=== PATIENT | female | born 1940 | race Caucasian/White ===

== ENCOUNTER 2019-09-07 07:28 | Outpatient (CLI) | payer MEDICARE | END 2019-09-07 07:29 | disposition EMS.NT | LOC: EMS 07:28 | PROVIDERS: ATTEND Surgery | DX: R07.81 Pleurodynia (principal) ==

== ENCOUNTER 2021-07-10 10:50 | Outpatient (CLI) | payer MEDICARE, OTHER ==
--- NOTE | 2021-07-10 15:53 | DEXA Report ---
PROCEDURE: Dexa Spine and/or Hip INDICATIONS: POST MENOPAUSAL TECHNIQUE: Dual energy x-ray absorptiometry (DXA) was performed on a [employer] System. Regions measur ed are the AP Spine, femoral neck, and if needed forearm. COMPARISON: None. FINDINGS: Lumbar Spine: Bone Mineral Density 1.479 g/cm/cm,T score 2.5, normal Left Hip: Bone Mineral Density 1.064 g/cm/cm,T score 0.4, normal Left Femoral Neck: Bone Mineral Density 0.999 g/cm/cm, T score -0.3, normal (T score greater or equal to -1.0: NORMAL) (T score from -1.1 to -2.4: OSTEOPENIA) (T score less than or equal to -2.5 to: OSTEOPOROSIS) Impression: Normal bone mineral density. Patients with diagnosis of osteoporosis or osteopenia should have regular bone mineral density assess ment. For those eligible for Medicare, routine testing is allowed once every 2 years. Testing frequ ency can be increased for patients who have rapidly progressing disease or for those who are receivin g medical therapy to restore bone mass. Reviewed by: Citlalli Ramirez MD on 07/10/2021 3:52 PM PDT Approved by: Citlalli Ramirez MD on 07/10/2021 3:52 PM PDT Station ID: [id number]
== END 2021-07-10 10:51 | disposition home or self-care (01) ==
LOC: DI 10:50
PROVIDERS: ATTEND Internal Medicine
DX: Z78.0 Asymptomatic menopausal state (principal); N95.8 Other specified menopausal and perimenopausal disorders

== ENCOUNTER 2021-12-28 08:28 | Outpatient (CLI) | payer MEDICARE, OTHER | END 2021-12-28 08:29 | disposition critical access hospital (66) | LOC: EMS 08:28 | DX: K62.5 Hemorrhage of anus and rectum (principal); R53.1 Weakness; R10.9 Unspecified abdominal pain | CPT/HCPCS: A0425; A0429 ==

== ENCOUNTER 2022-05-16 09:54 | Outpatient (CLI) | payer MEDICARE, OTHER ==
[2022-05-16] MEDS ORDERED: iohexoL-300 100 ML VIAL ONE (09:59)
[2022-05-16] MEDS ORDERED: DIATRIZOATE MEGLU/DIATRIZO SOD 30 ML BOTTLE PO ONE ×2 (09:59→11:26)
[2022-05-16] MEDS ORDERED: iohexoL-300 100 ML VIAL IVP ONE (11:26)
--- NOTE | 2022-05-16 12:09 | CT Report ---
PROCEDURE: ABDOMEN/PELVIS W INDICATIONS: MESENTERIC LYMPHADENITIS CONTRAST: 100ml omni 300 TECHNIQUE: After the administration of IV and oral contrast, 5 mm thick sections acquired from the diaphragms to the symphysis. 5 mm thick coronal and sagittal reformats were acquired. For radiation dose reducti on, the following was used: automated exposure control, adjustment of mA and/or kV according to priscilla ent size. COMPARISON: 12/28/2021 FINDINGS: Image quality: Good Lower chest: Basal scarring/atelectasis. Small hiatal hernia with suspected esophageal reflux. Tran ry artery calcifications. Mitral annular calcifications. Solid organs: Possible hepatic steatosis. Liver is otherwise unremarkable. Gallbladder is absent. No pathologic dilation of the pancreatic duct or biliary duct. No splenomegaly. No adrenal nodules. No h ydronephrosis. Vessels and lymph nodes: No abdominal aortic aneurysm. Mesenteric, retroperitoneal and upper abdomina l lymphadenopathy. Index portacaval node is larger measuring 2.2 cm in short axis previously 1.3 cm. Mesenteric and retroperitoneal nodes are also larger. Bowel and peritoneum: No bowel obstruction. No pathologic ascites. Body wall: Unremarkable Pelvis: Hysterectomy. Bladder is unremarkable. Bones: Degenerative changes without acute or suspicious osseous finding. IMPRESSION: Enlarged retroperitoneal, mesenteric, and upper abdominal lymphadenopathy suspicious for neoplasm. Co nsider PET/CT and/or tissue sampling. Other findings as above Reviewed by: Andrae Lan MD on 05/16/2022 12:08 PM PST Approved by: Andrea Lan MD on 05/16/2022 12:08 PM PST Station ID: [id number]
== END 2022-05-16 09:55 | disposition home or self-care (01) ==
LOC: DI 09:54
PROVIDERS: ATTEND Internal Medicine
DX: R59.0 Localized enlarged lymph nodes (principal)
CPT/HCPCS: 74177; Q9963; Q9967

== ENCOUNTER 2022-07-07 11:03 | Outpatient (CLI) | payer MEDICARE, OTHER ==
[2022-07-07] MEDS ORDERED: iohexoL-300 100 ML VIAL ONE (11:09)
[2022-07-07] MEDS ORDERED: iohexoL-300 100 ML VIAL IVP ONE (11:38)
--- NOTE | 2022-07-07 13:45 | CT Report ---
PROCEDURE: CHEST W INDICATIONS: ENLARGING MESENTERIC LYMPHADENOPATHY CONTRAST:100ml Omnipaque 300 TECHNIQUE: After the administration of intravenous contrast, 1 mm axial images were acquired from the pulmonary apices through the posterior costophrenic angles. Axial 5 mm soft tissue kernel reconstructions were performed as well as 8 mm axial MIP and coronal and sagittal 5 mm reformations. For radiation dose reduction, the following was used: automated exposure control, adjustment of mA and/or kV according to patient size. COMPARISON: CT 05/16/2022 FINDINGS: Image quality: Excellent. Lungs and pleura: No suspicious nodules which require follow up. No pleural effusions. No pneumothora x. Triangular shape, juxtapleural nodule in the superior left lower lobe, appearance favors benign in trapulmonary lymph node. 2 mm solid nodule, within a subsegmental airway in the right middle lobe, pr esumably a focus of mucus impaction (4/184). Mediastinum: Heart size is normal. No pericardial effusions. No large vessel abnormality. A couple of enlarged paraesophageal lymph nodes, including the 1.2 cm short axis node (/), and 1.9 cm short a xis node (3/34). Chest wall and lower neck: No thyroid nodule which requires sonographic follow up. No axillary or sup raclavicular adenopathy by size. Bones: No aggressive osseous abnormality. Upper Abdomen: Retroperitoneal, gastrohepatic and central mesenteric adenopathy. IMPRESSION: 1.Paraesophageal lymphadenopathy. No supraclavicular adenopathy visualized. 2.Similar retroperitoneal, gastrohepatic and central mesenteric adenopathy. Reviewed by: Sanchez Hayes on 07/07/2022 12:12 PM PDT Approved by: Sanchez Hayes on 07/07/2022 12:12 PM PDT Station ID: [id number]
--- NOTE | 2022-07-07 16:26 | CT Report ---
PROCEDURE: SOFT TISSUE NECK W INDICATIONS: ENLARGING MESENTERIC LYMPHADENOPATHY CONTRAST: 100ml Omnipaque 300 TECHNIQUE: After the administration of intravenous contrast, 3.0 mm axial sections acquired from the sella to th e aortic arch. Additional oblique axial 3.0 mm sections acquired through the pharynx. 3 mm thick co mary anne reformats were generated. For radiation dose reduction, the following was used: automated exp osure control, adjustment of mA and/or kV according to patient size. COMPARISON: CT abdomen and pelvis dated 05/16/2022, CT chest dated 07/07/2022. FINDINGS: Image quality: Excellent. Lymph nodes: No enlarged lymph nodes seen throughout the neck. Vessels: Visualized vasculature appears patent. Neck spaces: The oropharynx, nasopharynx, and pharynx demonstrate no mucosal lesions. The vocal cor ds, false vocal cords, pyriform sinuses, epiglottis, vallecula, and tongue base all appear normal. E xtramucosal spaces appear unremarkable. Glands: The parotid and submandibular glands appear normal. The thyroid is normal in size and there are no incidental findings. Miscellaneous: Visualized brain and orbits appear normal. Lung apices appear clear. Superficial so ft tissues appear normal. Bones: No suspicious bony lesions. Visualized sinuses and mastoids appear unremarkable. IMPRESSION: 1. No cervical adenopathy. No target for biopsy in the neck. Comment: Although somewhat challenging, on the prior CT of the abdomen and pelvis dated 05/16/2022, a l eft periaortic lymph node would potentially be amenable to CT-guided biopsy on prior image 39/4. Anot her left periaortic lymph node would be amenable to biopsy on image 44/4. CLINICAL RECOMMENDATION STATEMENTS: In patients <35 years with an ITN detected on CT, MRI, or extrathyroidal ultrasound, the Committee re commends further evaluation with dedicated thyroid ultrasound if the nodule is "e1 cm and has no susp icious imaging features, and if the patient has normal life expectancy. In patients "e35 years with an ITN detected on CT, MRI, or extrathyroidal ultrasound, the Committee r ecommends further evaluation with dedicated thyroid ultrasound if the nodule is "e1.5 cm and has no s uspicious imaging features, and if the patient has normal life expectancy. (ACR, 2014) Reviewed by: Campbell Phelps MD on 07/07/2022 4:25 PM PDT Approved by: Campbell Phelps MD on 07/07/2022 4:25 PM PDT Station ID: [id number]
== END 2022-07-07 11:04 | disposition home or self-care (01) ==
LOC: DI 11:03
PROVIDERS: ATTEND Internal Medicine
DX: R59.0 Localized enlarged lymph nodes (principal); R93.89 Abnormal findings on diagnostic imaging of other specified body structures
CPT/HCPCS: 70491; 71260; Q9967

== ENCOUNTER 2022-07-11 08:35 | Emergency (ER) | payer MEDICARE, OTHER ==
--- NOTE | 2022-07-11 09:15 | ED Physician Documentation ---
PD HPI ABD PAIN - Stated complaint Stated Complaint: ABD PX - Chief complaint Chief Complaint: Abd Pain - History obtained from History obtained from: Patient - History of Present Illness Timing - onset: How many days ago (she has had abd pain since last December, when seen in ER and Dx with adenopathy by CT of abdomen. She has been to PMD to get further imaging done outpt, and now awaiting a reverral to Oncology, once a biopsy has been obtained.) Timing - duration: Months (since last December and has continued with attempts to get further workup. Had CT chest and neck recently to eval for biopsy sites for other nodes. The most promising site per Radiologist is in abs near aorta.) Timing - details: Gradual onset, Waxing and waning Quality: Cramping, Aching Location: Periumbilical, Suprapubic Radiation: No: Chest, Lower back Improved by: No: Eating, BM Worsened by: No: Eating Associated symptoms: No: Fever, Nausea, Vomiting, Diarrhea, Constipation (had had some firm stools but took laxative and miralax and had large bowel movement yesterday but not changed in the abd cramping.) Similar symptoms before: Diagnosis (has multiple abd adenopathy and some in chest c/w likely lymphoma/cancerous tumor. Has been causing pains in abd awhile, since last fall around when first diagnosed.) Review of Systems Constitutional: reports: Myalgias, Fatigue, Weight Loss. denies: Fever, Chills Nose: denies: Rhinorrhea / runny nose, Congestion Throat: denies: Sore throat Cardiac: denies: Chest pain / pressure, Palpitations Respiratory: denies: Dyspnea, Cough GI: denies: Abdominal Pain, Vomiting : denies: Dysuria, Frequency Skin: denies: Rash Neurologic: reports: Generalized weakness PD PAST MEDICAL HISTORY - Past Medical History Cardiovascular: Hypertension, High cholesterol Respiratory: Asthma Endocrine/Autoimmune: Type 2 diabetes GI: GERD SPECIAL EDUCATION [employer]ER: None : None Psych: None Musculoskeletal: None - Past Surgical History Past Surgical History: Yes General: Cholecystectomy, Gastric surgery /[employer]ER: Hysterectomy - Present Medications Home Medications: Ambulatory Orders Medication Instructions Recorded Confirmed Aspirin Chewable [[place] Lenin 81 mg PO DAILY 12/28/21 12/28/21 Aspirin] Azithromycin [Zithromax] 2 tab PO DAILY #4 tab 12/28/21 Omeprazole 20 mg PO DAILY 12/28/21 12/28/21 Oxybutynin [Ditropan] 5 mg PO DAILY 12/28/21 12/28/21 Simvastatin [Zocor] 10 mg PO DAILY 12/28/21 12/28/21 lisinopriL [Lisinopril] 5 mg PO DAILY 12/28/21 12/28/21 metFORMIN [Glucophage] 500 mg PO BIDWM 12/28/21 12/28/21 Dicyclomine [Bentyl] 10 mg PO BID PRN 10 Days #20 cap 07/11/22 Docusate Sodium 100Mg Capsule 100 mg PO DAILY #20 cap 07/11/22 [Colace 100Mg Capsule] Meloxicam [Mobic] 7.5 mg PO BID 10 Days #20 tablet 07/11/22 - Allergies Allergies/Adverse Reactions: Allergies Allergy/AdvReac Type Severity Reaction Status Date / Time clindamycin Allergy Unknown Verified 07/11/22 09:11 Penicillins Allergy Unknown Verified 07/11/22 09:11 Sulfa (Sulfonamide Allergy Unknown Verified 07/11/22 09:11 Antibiotics) - Social History Does the pt smoke?: No Smoking Status: Never smoker Does the pt drink ETOH?: Yes Does the pt have substance abuse?: No - Immunizations Immunizations are current?: Yes PD ED PE NORMAL - Vitals Vital signs reviewed: Yes - General General: Alert and oriented X 3, No acute distress, Well developed/nourished - Neck Neck: Supple, no meningeal sign, No adenopathy - Cardiac Cardiac: RRR, No murmur - Respiratory Respiratory: Clear bilaterally - Abdomen Abdomen: Soft, Non tender - Derm Derm: Normal color, Warm and dry - Neuro Neuro: Alert and oriented X 3, No motor deficit, No sensory deficit, Normal speech Results - Vitals Vitals: Vital Signs - 24 hr 07/11/22 07/11/22 07/11/22 09:08 10:30 12:00 Temperature 36.2 C L Heart Rate 78 68 58 L Respiratory 18 16 16 Rate Blood Pressure 96/76 137/63 H 140/64 H O2 Saturation 100 97 100 Oxygen O2 Source Room air - Labs Labs: Laboratory Tests 07/11/22 07/11/22 07/11/22 09:27 09:27 11:57 WBC 13.0 H RBC 4.95 Hgb 14.6 Hct 45.0 MCV 90.9 MCH 29.5 MCHC 32.4 RDW 12.6 Plt Count 416 MPV 11.5 H Neut # (Auto) 9.6 H Lymph # (Auto) 1.6 Mcleod # (Auto) 1.3 H Eos # (Auto) 0.4 Baso # (Auto) 0.1 Absolute Nucleated RBC 0.00 Nucleated RBC % 0.0 Sodium 140 Potassium 4.3 Chloride 104 Carbon Dioxide 28 Anion Gap 8.0 BUN 16 Creatinine 0.8 Estimated GFR (MDRD) 69 L Glucose 164 H Calcium 9.4 Total Bilirubin 0.5 AST 20 ALT 12 Alkaline Phosphatase 74 Total Protein 7.0 Albumin 3.9 Globulin 3.1 Albumin/Globulin Ratio 1.3 Lipase 27 Urine Color YELLOW Urine Clarity CLEAR Urine pH 6.0 Ur Specific [place] 1.020 Urine Protein NEGATIVE Urine Glucose (UA) NEGATIVE Urine Ketones NEGATIVE Urine Occult Blood NEGATIVE Urine Nitrite NEGATIVE Urine Bilirubin NEGATIVE Urine Urobilinogen 0.2 (NORMAL) Ur Leukocyte Esterase NEGATIVE Ur Microscopic Review NOT INDICATED Urine Culture Comments NOT INDICATED PD Medical Decision Making - ED course Complexity details: reviewed old records (I reviewed the prior CT reports from diagnostic imaging of the abdomen chest and neck done over the last month as well as the prior ER visit from last December.), considered differential (has had pain from adenopathy in abd/chest. Has had repeated ct scans. She does not have disstension, repetitive vomiting, blody stools, dysuria.) Departure - Departure Disposition: 01 Home, Self Care Clinical Impression: Bilateral lower abdominal cramping Condition: Stable Record reviewed to determine appropriate education?: Yes Instructions: ED Abdominal Pain Female Non-Specific Abdominal Pain Follow-Up: Lázaro Reyes MD [Primary Care Provider] - Prescriptions: Dicyclomine [Bentyl] 10 mg PO BID PRN 10 Days #20 cap PRN Reason: Abdominal Pain Docusate Sodium 100Mg Capsule [Colace 100Mg Capsule] 100 mg PO DAILY #20 cap Meloxicam [Mobic] 7.5 mg PO BID 10 Days #20 tablet Comments: Your urine sample appears normal without any signs of bladder infection. The bladder scanner does not show any notable urinary retention. He does not seem to be urinary tract cause of your symptoms. I presume you are having some intestinal cramping and mesenteric pain related to the lymph nodes that you have been developing. Your exam does not suggest an obstruction or more significant process at this time. Our shared decision was to not undergo another CT scan but to treat empirically for presumed intestinal spasms and some inflammation related to the lymphadenopathy. I printed out copies of your CT report from the recent neck and chest. In there they did describe the sentiments that your abdominal CT scan previously done showed a couple of lymph nodes that would be amenable to percutaneous needle biopsy. Contact with Dr. Reyes office and discuss with the provider or their nurse this idea and see if you would place a referral to the interventional radiology to obtain a biopsy so you can get further along in the treatment plan. At this point I would suggest some regular anti-inflammatory. I would try meloxicam twice daily with food as its longer lasting and can be taken just twice daily. Also try an antispasmodic called dicyclomine if you having cramping type pains. To that add Tylenol every 4-6 hours if needed for pain or your pain feels that you have if needed for worse pain. Use a daily stool softener such as docusate. You could also add in some fiber like Metamucil. I sent your prescriptions to your preferred pharmacy, [facility]. Follow-up with Dr. Reyes's office about further referrals for biopsy. Discharge Date/Time: 07/11/22 12:53
[2022-07-11] MEDS ORDERED: HYDROmorphone 0.5 MG/0.5 ML SYRINGE IVP STA (09:49)
[2022-07-11] MEDS ORDERED: SODIUM CHLORIDE 0.9% 1,000 ML IV STA (09:49)
[2022-07-11] MEDS ORDERED: ONDANSETRON 4 MG/2 ML VIAL IVP STA (09:49)
[2022-07-11] MEDS ORDERED: KETOROLAC 15 MG/ML VIAL IVP STA (09:49)
[2022-07-11 10:01] LABS: BASOPHILS # (AUTO) 0.1 10^3/uL (0.0-0.1); BASOPHILS % (AUTO) 0.8 %; EOSINOPHILS # (AUTO) 0.4 10^3/uL (0.0-0.7); EOSINOPHILS % (AUTO) 3.4 %; HGB - HEMOGLOBIN 14.6 g/dL (12.0-16.0); LYMPHOCYTES # (AUTO) 1.6 10^3/uL (1.5-3.5); LYMPHOCYTES % (AUTO) 11.9 %; MEAN CORPUSCULAR HEMOGLOBIN 29.5 pg (27.0-31.0); MEAN CORPUSCULAR HGB CONC 32.4 g/dL (32.0-36.0); MEAN CORPUSCULAR VOLUME 90.9 fL (81.0-99.0); MEAN PLATELET VOLUME 11.5 fL (7.9-10.8); MONOCYTES # (AUTO) 1.3 10^3/uL (0.0-1.0); MONOCYTES % (AUTO) 9.6 %; NEUTROPHILS # (AUTO) 9.6 10^3/uL (1.5-6.6); PLT - PLATELET COUNT 416 10^3/uL (130-450); RED BLOOD COUNT 4.95 10^6/uL (4.20-5.40); RED CELL DISTRIBUTION WIDTH 12.6 % (12.0-15.0)
[2022-07-11 10:10] LABS: ALBUMIN 3.9 g/dL (3.2-5.5); ALBUMIN/GLOBULIN RATIO 1.3 (1.0-2.2); BILIRUBIN,TOTAL 0.5 mg/dL (0.2-1.0); CALCIUM 9.4 mg/dL (8.5-10.3); CREATININE 0.8 mg/dL (0.4-1.0); POTASSIUM 4.3 mmol/L (3.5-5.0)
--- OUTSIDE RECORDS SUMMARY | 2022-07-11 10:24 | EXTERNAL MEDICAL SUMMARY RPT | Continuity of Care Document ---
:1940 Author Organization [facility] Address [address] [place] [address] Phone Care Team Providers Name Role Phone Unavailable Unavailable Unavailable Ian Amato Unavailable Unavailable Allergies and Intolerances date description facility type (no date) Penicillins Located Within [facility] (unknown) (no date) Sulfa (Sulfonamide Antibiotics) [facility] (unknown) (no date) clindamycin Located Within [facility] (unknown) Encounters No information. Functional Status No information. Immunizations No information. Medications date description facility 2022-06-24 00:00 Ondansetron Located Within [facility] 2022-06-24 00:00 [facility] Problems date description facility 2022-06-24 00:00 Hiatal hernia Located [facility] 2022-06-24 00:00 Intra-abdominal lymphadenopathy Located [facility] Procedures date description facility 2022-06-24 00:00 CT abdomen pelvis w con [facility] Results/Labs test date author facility value unit interpret ation Result panel 1 (unknown) (no date[facility] ([facility] Result panel 2 (unknown) (no date) (unknown[facility]) Result panel 3 (unknown) (no date) (unknown[facility]) Result panel 4 (unknown) (no date) (unknown[facility]) Result panel 5 (unknown) (no date) (unknown[facility]) Result panel 6 (unknown) (no date) (unknown[facility]) Result panel 7 (unknown) (no date) (unknown[facility]) Result panel 8 (unknown) (no date) (unknown[facility]) Result panel 9 (unknown) (no date) (unknown[facility]) Result panel 10 (unknown) (no date) (unknown[facility]) Result panel 11 (unknown) (no date) (unknown[facility]) Result panel 12 (unknown) (no date) (unknown[facility]) Result panel 13 (unknown) (no date) (unknown[facility]) Result panel 14 (unknown) (no date) (unknown[facility]) Result panel 15 (unknown) (no date) (unknown[facility]) Result panel 16 (unknown) (no date) (unknown[facility]) Result panel 17 (unknown) (no date) (unknown[facility]) Result panel 18 (unknown) (no date) (unknown[facility]) Result panel 19 (unknown) (no date) (unknown[facility]) Result panel 20 (unknown) (no date) (unknown[facility]) Result panel 21 (unknown) (no date) (unknown[facility]) Result panel 22 (unknown) (no date) (unknown[facility]) Result panel 23 (unknown) (no date) (unknown[facility]) Result panel 24 (unknown) (no date) (unknown[facility]) Result panel 25 (unknown) (no date) (unknown[facility]) Result panel 26 (unknown) (no date) (unknown[facility]) Result panel 27 (unknown) (no date) (unknown[facility]) Result panel 28 (unknown) (no date) (unknown[facility]) Result panel 29 (unknown) (no date) (unknown[facility]) Result panel 30 (unknown) (no date) (unknown[facility]) Result panel 31 (unknown) (no date) (unknown[facility]) Result panel 32 (unknown) (no date) (unknown[facility]) Result panel 33 (unknown) (no date) (unknown[facility]) Result panel 34 (unknown) (no date) (unknown[facility]) Result panel 35 (unknown) (no date) (unknown[facility]) Result panel 36 (unknown) (no date) (unknown[facility]) Result panel 37 (unknown) (no date) (unknown[facility]) Result panel 38 (unknown) (no date) (unknown[facility]) Result panel 39 (unknown) (no date) (unknown[facility]) Result panel 40 (unknown) (no date) (unknown[facility]) Result panel 41 (unknown) (no date) (unknown[facility]) Result panel 42 (unknown) (no date) (unknown[facility]) Result panel 43 (unknown) (no date) (unknown[facility]) Result panel 44 (unknown) (no date) (unknown[facility]) Result panel 45 (unknown) (no date) (unknown[facility]) Result panel 46 (unknown) (no date) (unknown[facility]) Result panel 47 (unknown) (no date) (unknown[facility]) Result panel 48 (unknown) (no date) (unknown[facility]) Result panel 49 (unknown) (no date) (unknown[facility]) Result panel 50 (unknown) (no date) (unknown[facility]) Result panel 51 (unknown) (no date) (unknown[facility]) Result panel 52 (unknown) (no date) (unknown[facility]) Result panel 53 (unknown) (no date) (unknown) [facility]) Result panel 54 (unknown) (no date) (unknown[facility]) Result panel 55 (unknown) (no date) (unknown[facility]) Result panel 56 (unknown) (no date) (unknown[facility]) Result panel 57 (unknown) (no date) (unknown[facility]) Result panel 58 (unknown) (no date) (unknown[facility]) Result panel 59 (unknown) (no date) (unknown[facility]) Result panel 60 (unknown) (no date) (unknown[facility]) Result panel 61 (unknown) (no date) (unknown[facility]) Result panel 62 (unknown) (no date) (unknown[facility]) Result panel 63 (unknown) (no date) (unknown[facility]) Result panel 64 (unknown) (no date) (unknown[facility]) Result panel 65 (unknown) (no date) (unknown[facility]) Result panel 66 (unknown) (no date) (unknown[facility]) Result panel 67 (unknown) (no date) (unknown[facility]) Result panel 68 (unknown) (no date) (unknown[facility]) Result panel 69 (unknown) (no date) (unknown[facility]) Result panel 70 (unknown) (no date) (unknown[facility]) Result panel 71 (unknown) (no date) (unknown[facility]) Result panel 72 (unknown) (no date) (unknown[facility]) Result panel 73 (unknown) (no date) (unknown[facility]) Result panel 74 (unknown) (no (unknown) (unknown) (no value) (units (unk nown) date) unknown) (unknown) (no (unknown) (unknown) [id number] (units (unkno wn) date) unknown) (unknown) (no (unknown) (unknown) 06/24/22 (units (unkno wn) date) unknown) (unknown) (no (unknown) (unknown) 10.7 cm. Enlarged (units (unknown) date) periportal/peripan unknown) creatic nodes are present the largest (unknown) (no (unknown) (unknown) [address] (units (unknown) date) unknown) (unknown) (no (unknown) (unknown) 2.3 cm on series (units (unknown) date) 2, image 38. There unknown) is a more confluent mass anteriorly (unknown) (no (unknown) (unknown) ABDOMEN: (units (unkno wn) date) unknown) (unknown) (no (unknown) (unknown) Abdominal Nodes: (units (unknown) date) There is extensive unknown) focal and confluent adenopathy in the (unknown) (no (unknown) (unknown) Accession Number: (units (unknown) date) [id number] unknown) (unknown) (no (unknown) (unknown) Adrenal Glands: (units (unknown) date) Unremarkable. unknown) (unknown) (no (unknown) (unknown) After the (units (unkn own) date) administration of unknown) oral and IV contrast, axial sections were acquired (unknown) (no (unknown) (unknown) Age/Sex: 82 / F (units (unknown) date) Date of Service: unknown) (unknown) (no (unknown) (unknown) [place], [place] (units ( unknown) date) [id number] unknown) (unknown) (no (unknown) (unknown) Approved by: (units (u nknown) date) Citlalli Ramirez M.D. unknown) on 06/24/2022 at 10:26 (unknown) (no (unknown) (unknown) Biliary ducts: (units (unknown) date) Unremarkable. unknown) (unknown) (no (unknown) (unknown) Bladder: (units (unkno wn) date) Unremarkable. unknown) (unknown) (no (unknown) (unknown) Bones: (units (unkno wn) date) Unremarkable. unknown) (unknown) (no (unknown) (unknown) COMPARISON: None. (units (unknown) date) unknown) (unknown) (no (unknown) (unknown) CT Scan Report (units (unknown) date) unknown) (unknown) (no (unknown) (unknown) : 1940 (units (unknown) date) Acct:[id number] unknown) (unknown) (no (unknown) (unknown) Dictated by: (units (u nknown) date) Citlalli Ramirez M.D. unknown) on 06/24/2022 at 10:22 (unknown) (no (unknown) (unknown) Extensive (units (unkn own) date) interval primarily unknown) abdominal adenopathy as described above. Overall (unknown) (no (unknown) (unknown) FINDINGS: (units (unkn own) date) unknown) (unknown) (no (unknown) (unknown) Gallbladder: (units (u nknown) date) Removed. unknown) (unknown) (no (unknown) (unknown) Heart: No (units (unkn own) date) significant unknown) findings. (unknown) (no (unknown) (unknown) Hiatal (units (unkno wn) date) unknown) (unknown) (no (unknown) (unknown) IMPRESSION: (units (un known) date) unknown) (unknown) (no (unknown) (unknown) INDICATIONS: IV (units (unknown) date) contrast unknown) only/generalized abdominal pain (unknown) (no (unknown) (unknown) Iliac node is (units ( unknown) date) present measuring unknown) 7 mm on series 2, image 56. (unknown) (no (unknown) (unknown) Image quality: (units (unknown) date) Excellent. unknown) (unknown) (no (unknown) (unknown) Located Within [facility] (units (unknown) date) unknown) (unknown) (no (unknown) (unknown) Kidneys and (units (un known) date) Ureters: unknown) Unremarkable. (unknown) (no (unknown) (unknown) Liver: Hepatic (units (unknown) date) steatosis is unknown) present. (unknown) (no (unknown) (unknown) Loc: ED (units (unkno wn) date) unknown) (unknown) (no (unknown) (unknown) Lung bases: (units (un known) date) Unremarkable. unknown) (unknown) (no (unknown) (unknown) Miscellaneous: No (units (unknown) date) inguinal hernias unknown) are seen. (unknown) (no (unknown) (unknown) Ordering (units (unkno wn) date) Provider: unknown) Gregor Hernandez MD (unknown) (no (unknown) (unknown) PELVIS: (units (unkno wn) date) unknown) (unknown) (no (unknown) (unknown) PROCEDURE: CT (units ( unknown) date) ABDOMEN PELVIS W unknown) CON (unknown) (no (unknown) (unknown) Pancreas: (units (unkn own) date) Unremarkable. unknown) (unknown) (no (unknown) (unknown) Patient: (units (unkno wn) date) Stephan Weinberg unknown) MR#: [id number] (unknown) (no (unknown) (unknown) Pelvic Nodes: No (units (unknown) date) enlarged lymph unknown) nodes. (unknown) (no (unknown) (unknown) Pelvic Organs: (units (unknown) date) Unremarkable. unknown) (unknown) (no (unknown) (unknown) Peritoneum: No (units (unknown) date) abnormal unknown) intraperitoneal fluid. No free air. (unknown) (no (unknown) (unknown) Procedure: CT (units ( unknown) date) abdomen pelvis w unknown) con (unknown) (no (unknown) (unknown) Signed (units (unkno wn) date) unknown) (unknown) (no (unknown) (unknown) Spleen: (units (unkno wn) date) Unremarkable. unknown) (unknown) (no (unknown) (unknown) Stomach and (units (un known) date) Bowel: Stomach, unknown) small bowel loops, and colon are unremarkable. (unknown) (no (unknown) (unknown) TECHNIQUE: (units (unk nown) date) unknown) (unknown) (no (unknown) (unknown) Ventral Wall: No (units (unknown) date) hernia. unknown) (unknown) (no (unknown) (unknown) Vessels: Aorta (units (unknown) date) and inferior vena unknown) cava are normal in size. (unknown) (no (unknown) (unknown) abdomen with the (units (unknown) date) largest confluent unknown) focus measuring 7.3 x 6.4 cm on series 2, (unknown) (no (unknown) (unknown) adjustment (units (unk nown) date) unknown) (unknown) (no (unknown) (unknown) aortic caval (units (u nknown) date) region. The large unknown) lymph node is in the left para aortic location (unknown) (no (unknown) (unknown) appearance (units (unk nown) date) unknown) (unknown) (no (unknown) (unknown) cm on series 2, (units (unknown) date) image 28. unknown) Scattered lymph nodes/masses are present within the (unknown) (no (unknown) (unknown) from the (units (unkno wn) date) unknown) (unknown) (no (unknown) (unknown) hernia is (units (unkn own) date) present. unknown) (unknown) (no (unknown) (unknown) image 53. (units (unkn own) date) unknown) (unknown) (no (unknown) (unknown) is highly (units (unkn own) date) suggestive of unknown) malignancy including lymphoma. (unknown) (no (unknown) (unknown) lower (units (unkno wn) date) unknown) (unknown) (no (unknown) (unknown) lung bases to the (units (unknown) date) pubic symphysis. unknown) Coronal and sagittal reformats were (unknown) (no (unknown) (unknown) measuring 2.7 (units ( unknown) date) unknown) (unknown) (no (unknown) (unknown) measuring 5.9 x (units (unknown) date) unknown) (unknown) (no (unknown) (unknown) measuring (units (unkn own) date) unknown) (unknown) (no (unknown) (unknown) of mA and/or kV (units (unknown) date) according to unknown) patient size. (unknown) (no (unknown) (unknown) performed. For (units (unknown) date) unknown) (unknown) (no (unknown) (unknown) periaortic and (units (unknown) date) unknown) (unknown) (no (unknown) (unknown) radiation dose (units (unknown) date) reduction, the unknown) following was used: automated exposure control, Result panel 75 (unknown) (no date) (unknown) (unknown) 0.6 % (unkn own) (unknown) (no date) (unknown) (unknown) 10.3 % (unkn own) (unknown) (no date) (unknown) (unknown) 100 /ul (unkn own) (unknown) (no date) (unknown) (unknown) [id number] /ul (unkn own) (unknown) (no date) (unknown) (unknown) 13.0 x10 3/ul (unkn own) (unknown) (no date) (unknown) (unknown) 13.2 % (unkn own) (unknown) (no date) (unknown) (unknown) 13.9 g/dl (unkn own) (unknown) (no date) (unknown) (unknown) 1300 /ul (unkn own) (unknown) (no date) (unknown) (unknown) 1300 /ul (unkn own) (unknown) (no date) (unknown) (unknown) 2.8 % (unkn own) (unknown) (no date) (unknown) (unknown) 263 x10 3/ul (unkn own) (unknown) (no date) (unknown) (unknown) 29.9 pg (unkn own) (unknown) (no date) (unknown) (unknown) 33.7 % (unkn own) (unknown) (no date) (unknown) (unknown) 4.66 x10 6/ul (unkn own) (unknown) (no date) (unknown) (unknown) 400 /ul (unkn own) (unknown) (no date) (unknown) (unknown) 41.2 % (unkn own) (unknown) (no date) (unknown) (unknown) 76.7 % (unkn own) (unknown) (no date) (unknown) (unknown) 88.6 fl (unkn own) (unknown) (no date) (unknown) (unknown) 9.6 % (unkn own) Result panel 76 (unknown) (no (unknown) (unknown) (no value) (units (unk nown) date) unknown) (unknown) (no (unknown) (unknown) 0.5 mg PO DAILY (units (unknown) date) unknown) (unknown) (no (unknown) (unknown) 06/24/22 09:00 (units (unknown) date) unknown) (unknown) (no (unknown) (unknown) 06/24/22 09:13 (units (unknown) date) unknown) (unknown) (no (unknown) (unknown) 06/24/22 (units (unkno wn) date) unknown) (unknown) (no (unknown) (unknown) 09:00 (units (unkno wn) date) unknown) (unknown) (no (unknown) (unknown) 10 mg PO DAILY (units (unknown) date) unknown) (unknown) (no (unknown) (unknown) 20 mg PO DAILY (units (unknown) date) unknown) (unknown) (no (unknown) (unknown) [id number] (units (unkno wn) date) unknown) (unknown) (no (unknown) (unknown) 5 mg PO DAILY (units ( unknown) date) Qty: 30 0RF unknown) (unknown) (no (unknown) (unknown) 5 mg PO DAILY (units ( unknown) date) unknown) (unknown) (no (unknown) (unknown) 500 mg PO DAILY (units (unknown) date) Qty: 30 0RF unknown) (unknown) (no (unknown) (unknown) After history and (units (unknown) date) exam CBC CMP unknown) urinalysis lipase CT abdomen pelvis IV fluids (unknown) (no (unknown) (unknown) Age/Sex: 82 / F (units (unknown) date) unknown) (unknown) (no (unknown) (unknown) Alcohol type: (units ( unknown) date) wine unknown) (unknown) (no (unknown) (unknown) Allergies (units (unkn own) date) unknown) (unknown) (no (unknown) (unknown) Allergy/AdvReac (units (unknown) date) Type Severity unknown) Reaction Status Date / Time (unknown) (no (unknown) (unknown) Antibiotics) (units (u nknown) date) unknown) (unknown) (no (unknown) (unknown) BACK: No flank (units (unknown) date) tenderness. unknown) (unknown) (no (unknown) (unknown) Blood Pressure (units (unknown) date) 167/85 H 06/24/22 unknown) 09:00 (unknown) (no (unknown) (unknown) Blood Pressure (units (unknown) date) 167/85 H unknown) (unknown) (no (unknown) (unknown) CARDIOVASCULAR: (units (unknown) date) Regular rate and unknown) rhythm without murmurs (unknown) (no (unknown) (unknown) CARDIOVASCULAR: (units (unknown) date) negative chest unknown) pain, palpitations (unknown) (no (unknown) (unknown) CC: Abdominal (units ( unknown) date) pain unknown) (unknown) (no (unknown) (unknown) CT abdomen pelvis (units (unknown) date) w con Stat unknown) (unknown) (no (unknown) (unknown) Chief Complaint: (units (unknown) date) Abdominal Pain unknown) (unknown) (no (unknown) (unknown) Complete Blood (units (unknown) date) Count AUTO DIFF unknown) Stat (unknown) (no (unknown) (unknown) Complicating (units (u nknown) date) co-morbidities: unknown) History of hiatal hernia, cholecystectomy, (unknown) (no (unknown) (unknown) Comprehensive (units ( unknown) date) Metabolic Panel unknown) Stat (unknown) (no (unknown) (unknown) Consultations: (units (unknown) date) unknown) (unknown) (no (unknown) (unknown) Course (units (unkno wn) date) unknown) (unknown) (no (unknown) (unknown) : 1940 (units (unknown) date) Acct:[id number] unknown) (unknown) (no (unknown) (unknown) Data collected (units (unknown) date) from: Patient unknown) (unknown) (no (unknown) (unknown) Date of Service: (units (unknown) date) 06/24/22 unknown) (unknown) (no (unknown) (unknown) Departure (units (unkn own) date) unknown) (unknown) (no (unknown) (unknown) Diagnosis: (units (unk nown) date) unknown) (unknown) (no (unknown) (unknown) Differential (units (u nknown) date) considered: unknown) Includes but not limited to hiatal hernia gastritis (unknown) (no (unknown) (unknown) Discharge Plan (units (unknown) date) unknown) (unknown) (no (unknown) (unknown) Discussion: (units (un known) date) unknown) (unknown) (no (unknown) (unknown) Dr. Page. (units (u nknown) date) There was unknown) discussion about having EGD as well but was instructed (unknown) (no (unknown) (unknown) ED Orders (units (unkn own) date) unknown) (unknown) (no (unknown) (unknown) ENT: Mucous (units (un known) date) membranes moist. unknown) (unknown) (no (unknown) (unknown) ER Physician: (units ( unknown) date) Gregor Hernadnez MD unknown) (unknown) (no (unknown) (unknown) EXTREMITIES: No (units (unknown) date) gross deformities. unknown) (unknown) (no (unknown) (unknown) EYES: Pupils (units (u nknown) date) equal round unknown) (unknown) (no (unknown) (unknown) Emergency Report (units (unknown) date) unknown) (unknown) (no (unknown) (unknown) Exam Narrative: (units (unknown) date) unknown) (unknown) (no (unknown) (unknown) Exam documented (units (unknown) date) above, pertinent unknown) findings include: Reproducible suprapubic and (unknown) (no (unknown) (unknown) Exam (units (unkno wn) date) unknown) (unknown) (no (unknown) (unknown) Lázaro Reyes (units (unk nown) date) MD Can unknown) [Primary Care Provider] (unknown) (no (unknown) (unknown) GASTROINTESTINAL: (units (unknown) date) Abdomen soft, unknown) reproducible epigastric and suprapubic (unknown) (no (unknown) (unknown) GASTROINTESTINAL: (units (unknown) date) Positive nausea, unknown) negative vomiting, positive abdominal pain (unknown) (no (unknown) (unknown) GENERAL: in no (units (unknown) date) distress, not unknown) toxic not dyspneic (unknown) (no (unknown) (unknown) GENERAL: negative (units (unknown) date) chills, fatigue, unknown) malaise, fever, sweats. (unknown) (no (unknown) (unknown) : negative (units (u nknown) date) dysuria, unknown) frequency, hematuria (unknown) (no (unknown) (unknown) General (units (unkno wn) date) unknown) (unknown) (no (unknown) (unknown) H/O total (units (unkn own) date) hysterectomy unknown) (unknown) (no (unknown) (unknown) HEAD: (units (unkno wn) date) Normocephalic. unknown) (unknown) (no (unknown) (unknown) HEENT: negative (units (unknown) date) sinus pain, ear unknown) pain, sore throat (unknown) (no (unknown) (unknown) HPI - Abdominal (units (unknown) date) Pain unknown) (unknown) (no (unknown) (unknown) HPI narrative: (units (unknown) date) unknown) (unknown) (no (unknown) (unknown) 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 unknown) (unknown) (no (unknown) (unknown) History of (units (unk nown) date) Present Illness unknown) (unknown) (no (unknown) (unknown) Home Medications (units (unknown) date) unknown) (unknown) (no (unknown) (unknown) Hyperlipidemia (units (unknown) date) unknown) (unknown) (no (unknown) (unknown) Imaging studies (units (unknown) date) independently unknown) reviewed: (unknown) (no (unknown) (unknown) Initial Vital (units ( unknown) date) Signs unknown) (unknown) (no (unknown) (unknown) Initial Vital (units ( unknown) date) Signs: unknown) (unknown) (no (unknown) (unknown) Located Within [facility] (units (unknown) date) [address] unknown) [place] [address] (unknown) (no (unknown) (unknown) Lab Data (units (unkno wn) date) unknown) (unknown) (no (unknown) (unknown) Lab Test results (units (unknown) date) independently unknown) reviewed as above. Pertinent findings: (unknown) (no (unknown) (unknown) Lipase Stat (units (un known) date) unknown) (unknown) (no (unknown) (unknown) MDM - Abdominal (units (unknown) date) Pain unknown) (unknown) (no (unknown) (unknown) MDM Narrative (units ( unknown) date) unknown) (unknown) (no (unknown) (unknown) MDM (units (unkno wn) date) unknown) (unknown) (no (unknown) (unknown) MUSCULOSKELETAL: (units (unknown) date) negative muscle or unknown) bony pain (unknown) (no (unknown) (unknown) Medical History (units (unknown) date) (Reviewed 06/24/22 unknown) @ 09:16 by Gregor Hernandez MD) (unknown) (no (unknown) (unknown) Medical decision (units (unknown) date) making narrative: unknown) (unknown) (no (unknown) (unknown) Medical records (units (unknown) date) reviewed: unknown) Colonoscopy from March 2022 (unknown) (no (unknown) (unknown) Medication (units (unk nown) date) Instructions unknown) Recorded Confirmed (unknown) (no (unknown) (unknown) Medication (units (unk nown) date) Instructions unknown) Recorded (unknown) (no (unknown) (unknown) Mode of arrival: (units (unknown) date) Ambulatory unknown) (unknown) (no (unknown) (unknown) NECK: Trachea (units ( unknown) date) midline. unknown) (unknown) (no (unknown) (unknown) NEURO: AOx4. (units (u nknown) date) unknown) (unknown) (no (unknown) (unknown) NEUROLOGIC: (units (un known) date) negative weakness, unknown) numbness (unknown) (no (unknown) (unknown) Narrative (units (unkn own) date) unknown) (unknown) (no (unknown) (unknown) Narrative: (units (unk nown) date) unknown) (unknown) (no (unknown) (unknown) No Action (units (unkn own) date) unknown) (unknown) (no (unknown) (unknown) Ondansetron HCl (units (unknown) date) (Ondansetron 4 unknown) Mg/2 Ml Inj) 4 mg IV NOW PRN (unknown) (no (unknown) (unknown) Ordered: (units (unkno wn) date) unknown) (unknown) (no (unknown) (unknown) Orders (units (unkno wn) date) unknown) (unknown) (no (unknown) (unknown) Oxygen Delivery (units (unknown) date) Method Room Air unknown) 06/24/22 09:00 (unknown) (no (unknown) (unknown) Oxygen Delivery (units (unknown) date) Method Room Air unknown) (unknown) (no (unknown) (unknown) PRN Reason: (units (un known) date) Nausea And unknown) Vomiting (unknown) (no (unknown) (unknown) PSYCH: Not (units (unk nown) date) anxious, is unknown) cooperative (unknown) (no (unknown) (unknown) Patient Comments: (units (unknown) date) unknown) (unknown) (no (unknown) (unknown) Patient History (units (unknown) date) unknown) (unknown) (no (unknown) (unknown) Patient here (units (u nknown) date) complaints unknown) epigastric and lower abdominal pain that does not (unknown) (no (unknown) (unknown) Patient: (units (unkno wn) date) Stephan Weinberg E unknown) MR#: [id number] (unknown) (no (unknown) (unknown) Penicillins (units (un known) date) Allergy Unknown unknown) Verified 06/24/22 09:00 (unknown) (no (unknown) (unknown) Prescriptions: (units (unknown) date) unknown) (unknown) (no (unknown) (unknown) Previous Rx's (units ( unknown) date) unknown) (unknown) (no (unknown) (unknown) Pulse Oximetry 98 (units (unknown) date) 06/24/22 09:00 unknown) (unknown) (no (unknown) (unknown) Pulse Oximetry 98 (units (unknown) date) unknown) (unknown) (no (unknown) (unknown) Pulse Rate 75 (units ( unknown) date) 06/24/22 09:00 unknown) (unknown) (no (unknown) (unknown) Pulse Rate 75 (units ( unknown) date) unknown) (unknown) (no (unknown) (unknown) RESPIRATORY: Clear (units (unknown) date) to auscultation. unknown) Breath sounds equal bilaterally. No wheezes, (unknown) (no (unknown) (unknown) RESPIRATORY: (units (u nknown) date) negative dyspnea, unknown) cough (unknown) (no (unknown) (unknown) ROS Unobtainable: (units (unknown) date) All systems unknown) reviewed + are unremarkable except as noted in HPI (unknown) (no (unknown) (unknown) Re-evaluations: (units (unknown) date) unknown) (unknown) (no (unknown) (unknown) Referrals: (units (unk nown) date) unknown) (unknown) (no (unknown) (unknown) Related Data (units (u nknown) date) unknown) (unknown) (no (unknown) (unknown) Respiratory Rate (units (unknown) date) 20 06/24/22 09:00 unknown) (unknown) (no (unknown) (unknown) Respiratory Rate (units (unknown) date) 20 unknown) (unknown) (no (unknown) (unknown) Review of Systems (units (unknown) date) unknown) (unknown) (no (unknown) (unknown) S/P Nohemi (units (unk nown) date) fundoplication unknown) (with gastrostomy tube placement) (unknown) (no (unknown) (unknown) SKIN: Warm and (units (unknown) date) dry unknown) (unknown) (no (unknown) (unknown) SKIN: negative (units (unknown) date) rash, skin lesions unknown) (unknown) (no (unknown) (unknown) Nicol and has (units (unknown) date) been monitored. unknown) Had colonoscopy in the last 3 months here by (unknown) (no (unknown) (unknown) Signed By: (units (unk nown) date) unknown) (unknown) (no (unknown) (unknown) Smoking Status: (units (unknown) date) Former smoker unknown) (unknown) (no (unknown) (unknown) Social History (units (unknown) date) (Reviewed 06/24/22 unknown) @ 09:16 by Gregor Hernandez MD) (unknown) (no (unknown) (unknown) Sodium Chloride (units (unknown) date) (Normal Saline unknown) 0.9%) 500 mls @ 1,000 mls/hr IV BOLUS ONE (unknown) (no (unknown) (unknown) Source: patient (units (unknown) date) unknown) (unknown) (no (unknown) (unknown) Stated Complaint: (units (unknown) date) Upper and lower unknown) gut pain (unknown) (no (unknown) (unknown) Stop: 06/24/22 (units (unknown) date) 09:42 unknown) (unknown) (no (unknown) (unknown) Substance Use (units ( unknown) date) Type: does not use unknown) (unknown) (no (unknown) (unknown) Sulfa (units (unkno wn) date) (Sulfonamide unknown) Allergy Unknown Verified 06/24/22 09:00 (unknown) (no (unknown) (unknown) Surgical History (units (unknown) date) (Reviewed 06/24/22 unknown) @ 09:16 by Gregor Hernandez MD) (unknown) (no (unknown) (unknown) TAKE 1 CAPSULE BY (units (unknown) date) MOUTH ONCE A DAY unknown) (unknown) (no (unknown) (unknown) Temperature 98.3 (units (unknown) date) F 06/24/22 09:00 unknown) (unknown) (no (unknown) (unknown) Temperature 98.3 (units (unknown) date) F unknown) (unknown) (no (unknown) (unknown) Time Seen by (units (u nknown) date) Provider: 06/24/22 unknown) 09:02 (unknown) (no (unknown) (unknown) Treatments: (units (un known) date) unknown) (unknown) (no (unknown) (unknown) Vital Signs - 8 (units (unknown) date) hr unknown) (unknown) (no (unknown) (unknown) Vital Signs (units (un known) date) unknown) (unknown) (no (unknown) (unknown) Vital signs: (units (u nknown) date) unknown) (unknown) (no (unknown) (unknown) [Embedded Image (units (unknown) date) Not Available] unknown) (unknown) (no (unknown) (unknown) abdominal (units (unkn own) date) lymphadenopathy unknown) (unknown) (no (unknown) (unknown) alcohol intake (units (unknown) date) frequency: 0-2 unknown) drinks per day (unknown) (no (unknown) (unknown) and below (units (unkn own) date) unknown) (unknown) (no (unknown) (unknown) appendicitis (units (u nknown) date) bowel obstruction unknown) ischemic bowel (unknown) (no (unknown) (unknown) clindamycin (units (un known) date) Allergy Unknown unknown) Verified 06/24/22 09:00 (unknown) (no (unknown) (unknown) complaints. Has (units (unknown) date) had discomfort unknown) with eating. No chest pain. No back pain. (unknown) (no (unknown) (unknown) epigastric (units (unk nown) date) tenderness unknown) (unknown) (no (unknown) (unknown) estradiol 0.5 mg (units (unknown) date) tablet 0.5 mg PO unknown) DAILY 09/07/19 09/20/19 (unknown) (no (unknown) (unknown) estradiol 0.5 mg (units (unknown) date) tablet unknown) (unknown) (no (unknown) (unknown) familiar to her (units (unknown) date) as she states it unknown) feels like hiatal hernia discomfort she had 7 (unknown) (no (unknown) (unknown) household (units (unkn own) date) members: spouse unknown) (unknown) (no (unknown) (unknown) lisinopril 5 mg (units (unknown) date) tablet 5 mg PO unknown) DAILY #30 tabs 09/10/19 (unknown) (no (unknown) (unknown) lisinopril 5 mg (units (unknown) date) tablet unknown) (unknown) (no (unknown) (unknown) metformin 500 mg (units (unknown) date) tablet extended unknown) release 24hr (unknown) (no (unknown) (unknown) metformin 500 mg (units (unknown) date) tablet,extended unknown) 500 mg PO DAILY #30 tabs 09/10/19 (unknown) (no (unknown) (unknown) omeprazole 20 mg (units (unknown) date) capsule,delayed 20 unknown) mg PO DAILY 09/07/19 03/24/22 (unknown) (no (unknown) (unknown) omeprazole 20 mg (units (unknown) date) capsule,delayed unknown) release(DR/EC) (unknown) (no (unknown) (unknown) ordered (units (unkno wn) date) unknown) (unknown) (no (unknown) (unknown) oxybutynin (units (unk nown) date) chloride 5 mg unknown) tablet 5 mg PO DAILY 09/07/19 03/24/22 (unknown) (no (unknown) (unknown) oxybutynin (units (unk nown) date) chloride 5 mg unknown) tablet (unknown) (no (unknown) (unknown) proportion to (units ( unknown) date) exam. No CVA unknown) tenderness (unknown) (no (unknown) (unknown) radiate for the (units (unknown) date) past 3 days. Has unknown) nausea but no vomiting. Epigastric pain is (unknown) (no (unknown) (unknown) rales, or (units (unkn own) date) rhonchi. unknown) (unknown) (no (unknown) (unknown) release 24hr (units (u nknown) date) unknown) (unknown) (no (unknown) (unknown) release (units (unkno wn) date) unknown) (unknown) (no (unknown) (unknown) simvastatin 10 mg (units (unknown) date) tablet 10 mg PO unknown) DAILY 09/07/19 03/24/22 (unknown) (no (unknown) (unknown) simvastatin 10 mg (units (unknown) date) tablet unknown) (unknown) (no (unknown) (unknown) since then. (units (un known) date) Patient recently unknown) found to have lymph nodes in lower abdomen back in (unknown) (no (unknown) (unknown) tenderness but no (units (unknown) date) peritoneal signs, unknown) bowel sounds are present. No pain out of (unknown) (no (unknown) (unknown) to go [place] to (units (unknown) date) have it done, so unknown) she is not had this done yet. No urinary (unknown) (no (unknown) (unknown) years ago before (units (unknown) date) repair. It was unknown) done at [facility]. Has been doing well Result panel 77 (unknown) (no date) (unknown) (unknown) > 60 ml/min (unkn own) (unknown) (no date) (unknown) (unknown) > 60 ml/min (unkn own) (unknown) (no date) (unknown) (unknown) 0.8 mg/dl (unkn own) (unknown) (no date) (unknown) (unknown) 0.80 mg/dl (unkn own) (unknown) (no date) (unknown) (unknown) 1.6 (units unknown) (unknown) (unknown) (no date) (unknown) (unknown) 101 mmol/l (unkn own) (unknown) (no date) (unknown) (unknown) 137 mmol/l (unkn own) (unknown) (no date) (unknown) (unknown) 153 mg/dl (unkn own) (unknown) (no date) (unknown) (unknown) 153 mg/dl (unkn own) (unknown) (no date) (unknown) (unknown) 16 iu/l (unkn own) (unknown) (no date) (unknown) (unknown) 18 mg/dl (unkn own) (unknown) (no date) (unknown) (unknown) 2.7 g/dl (unkn own) (unknown) (no date) (unknown) (unknown) 22.5 (units unknown) (unknown) (unknown) (no date) (unknown) (unknown) 23 iu/l (unkn own) (unknown) (no date) (unknown) (unknown) 23 u/l (unkn own) (unknown) (no date) (unknown) (unknown) 29 mmol/l (unkn own) (unknown) (no date) (unknown) (unknown) 4.1 mmol/l (unkn own) (unknown) (no date) (unknown) (unknown) 4.2 g/dl (unkn own) (unknown) (no date) (unknown) (unknown) 6.9 g/dl (unkn own) (unknown) (no date) (unknown) (unknown) 9.3 mg/dl (unkn own) (unknown) (no date) (unknown) (unknown) 94 u/l (unkn own) Result panel 78 (unknown) (no (unknown) (unknown) (no value) (units (unk nown) date) unknown) (unknown) (no (unknown) (unknown) 0.5 mg PO DAILY (units (unknown) date) unknown) (unknown) (no (unknown) (unknown) 06/24/22 06/24/22 (units (unknown) date) Range/Units unknown) (unknown) (no (unknown) (unknown) 06/24/22 09:00 (units (unknown) date) unknown) (unknown) (no (unknown) (unknown) 06/24/22 09:13 (units (unknown) date) unknown) (unknown) (no (unknown) (unknown) 06/24/22 (units (unkno wn) date) unknown) (unknown) (no (unknown) (unknown) 09:00 09:00 (units (un known) date) unknown) (unknown) (no (unknown) (unknown) 09:00 (units (unkno wn) date) unknown) (unknown) (no (unknown) (unknown) 10 mg PO DAILY (units (unknown) date) unknown) (unknown) (no (unknown) (unknown) 10.7 cm.? (units (unkn own) date) Enlarged unknown) periportal/peripan creatic nodes are present the largest (unknown) (no (unknown) (unknown) 2.3 cm on series (units (unknown) date) 2, image 38. There unknown) is a more confluent mass anteriorly (unknown) (no (unknown) (unknown) 20 mg PO DAILY (units (unknown) date) unknown) (unknown) (no (unknown) (unknown) [id number] (units (unkno wn) date) unknown) (unknown) (no (unknown) (unknown) 5 mg PO DAILY (units ( unknown) date) Qty: 30 0RF unknown) (unknown) (no (unknown) (unknown) 5 mg PO DAILY (units ( unknown) date) unknown) (unknown) (no (unknown) (unknown) 500 mg PO DAILY (units (unknown) date) Qty: 30 0RF unknown) (unknown) (no (unknown) (unknown) ? (units (unkno wn) date) unknown) (unknown) (no (unknown) (unknown) ABDOMEN: (units (unkno wn) date) unknown) (unknown) (no (unknown) (unknown) ALT 16 (<35) IU/L (units (unknown) date) unknown) (unknown) (no (unknown) (unknown) AST 23 (14-36) (units (unknown) date) IU/L unknown) (unknown) (no (unknown) (unknown) Abdominal Nodes:? (units (unknown) date) There is extensive unknown) focal and confluent adenopathy in the (unknown) (no (unknown) (unknown) Adrenal Glands:? (units (unknown) date) Unremarkable.? ? unknown) (unknown) (no (unknown) (unknown) After history and (units (unknown) date) exam CBC CMP unknown) urinalysis lipase CT abdomen pelvis IV fluids (unknown) (no (unknown) (unknown) After the (units (unkn own) date) administration of unknown) oral and IV contrast, axial sections were acquired (unknown) (no (unknown) (unknown) Age/Sex: 82 / F (units (unknown) date) unknown) (unknown) (no (unknown) (unknown) Albumin 4.2 (units (un known) date) (3.5-5.0) g/dL unknown) (unknown) (no (unknown) (unknown) Albumin/Globulin (units (unknown) date) Ratio 1.6 unknown) (1.0-2.8) (unknown) (no (unknown) (unknown) Alcohol type: (units ( unknown) date) wine unknown) (unknown) (no (unknown) (unknown) Alkaline (units (unkno wn) date) Phosphatase 94 unknown) (38-126) U/L (unknown) (no (unknown) (unknown) Allergies (units (unkn own) date) unknown) (unknown) (no (unknown) (unknown) Allergy/AdvReac (units (unknown) date) Type Severity unknown) Reaction Status Date / Time (unknown) (no (unknown) (unknown) Antibiotics) (units (u nknown) date) unknown) (unknown) (no (unknown) (unknown) Approved by: (units (u nknown) date) Citlalli Ramirez M.D. unknown) on 06/24/2022 at 10:26? (unknown) (no (unknown) (unknown) BACK: No flank (units (unknown) date) tenderness. unknown) (unknown) (no (unknown) (unknown) BUN 18 H (7-17) (units (unknown) date) mg/dL unknown) (unknown) (no (unknown) (unknown) BUN/Creatinine (units (unknown) date) Ratio 22.5 H unknown) (6-22) (unknown) (no (unknown) (unknown) Baso # (Auto) 100 (units (unknown) date) (0-100) /uL unknown) (unknown) (no (unknown) (unknown) Baso % (Auto) 0.6 (units (unknown) date) (0-2) % unknown) (unknown) (no (unknown) (unknown) Biliary ducts:? (units (unknown) date) Unremarkable.? ? unknown) (unknown) (no (unknown) (unknown) Bladder:? (units (unkn own) date) Unremarkable.? ? unknown) (unknown) (no (unknown) (unknown) Blood Pressure (units (unknown) date) 167/85 H 06/24/22 unknown) 09:00 (unknown) (no (unknown) (unknown) Blood Pressure (units (unknown) date) 167/85 H unknown) (unknown) (no (unknown) (unknown) Bones:? (units (unkno wn) date) Unremarkable.? ? unknown) (unknown) (no (unknown) (unknown) CARDIOVASCULAR: (units (unknown) date) Regular rate and unknown) rhythm without murmurs (unknown) (no (unknown) (unknown) CARDIOVASCULAR: (units (unknown) date) negative chest unknown) pain, palpitations (unknown) (no (unknown) (unknown) CC: Abdominal (units ( unknown) date) pain unknown) (unknown) (no (unknown) (unknown) COMPARISON:? (units (u nknown) date) None. unknown) (unknown) (no (unknown) (unknown) CT abdomen pelvis (units (unknown) date) w con Stat unknown) (unknown) (no (unknown) (unknown) CT scan - (units (unkn own) date) abdomen/pelvis: unknown) (unknown) (no (unknown) (unknown) Calcium 9.3 (units (un known) date) (8.4-10.2) mg/dL unknown) (unknown) (no (unknown) (unknown) Carbon Dioxide 29 (units (unknown) date) (22-32) mmol/L unknown) (unknown) (no (unknown) (unknown) Chief Complaint: (units (unknown) date) Abdominal Pain unknown) (unknown) (no (unknown) (unknown) Chloride 101 (units (u nknown) date) (98-107) mmol/L unknown) (unknown) (no (unknown) (unknown) Clinical (units (unkno wn) date) Impression: unknown) (unknown) (no (unknown) (unknown) Complete Blood (units (unknown) date) Count AUTO DIFF unknown) Stat (unknown) (no (unknown) (unknown) Complicating (units (u nknown) date) co-morbidities: unknown) History of hiatal hernia, cholecystectomy, (unknown) (no (unknown) (unknown) Comprehensive (units ( unknown) date) Metabolic Panel unknown) Stat (unknown) (no (unknown) (unknown) Consultations: (units (unknown) date) unknown) (unknown) (no (unknown) (unknown) Course (units (unkno wn) date) unknown) (unknown) (no (unknown) (unknown) Creatinine 0.80 (units (unknown) date) (0.52-1.04) mg/dL unknown) (unknown) (no (unknown) (unknown) : 1940 (units (unknown) date) Acct:[id number] unknown) (unknown) (no (unknown) (unknown) Data collected (units (unknown) date) from: Patient unknown) (unknown) (no (unknown) (unknown) Date of Service: (units (unknown) date) 06/24/22 unknown) (unknown) (no (unknown) (unknown) Departure (units (unkn own) date) unknown) (unknown) (no (unknown) (unknown) Diagnosis: (units (unk nown) date) unknown) (unknown) (no (unknown) (unknown) Dictated by: (units (u nknown) date) Citlalli Ramirez M.D. unknown) on 06/24/2022 at 10:22 ? ? (unknown) (no (unknown) (unknown) Differential (units (u nknown) date) considered: unknown) Includes but not limited to hiatal hernia gastritis (unknown) (no (unknown) (unknown) Discharge Plan (units (unknown) date) unknown) (unknown) (no (unknown) (unknown) Discontinued (units (u nknown) date) Medications unknown) (unknown) (no (unknown) (unknown) Discussion: (units (un known) date) unknown) (unknown) (no (unknown) (unknown) Documented By: AT (units (unknown) date) unknown) (unknown) (no (unknown) (unknown) Dr. Page. (units (u nknown) date) There was unknown) discussion about having EGD as well but was instructed (unknown) (no (unknown) (unknown) ED Orders (units (unkn own) date) unknown) (unknown) (no (unknown) (unknown) ENT: Mucous (units (un known) date) membranes moist. unknown) (unknown) (no (unknown) (unknown) ER Physician: (units ( unknown) date) Gregor Hernandez MD unknown) (unknown) (no (unknown) (unknown) EXTREMITIES: No (units (unknown) date) gross deformities. unknown) (unknown) (no (unknown) (unknown) EYES: Pupils (units (u nknown) date) equal round unknown) (unknown) (no (unknown) (unknown) Emergency Report (units (unknown) date) unknown) (unknown) (no (unknown) (unknown) Eos # (Auto) 400 (units (unknown) date) (0-450) /uL unknown) (unknown) (no (unknown) (unknown) Eos % (Auto) 2.8 (units (unknown) date) (2-4) % unknown) (unknown) (no (unknown) (unknown) Estimated GFR > (units (unknown) date) 60 (>60) mL/min unknown) (unknown) (no (unknown) (unknown) Exam Narrative: (units (unknown) date) unknown) (unknown) (no (unknown) (unknown) Exam documented (units (unknown) date) above, pertinent unknown) findings include: Reproducible suprapubic and (unknown) (no (unknown) (unknown) Exam (units (unkno wn) date) unknown) (unknown) (no (unknown) (unknown) Extensive (units (unkn own) date) interval primarily unknown) abdominal adenopathy as described above.? Overall (unknown) (no (unknown) (unknown) FINDINGS:? (units (unk nown) date) unknown) (unknown) (no (unknown) (unknown) Lázaro Reyes (units (unk nown) date) MD Can unknown) [Primary Care Provider] (unknown) (no (unknown) (unknown) GASTROINTESTINAL: (units (unknown) date) Abdomen soft, unknown) reproducible epigastric and suprapubic (unknown) (no (unknown) (unknown) GASTROINTESTINAL: (units (unknown) date) Positive nausea, unknown) negative vomiting, positive abdominal pain (unknown) (no (unknown) (unknown) GENERAL: in no (units (unknown) date) distress, not unknown) toxic not dyspneic (unknown) (no (unknown) (unknown) GENERAL: negative (units (unknown) date) chills, fatigue, unknown) malaise, fever, sweats. (unknown) (no (unknown) (unknown) : negative (units (u nknown) date) dysuria, unknown) frequency, hematuria (unknown) (no (unknown) (unknown) Gallbladder:? (units ( unknown) date) Removed. unknown) (unknown) (no (unknown) (unknown) General (units (unkno wn) date) unknown) (unknown) (no (unknown) (unknown) Globulin 2.7 (units (u nknown) date) (1.7-4.1) g/dL unknown) (unknown) (no (unknown) (unknown) Glucose 153 H (units ( unknown) date) (80-110) mg/dL unknown) (unknown) (no (unknown) (unknown) H/O total (units (unkn own) date) hysterectomy unknown) (unknown) (no (unknown) (unknown) HEAD: (units (unkno wn) date) Normocephalic. unknown) (unknown) (no (unknown) (unknown) HEENT: negative (units (unknown) date) sinus pain, ear unknown) pain, sore throat (unknown) (no (unknown) (unknown) HPI - Abdominal (units (unknown) date) Pain unknown) (unknown) (no (unknown) (unknown) HPI narrative: (units (unknown) date) unknown) (unknown) (no (unknown) (unknown) Hct 41.2 (36-46) (units (unknown) date) % unknown) (unknown) (no (unknown) (unknown) Heart:? No (units (unk nown) date) significant unknown) findings. (unknown) (no (unknown) (unknown) Hgb 13.9 (units (unkno wn) date) (12.0-16.0) g/dL unknown) (unknown) (no (unknown) (unknown) 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 unknown) (unknown) (no (unknown) (unknown) Hiatal (units (unkno wn) date) unknown) (unknown) (no (unknown) (unknown) History of (units (unk nown) date) Present Illness unknown) (unknown) (no (unknown) (unknown) Home Medications (units (unknown) date) unknown) (unknown) (no (unknown) (unknown) Hyperlipidemia (units (unknown) date) unknown) (unknown) (no (unknown) (unknown) IMPRESSION:? (units (u nknown) date) unknown) (unknown) (no (unknown) (unknown) INDICATIONS:? IV (units (unknown) date) contrast unknown) only/generalized abdominal pain (unknown) (no (unknown) (unknown) Iliac node is (units ( unknown) date) present measuring unknown) 7 mm on series 2, image 56. (unknown) (no (unknown) (unknown) Image quality:? (units (unknown) date) Excellent.? unknown) (unknown) (no (unknown) (unknown) Imaging Data (units (u nknown) date) unknown) (unknown) (no (unknown) (unknown) Imaging studies (units (unknown) date) independently unknown) reviewed: CT abdomen pelvis extensive interval (unknown) (no (unknown) (unknown) Initial Vital (units ( unknown) date) Signs unknown) (unknown) (no (unknown) (unknown) Initial Vital (units ( unknown) date) Signs: unknown) (unknown) (no (unknown) (unknown) Instructions: DI (units (unknown) date) for unknown) Lymphadenopathy, DI for Hiatal Hernia (unknown) (no (unknown) (unknown) Intra-abdominal (units (unknown) date) lymphadenopathy, unknown) Hernia, hiatal (unknown) (no (unknown) (unknown) Located Within [facility] (units (unknown) date) [address] unknown) [place] [address] (unknown) (no (unknown) (unknown) Kidneys and (units (un known) date) Ureters:? unknown) Unremarkable.? ? (unknown) (no (unknown) (unknown) Lab Data (units (unkno wn) date) unknown) (unknown) (no (unknown) (unknown) Lab Results (units (un known) date) unknown) (unknown) (no (unknown) (unknown) Lab Test results (units (unknown) date) independently unknown) reviewed as above. Pertinent findings: WBC 13.0 (unknown) (no (unknown) (unknown) Labs: (units (unkno wn) date) unknown) (unknown) (no (unknown) (unknown) Last Admin: (units (un known) date) 06/24/22 09:34 unknown) Dose: 1,000 mls/hr (unknown) (no (unknown) (unknown) Lipase 23 (units (unkn own) date) (23-300) U/L unknown) (unknown) (no (unknown) (unknown) Lipase Stat (units (un known) date) unknown) (unknown) (no (unknown) (unknown) Liver:? Hepatic (units (unknown) date) steatosis is unknown) present.? ? (unknown) (no (unknown) (unknown) Lung bases:? (units (u nknown) date) Unremarkable.? ? unknown) (unknown) (no (unknown) (unknown) Lymph # (Auto) (units (unknown) date) 1300 ([phone]) unknown) /uL (unknown) (no (unknown) (unknown) Lymph % (Auto) (units (unknown) date) 9.6 L (25-40) % unknown) (unknown) (no (unknown) (unknown) MCH 29.9 (26-34) (units (unknown) date) PG unknown) (unknown) (no (unknown) (unknown) MCHC 33.7 (30-36) (units (unknown) date) % unknown) (unknown) (no (unknown) (unknown) MCV 88.6 (80-100) (units (unknown) date) fL unknown) (unknown) (no (unknown) (unknown) MDM - Abdominal (units (unknown) date) Pain unknown) (unknown) (no (unknown) (unknown) MDM Narrative (units ( unknown) date) unknown) (unknown) (no (unknown) (unknown) MDM (units (unkno wn) date) unknown) (unknown) (no (unknown) (unknown) MUSCULOSKELETAL: (units (unknown) date) negative muscle or unknown) bony pain (unknown) (no (unknown) (unknown) Medical History (units (unknown) date) (Updated 06/24/22 unknown) @ 10:45 by Gregor Hernandez MD) (unknown) (no (unknown) (unknown) Medical decision (units (unknown) date) making narrative: unknown) (unknown) (no (unknown) (unknown) Medical records (units (unknown) date) reviewed: unknown) Colonoscopy from March 2022 (unknown) (no (unknown) (unknown) Medication (units (unk nown) date) Instructions unknown) Recorded Confirmed (unknown) (no (unknown) (unknown) Medication (units (unk nown) date) Instructions unknown) Recorded (unknown) (no (unknown) (unknown) Miscellaneous: No (units (unknown) date) inguinal hernias unknown) are seen. ? ? (unknown) (no (unknown) (unknown) Mode of arrival: (units (unknown) date) Ambulatory unknown) (unknown) (no (unknown) (unknown) [place] # (Auto) (units ( unknown) date) 1300 H (0-900) /uL unknown) (unknown) (no (unknown) (unknown) [place] % (Auto) (units ( unknown) date) 10.3 (3-14) % unknown) (unknown) (no (unknown) (unknown) NECK: Trachea (units ( unknown) date) midline. unknown) (unknown) (no (unknown) (unknown) NEURO: AOx4. (units (u nknown) date) unknown) (unknown) (no (unknown) (unknown) NEUROLOGIC: (units (un known) date) negative weakness, unknown) numbness (unknown) (no (unknown) (unknown) Narrative (units (unkn own) date) unknown) (unknown) (no (unknown) (unknown) Narrative: (units (unk nown) date) unknown) (unknown) (no (unknown) (unknown) Neut # (Auto) (units ( unknown) date) 89778 H unknown) (3026-1548) /uL (unknown) (no (unknown) (unknown) Neut % (Auto) (units ( unknown) date) 76.7 H (50-75) % unknown) (unknown) (no (unknown) (unknown) No Action (units (unkn own) date) unknown) (unknown) (no (unknown) (unknown) Ondansetron HCl (units (unknown) date) (Ondansetron 4 unknown) Mg/2 Ml Inj) 4 mg IV NOW PRN (unknown) (no (unknown) (unknown) Ordered: (units (unkno wn) date) unknown) (unknown) (no (unknown) (unknown) Orders (units (unkno wn) date) unknown) (unknown) (no (unknown) (unknown) Oxygen Delivery (units (unknown) date) Method Room Air unknown) 06/24/22 09:00 (unknown) (no (unknown) (unknown) Oxygen Delivery (units (unknown) date) Method Room Air unknown) (unknown) (no (unknown) (unknown) PELVIS: (units (unkno wn) date) unknown) (unknown) (no (unknown) (unknown) PRN Reason: (units (un known) date) Nausea And unknown) Vomiting (unknown) (no (unknown) (unknown) PROCEDURE:? CT (units (unknown) date) ABDOMEN PELVIS W unknown) CON (unknown) (no (unknown) (unknown) PSYCH: Not (units (unk nown) date) anxious, is unknown) cooperative (unknown) (no (unknown) (unknown) Pancreas:? (units (unk nown) date) Unremarkable.? ? unknown) (unknown) (no (unknown) (unknown) Patient Comments: (units (unknown) date) unknown) (unknown) (no (unknown) (unknown) Patient History (units (unknown) date) unknown) (unknown) (no (unknown) (unknown) Patient here (units (u nknown) date) complaints unknown) epigastric and lower abdominal pain that does not (unknown) (no (unknown) (unknown) Patient: (units (unkno wn) date) Stephan Weinberg unknown) MR#: [id number] (unknown) (no (unknown) (unknown) Pelvic Nodes: No (units (unknown) date) enlarged lymph unknown) nodes.? (unknown) (no (unknown) (unknown) Pelvic Organs:? (units (unknown) date) Unremarkable.? ? unknown) (unknown) (no (unknown) (unknown) Penicillins (units (un known) date) Allergy Unknown unknown) Verified 06/24/22 09:00 (unknown) (no (unknown) (unknown) Peritoneum:? No (units (unknown) date) abnormal unknown) intraperitoneal fluid.? No free air.? (unknown) (no (unknown) (unknown) Plt Count 263 (units ( unknown) date) (150-400) X103/uL unknown) (unknown) (no (unknown) (unknown) Potassium 4.1 (units ( unknown) date) (3.4-5.1) mmol/L unknown) (unknown) (no (unknown) (unknown) Prescriptions: (units (unknown) date) unknown) (unknown) (no (unknown) (unknown) Previous Rx's (units ( unknown) date) unknown) (unknown) (no (unknown) (unknown) Pulse Oximetry 98 (units (unknown) date) 06/24/22 09:00 unknown) (unknown) (no (unknown) (unknown) Pulse Oximetry 98 (units (unknown) date) unknown) (unknown) (no (unknown) (unknown) Pulse Rate 75 (units ( unknown) date) 06/24/22 09:00 unknown) (unknown) (no (unknown) (unknown) Pulse Rate 75 (units ( unknown) date) unknown) (unknown) (no (unknown) (unknown) RBC 4.66 (units (unkno wn) date) (4.0-5.2) X106/uL unknown) (unknown) (no (unknown) (unknown) RDW 13.2 (units (unkno wn) date) (11.6-14.8) % unknown) (unknown) (no (unknown) (unknown) RESPIRATORY: Clear (units (unknown) date) to auscultation. unknown) Breath sounds equal bilaterally. No wheezes, (unknown) (no (unknown) (unknown) RESPIRATORY: (units (u nknown) date) negative dyspnea, unknown) cough (unknown) (no (unknown) (unknown) ROS Unobtainable: (units (unknown) date) All systems unknown) reviewed + are unremarkable except as noted in HPI (unknown) (no (unknown) (unknown) Radiologist's (units ( unknown) date) Impression: unknown) (unknown) (no (unknown) (unknown) Re-evaluations: (units (unknown) date) unknown) (unknown) (no (unknown) (unknown) Referrals: (units (unk nown) date) unknown) (unknown) (no (unknown) (unknown) Related Data (units (u nknown) date) unknown) (unknown) (no (unknown) (unknown) Respiratory Rate (units (unknown) date) 20 06/24/22 09:00 unknown) (unknown) (no (unknown) (unknown) Respiratory Rate (units (unknown) date) 20 unknown) (unknown) (no (unknown) (unknown) Review of Systems (units (unknown) date) unknown) (unknown) (no (unknown) (unknown) S/P Nohemi (units (unk nown) date) fundoplication unknown) (with gastrostomy tube placement) (unknown) (no (unknown) (unknown) SKIN: Warm and (units (unknown) date) dry unknown) (unknown) (no (unknown) (unknown) SKIN: negative (units (unknown) date) rash, skin lesions unknown) (unknown) (no (unknown) (unknown) Nicol and has (units (unknown) date) been monitored. unknown) Had colonoscopy in the last 3 months here by (unknown) (no (unknown) (unknown) Signed By: (units (unk nown) date) unknown) (unknown) (no (unknown) (unknown) Smoking Status: (units (unknown) date) Former smoker unknown) (unknown) (no (unknown) (unknown) Social History (units (unknown) date) (Reviewed 06/24/22 unknown) @ 09:16 by Gregor Hernandez MD) (unknown) (no (unknown) (unknown) Sodium 137 (units (unk nown) date) (137-145) mmol/L unknown) (unknown) (no (unknown) (unknown) Sodium Chloride (units (unknown) date) (Normal Saline unknown) 0.9%) 500 mls @ 1,000 mls/hr IV BOLUS ONE (unknown) (no (unknown) (unknown) Source: patient (units (unknown) date) unknown) (unknown) (no (unknown) (unknown) Spleen:? (units (unkno wn) date) Unremarkable.? ? unknown) (unknown) (no (unknown) (unknown) Stated Complaint: (units (unknown) date) Upper and lower unknown) gut pain (unknown) (no (unknown) (unknown) Stomach and (units (un known) date) Bowel:? Stomach, unknown) small bowel loops, and colon are unremarkable.? (unknown) (no (unknown) (unknown) Stop: 06/24/22 (units (unknown) date) 09:42 unknown) (unknown) (no (unknown) (unknown) Substance Use (units ( unknown) date) Type: does not use unknown) (unknown) (no (unknown) (unknown) Sulfa (units (unkno wn) date) (Sulfonamide unknown) Allergy Unknown Verified 06/24/22 09:00 (unknown) (no (unknown) (unknown) Surgical History (units (unknown) date) (Reviewed 06/24/22 unknown) @ 09:16 by Gregor Hernandez MD) (unknown) (no (unknown) (unknown) TAKE 1 CAPSULE BY (units (unknown) date) MOUTH ONCE A DAY unknown) (unknown) (no (unknown) (unknown) TECHNIQUE:? (units (un known) date) unknown) (unknown) (no (unknown) (unknown) Temperature 98.3 (units (unknown) date) F 06/24/22 09:00 unknown) (unknown) (no (unknown) (unknown) Temperature 98.3 (units (unknown) date) F unknown) (unknown) (no (unknown) (unknown) Time Seen by (units (u nknown) date) Provider: 06/24/22 unknown) 09:02 (unknown) (no (unknown) (unknown) Total Bilirubin (units (unknown) date) 0.8 (0.2-1.3) unknown) mg/dL (unknown) (no (unknown) (unknown) Total Protein 6.9 (units (unknown) date) (6.3-8.2) g/dL unknown) (unknown) (no (unknown) (unknown) Treatments: (units (un known) date) unknown) (unknown) (no (unknown) (unknown) Ventral Wall: ? (units (unknown) date) No hernia.? unknown) (unknown) (no (unknown) (unknown) Vessels:? Aorta (units (unknown) date) and inferior vena unknown) cava are normal in size.? (unknown) (no (unknown) (unknown) Vital Signs - 8 (units (unknown) date) hr unknown) (unknown) (no (unknown) (unknown) Vital Signs (units (un known) date) unknown) (unknown) (no (unknown) (unknown) Vital signs: (units (u nknown) date) unknown) (unknown) (no (unknown) (unknown) WBC 13.0 H (units (unk nown) date) (4.5-11.0) X103/uL unknown) (unknown) (no (unknown) (unknown) [Embedded Image (units (unknown) date) Not Available] unknown) (unknown) (no (unknown) (unknown) abdomen with the (units (unknown) date) largest confluent unknown) focus measuring 7.3 x 6.4 cm on series 2, (unknown) (no (unknown) (unknown) abdominal (units (unkn own) date) lymphadenopathy unknown) (unknown) (no (unknown) (unknown) adjustment (units (unk nown) date) unknown) (unknown) (no (unknown) (unknown) alcohol intake (units (unknown) date) frequency: 0-2 unknown) drinks per day (unknown) (no (unknown) (unknown) and below (units (unkn own) date) unknown) (unknown) (no (unknown) (unknown) aortic caval (units (u nknown) date) region.? The large unknown) lymph node is in the left para aortic location (unknown) (no (unknown) (unknown) appearance (units (unk nown) date) unknown) (unknown) (no (unknown) (unknown) appendicitis (units (u nknown) date) bowel obstruction unknown) ischemic bowel (unknown) (no (unknown) (unknown) clindamycin (units (un known) date) Allergy Unknown unknown) Verified 06/24/22 09:00 (unknown) (no (unknown) (unknown) cm on series 2, (units (unknown) date) image 28. unknown) Scattered lymph nodes/masses are present within the (unknown) (no (unknown) (unknown) complaints. Has (units (unknown) date) had discomfort unknown) with eating. No chest pain. No back pain. (unknown) (no (unknown) (unknown) creatinine 0.8 (units (unknown) date) AST 23 ALT 16 unknown) alkaline phosphatase 94 (unknown) (no (unknown) (unknown) epigastric (units (unk nown) date) tenderness unknown) (unknown) (no (unknown) (unknown) estradiol 0.5 mg (units (unknown) date) tablet 0.5 mg PO unknown) DAILY 09/07/19 09/20/19 (unknown) (no (unknown) (unknown) estradiol 0.5 mg (units (unknown) date) tablet unknown) (unknown) (no (unknown) (unknown) familiar to her (units (unknown) date) as she states it unknown) feels like hiatal hernia discomfort she had 7 (unknown) (no (unknown) (unknown) from the (units (unkno wn) date) unknown) (unknown) (no (unknown) (unknown) hemoglobin 13.9 (units (unknown) date) hematocrit 41 unknown) platelets 263 sodium 137 potassium 4.1 BUN 18 (unknown) (no (unknown) (unknown) hernia is (units (unkn own) date) present. unknown) (unknown) (no (unknown) (unknown) household (units (unkn own) date) members: spouse unknown) (unknown) (no (unknown) (unknown) image 53. (units (unkn own) date) unknown) (unknown) (no (unknown) (unknown) is highly (units (unkn own) date) suggestive of unknown) malignancy including lymphoma. (unknown) (no (unknown) (unknown) lisinopril 5 mg (units (unknown) date) tablet 5 mg PO unknown) DAILY #30 tabs 09/10/19 (unknown) (no (unknown) (unknown) lisinopril 5 mg (units (unknown) date) tablet unknown) (unknown) (no (unknown) (unknown) lower (units (unkno wn) date) unknown) (unknown) (no (unknown) (unknown) lung bases to the (units (unknown) date) pubic symphysis.? unknown) Coronal and sagittal reformats were (unknown) (no (unknown) (unknown) lymphadenopathy (units (unknown) date) suggesting unknown) malignancy/lymphom a, hiatal hernia present (unknown) (no (unknown) (unknown) measuring 2.7 (units ( unknown) date) unknown) (unknown) (no (unknown) (unknown) measuring 5.9 x (units (unknown) date) unknown) (unknown) (no (unknown) (unknown) measuring (units (unkn own) date) unknown) (unknown) (no (unknown) (unknown) metformin 500 mg (units (unknown) date) tablet extended unknown) release 24hr (unknown) (no (unknown) (unknown) metformin 500 mg (units (unknown) date) tablet,extended unknown) 500 mg PO DAILY #30 tabs 09/10/19 (unknown) (no (unknown) (unknown) of mA and/or kV (units (unknown) date) according to unknown) patient size. (unknown) (no (unknown) (unknown) omeprazole 20 mg (units (unknown) date) capsule,delayed 20 unknown) mg PO DAILY 09/07/19 03/24/22 (unknown) (no (unknown) (unknown) omeprazole 20 mg (units (unknown) date) capsule,delayed unknown) release(DR/EC) (unknown) (no (unknown) (unknown) ordered (units (unkno wn) date) unknown) (unknown) (no (unknown) (unknown) oxybutynin (units (unk nown) date) chloride 5 mg unknown) tablet 5 mg PO DAILY 09/07/19 03/24/22 (unknown) (no (unknown) (unknown) oxybutynin (units (unk nown) date) chloride 5 mg unknown) tablet (unknown) (no (unknown) (unknown) performed.? For (units (unknown) date) unknown) (unknown) (no (unknown) (unknown) periaortic and (units (unknown) date) unknown) (unknown) (no (unknown) (unknown) proportion to (units ( unknown) date) exam. No CVA unknown) tenderness (unknown) (no (unknown) (unknown) radiate for the (units (unknown) date) past 3 days. Has unknown) nausea but no vomiting. Epigastric pain is (unknown) (no (unknown) (unknown) radiation dose (units (unknown) date) reduction, the unknown) following was used:? automated exposure control, (unknown) (no (unknown) (unknown) rales, or (units (unkn own) date) rhonchi. unknown) (unknown) (no (unknown) (unknown) release 24hr (units (u nknown) date) unknown) (unknown) (no (unknown) (unknown) release (units (unkno wn) date) unknown) (unknown) (no (unknown) (unknown) simvastatin 10 mg (units (unknown) date) tablet 10 mg PO unknown) DAILY 09/07/19 03/24/22 (unknown) (no (unknown) (unknown) simvastatin 10 mg (units (unknown) date) tablet unknown) (unknown) (no (unknown) (unknown) since then. (units (un known) date) Patient recently unknown) found to have lymph nodes in lower abdomen back in (unknown) (no (unknown) (unknown) tenderness but no (units (unknown) date) peritoneal signs, unknown) bowel sounds are present. No pain out of (unknown) (no (unknown) (unknown) to go [place] to (units (unknown) date) have it done, so unknown) she is not had this done yet. No urinary (unknown) (no (unknown) (unknown) years ago before (units (unknown) date) repair. It was unknown) done at [facility]. Has been doing well Result panel 79 (unknown) (no (unknown) (unknown) (no value) (units (unk nown) date) unknown) (unknown) (no (unknown) (unknown) 0.5 mg PO DAILY (units (unknown) date) unknown) (unknown) (no (unknown) (unknown) 06/24/22 06/24/22 (units (unknown) date) Range/Units unknown) (unknown) (no (unknown) (unknown) 06/24/22 09:00 (units (unknown) date) unknown) (unknown) (no (unknown) (unknown) 06/24/22 09:13 (units (unknown) date) unknown) (unknown) (no (unknown) (unknown) 06/24/22 (units (unkno wn) date) unknown) (unknown) (no (unknown) (unknown) 09:00 09:00 (units (un known) date) unknown) (unknown) (no (unknown) (unknown) 09:00 (units (unkno wn) date) unknown) (unknown) (no (unknown) (unknown) 10 mg PO DAILY (units (unknown) date) unknown) (unknown) (no (unknown) (unknown) 10.7 cm.? (units (unkn own) date) Enlarged unknown) periportal/peripan creatic nodes are present the largest (unknown) (no (unknown) (unknown) 2.3 cm on series (units (unknown) date) 2, image 38. There unknown) is a more confluent mass anteriorly (unknown) (no (unknown) (unknown) 20 mg PO DAILY (units (unknown) date) unknown) (unknown) (no (unknown) (unknown) [id number] (units (unkno wn) date) unknown) (unknown) (no (unknown) (unknown) 5 mg PO DAILY (units ( unknown) date) Qty: 30 0RF unknown) (unknown) (no (unknown) (unknown) 5 mg PO DAILY (units ( unknown) date) unknown) (unknown) (no (unknown) (unknown) 500 mg PO DAILY (units (unknown) date) Qty: 30 0RF unknown) (unknown) (no (unknown) (unknown) ? (units (unkno wn) date) unknown) (unknown) (no (unknown) (unknown) ABDOMEN: (units (unkno wn) date) unknown) (unknown) (no (unknown) (unknown) ALT 16 (<35) IU/L (units (unknown) date) unknown) (unknown) (no (unknown) (unknown) AST 23 (14-36) (units (unknown) date) IU/L unknown) (unknown) (no (unknown) (unknown) Abdominal Nodes:? (units (unknown) date) There is extensive unknown) focal and confluent adenopathy in the (unknown) (no (unknown) (unknown) Adrenal Glands:? (units (unknown) date) Unremarkable.? ? unknown) (unknown) (no (unknown) (unknown) After history and (units (unknown) date) exam CBC CMP unknown) urinalysis lipase CT abdomen pelvis IV fluids (unknown) (no (unknown) (unknown) After the (units (unkn own) date) administration of unknown) oral and IV contrast, axial sections were acquired (unknown) (no (unknown) (unknown) Age/Sex: 82 / F (units (unknown) date) unknown) (unknown) (no (unknown) (unknown) Albumin 4.2 (units (un known) date) (3.5-5.0) g/dL unknown) (unknown) (no (unknown) (unknown) Albumin/Globulin (units (unknown) date) Ratio 1.6 unknown) (1.0-2.8) (unknown) (no (unknown) (unknown) Alcohol type: (units ( unknown) date) wine unknown) (unknown) (no (unknown) (unknown) Alkaline (units (unkno wn) date) Phosphatase 94 unknown) (38-126) U/L (unknown) (no (unknown) (unknown) Allergies (units (unkn own) date) unknown) (unknown) (no (unknown) (unknown) Allergy/AdvReac (units (unknown) date) Type Severity unknown) Reaction Status Date / Time (unknown) (no (unknown) (unknown) Antibiotics) (units (u nknown) date) unknown) (unknown) (no (unknown) (unknown) Approved by: (units (u nknown) date) Citlalli Ramirez M.D. unknown) on 06/24/2022 at 10:26? (unknown) (no (unknown) (unknown) BACK: No flank (units (unknown) date) tenderness. unknown) (unknown) (no (unknown) (unknown) BUN 18 H (7-17) (units (unknown) date) mg/dL unknown) (unknown) (no (unknown) (unknown) BUN/Creatinine (units (unknown) date) Ratio 22.5 H unknown) (6-22) (unknown) (no (unknown) (unknown) Baso # (Auto) 100 (units (unknown) date) (0-100) /uL unknown) (unknown) (no (unknown) (unknown) Baso % (Auto) 0.6 (units (unknown) date) (0-2) % unknown) (unknown) (no (unknown) (unknown) Biliary ducts:? (units (unknown) date) Unremarkable.? ? unknown) (unknown) (no (unknown) (unknown) Bladder:? (units (unkn own) date) Unremarkable.? ? unknown) (unknown) (no (unknown) (unknown) Blood Pressure (units (unknown) date) 167/85 H 06/24/22 unknown) 09:00 (unknown) (no (unknown) (unknown) Blood Pressure (units (unknown) date) 167/85 H unknown) (unknown) (no (unknown) (unknown) Bones:? (units (unkno wn) date) Unremarkable.? ? unknown) (unknown) (no (unknown) (unknown) CARDIOVASCULAR: (units (unknown) date) Regular rate and unknown) rhythm without murmurs (unknown) (no (unknown) (unknown) CARDIOVASCULAR: (units (unknown) date) negative chest unknown) pain, palpitations (unknown) (no (unknown) (unknown) CC: Abdominal (units ( unknown) date) pain unknown) (unknown) (no (unknown) (unknown) COMPARISON:? (units (u nknown) date) None. unknown) (unknown) (no (unknown) (unknown) CT abdomen pelvis (units (unknown) date) w con Stat unknown) (unknown) (no (unknown) (unknown) CT scan - (units (unkn own) date) abdomen/pelvis: unknown) (unknown) (no (unknown) (unknown) Calcium 9.3 (units (un known) date) (8.4-10.2) mg/dL unknown) (unknown) (no (unknown) (unknown) Carbon Dioxide 29 (units (unknown) date) (22-32) mmol/L unknown) (unknown) (no (unknown) (unknown) Chief Complaint: (units (unknown) date) Abdominal Pain unknown) (unknown) (no (unknown) (unknown) Chloride 101 (units (u nknown) date) (98-107) mmol/L unknown) (unknown) (no (unknown) (unknown) Clinical (units (unkno wn) date) Impression: unknown) (unknown) (no (unknown) (unknown) Complete Blood (units (unknown) date) Count AUTO DIFF unknown) Stat (unknown) (no (unknown) (unknown) Complicating (units (u nknown) date) co-morbidities: unknown) History of hiatal hernia, cholecystectomy, (unknown) (no (unknown) (unknown) Comprehensive (units ( unknown) date) Metabolic Panel unknown) Stat (unknown) (no (unknown) (unknown) Consultations: (units (unknown) date) unknown) (unknown) (no (unknown) (unknown) Course (units (unkno wn) date) unknown) (unknown) (no (unknown) (unknown) Creatinine 0.80 (units (unknown) date) (0.52-1.04) mg/dL unknown) (unknown) (no (unknown) (unknown) : 1940 (units (unknown) date) Acct:[id number] unknown) (unknown) (no (unknown) (unknown) Data collected (units (unknown) date) from: Patient unknown) (unknown) (no (unknown) (unknown) Date of Service: (units (unknown) date) 06/24/22 unknown) (unknown) (no (unknown) (unknown) Departure (units (unkn own) date) unknown) (unknown) (no (unknown) (unknown) Diagnosis: (units (unk nown) date) Lymphadenopathy/hi unknown) atal hernia (unknown) (no (unknown) (unknown) Dictated by: (units (u nknown) date) Citlalli Ramirez M.D. unknown) on 06/24/2022 at 10:22 ? ? (unknown) (no (unknown) (unknown) Differential (units (u nknown) date) considered: unknown) Includes but not limited to hiatal hernia gastritis (unknown) (no (unknown) (unknown) Discharge Plan (units (unknown) date) unknown) (unknown) (no (unknown) (unknown) Discontinued (units (u nknown) date) Medications unknown) (unknown) (no (unknown) (unknown) Discussion: (units (un known) date) Appropriate for unknown) discharge home. Patient does have good primary (unknown) (no (unknown) (unknown) Documented By: AT (units (unknown) date) unknown) (unknown) (no (unknown) (unknown) Dr. Page. (units (u nknown) date) There was unknown) discussion about having EGD as well but was instructed (unknown) (no (unknown) (unknown) ED Orders (units (unkn own) date) unknown) (unknown) (no (unknown) (unknown) ENT: Mucous (units (un known) date) membranes moist. unknown) (unknown) (no (unknown) (unknown) ER Physician: (units ( unknown) date) Gregor Hernandez MD unknown) (unknown) (no (unknown) (unknown) EXTREMITIES: No (units (unknown) date) gross deformities. unknown) (unknown) (no (unknown) (unknown) EYES: Pupils (units (u nknown) date) equal round unknown) (unknown) (no (unknown) (unknown) Emergency Report (units (unknown) date) unknown) (unknown) (no (unknown) (unknown) Eos # (Auto) 400 (units (unknown) date) (0-450) /uL unknown) (unknown) (no (unknown) (unknown) Eos % (Auto) 2.8 (units (unknown) date) (2-4) % unknown) (unknown) (no (unknown) (unknown) Estimated GFR > (units (unknown) date) 60 (>60) mL/min unknown) (unknown) (no (unknown) (unknown) Exam Narrative: (units (unknown) date) unknown) (unknown) (no (unknown) (unknown) Exam documented (units (unknown) date) above, pertinent unknown) findings include: Reproducible suprapubic and (unknown) (no (unknown) (unknown) Exam (units (unkno wn) date) unknown) (unknown) (no (unknown) (unknown) Extensive (units (unkn own) date) interval primarily unknown) abdominal adenopathy as described above.? Overall (unknown) (no (unknown) (unknown) FINDINGS:? (units (unk nown) date) unknown) (unknown) (no (unknown) (unknown) Lázaro Reyes (units (unk nown) date) MD Can unknown) [Primary Care Provider] (unknown) (no (unknown) (unknown) GASTROINTESTINAL: (units (unknown) date) Abdomen soft, unknown) reproducible epigastric and suprapubic (unknown) (no (unknown) (unknown) GASTROINTESTINAL: (units (unknown) date) Positive nausea, unknown) negative vomiting, positive abdominal pain (unknown) (no (unknown) (unknown) GENERAL: in no (units (unknown) date) distress, not unknown) toxic not dyspneic (unknown) (no (unknown) (unknown) GENERAL: negative (units (unknown) date) chills, fatigue, unknown) malaise, fever, sweats. (unknown) (no (unknown) (unknown) : negative (units (u nknown) date) dysuria, unknown) frequency, hematuria (unknown) (no (unknown) (unknown) Gallbladder:? (units ( unknown) date) Removed. unknown) (unknown) (no (unknown) (unknown) General (units (unkno wn) date) unknown) (unknown) (no (unknown) (unknown) Globulin 2.7 (units (u nknown) date) (1.7-4.1) g/dL unknown) (unknown) (no (unknown) (unknown) Glucose 153 H (units ( unknown) date) (80-110) mg/dL unknown) (unknown) (no (unknown) (unknown) H/O total (units (unkn own) date) hysterectomy unknown) (unknown) (no (unknown) (unknown) HEAD: (units (unkno wn) date) Normocephalic. unknown) (unknown) (no (unknown) (unknown) HEENT: negative (units (unknown) date) sinus pain, ear unknown) pain, sore throat (unknown) (no (unknown) (unknown) HPI - Abdominal (units (unknown) date) Pain unknown) (unknown) (no (unknown) (unknown) HPI narrative: (units (unknown) date) unknown) (unknown) (no (unknown) (unknown) Hct 41.2 (36-46) (units (unknown) date) % unknown) (unknown) (no (unknown) (unknown) Heart:? No (units (unk nown) date) significant unknown) findings. (unknown) (no (unknown) (unknown) Hgb 13.9 (units (unkno wn) date) (12.0-16.0) g/dL unknown) (unknown) (no (unknown) (unknown) 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 unknown) (unknown) (no (unknown) (unknown) Hiatal (units (unkno wn) date) unknown) (unknown) (no (unknown) (unknown) History of (units (unk nown) date) Present Illness unknown) (unknown) (no (unknown) (unknown) Home Medications (units (unknown) date) unknown) (unknown) (no (unknown) (unknown) Hyperlipidemia (units (unknown) date) unknown) (unknown) (no (unknown) (unknown) IMPRESSION:? (units (u nknown) date) unknown) (unknown) (no (unknown) (unknown) INDICATIONS:? IV (units (unknown) date) contrast unknown) only/generalized abdominal pain (unknown) (no (unknown) (unknown) Iliac node is (units ( unknown) date) present measuring unknown) 7 mm on series 2, image 56. (unknown) (no (unknown) (unknown) Image quality:? (units (unknown) date) Excellent.? unknown) (unknown) (no (unknown) (unknown) Imaging Data (units (u nknown) date) unknown) (unknown) (no (unknown) (unknown) Imaging studies (units (unknown) date) independently unknown) reviewed: CT abdomen pelvis extensive interval (unknown) (no (unknown) (unknown) Initial Vital (units ( unknown) date) Signs unknown) (unknown) (no (unknown) (unknown) Initial Vital (units ( unknown) date) Signs: unknown) (unknown) (no (unknown) (unknown) Instructions: DI (units (unknown) date) for Hiatal Hernia, unknown) DI for Lymphadenopathy (unknown) (no (unknown) (unknown) Intra-abdominal (units (unknown) date) lymphadenopathy, unknown) Hernia, hiatal (unknown) (no (unknown) (unknown) Located Within [facility] (units (unknown) date) [address] unknown) [place] [address] (unknown) (no (unknown) (unknown) Kidneys and (units (un known) date) Ureters:? unknown) Unremarkable.? ? (unknown) (no (unknown) (unknown) Lab Data (units (unkno wn) date) unknown) (unknown) (no (unknown) (unknown) Lab Results (units (un known) date) unknown) (unknown) (no (unknown) (unknown) Lab Test results (units (unknown) date) independently unknown) reviewed as above. Pertinent findings: WBC 13.0 (unknown) (no (unknown) (unknown) Labs: (units (unkno wn) date) unknown) (unknown) (no (unknown) (unknown) Last Admin: (units (un known) date) 06/24/22 09:34 unknown) Dose: 1,000 mls/hr (unknown) (no (unknown) (unknown) Lipase 23 (units (unkn own) date) (23-300) U/L unknown) (unknown) (no (unknown) (unknown) Lipase Stat (units (un known) date) unknown) (unknown) (no (unknown) (unknown) Liver:? Hepatic (units (unknown) date) steatosis is unknown) present.? ? (unknown) (no (unknown) (unknown) Lung bases:? (units (u nknown) date) Unremarkable.? ? unknown) (unknown) (no (unknown) (unknown) Lymph # (Auto) (units (unknown) date) 1300 (4993-6882) unknown) /uL (unknown) (no (unknown) (unknown) Lymph % (Auto) (units (unknown) date) 9.6 L (25-40) % unknown) (unknown) (no (unknown) (unknown) MCH 29.9 (26-34) (units (unknown) date) PG unknown) (unknown) (no (unknown) (unknown) MCHC 33.7 (30-36) (units (unknown) date) % unknown) (unknown) (no (unknown) (unknown) MCV 88.6 (80-100) (units (unknown) date) fL unknown) (unknown) (no (unknown) (unknown) MDM - Abdominal (units (unknown) date) Pain unknown) (unknown) (no (unknown) (unknown) MDM Narrative (units ( unknown) date) unknown) (unknown) (no (unknown) (unknown) MDM (units (unkno wn) date) unknown) (unknown) (no (unknown) (unknown) MUSCULOSKELETAL: (units (unknown) date) negative muscle or unknown) bony pain (unknown) (no (unknown) (unknown) Medical History (units (unknown) date) (Updated 06/24/22 unknown) @ 10:45 by Gregor Hernandez MD) (unknown) (no (unknown) (unknown) Medical decision (units (unknown) date) making narrative: unknown) (unknown) (no (unknown) (unknown) Medical records (units (unknown) date) reviewed: unknown) Colonoscopy from March 2022 (unknown) (no (unknown) (unknown) Medication (units (unk nown) date) Instructions unknown) Recorded Confirmed (unknown) (no (unknown) (unknown) Medication (units (unk nown) date) Instructions unknown) Recorded (unknown) (no (unknown) (unknown) Miscellaneous: No (units (unknown) date) inguinal hernias unknown) are seen. ? ? (unknown) (no (unknown) (unknown) Mode of arrival: (units (unknown) date) Ambulatory unknown) (unknown) (no (unknown) (unknown) [place] # (Auto) (units ( unknown) date) 1300 H (0-900) /uL unknown) (unknown) (no (unknown) (unknown) [place] % (Auto) (units ( unknown) date) 10.3 (3-14) % unknown) (unknown) (no (unknown) (unknown) NECK: Trachea (units ( unknown) date) midline. unknown) (unknown) (no (unknown) (unknown) NEURO: AOx4. (units (u nknown) date) unknown) (unknown) (no (unknown) (unknown) NEUROLOGIC: (units (un known) date) negative weakness, unknown) numbness (unknown) (no (unknown) (unknown) Narrative (units (unkn own) date) unknown) (unknown) (no (unknown) (unknown) Narrative: (units (unk nown) date) unknown) (unknown) (no (unknown) (unknown) Neut # (Auto) (units ( unknown) date) 82366 H unknown) (3480-9415) /uL (unknown) (no (unknown) (unknown) Neut % (Auto) (units ( unknown) date) 76.7 H (50-75) % unknown) (unknown) (no (unknown) (unknown) No Action (units (unkn own) date) unknown) (unknown) (no (unknown) (unknown) Ondansetron HCl (units (unknown) date) (Ondansetron 4 unknown) Mg/2 Ml Inj) 4 mg IV NOW PRN (unknown) (no (unknown) (unknown) Ordered: (units (unkno wn) date) unknown) (unknown) (no (unknown) (unknown) Orders (units (unkno wn) date) unknown) (unknown) (no (unknown) (unknown) Oxygen Delivery (units (unknown) date) Method Room Air unknown) 06/24/22 09:00 (unknown) (no (unknown) (unknown) Oxygen Delivery (units (unknown) date) Method Room Air unknown) (unknown) (no (unknown) (unknown) PELVIS: (units (unkno wn) date) unknown) (unknown) (no (unknown) (unknown) PRN Reason: (units (un known) date) Nausea And unknown) Vomiting (unknown) (no (unknown) (unknown) PROCEDURE:? CT (units (unknown) date) ABDOMEN PELVIS W unknown) CON (unknown) (no (unknown) (unknown) PSYCH: Not (units (unk nown) date) anxious, is unknown) cooperative (unknown) (no (unknown) (unknown) Pancreas:? (units (unk nown) date) Unremarkable.? ? unknown) (unknown) (no (unknown) (unknown) Patient Comments: (units (unknown) date) unknown) (unknown) (no (unknown) (unknown) Patient History (units (unknown) date) unknown) (unknown) (no (unknown) (unknown) Patient here (units (u nknown) date) complaints unknown) epigastric and lower abdominal pain that does not (unknown) (no (unknown) (unknown) Patient: (units (unkno wn) date) Stephan Weinberg E unknown) MR#: [id number] (unknown) (no (unknown) (unknown) Pelvic Nodes: No (units (unknown) date) enlarged lymph unknown) nodes.? (unknown) (no (unknown) (unknown) Pelvic Organs:? (units (unknown) date) Unremarkable.? ? unknown) (unknown) (no (unknown) (unknown) Penicillins (units (un known) date) Allergy Unknown unknown) Verified 06/24/22 09:00 (unknown) (no (unknown) (unknown) Peritoneum:? No (units (unknown) date) abnormal unknown) intraperitoneal fluid.? No free air.? (unknown) (no (unknown) (unknown) Plt Count 263 (units ( unknown) date) (150-400) X103/uL unknown) (unknown) (no (unknown) (unknown) Potassium 4.1 (units ( unknown) date) (3.4-5.1) mmol/L unknown) (unknown) (no (unknown) (unknown) Prescriptions: (units (unknown) date) unknown) (unknown) (no (unknown) (unknown) Previous Rx's (units ( unknown) date) unknown) (unknown) (no (unknown) (unknown) Pulse Oximetry 98 (units (unknown) date) 06/24/22 09:00 unknown) (unknown) (no (unknown) (unknown) Pulse Oximetry 98 (units (unknown) date) unknown) (unknown) (no (unknown) (unknown) Pulse Rate 75 (units ( unknown) date) 06/24/22 09:00 unknown) (unknown) (no (unknown) (unknown) Pulse Rate 75 (units ( unknown) date) unknown) (unknown) (no (unknown) (unknown) RBC 4.66 (units (unkno wn) date) (4.0-5.2) X106/uL unknown) (unknown) (no (unknown) (unknown) RDW 13.2 (units (unkno wn) date) (11.6-14.8) % unknown) (unknown) (no (unknown) (unknown) RESPIRATORY: Clear (units (unknown) date) to auscultation. unknown) Breath sounds equal bilaterally. No wheezes, (unknown) (no (unknown) (unknown) RESPIRATORY: (units (u nknown) date) negative dyspnea, unknown) cough (unknown) (no (unknown) (unknown) ROS Unobtainable: (units (unknown) date) All systems unknown) reviewed + are unremarkable except as noted in HPI (unknown) (no (unknown) (unknown) Radiologist's (units ( unknown) date) Impression: unknown) (unknown) (no (unknown) (unknown) Re-evaluations: (units (unknown) date) 10:48 a.m.. unknown) Updated patient results. CT concerning for (unknown) (no (unknown) (unknown) Referrals: (units (unk nown) date) unknown) (unknown) (no (unknown) (unknown) Related Data (units (u nknown) date) unknown) (unknown) (no (unknown) (unknown) Respiratory Rate (units (unknown) date) 20 06/24/22 09:00 unknown) (unknown) (no (unknown) (unknown) Respiratory Rate (units (unknown) date) 20 unknown) (unknown) (no (unknown) (unknown) Review of Systems (units (unknown) date) unknown) (unknown) (no (unknown) (unknown) S/P Nohemi (units (unk n) date) fundoplication unknown) (with gastrostomy tube placement) (unknown) (no (unknown) (unknown) SKIN: Warm and (units (unknown) date) dry unknown) (unknown) (no (unknown) (unknown) SKIN: negative (units (unknown) date) rash, skin lesions unknown) (unknown) (no (unknown) (unknown) Nicol and has (units (unknown) date) been monitored. unknown) Had colonoscopy in the last 3 months here by (unknown) (no (unknown) (unknown) Signed By: (units (unk n) date) unknown) (unknown) (no (unknown) (unknown) Smoking Status: (units (unknown) date) Former smoker unknown) (unknown) (no (unknown) (unknown) Social History (units (unknown) date) (Reviewed 06/24/22 unknown) @ 09:16 by Gregor Hernandez MD) (unknown) (no (unknown) (unknown) Sodium 137 (units (unk n) date) (137-145) mmol/L unknown) (unknown) (no (unknown) (unknown) Sodium Chloride (units (unknown) date) (Normal Saline unknown) 0.9%) 500 mls @ 1,000 mls/hr IV BOLUS ONE (unknown) (no (unknown) (unknown) Source: patient (units (unknown) date) unknown) (unknown) (no (unknown) (unknown) Spleen:? (units (unkno wn) date) Unremarkable.? ? unknown) (unknown) (no (unknown) (unknown) Stated Complaint: (units (unknown) date) Upper and lower unknown) gut pain (unknown) (no (unknown) (unknown) Stomach and (units (un known) date) Bowel:? Stomach, unknown) small bowel loops, and colon are unremarkable.? (unknown) (no (unknown) (unknown) Stop: 06/24/22 (units (unknown) date) 09:42 unknown) (unknown) (no (unknown) (unknown) Substance Use (units ( unknown) date) Type: does not use unknown) (unknown) (no (unknown) (unknown) Sulfa (units (unkno wn) date) (Sulfonamide unknown) Allergy Unknown Verified 06/24/22 09:00 (unknown) (no (unknown) (unknown) Surgical History (units (unknown) date) (Reviewed 06/24/22 unknown) @ 09:16 by Gregor Hernandez MD) (unknown) (no (unknown) (unknown) TAKE 1 CAPSULE BY (units (unknown) date) MOUTH ONCE A DAY unknown) (unknown) (no (unknown) (unknown) TECHNIQUE:? (units (un known) date) unknown) (unknown) (no (unknown) (unknown) Temperature 98.3 (units (unknown) date) F 06/24/22 09:00 unknown) (unknown) (no (unknown) (unknown) Temperature 98.3 (units (unknown) date) F unknown) (unknown) (no (unknown) (unknown) Time Seen by (units (u nknown) date) Provider: 06/24/22 unknown) 09:02 (unknown) (no (unknown) (unknown) Total Bilirubin (units (unknown) date) 0.8 (0.2-1.3) unknown) mg/dL (unknown) (no (unknown) (unknown) Total Protein 6.9 (units (unknown) date) (6.3-8.2) g/dL unknown) (unknown) (no (unknown) (unknown) Treatments: (units (un known) date) Normal saline unknown) (unknown) (no (unknown) (unknown) Ventral Wall: ? (units (unknown) date) No hernia.? unknown) (unknown) (no (unknown) (unknown) Vessels:? Aorta (units (unknown) date) and inferior vena unknown) cava are normal in size.? (unknown) (no (unknown) (unknown) Vital Signs - 8 (units (unknown) date) hr unknown) (unknown) (no (unknown) (unknown) Vital Signs (units (un known) date) unknown) (unknown) (no (unknown) (unknown) Vital signs: (units (u nknown) date) unknown) (unknown) (no (unknown) (unknown) WBC 13.0 H (units (unk nown) date) (4.5-11.0) X103/uL unknown) (unknown) (no (unknown) (unknown) [Embedded Image (units (unknown) date) Not Available] unknown) (unknown) (no (unknown) (unknown) abdomen with the (units (unknown) date) largest confluent unknown) focus measuring 7.3 x 6.4 cm on series 2, (unknown) (no (unknown) (unknown) abdominal (units (unkn own) date) lymphadenopathy unknown) (unknown) (no (unknown) (unknown) able to get PET (units (unknown) date) scan done but has unknown) not given referral for Oncology at. Hiatal (unknown) (no (unknown) (unknown) adjustment (units (unk nown) date) unknown) (unknown) (no (unknown) (unknown) alcohol intake (units (unknown) date) frequency: 0-2 unknown) drinks per day (unknown) (no (unknown) (unknown) and below (units (unkn own) date) unknown) (unknown) (no (unknown) (unknown) aortic caval (units (u nknown) date) region.? The large unknown) lymph node is in the left para aortic location (unknown) (no (unknown) (unknown) appearance (units (unk nown) date) unknown) (unknown) (no (unknown) (unknown) appendicitis (units (u nknown) date) bowel obstruction unknown) ischemic bowel (unknown) (no (unknown) (unknown) care for follow (units (unknown) date) up. I did discuss unknown) with primary care for urgent oncology re (unknown) (no (unknown) (unknown) clindamycin (units (un known) date) Allergy Unknown unknown) Verified 06/24/22 09:00 (unknown) (no (unknown) (unknown) cm on series 2, (units (unknown) date) image 28. unknown) Scattered lymph nodes/masses are present within the (unknown) (no (unknown) (unknown) complaints. Has (units (unknown) date) had discomfort unknown) with eating. No chest pain. No back pain. (unknown) (no (unknown) (unknown) creatinine 0.8 (units (unknown) date) AST 23 ALT 16 unknown) alkaline phosphatase 94 (unknown) (no (unknown) (unknown) discharge. (units (unk nown) date) unknown) (unknown) (no (unknown) (unknown) epigastric (units (unk nown) date) tenderness unknown) (unknown) (no (unknown) (unknown) estradiol 0.5 mg (units (unknown) date) tablet 0.5 mg PO unknown) DAILY 09/07/19 09/20/19 (unknown) (no (unknown) (unknown) estradiol 0.5 mg (units (unknown) date) tablet unknown) (unknown) (no (unknown) (unknown) familiar to her (units (unknown) date) as she states it unknown) feels like hiatal hernia discomfort she had 7 (unknown) (no (unknown) (unknown) ferral and PET (units (unknown) date) scan. Otherwise unknown) laboratory studies are reassuring. Nontoxic at (unknown) (no (unknown) (unknown) from the (units (unkno wn) date) unknown) (unknown) (no (unknown) (unknown) hemoglobin 13.9 (units (unknown) date) hematocrit 41 unknown) platelets 263 sodium 137 potassium 4.1 BUN 18 (unknown) (no (unknown) (unknown) hernia is (units (unkn own) date) present. unknown) (unknown) (no (unknown) (unknown) hernia likely has (units (unknown) date) returned. I will unknown) prescribe pain medication for brief template (unknown) (no (unknown) (unknown) household (units (unkn own) date) members: spouse unknown) (unknown) (no (unknown) (unknown) image 53. (units (unkn own) date) unknown) (unknown) (no (unknown) (unknown) is highly (units (unkn own) date) suggestive of unknown) malignancy including lymphoma. (unknown) (no (unknown) (unknown) lisinopril 5 mg (units (unknown) date) tablet 5 mg PO unknown) DAILY #30 tabs 09/10/19 (unknown) (no (unknown) (unknown) lisinopril 5 mg (units (unknown) date) tablet unknown) (unknown) (no (unknown) (unknown) lower (units (unkno wn) date) unknown) (unknown) (no (unknown) (unknown) lung bases to the (units (unknown) date) pubic symphysis.? unknown) Coronal and sagittal reformats were (unknown) (no (unknown) (unknown) lymphadenopathy (units (unknown) date) suggesting unknown) malignancy/lymphom a, hiatal hernia present (unknown) (no (unknown) (unknown) measuring 2.7 (units ( unknown) date) unknown) (unknown) (no (unknown) (unknown) measuring 5.9 x (units (unknown) date) unknown) (unknown) (no (unknown) (unknown) measuring (units (unkn own) date) unknown) (unknown) (no (unknown) (unknown) metformin 500 mg (units (unknown) date) tablet extended unknown) release 24hr (unknown) (no (unknown) (unknown) metformin 500 mg (units (unknown) date) tablet,extended unknown) 500 mg PO DAILY #30 tabs 09/10/19 (unknown) (no (unknown) (unknown) of mA and/or kV (units (unknown) date) according to unknown) patient size. (unknown) (no (unknown) (unknown) omeprazole 20 mg (units (unknown) date) capsule,delayed 20 unknown) mg PO DAILY 09/07/19 03/24/22 (unknown) (no (unknown) (unknown) omeprazole 20 mg (units (unknown) date) capsule,delayed unknown) release(DR/EC) (unknown) (no (unknown) (unknown) ordered (units (unkno wn) date) unknown) (unknown) (no (unknown) (unknown) oxybutynin (units (unk nown) date) chloride 5 mg unknown) tablet 5 mg PO DAILY 09/07/19 03/24/22 (unknown) (no (unknown) (unknown) oxybutynin (units (unk nown) date) chloride 5 mg unknown) tablet (unknown) (no (unknown) (unknown) pain control (units (u nknown) date) until office unknown) appointment. She does understand needs urgent follow (unknown) (no (unknown) (unknown) performed.? For (units (unknown) date) unknown) (unknown) (no (unknown) (unknown) periaortic and (units (unknown) date) unknown) (unknown) (no (unknown) (unknown) proportion to (units ( unknown) date) exam. No CVA unknown) tenderness (unknown) (no (unknown) (unknown) radiate for the (units (unknown) date) past 3 days. Has unknown) nausea but no vomiting. Epigastric pain is (unknown) (no (unknown) (unknown) radiation dose (units (unknown) date) reduction, the unknown) following was used:? automated exposure control, (unknown) (no (unknown) (unknown) rales, or (units (unkn own) date) rhonchi. unknown) (unknown) (no (unknown) (unknown) release 24hr (units (u nknown) date) unknown) (unknown) (no (unknown) (unknown) release (units (unkno wn) date) unknown) (unknown) (no (unknown) (unknown) simvastatin 10 mg (units (unknown) date) tablet 10 mg PO unknown) DAILY 09/07/19 03/24/22 (unknown) (no (unknown) (unknown) simvastatin 10 mg (units (unknown) date) tablet unknown) (unknown) (no (unknown) (unknown) since then. (units (un known) date) Patient recently unknown) found to have lymph nodes in lower abdomen back in (unknown) (no (unknown) (unknown) tenderness but no (units (unknown) date) peritoneal signs, unknown) bowel sounds are present. No pain out of (unknown) (no (unknown) (unknown) to go to [place] to (units (unknown) date) have it done, so unknown) she is not had this done yet. No urinary (unknown) (no (unknown) (unknown) up with Oncology. (units (unknown) date) I will be reaching unknown) out to Dr. Reyes primary care today (unknown) (no (unknown) (unknown) worsening (units (unkn own) date) lymphadenopathy, unknown) possible cancer/lymphoma. Primary care has not been (unknown) (no (unknown) (unknown) years ago before (units (unknown) date) repair. It was unknown) done at [facility]. Has been doing well Result panel 80 (unknown) (no (unknown) (unknown) (no value) (units (unk nown) date) unknown) (unknown) (no (unknown) (unknown) 0.5 mg PO DAILY (units (unknown) date) unknown) (unknown) (no (unknown) (unknown) 06/24/22 06/24/22 (units (unknown) date) Range/Units unknown) (unknown) (no (unknown) (unknown) 06/24/22 09:00 (units (unknown) date) unknown) (unknown) (no (unknown) (unknown) 06/24/22 09:13 (units (unknown) date) unknown) (unknown) (no (unknown) (unknown) 06/24/22 10:40 (units (unknown) date) unknown) (unknown) (no (unknown) (unknown) 06/24/22 (units (unkno wn) date) unknown) (unknown) (no (unknown) (unknown) 09:00 09:00 (units (un known) date) unknown) (unknown) (no (unknown) (unknown) 09:00 (units (unkno wn) date) unknown) (unknown) (no (unknown) (unknown) 1 tab PO Q6H PRN (units (unknown) date) (Reason: pain) unknown) Qty: 20 0RF (unknown) (no (unknown) (unknown) 10 mg PO DAILY (units (unknown) date) unknown) (unknown) (no (unknown) (unknown) 10.7 cm.? (units (unkn own) date) Enlarged unknown) periportal/peripan creatic nodes are present the largest (unknown) (no (unknown) (unknown) 2.3 cm on series (units (unknown) date) 2, image 38. There unknown) is a more confluent mass anteriorly (unknown) (no (unknown) (unknown) 20 mg PO DAILY (units (unknown) date) unknown) (unknown) (no (unknown) (unknown) [id number] (units (unkno wn) date) unknown) (unknown) (no (unknown) (unknown) 4 mg PO Q8H PRN (units (unknown) date) (Reason: nausea unknown) and vomiting) Qty: 10 0RF (unknown) (no (unknown) (unknown) 5 mg PO DAILY (units ( unknown) date) Qty: 30 0RF unknown) (unknown) (no (unknown) (unknown) 5 mg PO DAILY (units ( unknown) date) unknown) (unknown) (no (unknown) (unknown) 500 mg PO DAILY (units (unknown) date) Qty: 30 0RF unknown) (unknown) (no (unknown) (unknown) ? (units (unkno wn) date) unknown) (unknown) (no (unknown) (unknown) ABDOMEN: (units (unkno wn) date) unknown) (unknown) (no (unknown) (unknown) ALT 16 (<35) IU/L (units (unknown) date) unknown) (unknown) (no (unknown) (unknown) AST 23 (14-36) (units (unknown) date) IU/L unknown) (unknown) (no (unknown) (unknown) Abdominal Nodes:? (units (unknown) date) There is extensive unknown) focal and confluent adenopathy in the (unknown) (no (unknown) (unknown) Activity (units (unkno wn) date) Restrictions/Addit unknown) ional Instructions: (unknown) (no (unknown) (unknown) Adrenal Glands:? (units (unknown) date) Unremarkable.? ? unknown) (unknown) (no (unknown) (unknown) After history and (units (unknown) date) exam CBC CMP unknown) urinalysis lipase CT abdomen pelvis IV fluids (unknown) (no (unknown) (unknown) After the (units (unkn own) date) administration of unknown) oral and IV contrast, axial sections were acquired (unknown) (no (unknown) (unknown) Age/Sex: 82 / F (units (unknown) date) unknown) (unknown) (no (unknown) (unknown) Agrees for (units (unk nown) date) prescription for unknown) pain control for patient. He will see her in the (unknown) (no (unknown) (unknown) Albumin 4.2 (units (un known) date) (3.5-5.0) g/dL unknown) (unknown) (no (unknown) (unknown) Albumin/Globulin (units (unknown) date) Ratio 1.6 unknown) (1.0-2.8) (unknown) (no (unknown) (unknown) Alcohol type: (units ( unknown) date) wine unknown) (unknown) (no (unknown) (unknown) Alkaline (units (unkno wn) date) Phosphatase 94 unknown) (38-126) U/L (unknown) (no (unknown) (unknown) Allergies (units (unkn own) date) unknown) (unknown) (no (unknown) (unknown) Allergy/AdvReac (units (unknown) date) Type Severity unknown) Reaction Status Date / Time (unknown) (no (unknown) (unknown) Antibiotics) (units (u nknown) date) unknown) (unknown) (no (unknown) (unknown) Approved by: (units (u nknown) date) Citlalli Ramirez M.D. unknown) on 06/24/2022 at 10:26? (unknown) (no (unknown) (unknown) BACK: No flank (units (unknown) date) tenderness. unknown) (unknown) (no (unknown) (unknown) BUN 18 H (7-17) (units (unknown) date) mg/dL unknown) (unknown) (no (unknown) (unknown) BUN/Creatinine (units (unknown) date) Ratio 22.5 H unknown) (6-22) (unknown) (no (unknown) (unknown) Baso # (Auto) 100 (units (unknown) date) (0-100) /uL unknown) (unknown) (no (unknown) (unknown) Baso % (Auto) 0.6 (units (unknown) date) (0-2) % unknown) (unknown) (no (unknown) (unknown) Bedside Urine (units ( unknown) date) Bilirubin - unknown) Negative (unknown) (no (unknown) (unknown) Bedside Urine (units ( unknown) date) Glucose Negative unknown) (unknown) (no (unknown) (unknown) Bedside Urine (units ( unknown) date) Ketone - Negative unknown) (unknown) (no (unknown) (unknown) Bedside Urine (units ( unknown) date) Leukocytes + 70 unknown) (unknown) (no (unknown) (unknown) Bedside Urine (units ( unknown) date) Nitrite - Negative unknown) (unknown) (no (unknown) (unknown) Bedside Urine (units ( unknown) date) Occult Blood - unknown) Negative (unknown) (no (unknown) (unknown) Bedside Urine (units ( unknown) date) Protein - Negative unknown) (unknown) (no (unknown) (unknown) Bedside Urine (units ( unknown) date) Urobilinogen - unknown) Negative (unknown) (no (unknown) (unknown) Bedside Urine pH (units (unknown) date) 7.0 unknown) (unknown) (no (unknown) (unknown) Biliary ducts:? (units (unknown) date) Unremarkable.? ? unknown) (unknown) (no (unknown) (unknown) Bladder:? (units (unkn own) date) Unremarkable.? ? unknown) (unknown) (no (unknown) (unknown) Blood Pressure (units (unknown) date) 167/85 H 06/24/22 unknown) 09:00 (unknown) (no (unknown) (unknown) Blood Pressure (units (unknown) date) 167/85 H unknown) (unknown) (no (unknown) (unknown) Bones:? (units (unkno wn) date) Unremarkable.? ? unknown) (unknown) (no (unknown) (unknown) CARDIOVASCULAR: (units (unknown) date) Regular rate and unknown) rhythm without murmurs (unknown) (no (unknown) (unknown) CARDIOVASCULAR: (units (unknown) date) negative chest unknown) pain, palpitations (unknown) (no (unknown) (unknown) CC: Abdominal (units ( unknown) date) pain unknown) (unknown) (no (unknown) (unknown) COMPARISON:? (units (u nknown) date) None. unknown) (unknown) (no (unknown) (unknown) CT abdomen pelvis (units (unknown) date) w con Stat unknown) (unknown) (no (unknown) (unknown) CT scan - (units (unkn own) date) abdomen/pelvis: unknown) (unknown) (no (unknown) (unknown) Calcium 9.3 (units (un known) date) (8.4-10.2) mg/dL unknown) (unknown) (no (unknown) (unknown) Carbon Dioxide 29 (units (unknown) date) (22-32) mmol/L unknown) (unknown) (no (unknown) (unknown) Chief Complaint: (units (unknown) date) Abdominal Pain unknown) (unknown) (no (unknown) (unknown) Chloride 101 (units (u nknown) date) (98-107) mmol/L unknown) (unknown) (no (unknown) (unknown) Clinical (units (unkno wn) date) Impression: unknown) (unknown) (no (unknown) (unknown) Complete Blood (units (unknown) date) Count AUTO DIFF unknown) Stat (unknown) (no (unknown) (unknown) Complicating (units (u nknown) date) co-morbidities: unknown) History of hiatal hernia, cholecystectomy, (unknown) (no (unknown) (unknown) Comprehensive (units ( unknown) date) Metabolic Panel unknown) Stat (unknown) (no (unknown) (unknown) Consultations: (units (unknown) date) 10:30 a.m.. Spoke unknown) with Dr. Reyes, primary care, he will work (unknown) (no (unknown) (unknown) Course (units (unkno wn) date) unknown) (unknown) (no (unknown) (unknown) Creatinine 0.80 (units (unknown) date) (0.52-1.04) mg/dL unknown) (unknown) (no (unknown) (unknown) : 1940 (units (unknown) date) Acct:[id number] unknown) (unknown) (no (unknown) (unknown) Data collected (units (unknown) date) from: Patient unknown) (unknown) (no (unknown) (unknown) Date of Service: (units (unknown) date) 06/24/22 unknown) (unknown) (no (unknown) (unknown) Departure (units (unkn own) date) unknown) (unknown) (no (unknown) (unknown) Diagnosis: (units (unk nown) date) Lymphadenopathy/hi unknown) atal hernia (unknown) (no (unknown) (unknown) Dictated by: (units (u nknown) date) Citlalli Ramirez M.D. unknown) on 06/24/2022 at 10:22 ? ? (unknown) (no (unknown) (unknown) Differential (units (u nknown) date) considered: unknown) Includes but not limited to hiatal hernia gastritis (unknown) (no (unknown) (unknown) Discharge Plan (units (unknown) date) unknown) (unknown) (no (unknown) (unknown) Discontinued (units (u nknown) date) Medications unknown) (unknown) (no (unknown) (unknown) Discussion: (units (un known) date) Appropriate for unknown) discharge home. Patient does have good primary (unknown) (no (unknown) (unknown) Documented By: AT (units (unknown) date) unknown) (unknown) (no (unknown) (unknown) Dr. Rockwell with (units (unknown) date) our general unknown) surgery for evaluation as well. (unknown) (no (unknown) (unknown) Dr. Page. (units (u nknown) date) There was unknown) discussion about having EGD as well but was instructed (unknown) (no (unknown) (unknown) ED Orders (units (unkn own) date) unknown) (unknown) (no (unknown) (unknown) ENT: Mucous (units (un known) date) membranes moist. unknown) (unknown) (no (unknown) (unknown) ER Physician: (units ( unknown) date) Gregor Hernandez MD unknown) (unknown) (no (unknown) (unknown) EXTREMITIES: No (units (unknown) date) gross deformities. unknown) (unknown) (no (unknown) (unknown) EYES: Pupils (units (u nknown) date) equal round unknown) (unknown) (no (unknown) (unknown) Emergency Report (units (unknown) date) unknown) (unknown) (no (unknown) (unknown) Eos # (Auto) 400 (units (unknown) date) (0-450) /uL unknown) (unknown) (no (unknown) (unknown) Eos % (Auto) 2.8 (units (unknown) date) (2-4) % unknown) (unknown) (no (unknown) (unknown) Esterase (units (unkno wn) date) unknown) (unknown) (no (unknown) (unknown) Estimated GFR > (units (unknown) date) 60 (>60) mL/min unknown) (unknown) (no (unknown) (unknown) Exam Narrative: (units (unknown) date) unknown) (unknown) (no (unknown) (unknown) Exam documented (units (unknown) date) above, pertinent unknown) findings include: Reproducible suprapubic and (unknown) (no (unknown) (unknown) Exam (units (unkno wn) date) unknown) (unknown) (no (unknown) (unknown) Extensive (units (unkn own) date) interval primarily unknown) abdominal adenopathy as described above.? Overall (unknown) (no (unknown) (unknown) FINDINGS:? (units (unk nown) date) unknown) (unknown) (no (unknown) (unknown) Lázaro Reyes (units (unk nown) date) MD Can unknown) [Primary Care Provider] (unknown) (no (unknown) (unknown) GASTROINTESTINAL: (units (unknown) date) Abdomen soft, unknown) reproducible epigastric and suprapubic (unknown) (no (unknown) (unknown) GASTROINTESTINAL: (units (unknown) date) Positive nausea, unknown) negative vomiting, positive abdominal pain (unknown) (no (unknown) (unknown) GENERAL: in no (units (unknown) date) distress, not unknown) toxic not dyspneic (unknown) (no (unknown) (unknown) GENERAL: negative (units (unknown) date) chills, fatigue, unknown) malaise, fever, sweats. (unknown) (no (unknown) (unknown) : negative (units (u nknown) date) dysuria, unknown) frequency, hematuria (unknown) (no (unknown) (unknown) Gallbladder:? (units ( unknown) date) Removed. unknown) (unknown) (no (unknown) (unknown) General (units (unkno wn) date) unknown) (unknown) (no (unknown) (unknown) Globulin 2.7 (units (u nknown) date) (1.7-4.1) g/dL unknown) (unknown) (no (unknown) (unknown) Glucose 153 H (units ( unknown) date) (80-110) mg/dL unknown) (unknown) (no (unknown) (unknown) H/O total (units (unkn own) date) hysterectomy unknown) (unknown) (no (unknown) (unknown) HEAD: (units (unkno wn) date) Normocephalic. unknown) (unknown) (no (unknown) (unknown) HEENT: negative (units (unknown) date) sinus pain, ear unknown) pain, sore throat (unknown) (no (unknown) (unknown) HPI - Abdominal (units (unknown) date) Pain unknown) (unknown) (no (unknown) (unknown) HPI narrative: (units (unknown) date) unknown) (unknown) (no (unknown) (unknown) Hct 41.2 (36-46) (units (unknown) date) % unknown) (unknown) (no (unknown) (unknown) Heart:? No (units (unk nown) date) significant unknown) findings. (unknown) (no (unknown) (unknown) Hgb 13.9 (units (unkno wn) date) (12.0-16.0) g/dL unknown) (unknown) (no (unknown) (unknown) 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 unknown) (unknown) (no (unknown) (unknown) Hiatal (units (unkno wn) date) unknown) (unknown) (no (unknown) (unknown) History of (units (unk nown) date) Present Illness unknown) (unknown) (no (unknown) (unknown) Home Medications (units (unknown) date) unknown) (unknown) (no (unknown) (unknown) Hyperlipidemia (units (unknown) date) unknown) (unknown) (no (unknown) (unknown) IMPRESSION:? (units (u nknown) date) unknown) (unknown) (no (unknown) (unknown) INDICATIONS:? IV (units (unknown) date) contrast unknown) only/generalized abdominal pain (unknown) (no (unknown) (unknown) Iliac node is (units ( unknown) date) present measuring unknown) 7 mm on series 2, image 56. (unknown) (no (unknown) (unknown) Image quality:? (units (unknown) date) Excellent.? unknown) (unknown) (no (unknown) (unknown) Imaging Data (units (u nknown) date) unknown) (unknown) (no (unknown) (unknown) Imaging studies (units (unknown) date) independently unknown) reviewed: CT abdomen pelvis extensive interval (unknown) (no (unknown) (unknown) Initial Vital (units ( unknown) date) Signs unknown) (unknown) (no (unknown) (unknown) Initial Vital (units ( unknown) date) Signs: unknown) (unknown) (no (unknown) (unknown) Instructions: DI (units (unknown) date) for Hiatal Hernia, unknown) DI for Lymphadenopathy (unknown) (no (unknown) (unknown) Intra-abdominal (units (unknown) date) lymphadenopathy, unknown) Hernia, hiatal (unknown) (no (unknown) (unknown) Located Within [facility] (units (unknown) date) [address] unknown) [place] [address] (unknown) (no (unknown) (unknown) Kidneys and (units (un known) date) Ureters:? unknown) Unremarkable.? ? (unknown) (no (unknown) (unknown) Lab Data (units (unkno wn) date) unknown) (unknown) (no (unknown) (unknown) Lab Results (units (un known) date) unknown) (unknown) (no (unknown) (unknown) Lab Test results (units (unknown) date) independently unknown) reviewed as above. Pertinent findings: WBC 13.0 (unknown) (no (unknown) (unknown) Labs: (units (unkno wn) date) unknown) (unknown) (no (unknown) (unknown) Last Admin: (units (un known) date) 06/24/22 09:34 unknown) Dose: 1,000 mls/hr (unknown) (no (unknown) (unknown) Lipase 23 (units (unkn own) date) (23-300) U/L unknown) (unknown) (no (unknown) (unknown) Lipase Stat (units (un known) date) unknown) (unknown) (no (unknown) (unknown) Liver:? Hepatic (units (unknown) date) steatosis is unknown) present.? ? (unknown) (no (unknown) (unknown) Lung bases:? (units (u nknown) date) Unremarkable.? ? unknown) (unknown) (no (unknown) (unknown) Lymph # (Auto) (units (unknown) date) 1300 (9693-8850) unknown) /uL (unknown) (no (unknown) (unknown) Lymph % (Auto) (units (unknown) date) 9.6 L (25-40) % unknown) (unknown) (no (unknown) (unknown) MCH 29.9 (26-34) (units (unknown) date) PG unknown) (unknown) (no (unknown) (unknown) MCHC 33.7 (30-36) (units (unknown) date) % unknown) (unknown) (no (unknown) (unknown) MCV 88.6 (80-100) (units (unknown) date) fL unknown) (unknown) (no (unknown) (unknown) MDM - Abdominal (units (unknown) date) Pain unknown) (unknown) (no (unknown) (unknown) MDM Narrative (units ( unknown) date) unknown) (unknown) (no (unknown) (unknown) MDM (units (unkno wn) date) unknown) (unknown) (no (unknown) (unknown) MUSCULOSKELETAL: (units (unknown) date) negative muscle or unknown) bony pain (unknown) (no (unknown) (unknown) Medical History (units (unknown) date) (Updated 06/24/22 unknown) @ 10:45 by Gregor Hernandez MD) (unknown) (no (unknown) (unknown) Medical decision (units (unknown) date) making narrative: unknown) (unknown) (no (unknown) (unknown) Medical records (units (unknown) date) reviewed: unknown) Colonoscopy from March 2022 (unknown) (no (unknown) (unknown) Medication (units (unk nown) date) Instructions unknown) Recorded Confirmed (unknown) (no (unknown) (unknown) Medication (units (unk nown) date) Instructions unknown) Recorded (unknown) (no (unknown) (unknown) Miscellaneous: No (units (unknown) date) inguinal hernias unknown) are seen. ? ? (unknown) (no (unknown) (unknown) Mode of arrival: (units (unknown) date) Ambulatory unknown) (unknown) (no (unknown) (unknown) [place] # (Auto) (units ( unknown) date) 1300 H (0-900) /uL unknown) (unknown) (no (unknown) (unknown) [place] % (Auto) (units ( unknown) date) 10.3 (3-14) % unknown) (unknown) (no (unknown) (unknown) NECK: Trachea (units ( unknown) date) midline. unknown) (unknown) (no (unknown) (unknown) NEURO: AOx4. (units (u nknown) date) unknown) (unknown) (no (unknown) (unknown) NEUROLOGIC: (units (un known) date) negative weakness, unknown) numbness (unknown) (no (unknown) (unknown) Narrative (units (unkn own) date) unknown) (unknown) (no (unknown) (unknown) Narrative: (units (unk nown) date) unknown) (unknown) (no (unknown) (unknown) Neut # (Auto) (units ( unknown) date) 49029 H unknown) (9933-3249) /uL (unknown) (no (unknown) (unknown) Neut % (Auto) (units ( unknown) date) 76.7 H (50-75) % unknown) (unknown) (no (unknown) (unknown) New (units (unkno wn) date) unknown) (unknown) (no (unknown) (unknown) No Action (units (unkn own) date) unknown) (unknown) (no (unknown) (unknown) Ondansetron HCl (units (unknown) date) (Ondansetron 4 unknown) Mg/2 Ml Inj) 4 mg IV NOW PRN (unknown) (no (unknown) (unknown) Ordered: (units (unkno wn) date) unknown) (unknown) (no (unknown) (unknown) Orders (units (unkno wn) date) unknown) (unknown) (no (unknown) (unknown) Oxygen Delivery (units (unknown) date) Method Room Air unknown) 06/24/22 09:00 (unknown) (no (unknown) (unknown) Oxygen Delivery (units (unknown) date) Method Room Air unknown) (unknown) (no (unknown) (unknown) PELVIS: (units (unkno wn) date) unknown) (unknown) (no (unknown) (unknown) PRN Reason: (units (un known) date) Nausea And unknown) Vomiting (unknown) (no (unknown) (unknown) PROCEDURE:? CT (units (unknown) date) ABDOMEN PELVIS W unknown) CON (unknown) (no (unknown) (unknown) PSYCH: Not (units (unk nown) date) anxious, is unknown) cooperative (unknown) (no (unknown) (unknown) Pancreas:? (units (unk nown) date) Unremarkable.? ? unknown) (unknown) (no (unknown) (unknown) Patient Comments: (units (unknown) date) unknown) (unknown) (no (unknown) (unknown) Patient (units (unkno wn) date) Disposition: Home unknown) (unknown) (no (unknown) (unknown) Patient History (units (unknown) date) unknown) (unknown) (no (unknown) (unknown) Patient here (units (u nknown) date) complaints unknown) epigastric and lower abdominal pain that does not (unknown) (no (unknown) (unknown) Patient: (units (unkno wn) date) WaleStephan E unknown) MR#: [id number] (unknown) (no (unknown) (unknown) Pelvic Nodes: No (units (unknown) date) enlarged lymph unknown) nodes.? (unknown) (no (unknown) (unknown) Pelvic Organs:? (units (unknown) date) Unremarkable.? ? unknown) (unknown) (no (unknown) (unknown) Penicillins (units (un known) date) Allergy Unknown unknown) Verified 06/24/22 09:00 (unknown) (no (unknown) (unknown) Peritoneum:? No (units (unknown) date) abnormal unknown) intraperitoneal fluid.? No free air.? (unknown) (no (unknown) (unknown) Please see family (units (unknown) date) doctor this week unknown) for re-evaluation CT scan findings. You will (unknown) (no (unknown) (unknown) Plt Count 263 (units ( unknown) date) (150-400) X103/uL unknown) (unknown) (no (unknown) (unknown) Point of care (units ( unknown) date) testing: unknown) (unknown) (no (unknown) (unknown) Potassium 4.1 (units ( unknown) date) (3.4-5.1) mmol/L unknown) (unknown) (no (unknown) (unknown) Prescriptions: (units (unknown) date) unknown) (unknown) (no (unknown) (unknown) Previous Rx's (units ( unknown) date) unknown) (unknown) (no (unknown) (unknown) Pulse Oximetry 98 (units (unknown) date) 06/24/22 09:00 unknown) (unknown) (no (unknown) (unknown) Pulse Oximetry 98 (units (unknown) date) unknown) (unknown) (no (unknown) (unknown) Pulse Rate 75 (units ( unknown) date) 06/24/22 09:00 unknown) (unknown) (no (unknown) (unknown) Pulse Rate 75 (units ( unknown) date) unknown) (unknown) (no (unknown) (unknown) RBC 4.66 (units (unkno wn) date) (4.0-5.2) X106/uL unknown) (unknown) (no (unknown) (unknown) RDW 13.2 (units (unkno wn) date) (11.6-14.8) % unknown) (unknown) (no (unknown) (unknown) RESPIRATORY: Clear (units (unknown) date) to auscultation. unknown) Breath sounds equal bilaterally. No wheezes, (unknown) (no (unknown) (unknown) RESPIRATORY: (units (u nknown) date) negative dyspnea, unknown) cough (unknown) (no (unknown) (unknown) ROS Unobtainable: (units (unknown) date) All systems unknown) reviewed + are unremarkable except as noted in HPI (unknown) (no (unknown) (unknown) Radiologist's (units ( unknown) date) Impression: unknown) (unknown) (no (unknown) (unknown) Re-evaluations: (units (unknown) date) 10:48 a.m.. unknown) Updated patient results. CT concerning for (unknown) (no (unknown) (unknown) Referrals: (units (unk nown) date) unknown) (unknown) (no (unknown) (unknown) Related Data (units (u nknown) date) unknown) (unknown) (no (unknown) (unknown) Respiratory Rate (units (unknown) date) 06/24/22 09:00 unknown) (unknown) (no (unknown) (unknown) Respiratory Rate (units (unknown) date) 20 unknown) (unknown) (no (unknown) (unknown) Review of Systems (units (unknown) date) unknown) (unknown) (no (unknown) (unknown) S/P Nohemi (units (unk nown) date) fundoplication unknown) (with gastrostomy tube placement) (unknown) (no (unknown) (unknown) SKIN: Warm and (units (unknown) date) dry unknown) (unknown) (no (unknown) (unknown) SKIN: negative (units (unknown) date) rash, skin lesions unknown) (unknown) (no (unknown) (unknown) Nicol and has (units (unknown) date) been monitored. unknown) Had colonoscopy in the last 3 months here by (unknown) (no (unknown) (unknown) Signed By: (units (unk nown) date) unknown) (unknown) (no (unknown) (unknown) Smoking Status: (units (unknown) date) Former smoker unknown) (unknown) (no (unknown) (unknown) Social History (units (unknown) date) (Reviewed 06/24/22 unknown) @ 09:16 by Gregor Hernandez MD) (unknown) (no (unknown) (unknown) Sodium 137 (units (unk nown) date) (137-145) mmol/L unknown) (unknown) (no (unknown) (unknown) Sodium Chloride (units (unknown) date) (Normal Saline unknown) 0.9%) 500 mls @ 1,000 mls/hr IV BOLUS ONE (unknown) (no (unknown) (unknown) Source: patient (units (unknown) date) unknown) (unknown) (no (unknown) (unknown) Spleen:? (units (unkno wn) date) Unremarkable.? ? unknown) (unknown) (no (unknown) (unknown) Stand Alone (units (un known) date) Forms: Patient unknown) Portal/API (unknown) (no (unknown) (unknown) Stated Complaint: (units (unknown) date) Upper and lower unknown) gut pain (unknown) (no (unknown) (unknown) Stomach and (units (un known) date) Bowel:? Stomach, unknown) small bowel loops, and colon are unremarkable.? (unknown) (no (unknown) (unknown) Stop: 06/24/22 (units (unknown) date) 09:42 unknown) (unknown) (no (unknown) (unknown) Substance Use (units ( unknown) date) Type: does not use unknown) (unknown) (no (unknown) (unknown) Sulfa (units (unkno wn) date) (Sulfonamide unknown) Allergy Unknown Verified 06/24/22 09:00 (unknown) (no (unknown) (unknown) Surgical History (units (unknown) date) (Reviewed 06/24/22 unknown) @ 09:16 by Gregor Hernandez MD) (unknown) (no (unknown) (unknown) TAKE 1 CAPSULE BY (units (unknown) date) MOUTH ONCE A DAY unknown) (unknown) (no (unknown) (unknown) TECHNIQUE:? (units (un known) date) unknown) (unknown) (no (unknown) (unknown) Temperature 98.3 (units (unknown) date) F 06/24/22 09:00 unknown) (unknown) (no (unknown) (unknown) Temperature 98.3 (units (unknown) date) F unknown) (unknown) (no (unknown) (unknown) Time Seen by (units (u nknown) date) Provider: 06/24/22 unknown) 09:02 (unknown) (no (unknown) (unknown) Total Bilirubin (units (unknown) date) 0.8 (0.2-1.3) unknown) mg/dL (unknown) (no (unknown) (unknown) Total Protein 6.9 (units (unknown) date) (6.3-8.2) g/dL unknown) (unknown) (no (unknown) (unknown) Treatments: (units (un known) date) Normal saline unknown) (unknown) (no (unknown) (unknown) Urine Dip (units (unkn own) date) unknown) (unknown) (no (unknown) (unknown) Urine Microscopic (units (unknown) date) Stat unknown) (unknown) (no (unknown) (unknown) Urine Specific (units (unknown) date) [place] 1.010 unknown) (unknown) (no (unknown) (unknown) Ventral Wall: ? (units (unknown) date) No hernia.? unknown) (unknown) (no (unknown) (unknown) Vessels:? Aorta (units (unknown) date) and inferior vena unknown) cava are normal in size.? (unknown) (no (unknown) (unknown) Vital Signs - 8 (units (unknown) date) hr unknown) (unknown) (no (unknown) (unknown) Vital Signs (units (un known) date) unknown) (unknown) (no (unknown) (unknown) Vital signs: (units (u nknown) date) unknown) (unknown) (no (unknown) (unknown) WBC 13.0 H (units (unk nown) date) (4.5-11.0) X103/uL unknown) (unknown) (no (unknown) (unknown) [Embedded Image (units (unknown) date) Not Available] unknown) (unknown) (no (unknown) (unknown) abdomen with the (units (unknown) date) largest confluent unknown) focus measuring 7.3 x 6.4 cm on series 2, (unknown) (no (unknown) (unknown) abdominal (units (unkn own) date) lymphadenopathy unknown) (unknown) (no (unknown) (unknown) able to get PET (units (unknown) date) scan done but has unknown) not given referral for Oncology at. Hiatal (unknown) (no (unknown) (unknown) adjustment (units (unk nown) date) unknown) (unknown) (no (unknown) (unknown) alcohol intake (units (unknown) date) frequency: 0-2 unknown) drinks per day (unknown) (no (unknown) (unknown) and below (units (unkn own) date) unknown) (unknown) (no (unknown) (unknown) aortic caval (units (u nknown) date) region.? The large unknown) lymph node is in the left para aortic location (unknown) (no (unknown) (unknown) appearance (units (unk nown) date) unknown) (unknown) (no (unknown) (unknown) appendicitis (units (u nknown) date) bowel obstruction unknown) ischemic bowel (unknown) (no (unknown) (unknown) at discharge. (units ( unknown) date) Urinalysis noted. unknown) However no urinary complaints. No antibiotics (unknown) (no (unknown) (unknown) basis. Also will (units (unknown) date) need a PET scan. unknown) Prescription for pain control has been (unknown) (no (unknown) (unknown) care for follow (units (unknown) date) up. I did discuss unknown) with primary care for urgent oncology (unknown) (no (unknown) (unknown) clindamycin (units (un known) date) Allergy Unknown unknown) Verified 06/24/22 09:00 (unknown) (no (unknown) (unknown) cm on series 2, (units (unknown) date) image 28. unknown) Scattered lymph nodes/masses are present within the (unknown) (no (unknown) (unknown) complaints. Has (units (unknown) date) had discomfort unknown) with eating. No chest pain. No back pain. (unknown) (no (unknown) (unknown) creatinine 0.8 (units (unknown) date) AST 23 ALT 16 unknown) alkaline phosphatase 94 (unknown) (no (unknown) (unknown) epigastric (units (unk nown) date) tenderness unknown) (unknown) (no (unknown) (unknown) estradiol 0.5 mg (units (unknown) date) tablet 0.5 mg PO unknown) DAILY 09/07/19 09/20/19 (unknown) (no (unknown) (unknown) estradiol 0.5 mg (units (unknown) date) tablet unknown) (unknown) (no (unknown) (unknown) familiar to her (units (unknown) date) as she states it unknown) feels like hiatal hernia discomfort she had 7 (unknown) (no (unknown) (unknown) from the (units (unkno wn) date) unknown) (unknown) (no (unknown) (unknown) hemoglobin 13.9 (units (unknown) date) hematocrit 41 unknown) platelets 263 sodium 137 potassium 4.1 BUN 18 (unknown) (no (unknown) (unknown) hernia is (units (unkn own) date) present. unknown) (unknown) (no (unknown) (unknown) hernia likely has (units (unknown) date) returned. I will unknown) prescribe pain medication for brief template (unknown) (no (unknown) (unknown) household (units (unkn own) date) members: spouse unknown) (unknown) (no (unknown) (unknown) hydrocodone 5 (units ( unknown) date) mg-acetaminophen unknown) 325 1 tab PO Q6H PRN pain #20 tabs 06/24/22 (unknown) (no (unknown) (unknown) hydrocodone-aceta (units (unknown) date) minophen 5-325 mg unknown) tablet (unknown) (no (unknown) (unknown) image 53. (units (unkn own) date) unknown) (unknown) (no (unknown) (unknown) indicated at this (units (unknown) date) time. unknown) (unknown) (no (unknown) (unknown) is highly (units (unkn own) date) suggestive of unknown) malignancy including lymphoma. (unknown) (no (unknown) (unknown) lisinopril 5 mg (units (unknown) date) tablet 5 mg PO unknown) DAILY #30 tabs 09/10/19 (unknown) (no (unknown) (unknown) lisinopril 5 mg (units (unknown) date) tablet unknown) (unknown) (no (unknown) (unknown) lower (units (unkno wn) date) unknown) (unknown) (no (unknown) (unknown) lung bases to the (units (unknown) date) pubic symphysis.? unknown) Coronal and sagittal reformats were (unknown) (no (unknown) (unknown) lymphadenopathy (units (unknown) date) suggesting unknown) malignancy/lymphom a, hiatal hernia present (unknown) (no (unknown) (unknown) measuring 2.7 (units ( unknown) date) unknown) (unknown) (no (unknown) (unknown) measuring 5.9 x (units (unknown) date) unknown) (unknown) (no (unknown) (unknown) measuring (units (unkn own) date) unknown) (unknown) (no (unknown) (unknown) metformin 500 mg (units (unknown) date) tablet extended unknown) release 24hr (unknown) (no (unknown) (unknown) metformin 500 mg (units (unknown) date) tablet,extended unknown) 500 mg PO DAILY #30 tabs 09/10/19 (unknown) (no (unknown) (unknown) mg tablet (units (unkn own) date) unknown) (unknown) (no (unknown) (unknown) need referral to (units (unknown) date) oncology services unknown) as well as possible biopsy on outpatient (unknown) (no (unknown) (unknown) of mA and/or kV (units (unknown) date) according to unknown) patient size. (unknown) (no (unknown) (unknown) office this week. (units (unknown) date) unknown) (unknown) (no (unknown) (unknown) omeprazole 20 mg (units (unknown) date) capsule,delayed 20 unknown) mg PO DAILY 09/07/19 03/24/22 (unknown) (no (unknown) (unknown) omeprazole 20 mg (units (unknown) date) capsule,delayed unknown) release(DR/EC) (unknown) (no (unknown) (unknown) on getting (units (unk nown) date) patient PET scan unknown) as well as biopsy. He states he will need to get (unknown) (no (unknown) (unknown) ondansetron 4 mg (units (unknown) date) disintegrating 4 unknown) mg PO Q8H PRN nausea and 06/24/22 (unknown) (no (unknown) (unknown) ondansetron 4 mg (units (unknown) date) tablet,disintegrat unknown) ing (unknown) (no (unknown) (unknown) ordered (units (unkno wn) date) unknown) (unknown) (no (unknown) (unknown) oxybutynin (units (unk nown) date) chloride 5 mg unknown) tablet 5 mg PO DAILY 09/07/19 03/24/22 (unknown) (no (unknown) (unknown) oxybutynin (units (unk nown) date) chloride 5 mg unknown) tablet (unknown) (no (unknown) (unknown) pain control (units (u nknown) date) until office unknown) appointment. She does understand needs urgent follow (unknown) (no (unknown) (unknown) performed.? For (units (unknown) date) unknown) (unknown) (no (unknown) (unknown) periaortic and (units (unknown) date) unknown) (unknown) (no (unknown) (unknown) prescription. (units ( unknown) date) Return if worse if unknown) any questions or concerns. Please do follow (unknown) (no (unknown) (unknown) proportion to (units ( unknown) date) exam. No CVA unknown) tenderness (unknown) (no (unknown) (unknown) provided for you. (units (unknown) date) No driving or unknown) operating machinery when taking this (unknown) (no (unknown) (unknown) radiate for the (units (unknown) date) past 3 days. Has unknown) nausea but no vomiting. Epigastric pain is (unknown) (no (unknown) (unknown) radiation dose (units (unknown) date) reduction, the unknown) following was used:? automated exposure control, (unknown) (no (unknown) (unknown) rales, or (units (unkn own) date) rhonchi. unknown) (unknown) (no (unknown) (unknown) referral and PET (units (unknown) date) scan. Otherwise unknown) laboratory studies are reassuring. Nontoxic (unknown) (no (unknown) (unknown) release 24hr (units (u nknown) date) unknown) (unknown) (no (unknown) (unknown) release (units (unkno wn) date) unknown) (unknown) (no (unknown) (unknown) simvastatin 10 mg (units (unknown) date) tablet 10 mg PO unknown) DAILY 09/07/19 03/24/22 (unknown) (no (unknown) (unknown) simvastatin 10 mg (units (unknown) date) tablet unknown) (unknown) (no (unknown) (unknown) since then. (units (un known) date) Patient recently unknown) found to have lymph nodes in lower abdomen back in (unknown) (no (unknown) (unknown) tablet vomiting (units (unknown) date) #10 tabs unknown) (unknown) (no (unknown) (unknown) tenderness but no (units (unknown) date) peritoneal signs, unknown) bowel sounds are present. No pain out of (unknown) (no (unknown) (unknown) that before (units (un known) date) referral to unknown) Oncology. But he is going to be working on these items. (unknown) (no (unknown) (unknown) to go to [place] to (units (unknown) date) have it done, so unknown) she is not had this done yet. No urinary (unknown) (no (unknown) (unknown) up with Oncology. (units (unknown) date) I will be reaching unknown) out to Dr. Reyes primary care today (unknown) (no (unknown) (unknown) up with [place] (units (unknown) date) [place] [facility] unknown) regarding your hiatal hernia. Or you may call (unknown) (no (unknown) (unknown) worsening (units (unkn own) date) lymphadenopathy, unknown) possible cancer/lymphoma. Primary care has not been (unknown) (no (unknown) (unknown) years ago before (units (unknown) date) repair. It was unknown) done at [facility]. Has been doing well Result panel 81 (unknown) (no date) (unknown) (unknown) 0-1 /HPF (units (unkn own) unknown) (unknown) (no date) (unknown) (unknown) 1-5/HPF (units (unkn own) unknown) (unknown) (no date) (unknown) (unknown) Few (2-10) (units (un known) unknown) (unknown) (no date) (unknown) (unknown) None Seen (units (unk nown) unknown) (unknown) (no date) (unknown) (unknown) None Seen (units (unk nown) unknown) (unknown) (no date) (unknown) (unknown) Specimen (units (unkn own) Cultured unknown) (unknown) (no date) (unknown) (unknown) Specimen (units (unkn own) Cultured unknown) Result panel 82 (unknown) (no (unknown) (unknown) (no value) (units (unk nown) date) unknown) (unknown) (no (unknown) (unknown) 0.5 mg PO DAILY (units (unknown) date) unknown) (unknown) (no (unknown) (unknown) 06/24/22 06/24/22 (units (unknown) date) Range/Units unknown) (unknown) (no (unknown) (unknown) 06/24/22 09:00 (units (unknown) date) unknown) (unknown) (no (unknown) (unknown) 06/24/22 09:13 (units (unknown) date) unknown) (unknown) (no (unknown) (unknown) 06/24/22 10:40 (units (unknown) date) unknown) (unknown) (no (unknown) (unknown) 06/24/22 (units (unkno wn) date) unknown) (unknown) (no (unknown) (unknown) 09:00 09:00 (units (un known) date) unknown) (unknown) (no (unknown) (unknown) 09:00 (units (unkno wn) date) unknown) (unknown) (no (unknown) (unknown) 1 tab PO Q6H PRN (units (unknown) date) (Reason: pain) unknown) Qty: 20 0RF (unknown) (no (unknown) (unknown) 10 mg PO DAILY (units (unknown) date) unknown) (unknown) (no (unknown) (unknown) 10.7 cm.? (units (unkn own) date) Enlarged unknown) periportal/peripan creatic nodes are present the largest (unknown) (no (unknown) (unknown) 2.3 cm on series (units (unknown) date) 2, image 38. There unknown) is a more confluent mass anteriorly (unknown) (no (unknown) (unknown) 20 mg PO DAILY (units (unknown) date) unknown) (unknown) (no (unknown) (unknown) [id number] (units (unkno wn) date) unknown) (unknown) (no (unknown) (unknown) 4 mg PO Q8H PRN (units (unknown) date) (Reason: nausea unknown) and vomiting) Qty: 10 0RF (unknown) (no (unknown) (unknown) 5 mg PO DAILY (units ( unknown) date) Qty: 30 0RF unknown) (unknown) (no (unknown) (unknown) 5 mg PO DAILY (units ( unknown) date) unknown) (unknown) (no (unknown) (unknown) 500 mg PO DAILY (units (unknown) date) Qty: 30 0RF unknown) (unknown) (no (unknown) (unknown) ? (units (unkno wn) date) unknown) (unknown) (no (unknown) (unknown) ABDOMEN: (units (unkno wn) date) unknown) (unknown) (no (unknown) (unknown) ALT 16 (<35) IU/L (units (unknown) date) unknown) (unknown) (no (unknown) (unknown) AST 23 (14-36) (units (unknown) date) IU/L unknown) (unknown) (no (unknown) (unknown) Abdominal Nodes:? (units (unknown) date) There is extensive unknown) focal and confluent adenopathy in the (unknown) (no (unknown) (unknown) Activity (units (unkno wn) date) Restrictions/Addit unknown) ional Instructions: (unknown) (no (unknown) (unknown) Adrenal Glands:? (units (unknown) date) Unremarkable.? ? unknown) (unknown) (no (unknown) (unknown) After history and (units (unknown) date) exam CBC CMP unknown) urinalysis lipase CT abdomen pelvis IV fluids (unknown) (no (unknown) (unknown) After the (units (unkn own) date) administration of unknown) oral and IV contrast, axial sections were acquired (unknown) (no (unknown) (unknown) Age/Sex: 82 / F (units (unknown) date) unknown) (unknown) (no (unknown) (unknown) Agrees for (units (unk nown) date) prescription for unknown) pain control for patient. He will see her in the (unknown) (no (unknown) (unknown) Albumin 4.2 (units (un known) date) (3.5-5.0) g/dL unknown) (unknown) (no (unknown) (unknown) Albumin/Globulin (units (unknown) date) Ratio 1.6 unknown) (1.0-2.8) (unknown) (no (unknown) (unknown) Alcohol type: (units ( unknown) date) wine unknown) (unknown) (no (unknown) (unknown) Alkaline (units (unkno wn) date) Phosphatase 94 unknown) (38-126) U/L (unknown) (no (unknown) (unknown) Allergies (units (unkn own) date) unknown) (unknown) (no (unknown) (unknown) Allergy/AdvReac (units (unknown) date) Type Severity unknown) Reaction Status Date / Time (unknown) (no (unknown) (unknown) Antibiotics) (units (u nknown) date) unknown) (unknown) (no (unknown) (unknown) Approved by: (units (u nknown) date) Citlalli Ramirez M.D. unknown) on 06/24/2022 at 10:26? (unknown) (no (unknown) (unknown) BACK: No flank (units (unknown) date) tenderness. unknown) (unknown) (no (unknown) (unknown) BUN 18 H (7-17) (units (unknown) date) mg/dL unknown) (unknown) (no (unknown) (unknown) BUN/Creatinine (units (unknown) date) Ratio 22.5 H unknown) (6-22) (unknown) (no (unknown) (unknown) Baso # (Auto) 100 (units (unknown) date) (0-100) /uL unknown) (unknown) (no (unknown) (unknown) Baso % (Auto) 0.6 (units (unknown) date) (0-2) % unknown) (unknown) (no (unknown) (unknown) Bedside Urine (units ( unknown) date) Bilirubin - unknown) Negative (unknown) (no (unknown) (unknown) Bedside Urine (units ( unknown) date) Glucose Negative unknown) (unknown) (no (unknown) (unknown) Bedside Urine (units ( unknown) date) Ketone - Negative unknown) (unknown) (no (unknown) (unknown) Bedside Urine (units ( unknown) date) Leukocytes + 70 unknown) (unknown) (no (unknown) (unknown) Bedside Urine (units ( unknown) date) Nitrite - Negative unknown) (unknown) (no (unknown) (unknown) Bedside Urine (units ( unknown) date) Occult Blood - unknown) Negative (unknown) (no (unknown) (unknown) Bedside Urine (units ( unknown) date) Protein - Negative unknown) (unknown) (no (unknown) (unknown) Bedside Urine (units ( unknown) date) Urobilinogen - unknown) Negative (unknown) (no (unknown) (unknown) Bedside Urine pH (units (unknown) date) 7.0 unknown) (unknown) (no (unknown) (unknown) Biliary ducts:? (units (unknown) date) Unremarkable.? ? unknown) (unknown) (no (unknown) (unknown) Bladder:? (units (unkn own) date) Unremarkable.? ? unknown) (unknown) (no (unknown) (unknown) Blood Pressure (units (unknown) date) 167/85 H 06/24/22 unknown) 09:00 (unknown) (no (unknown) (unknown) Blood Pressure (units (unknown) date) 167/85 H unknown) (unknown) (no (unknown) (unknown) Bones:? (units (unkno wn) date) Unremarkable.? ? unknown) (unknown) (no (unknown) (unknown) CARDIOVASCULAR: (units (unknown) date) Regular rate and unknown) rhythm without murmurs (unknown) (no (unknown) (unknown) CARDIOVASCULAR: (units (unknown) date) negative chest unknown) pain, palpitations (unknown) (no (unknown) (unknown) CC: Abdominal (units ( unknown) date) pain unknown) (unknown) (no (unknown) (unknown) COMPARISON:? (units (u nknown) date) None. unknown) (unknown) (no (unknown) (unknown) CT abdomen pelvis (units (unknown) date) w con Stat unknown) (unknown) (no (unknown) (unknown) CT scan - (units (unkn own) date) abdomen/pelvis: unknown) (unknown) (no (unknown) (unknown) Calcium 9.3 (units (un known) date) (8.4-10.2) mg/dL unknown) (unknown) (no (unknown) (unknown) Carbon Dioxide 29 (units (unknown) date) (22-32) mmol/L unknown) (unknown) (no (unknown) (unknown) Chief Complaint: (units (unknown) date) Abdominal Pain unknown) (unknown) (no (unknown) (unknown) Chloride 101 (units (u nknown) date) (98-107) mmol/L unknown) (unknown) (no (unknown) (unknown) Clinical (units (unkno wn) date) Impression: unknown) (unknown) (no (unknown) (unknown) Complete Blood (units (unknown) date) Count AUTO DIFF unknown) Stat (unknown) (no (unknown) (unknown) Complicating (units (u nknown) date) co-morbidities: unknown) History of hiatal hernia, cholecystectomy, (unknown) (no (unknown) (unknown) Comprehensive (units ( unknown) date) Metabolic Panel unknown) Stat (unknown) (no (unknown) (unknown) Consultations: (units (unknown) date) 10:30 a.m.. Spoke unknown) with Dr. Reyes, primary care, he will work (unknown) (no (unknown) (unknown) Course (units (unkno wn) date) unknown) (unknown) (no (unknown) (unknown) Creatinine 0.80 (units (unknown) date) (0.52-1.04) mg/dL unknown) (unknown) (no (unknown) (unknown) : 1940 (units (unknown) date) Acct:[id number] unknown) (unknown) (no (unknown) (unknown) Data collected (units (unknown) date) from: Patient unknown) (unknown) (no (unknown) (unknown) Date of Service: (units (unknown) date) 06/24/22 unknown) (unknown) (no (unknown) (unknown) Departure (units (unkn own) date) unknown) (unknown) (no (unknown) (unknown) Diagnosis: (units (unk nown) date) Lymphadenopathy/hi unknown) atal hernia (unknown) (no (unknown) (unknown) Dictated by: (units (u nknown) date) Ctilalli Ramirez M.D. unknown) on 06/24/2022 at 10:22 ? ? (unknown) (no (unknown) (unknown) Differential (units (u nknown) date) considered: unknown) Includes but not limited to hiatal hernia gastritis (unknown) (no (unknown) (unknown) Discharge Plan (units (unknown) date) unknown) (unknown) (no (unknown) (unknown) Discontinued (units (u nknown) date) Medications unknown) (unknown) (no (unknown) (unknown) Discussion: (units (un known) date) Appropriate for unknown) discharge home. Patient does have good primary (unknown) (no (unknown) (unknown) Documented By: AT (units (unknown) date) unknown) (unknown) (no (unknown) (unknown) Dr. Rockwell with (units (unknown) date) our general unknown) surgery for evaluation as well. (unknown) (no (unknown) (unknown) Dr. Page. (units (u nknown) date) There was unknown) discussion about having EGD as well but was instructed (unknown) (no (unknown) (unknown) ED Orders (units (unkn own) date) unknown) (unknown) (no (unknown) (unknown) ENT: Mucous (units (un known) date) membranes moist. unknown) (unknown) (no (unknown) (unknown) ER Physician: (units ( unknown) date) Gregor Hernandez MD unknown) (unknown) (no (unknown) (unknown) EXTREMITIES: No (units (unknown) date) gross deformities. unknown) (unknown) (no (unknown) (unknown) EYES: Pupils (units (u nknown) date) equal round unknown) (unknown) (no (unknown) (unknown) Emergency Report (units (unknown) date) unknown) (unknown) (no (unknown) (unknown) Eos # (Auto) 400 (units (unknown) date) (0-450) /uL unknown) (unknown) (no (unknown) (unknown) Eos % (Auto) 2.8 (units (unknown) date) (2-4) % unknown) (unknown) (no (unknown) (unknown) Esterase (units (unkno wn) date) unknown) (unknown) (no (unknown) (unknown) Estimated GFR > (units (unknown) date) 60 (>60) mL/min unknown) (unknown) (no (unknown) (unknown) Exam Narrative: (units (unknown) date) unknown) (unknown) (no (unknown) (unknown) Exam documented (units (unknown) date) above, pertinent unknown) findings include: Reproducible suprapubic and (unknown) (no (unknown) (unknown) Exam (units (unkno wn) date) unknown) (unknown) (no (unknown) (unknown) Extensive (units (unkn own) date) interval primarily unknown) abdominal adenopathy as described above.? Overall (unknown) (no (unknown) (unknown) FINDINGS:? (units (unk nown) date) unknown) (unknown) (no (unknown) (unknown) Lázaro Reyes (units (unk nown) date) MD Can unknown) [Primary Care Provider] (unknown) (no (unknown) (unknown) GASTROINTESTINAL: (units (unknown) date) Abdomen soft, unknown) reproducible epigastric and suprapubic (unknown) (no (unknown) (unknown) GASTROINTESTINAL: (units (unknown) date) Positive nausea, unknown) negative vomiting, positive abdominal pain (unknown) (no (unknown) (unknown) GENERAL: in no (units (unknown) date) distress, not unknown) toxic not dyspneic (unknown) (no (unknown) (unknown) GENERAL: negative (units (unknown) date) chills, fatigue, unknown) malaise, fever, sweats. (unknown) (no (unknown) (unknown) : negative (units (u nknown) date) dysuria, unknown) frequency, hematuria (unknown) (no (unknown) (unknown) Gallbladder:? (units ( unknown) date) Removed. unknown) (unknown) (no (unknown) (unknown) General (units (unkno wn) date) unknown) (unknown) (no (unknown) (unknown) Globulin 2.7 (units (u nknown) date) (1.7-4.1) g/dL unknown) (unknown) (no (unknown) (unknown) Glucose 153 H (units ( unknown) date) (80-110) mg/dL unknown) (unknown) (no (unknown) (unknown) H/O total (units (unkn own) date) hysterectomy unknown) (unknown) (no (unknown) (unknown) HEAD: (units (unkno wn) date) Normocephalic. unknown) (unknown) (no (unknown) (unknown) HEENT: negative (units (unknown) date) sinus pain, ear unknown) pain, sore throat (unknown) (no (unknown) (unknown) HPI - Abdominal (units (unknown) date) Pain unknown) (unknown) (no (unknown) (unknown) HPI narrative: (units (unknown) date) unknown) (unknown) (no (unknown) (unknown) Hct 41.2 (36-46) (units (unknown) date) % unknown) (unknown) (no (unknown) (unknown) Heart:? No (units (unk nown) date) significant unknown) findings. (unknown) (no (unknown) (unknown) Hgb 13.9 (units (unkno wn) date) (12.0-16.0) g/dL unknown) (unknown) (no (unknown) (unknown) 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 unknown) (unknown) (no (unknown) (unknown) Hiatal (units (unkno wn) date) unknown) (unknown) (no (unknown) (unknown) History of (units (unk nown) date) Present Illness unknown) (unknown) (no (unknown) (unknown) Home Medications (units (unknown) date) unknown) (unknown) (no (unknown) (unknown) Hyperlipidemia (units (unknown) date) unknown) (unknown) (no (unknown) (unknown) IMPRESSION:? (units (u nknown) date) unknown) (unknown) (no (unknown) (unknown) INDICATIONS:? IV (units (unknown) date) contrast unknown) only/generalized abdominal pain (unknown) (no (unknown) (unknown) Iliac node is (units ( unknown) date) present measuring unknown) 7 mm on series 2, image 56. (unknown) (no (unknown) (unknown) Image quality:? (units (unknown) date) Excellent.? unknown) (unknown) (no (unknown) (unknown) Imaging Data (units (u nknown) date) unknown) (unknown) (no (unknown) (unknown) Imaging studies (units (unknown) date) independently unknown) reviewed: CT abdomen pelvis extensive interval (unknown) (no (unknown) (unknown) Initial Vital (units ( unknown) date) Signs unknown) (unknown) (no (unknown) (unknown) Initial Vital (units ( unknown) date) Signs: unknown) (unknown) (no (unknown) (unknown) Instructions: DI (units (unknown) date) for Hiatal Hernia, unknown) DI for Lymphadenopathy (unknown) (no (unknown) (unknown) Intra-abdominal (units (unknown) date) lymphadenopathy, unknown) Hernia, hiatal (unknown) (no (unknown) (unknown) Located Within [facility] (units (unknown) date) [address] unknown) [place] [address] (unknown) (no (unknown) (unknown) Kidneys and (units (un known) date) Ureters:? unknown) Unremarkable.? ? (unknown) (no (unknown) (unknown) Lab Data (units (unkno wn) date) unknown) (unknown) (no (unknown) (unknown) Lab Results (units (un known) date) unknown) (unknown) (no (unknown) (unknown) Lab Test results (units (unknown) date) independently unknown) reviewed as above. Pertinent findings: WBC 13.0 (unknown) (no (unknown) (unknown) Labs: (units (unkno wn) date) unknown) (unknown) (no (unknown) (unknown) Last Admin: (units (un known) date) 06/24/22 09:34 unknown) Dose: 1,000 mls/hr (unknown) (no (unknown) (unknown) Lipase 23 (units (unkn own) date) (23-300) U/L unknown) (unknown) (no (unknown) (unknown) Lipase Stat (units (un known) date) unknown) (unknown) (no (unknown) (unknown) Liver:? Hepatic (units (unknown) date) steatosis is unknown) present.? ? (unknown) (no (unknown) (unknown) Lung bases:? (units (u nknown) date) Unremarkable.? ? unknown) (unknown) (no (unknown) (unknown) Lymph # (Auto) (units (unknown) date) 1300 ([id number]) unknown) /uL (unknown) (no (unknown) (unknown) Lymph % (Auto) (units (unknown) date) 9.6 L (25-40) % unknown) (unknown) (no (unknown) (unknown) MCH 29.9 (26-34) (units (unknown) date) PG unknown) (unknown) (no (unknown) (unknown) MCHC 33.7 (30-36) (units (unknown) date) % unknown) (unknown) (no (unknown) (unknown) MCV 88.6 (80-100) (units (unknown) date) fL unknown) (unknown) (no (unknown) (unknown) MDM - Abdominal (units (unknown) date) Pain unknown) (unknown) (no (unknown) (unknown) MDM Narrative (units ( unknown) date) unknown) (unknown) (no (unknown) (unknown) MDM (units (unkno wn) date) unknown) (unknown) (no (unknown) (unknown) MUSCULOSKELETAL: (units (unknown) date) negative muscle or unknown) bony pain (unknown) (no (unknown) (unknown) Medical History (units (unknown) date) (Updated 06/24/22 unknown) @ 10:45 by Gregor Hernandez MD) (unknown) (no (unknown) (unknown) Medical decision (units (unknown) date) making narrative: unknown) (unknown) (no (unknown) (unknown) Medical records (units (unknown) date) reviewed: unknown) Colonoscopy from March 2022 (unknown) (no (unknown) (unknown) Medication (units (unk nown) date) Instructions unknown) Recorded Confirmed (unknown) (no (unknown) (unknown) Medication (units (unk nown) date) Instructions unknown) Recorded (unknown) (no (unknown) (unknown) Miscellaneous: No (units (unknown) date) inguinal hernias unknown) are seen. ? ? (unknown) (no (unknown) (unknown) Mode of arrival: (units (unknown) date) Ambulatory unknown) (unknown) (no (unknown) (unknown) [place] # (Auto) (units ( unknown) date) 1300 H (0-900) /uL unknown) (unknown) (no (unknown) (unknown) [place] % (Auto) (units ( unknown) date) 10.3 (3-14) % unknown) (unknown) (no (unknown) (unknown) NECK: Trachea (units ( unknown) date) midline. unknown) (unknown) (no (unknown) (unknown) NEURO: AOx4. (units (u nknown) date) unknown) (unknown) (no (unknown) (unknown) NEUROLOGIC: (units (un known) date) negative weakness, unknown) numbness (unknown) (no (unknown) (unknown) Narrative (units (unkn own) date) unknown) (unknown) (no (unknown) (unknown) Narrative: (units (unk nown) date) unknown) (unknown) (no (unknown) (unknown) Neut # (Auto) (units ( unknown) date) 67279 H unknown) (9538-7085) /uL (unknown) (no (unknown) (unknown) Neut % (Auto) (units ( unknown) date) 76.7 H (50-75) % unknown) (unknown) (no (unknown) (unknown) New (units (unkno wn) date) unknown) (unknown) (no (unknown) (unknown) No Action (units (unkn own) date) unknown) (unknown) (no (unknown) (unknown) Ondansetron HCl (units (unknown) date) (Ondansetron 4 unknown) Mg/2 Ml Inj) 4 mg IV NOW PRN (unknown) (no (unknown) (unknown) Ordered: (units (unkno wn) date) unknown) (unknown) (no (unknown) (unknown) Orders (units (unkno wn) date) unknown) (unknown) (no (unknown) (unknown) Oxygen Delivery (units (unknown) date) Method Room Air unknown) 06/24/22 09:00 (unknown) (no (unknown) (unknown) Oxygen Delivery (units (unknown) date) Method Room Air unknown) (unknown) (no (unknown) (unknown) PELVIS: (units (unkno wn) date) unknown) (unknown) (no (unknown) (unknown) PRN Reason: (units (un known) date) Nausea And unknown) Vomiting (unknown) (no (unknown) (unknown) PROCEDURE:? CT (units (unknown) date) ABDOMEN PELVIS W unknown) CON (unknown) (no (unknown) (unknown) PSYCH: Not (units (unk nown) date) anxious, is unknown) cooperative (unknown) (no (unknown) (unknown) Pancreas:? (units (unk nown) date) Unremarkable.? ? unknown) (unknown) (no (unknown) (unknown) Patient Comments: (units (unknown) date) unknown) (unknown) (no (unknown) (unknown) Patient (units (unkno wn) date) Disposition: Home unknown) (unknown) (no (unknown) (unknown) Patient History (units (unknown) date) unknown) (unknown) (no (unknown) (unknown) Patient here (units (u nknown) date) complaints unknown) epigastric and lower abdominal pain that does not (unknown) (no (unknown) (unknown) Patient: (units (unkno wn) date) Stephan Weinberg Aarti unknown) MR#: [id number] (unknown) (no (unknown) (unknown) Pelvic Nodes: No (units (unknown) date) enlarged lymph unknown) nodes.? (unknown) (no (unknown) (unknown) Pelvic Organs:? (units (unknown) date) Unremarkable.? ? unknown) (unknown) (no (unknown) (unknown) Penicillins (units (un known) date) Allergy Unknown unknown) Verified 06/24/22 09:00 (unknown) (no (unknown) (unknown) Peritoneum:? No (units (unknown) date) abnormal unknown) intraperitoneal fluid.? No free air.? (unknown) (no (unknown) (unknown) Please see family (units (unknown) date) doctor this week unknown) for re-evaluation CT scan findings. You will (unknown) (no (unknown) (unknown) Plt Count 263 (units ( unknown) date) (150-400) X103/uL unknown) (unknown) (no (unknown) (unknown) Point of care (units ( unknown) date) testing: unknown) (unknown) (no (unknown) (unknown) Potassium 4.1 (units ( unknown) date) (3.4-5.1) mmol/L unknown) (unknown) (no (unknown) (unknown) Prescriptions: (units (unknown) date) unknown) (unknown) (no (unknown) (unknown) Previous Rx's (units ( unknown) date) unknown) (unknown) (no (unknown) (unknown) Pulse Oximetry 98 (units (unknown) date) 06/24/22 09:00 unknown) (unknown) (no (unknown) (unknown) Pulse Oximetry 98 (units (unknown) date) unknown) (unknown) (no (unknown) (unknown) Pulse Rate 75 (units ( unknown) date) 06/24/22 09:00 unknown) (unknown) (no (unknown) (unknown) Pulse Rate 75 (units ( unknown) date) unknown) (unknown) (no (unknown) (unknown) RBC 4.66 (units (unkno wn) date) (4.0-5.2) X106/uL unknown) (unknown) (no (unknown) (unknown) RDW 13.2 (units (unkno wn) date) (11.6-14.8) % unknown) (unknown) (no (unknown) (unknown) RESPIRATORY: Clear (units (unknown) date) to auscultation. unknown) Breath sounds equal bilaterally. No wheezes, (unknown) (no (unknown) (unknown) RESPIRATORY: (units (u nknown) date) negative dyspnea, unknown) cough (unknown) (no (unknown) (unknown) ROS Unobtainable: (units (unknown) date) All systems unknown) reviewed + are unremarkable except as noted in HPI (unknown) (no (unknown) (unknown) Radiologist's (units ( unknown) date) Impression: unknown) (unknown) (no (unknown) (unknown) Re-evaluations: (units (unknown) date) 10:48 a.m.. unknown) Updated patient results. CT concerning for (unknown) (no (unknown) (unknown) Referrals: (units (unk n) date) unknown) (unknown) (no (unknown) (unknown) Related Data (units (u nknown) date) unknown) (unknown) (no (unknown) (unknown) Respiratory Rate (units (unknown) date) 20 06/24/22 09:00 unknown) (unknown) (no (unknown) (unknown) Respiratory Rate (units (unknown) date) 20 unknown) (unknown) (no (unknown) (unknown) Review of Systems (units (unknown) date) unknown) (unknown) (no (unknown) (unknown) S/P Nohemi (units (un) date) fundoplication unknown) (with gastrostomy tube placement) (unknown) (no (unknown) (unknown) SKIN: Warm and (units (unknown) date) dry unknown) (unknown) (no (unknown) (unknown) SKIN: negative (units (unknown) date) rash, skin lesions unknown) (unknown) (no (unknown) (unknown) Nicol and has (units (unknown) date) been monitored. unknown) Had colonoscopy in the last 3 months here by (unknown) (no (unknown) (unknown) Signed By: (units (unk ) date) unknown) (unknown) (no (unknown) (unknown) Smoking Status: (units (unknown) date) Former smoker unknown) (unknown) (no (unknown) (unknown) Social History (units (unknown) date) (Reviewed 06/24/22 unknown) @ 09:16 by Gregor Hernandez MD) (unknown) (no (unknown) (unknown) Sodium 137 (units (unk nown) date) (137-145) mmol/L unknown) (unknown) (no (unknown) (unknown) Sodium Chloride (units (unknown) date) (Normal Saline unknown) 0.9%) 500 mls @ 1,000 mls/hr IV BOLUS ONE (unknown) (no (unknown) (unknown) Source: patient (units (unknown) date) unknown) (unknown) (no (unknown) (unknown) Spleen:? (units (unkno wn) date) Unremarkable.? ? unknown) (unknown) (no (unknown) (unknown) Stand Alone (units (un known) date) Forms: Patient unknown) Portal/API (unknown) (no (unknown) (unknown) Stated Complaint: (units (unknown) date) Upper and lower unknown) gut pain (unknown) (no (unknown) (unknown) Stomach and (units (un known) date) Bowel:? Stomach, unknown) small bowel loops, and colon are unremarkable.? (unknown) (no (unknown) (unknown) Stop: 06/24/22 (units (unknown) date) 09:42 unknown) (unknown) (no (unknown) (unknown) Substance Use (units ( unknown) date) Type: does not use unknown) (unknown) (no (unknown) (unknown) Sulfa (units (unkno wn) date) (Sulfonamide unknown) Allergy Unknown Verified 06/24/22 09:00 (unknown) (no (unknown) (unknown) Surgical History (units (unknown) date) (Reviewed 06/24/22 unknown) @ 09:16 by Gregor Hernandez MD) (unknown) (no (unknown) (unknown) TAKE 1 CAPSULE BY (units (unknown) date) MOUTH ONCE A DAY unknown) (unknown) (no (unknown) (unknown) TECHNIQUE:? (units (un known) date) unknown) (unknown) (no (unknown) (unknown) Temperature 98.3 (units (unknown) date) F 06/24/22 09:00 unknown) (unknown) (no (unknown) (unknown) Temperature 98.3 (units (unknown) date) F unknown) (unknown) (no (unknown) (unknown) Time Seen by (units (u nknown) date) Provider: 06/24/22 unknown) 09:02 (unknown) (no (unknown) (unknown) Total Bilirubin (units (unknown) date) 0.8 (0.2-1.3) unknown) mg/dL (unknown) (no (unknown) (unknown) Total Protein 6.9 (units (unknown) date) (6.3-8.2) g/dL unknown) (unknown) (no (unknown) (unknown) Treatments: (units (un known) date) Normal saline unknown) (unknown) (no (unknown) (unknown) Urine Dip (units (unkn own) date) unknown) (unknown) (no (unknown) (unknown) Urine Microscopic (units (unknown) date) Stat unknown) (unknown) (no (unknown) (unknown) Urine Specific (units (unknown) date) [place] 1.010 unknown) (unknown) (no (unknown) (unknown) Ventral Wall: ? (units (unknown) date) No hernia.? unknown) (unknown) (no (unknown) (unknown) Vessels:? Aorta (units (unknown) date) and inferior vena unknown) cava are normal in size.? (unknown) (no (unknown) (unknown) Vital Signs - 8 (units (unknown) date) hr unknown) (unknown) (no (unknown) (unknown) Vital Signs (units (un known) date) unknown) (unknown) (no (unknown) (unknown) Vital signs: (units (u nknown) date) unknown) (unknown) (no (unknown) (unknown) WBC 13.0 H (units (unk nown) date) (4.5-11.0) X103/uL unknown) (unknown) (no (unknown) (unknown) [Embedded Image (units (unknown) date) Not Available] unknown) (unknown) (no (unknown) (unknown) abdomen with the (units (unknown) date) largest confluent unknown) focus measuring 7.3 x 6.4 cm on series 2, (unknown) (no (unknown) (unknown) abdominal (units (unkn own) date) lymphadenopathy unknown) (unknown) (no (unknown) (unknown) able to get PET (units (unknown) date) scan done but has unknown) not given referral for Oncology at. Hiatal (unknown) (no (unknown) (unknown) adjustment (units (unk nown) date) unknown) (unknown) (no (unknown) (unknown) alcohol intake (units (unknown) date) frequency: 0-2 unknown) drinks per day (unknown) (no (unknown) (unknown) and below (units (unkn own) date) unknown) (unknown) (no (unknown) (unknown) aortic caval (units (u nknown) date) region.? The large unknown) lymph node is in the left para aortic location (unknown) (no (unknown) (unknown) appearance (units (unk nown) date) unknown) (unknown) (no (unknown) (unknown) appendicitis (units (u nknown) date) bowel obstruction unknown) ischemic bowel (unknown) (no (unknown) (unknown) at discharge. (units ( unknown) date) Urinalysis noted. unknown) However no urinary complaints. No antibiotics (unknown) (no (unknown) (unknown) basis. Also will (units (unknown) date) need a PET scan. unknown) Prescription for pain control has been (unknown) (no (unknown) (unknown) care for follow (units (unknown) date) up. I did discuss unknown) with primary care for urgent oncology (unknown) (no (unknown) (unknown) clindamycin (units (un known) date) Allergy Unknown unknown) Verified 06/24/22 09:00 (unknown) (no (unknown) (unknown) cm on series 2, (units (unknown) date) image 28. unknown) Scattered lymph nodes/masses are present within the (unknown) (no (unknown) (unknown) complaints. Has (units (unknown) date) had discomfort unknown) with eating. No chest pain. No back pain. (unknown) (no (unknown) (unknown) creatinine 0.8 (units (unknown) date) AST 23 ALT 16 unknown) alkaline phosphatase 94 (unknown) (no (unknown) (unknown) epigastric (units (unk nown) date) tenderness unknown) (unknown) (no (unknown) (unknown) estradiol 0.5 mg (units (unknown) date) tablet 0.5 mg PO unknown) DAILY 09/07/19 09/20/19 (unknown) (no (unknown) (unknown) estradiol 0.5 mg (units (unknown) date) tablet unknown) (unknown) (no (unknown) (unknown) familiar to her (units (unknown) date) as she states it unknown) feels like hiatal hernia discomfort she had 7 (unknown) (no (unknown) (unknown) from the (units (unkno wn) date) unknown) (unknown) (no (unknown) (unknown) hemoglobin 13.9 (units (unknown) date) hematocrit 41 unknown) platelets 263 sodium 137 potassium 4.1 BUN 18 (unknown) (no (unknown) (unknown) hernia is (units (unkn own) date) present. unknown) (unknown) (no (unknown) (unknown) hernia likely has (units (unknown) date) returned. I will unknown) prescribe pain medication for brief template (unknown) (no (unknown) (unknown) household (units (unkn own) date) members: spouse unknown) (unknown) (no (unknown) (unknown) hydrocodone 5 (units ( unknown) date) mg-acetaminophen unknown) 325 1 tab PO Q6H PRN pain #20 tabs 06/24/22 (unknown) (no (unknown) (unknown) hydrocodone-aceta (units (unknown) date) minophen 5-325 mg unknown) tablet (unknown) (no (unknown) (unknown) image 53. (units (unkn own) date) unknown) (unknown) (no (unknown) (unknown) indicated at this (units (unknown) date) time. unknown) (unknown) (no (unknown) (unknown) is highly (units (unkn own) date) suggestive of unknown) malignancy including lymphoma. (unknown) (no (unknown) (unknown) lisinopril 5 mg (units (unknown) date) tablet 5 mg PO unknown) DAILY #30 tabs 09/10/19 (unknown) (no (unknown) (unknown) lisinopril 5 mg (units (unknown) date) tablet unknown) (unknown) (no (unknown) (unknown) lower (units (unkno wn) date) unknown) (unknown) (no (unknown) (unknown) lung bases to the (units (unknown) date) pubic symphysis.? unknown) Coronal and sagittal reformats were (unknown) (no (unknown) (unknown) lymphadenopathy (units (unknown) date) suggesting unknown) malignancy/lymphom a, hiatal hernia present (unknown) (no (unknown) (unknown) measuring 2.7 (units ( unknown) date) unknown) (unknown) (no (unknown) (unknown) measuring 5.9 x (units (unknown) date) unknown) (unknown) (no (unknown) (unknown) measuring (units (unkn own) date) unknown) (unknown) (no (unknown) (unknown) metformin 500 mg (units (unknown) date) tablet extended unknown) release 24hr (unknown) (no (unknown) (unknown) metformin 500 mg (units (unknown) date) tablet,extended unknown) 500 mg PO DAILY #30 tabs 09/10/19 (unknown) (no (unknown) (unknown) mg tablet (units (unkn own) date) unknown) (unknown) (no (unknown) (unknown) need referral to (units (unknown) date) oncology services unknown) as well as possible biopsy on outpatient (unknown) (no (unknown) (unknown) of mA and/or kV (units (unknown) date) according to unknown) patient size. (unknown) (no (unknown) (unknown) office this week. (units (unknown) date) unknown) (unknown) (no (unknown) (unknown) omeprazole 20 mg (units (unknown) date) capsule,delayed 20 unknown) mg PO DAILY 09/07/19 03/24/22 (unknown) (no (unknown) (unknown) omeprazole 20 mg (units (unknown) date) capsule,delayed unknown) release(DR/EC) (unknown) (no (unknown) (unknown) on getting (units (unk nown) date) patient PET scan unknown) as well as biopsy. He states he will need to get (unknown) (no (unknown) (unknown) ondansetron 4 mg (units (unknown) date) disintegrating 4 unknown) mg PO Q8H PRN nausea and 06/24/22 (unknown) (no (unknown) (unknown) ondansetron 4 mg (units (unknown) date) tablet,disintegrat unknown) ing (unknown) (no (unknown) (unknown) ordered (units (unkno wn) date) unknown) (unknown) (no (unknown) (unknown) oxybutynin (units (unk nown) date) chloride 5 mg unknown) tablet 5 mg PO DAILY 09/07/19 03/24/22 (unknown) (no (unknown) (unknown) oxybutynin (units (unk nown) date) chloride 5 mg unknown) tablet (unknown) (no (unknown) (unknown) pain control (units (u nknown) date) until office unknown) appointment. She does understand needs urgent follow (unknown) (no (unknown) (unknown) performed.? For (units (unknown) date) unknown) (unknown) (no (unknown) (unknown) periaortic and (units (unknown) date) unknown) (unknown) (no (unknown) (unknown) prescription. (units ( unknown) date) Return if worse if unknown) any questions or concerns. Please do follow (unknown) (no (unknown) (unknown) proportion to (units ( unknown) date) exam. No CVA unknown) tenderness (unknown) (no (unknown) (unknown) provided for you. (units (unknown) date) No driving or unknown) operating machinery when taking this (unknown) (no (unknown) (unknown) radiate for the (units (unknown) date) past 3 days. Has unknown) nausea but no vomiting. Epigastric pain is (unknown) (no (unknown) (unknown) radiation dose (units (unknown) date) reduction, the unknown) following was used:? automated exposure control, (unknown) (no (unknown) (unknown) rales, or (units (unkn own) date) rhonchi. unknown) (unknown) (no (unknown) (unknown) referral and PET (units (unknown) date) scan. Otherwise unknown) laboratory studies are reassuring. Nontoxic (unknown) (no (unknown) (unknown) release 24hr (units (u nknown) date) unknown) (unknown) (no (unknown) (unknown) release (units (unkno wn) date) unknown) (unknown) (no (unknown) (unknown) simvastatin 10 mg (units (unknown) date) tablet 10 mg PO unknown) DAILY 09/07/19 03/24/22 (unknown) (no (unknown) (unknown) simvastatin 10 mg (units (unknown) date) tablet unknown) (unknown) (no (unknown) (unknown) since then. (units (un known) date) Patient recently unknown) found to have lymph nodes in lower abdomen back in (unknown) (no (unknown) (unknown) tablet vomiting (units (unknown) date) #10 tabs unknown) (unknown) (no (unknown) (unknown) tenderness but no (units (unknown) date) peritoneal signs, unknown) bowel sounds are present. No pain out of (unknown) (no (unknown) (unknown) that before (units (un known) date) referral to unknown) Oncology. But he is going to be working on these items. (unknown) (no (unknown) (unknown) to go to [place] to (units (unknown) date) have it done, so unknown) she is not had this done yet. No urinary (unknown) (no (unknown) (unknown) up with Oncology. (units (unknown) date) I will be reaching unknown) out to Dr. Reyes primary care today (unknown) (no (unknown) (unknown) up with [place] (units (unknown) date) [place] [facility] unknown) regarding your hiatal hernia. Or you may call (unknown) (no (unknown) (unknown) worsening (units (unkn own) date) lymphadenopathy, unknown) possible cancer/lymphoma. Primary care has not been (unknown) (no (unknown) (unknown) years ago before (units (unknown) date) repair. It was unknown) done at [facility]. Has been doing well Result panel 83 (unknown) (no (unknown) (unknown) (no value) (units (unk nown) date) unknown) (unknown) (no (unknown) (unknown) <Electronically (units (unknown) date) signed by Gregor unknown) MD Mary> (unknown) (no (unknown) (unknown) 0.5 mg PO DAILY (units (unknown) date) unknown) (unknown) (no (unknown) (unknown) 06/24/22 06/24/22 (units (unknown) date) 06/24/22 unknown) Range/Units (unknown) (no (unknown) (unknown) 06/24/22 09:00 (units (unknown) date) unknown) (unknown) (no (unknown) (unknown) 06/24/22 (units (unkno wn) date) unknown) (unknown) (no (unknown) (unknown) 07/06/22 2123 (units ( unknown) date) unknown) (unknown) (no (unknown) (unknown) 09:00 09:00 10:40 (units (unknown) date) unknown) (unknown) (no (unknown) (unknown) 09:00 (units (unkno wn) date) unknown) (unknown) (no (unknown) (unknown) 1 tab PO Q6H PRN (units (unknown) date) (Reason: pain) unknown) Qty: 20 0RF (unknown) (no (unknown) (unknown) 10 mg PO DAILY (units (unknown) date) unknown) (unknown) (no (unknown) (unknown) 10.7 cm.? (units (unkn own) date) Enlarged unknown) periportal/peripan creatic nodes are present the largest (unknown) (no (unknown) (unknown) 2.3 cm on series (units (unknown) date) 2, image 38. There unknown) is a more confluent mass anteriorly (unknown) (no (unknown) (unknown) 20 mg PO DAILY (units (unknown) date) unknown) (unknown) (no (unknown) (unknown) [id number] (units (unkno wn) date) unknown) (unknown) (no (unknown) (unknown) 4 mg PO Q8H PRN (units (unknown) date) (Reason: nausea unknown) and vomiting) Qty: 10 0RF (unknown) (no (unknown) (unknown) 5 mg PO DAILY (units ( unknown) date) Qty: 30 0RF unknown) (unknown) (no (unknown) (unknown) 5 mg PO DAILY (units ( unknown) date) unknown) (unknown) (no (unknown) (unknown) 500 mg PO DAILY (units (unknown) date) Qty: 30 0RF unknown) (unknown) (no (unknown) (unknown) ? (units (unkno wn) date) unknown) (unknown) (no (unknown) (unknown) ABDOMEN: (units (unkno wn) date) unknown) (unknown) (no (unknown) (unknown) ALT 16 (<35) IU/L (units (unknown) date) unknown) (unknown) (no (unknown) (unknown) AST 23 (14-36) (units (unknown) date) IU/L unknown) (unknown) (no (unknown) (unknown) Abdominal Nodes:? (units (unknown) date) There is extensive unknown) focal and confluent adenopathy in the (unknown) (no (unknown) (unknown) Activity (units (unkno wn) date) Restrictions/Addit unknown) ional Instructions: (unknown) (no (unknown) (unknown) Admin: 06/24/22 (units (unknown) date) 09:34 Dose: 1,000 unknown) mls/hr (unknown) (no (unknown) (unknown) Adrenal Glands:? (units (unknown) date) Unremarkable.? ? unknown) (unknown) (no (unknown) (unknown) After history and (units (unknown) date) exam CBC CMP unknown) urinalysis lipase CT abdomen pelvis IV fluids (unknown) (no (unknown) (unknown) After the (units (unkn own) date) administration of unknown) oral and IV contrast, axial sections were acquired (unknown) (no (unknown) (unknown) Age/Sex: 82 / F (units (unknown) date) unknown) (unknown) (no (unknown) (unknown) Agrees for (units (unk nown) date) prescription for unknown) pain control for patient. He will see her in the (unknown) (no (unknown) (unknown) Albumin 4.2 (units (un known) date) (3.5-5.0) g/dL unknown) (unknown) (no (unknown) (unknown) Albumin/Globulin (units (unknown) date) Ratio 1.6 unknown) (1.0-2.8) (unknown) (no (unknown) (unknown) Alcohol type: (units ( unknown) date) wine unknown) (unknown) (no (unknown) (unknown) Alkaline (units (unkno wn) date) Phosphatase 94 unknown) (38-126) U/L (unknown) (no (unknown) (unknown) Allergies (units (unkn own) date) unknown) (unknown) (no (unknown) (unknown) Allergy/AdvReac (units (unknown) date) Type Severity unknown) Reaction Status Date / Time (unknown) (no (unknown) (unknown) Antibiotics) (units (u nknown) date) unknown) (unknown) (no (unknown) (unknown) Approved by: (units (u nknown) date) Citlalli Ramirez M.D. unknown) on 06/24/2022 at 10:26? (unknown) (no (unknown) (unknown) BACK: No flank (units (unknown) date) tenderness. unknown) (unknown) (no (unknown) (unknown) BUN 18 H (7-17) (units (unknown) date) mg/dL unknown) (unknown) (no (unknown) (unknown) BUN/Creatinine (units (unknown) date) Ratio 22.5 H unknown) (6-22) (unknown) (no (unknown) (unknown) Baso # (Auto) 100 (units (unknown) date) (0-100) /uL unknown) (unknown) (no (unknown) (unknown) Baso % (Auto) 0.6 (units (unknown) date) (0-2) % unknown) (unknown) (no (unknown) (unknown) Bedside Urine (units ( unknown) date) Bilirubin - unknown) Negative (unknown) (no (unknown) (unknown) Bedside Urine (units ( unknown) date) Glucose Negative unknown) (unknown) (no (unknown) (unknown) Bedside Urine (units ( unknown) date) Ketone - Negative unknown) (unknown) (no (unknown) (unknown) Bedside Urine (units ( unknown) date) Leukocytes + 70 unknown) (unknown) (no (unknown) (unknown) Bedside Urine (units ( unknown) date) Nitrite - Negative unknown) (unknown) (no (unknown) (unknown) Bedside Urine (units ( unknown) date) Occult Blood - unknown) Negative (unknown) (no (unknown) (unknown) Bedside Urine (units ( unknown) date) Protein - Negative unknown) (unknown) (no (unknown) (unknown) Bedside Urine (units ( unknown) date) Urobilinogen - unknown) Negative (unknown) (no (unknown) (unknown) Bedside Urine pH (units (unknown) date) 7.0 unknown) (unknown) (no (unknown) (unknown) Biliary ducts:? (units (unknown) date) Unremarkable.? ? unknown) (unknown) (no (unknown) (unknown) Bladder:? (units (unkn own) date) Unremarkable.? ? unknown) (unknown) (no (unknown) (unknown) Blood Pressure (units (unknown) date) 167/85 H 06/24/22 unknown) 09:00 (unknown) (no (unknown) (unknown) Blood Pressure (units (unknown) date) 167/85 H unknown) (unknown) (no (unknown) (unknown) Bones:? (units (unkno wn) date) Unremarkable.? ? unknown) (unknown) (no (unknown) (unknown) CARDIOVASCULAR: (units (unknown) date) Regular rate and unknown) rhythm without murmurs (unknown) (no (unknown) (unknown) CARDIOVASCULAR: (units (unknown) date) negative chest unknown) pain, palpitations (unknown) (no (unknown) (unknown) CC: Abdominal (units ( unknown) date) pain unknown) (unknown) (no (unknown) (unknown) COMPARISON:? (units (u nknown) date) None. unknown) (unknown) (no (unknown) (unknown) CT scan - (units (unkn own) date) abdomen/pelvis: unknown) (unknown) (no (unknown) (unknown) Calcium 9.3 (units (un known) date) (8.4-10.2) mg/dL unknown) (unknown) (no (unknown) (unknown) Carbon Dioxide 29 (units (unknown) date) (22-32) mmol/L unknown) (unknown) (no (unknown) (unknown) Chief Complaint: (units (unknown) date) Abdominal Pain unknown) (unknown) (no (unknown) (unknown) Chloride 101 (units (u nknown) date) (98-107) mmol/L unknown) (unknown) (no (unknown) (unknown) Clinical (units (unkno wn) date) Impression: unknown) (unknown) (no (unknown) (unknown) Complicating (units (u nknown) date) co-morbidities: unknown) History of hiatal hernia, cholecystectomy, (unknown) (no (unknown) (unknown) Consultations: (units (unknown) date) 10:30 a.m.. Spoke unknown) with Dr. Reyes, primary care, he will work (unknown) (no (unknown) (unknown) Course (units (unkno wn) date) unknown) (unknown) (no (unknown) (unknown) Creatinine 0.80 (units (unknown) date) (0.52-1.04) mg/dL unknown) (unknown) (no (unknown) (unknown) : 1940 (units (unknown) date) Acct:[id number] unknown) (unknown) (no (unknown) (unknown) Data collected (units (unknown) date) from: Patient unknown) (unknown) (no (unknown) (unknown) Date of Service: (units (unknown) date) 06/24/22 unknown) (unknown) (no (unknown) (unknown) Departure (units (unkn own) date) unknown) (unknown) (no (unknown) (unknown) Diagnosis: (units (unk nown) date) Lymphadenopathy/hi unknown) atal hernia (unknown) (no (unknown) (unknown) Dictated by: (units (u nknown) date) Citlalli Ramirez M.D. unknown) on 06/24/2022 at 10:22 ? ? (unknown) (no (unknown) (unknown) Differential (units (u nknown) date) considered: unknown) Includes but not limited to hiatal hernia gastritis (unknown) (no (unknown) (unknown) Discharge Plan (units (unknown) date) unknown) (unknown) (no (unknown) (unknown) Discontinued (units (u nknown) date) Medications unknown) (unknown) (no (unknown) (unknown) Discussion: (units (un known) date) Appropriate for unknown) discharge home. Patient does have good primary (unknown) (no (unknown) (unknown) Documented By: AT (units (unknown) date) unknown) (unknown) (no (unknown) (unknown) Documented By: (units (unknown) date) RLS unknown) (unknown) (no (unknown) (unknown) Dr. Rockwell with (units (unknown) date) our general unknown) surgery for evaluation as well. (unknown) (no (unknown) (unknown) Dr. Page. (units (u nknown) date) There was unknown) discussion about having EGD as well but was instructed (unknown) (no (unknown) (unknown) ENT: Mucous (units (un known) date) membranes moist. unknown) (unknown) (no (unknown) (unknown) ER Physician: (units ( unknown) date) Gregor Hernandez MD unknown) (unknown) (no (unknown) (unknown) EXTREMITIES: No (units (unknown) date) gross deformities. unknown) (unknown) (no (unknown) (unknown) EYES: Pupils (units (u nknown) date) equal round unknown) (unknown) (no (unknown) (unknown) Emergency Report (units (unknown) date) unknown) (unknown) (no (unknown) (unknown) Eos # (Auto) 400 (units (unknown) date) (0-450) /uL unknown) (unknown) (no (unknown) (unknown) Eos % (Auto) 2.8 (units (unknown) date) (2-4) % unknown) (unknown) (no (unknown) (unknown) Esterase (units (unkno wn) date) unknown) (unknown) (no (unknown) (unknown) Estimated GFR > (units (unknown) date) 60 (>60) mL/min unknown) (unknown) (no (unknown) (unknown) Exam Narrative: (units (unknown) date) unknown) (unknown) (no (unknown) (unknown) Exam documented (units (unknown) date) above, pertinent unknown) findings include: Reproducible suprapubic and (unknown) (no (unknown) (unknown) Exam (units (unkno wn) date) unknown) (unknown) (no (unknown) (unknown) Extensive (units (unkn own) date) interval primarily unknown) abdominal adenopathy as described above.? Overall (unknown) (no (unknown) (unknown) FINDINGS:? (units (unk nown) date) unknown) (unknown) (no (unknown) (unknown) Lázaro Reyes (units (unk nown) date) MD Can unknown) [Primary Care Provider] (unknown) (no (unknown) (unknown) GASTROINTESTINAL: (units (unknown) date) Abdomen soft, unknown) reproducible epigastric and suprapubic (unknown) (no (unknown) (unknown) GASTROINTESTINAL: (units (unknown) date) Positive nausea, unknown) negative vomiting, positive abdominal pain (unknown) (no (unknown) (unknown) GENERAL: in no (units (unknown) date) distress, not unknown) toxic not dyspneic (unknown) (no (unknown) (unknown) GENERAL: negative (units (unknown) date) chills, fatigue, unknown) malaise, fever, sweats. (unknown) (no (unknown) (unknown) : negative (units (u nknown) date) dysuria, unknown) frequency, hematuria (unknown) (no (unknown) (unknown) Gallbladder:? (units ( unknown) date) Removed. unknown) (unknown) (no (unknown) (unknown) General (units (unkno wn) date) unknown) (unknown) (no (unknown) (unknown) Globulin 2.7 (units (u nknown) date) (1.7-4.1) g/dL unknown) (unknown) (no (unknown) (unknown) Glucose 153 H (units ( unknown) date) (80-110) mg/dL unknown) (unknown) (no (unknown) (unknown) H/O total (units (unkn own) date) hysterectomy unknown) (unknown) (no (unknown) (unknown) HEAD: (units (unkno wn) date) Normocephalic. unknown) (unknown) (no (unknown) (unknown) HEENT: negative (units (unknown) date) sinus pain, ear unknown) pain, sore throat (unknown) (no (unknown) (unknown) HPI - Abdominal (units (unknown) date) Pain unknown) (unknown) (no (unknown) (unknown) HPI narrative: (units (unknown) date) unknown) (unknown) (no (unknown) (unknown) Hct 41.2 (36-46) (units (unknown) date) % unknown) (unknown) (no (unknown) (unknown) Heart:? No (units (unk nown) date) significant unknown) findings. (unknown) (no (unknown) (unknown) Hgb 13.9 (units (unkno wn) date) (12.0-16.0) g/dL unknown) (unknown) (no (unknown) (unknown) 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 unknown) (unknown) (no (unknown) (unknown) Hiatal (units (unkno wn) date) unknown) (unknown) (no (unknown) (unknown) History of (units (unk nown) date) Present Illness unknown) (unknown) (no (unknown) (unknown) Home Medications (units (unknown) date) unknown) (unknown) (no (unknown) (unknown) Hyperlipidemia (units (unknown) date) unknown) (unknown) (no (unknown) (unknown) IMPRESSION:? (units (u nknown) date) unknown) (unknown) (no (unknown) (unknown) INDICATIONS:? IV (units (unknown) date) contrast unknown) only/generalized abdominal pain (unknown) (no (unknown) (unknown) Iliac node is (units ( unknown) date) present measuring unknown) 7 mm on series 2, image 56. (unknown) (no (unknown) (unknown) Image quality:? (units (unknown) date) Excellent.? unknown) (unknown) (no (unknown) (unknown) Imaging Data (units (u nknown) date) unknown) (unknown) (no (unknown) (unknown) Imaging studies (units (unknown) date) independently unknown) reviewed: CT abdomen pelvis extensive interval (unknown) (no (unknown) (unknown) Initial Vital (units ( unknown) date) Signs unknown) (unknown) (no (unknown) (unknown) Initial Vital (units ( unknown) date) Signs: unknown) (unknown) (no (unknown) (unknown) Instructions: DI (units (unknown) date) for Hiatal Hernia, unknown) DI for Lymphadenopathy (unknown) (no (unknown) (unknown) Intra-abdominal (units (unknown) date) lymphadenopathy, unknown) Hernia, hiatal (unknown) (no (unknown) (unknown) Located Within [facility] (units (unknown) date) [address] unknown) [place] [address] (unknown) (no (unknown) (unknown) Kidneys and (units (un known) date) Ureters:? unknown) Unremarkable.? ? (unknown) (no (unknown) (unknown) Lab Data (units (unkno wn) date) unknown) (unknown) (no (unknown) (unknown) Lab Results (units (un known) date) unknown) (unknown) (no (unknown) (unknown) Lab Test results (units (unknown) date) independently unknown) reviewed as above. Pertinent findings: WBC 13.0 (unknown) (no (unknown) (unknown) Labs: (units (unkno wn) date) unknown) (unknown) (no (unknown) (unknown) Last Infusion: (units (unknown) date) 06/24/22 10:05 unknown) Dose: 0 mls/hr (unknown) (no (unknown) (unknown) Lipase 23 (units (unkn own) date) (23-300) U/L unknown) (unknown) (no (unknown) (unknown) Liver:? Hepatic (units (unknown) date) steatosis is unknown) present.? ? (unknown) (no (unknown) (unknown) Lung bases:? (units (u nknown) date) Unremarkable.? ? unknown) (unknown) (no (unknown) (unknown) Lymph # (Auto) (units (unknown) date) 1300 (0009-0030) unknown) /uL (unknown) (no (unknown) (unknown) Lymph % (Auto) (units (unknown) date) 9.6 L (25-40) % unknown) (unknown) (no (unknown) (unknown) MCH 29.9 (26-34) (units (unknown) date) PG unknown) (unknown) (no (unknown) (unknown) MCHC 33.7 (30-36) (units (unknown) date) % unknown) (unknown) (no (unknown) (unknown) MCV 88.6 (80-100) (units (unknown) date) fL unknown) (unknown) (no (unknown) (unknown) MDM - Abdominal (units (unknown) date) Pain unknown) (unknown) (no (unknown) (unknown) MDM Narrative (units ( unknown) date) unknown) (unknown) (no (unknown) (unknown) MDM (units (unkno wn) date) unknown) (unknown) (no (unknown) (unknown) MUSCULOSKELETAL: (units (unknown) date) negative muscle or unknown) bony pain (unknown) (no (unknown) (unknown) Medical History (units (unknown) date) (Updated 06/24/22 unknown) @ 10:45 by Gregor Hernandez MD) (unknown) (no (unknown) (unknown) Medical decision (units (unknown) date) making narrative: unknown) (unknown) (no (unknown) (unknown) Medical records (units (unknown) date) reviewed: unknown) Colonoscopy from March 2022 (unknown) (no (unknown) (unknown) Medication (units (unk nown) date) Instructions unknown) Recorded Confirmed (unknown) (no (unknown) (unknown) Medication (units (unk nown) date) Instructions unknown) Recorded (unknown) (no (unknown) (unknown) Miscellaneous: No (units (unknown) date) inguinal hernias unknown) are seen. ? ? (unknown) (no (unknown) (unknown) Mode of arrival: (units (unknown) date) Ambulatory unknown) (unknown) (no (unknown) (unknown) [place] # (Auto) (units ( unknown) date) 1300 H (0-900) /uL unknown) (unknown) (no (unknown) (unknown) [place] % (Auto) (units ( unknown) date) 10.3 (3-14) % unknown) (unknown) (no (unknown) (unknown) NECK: Trachea (units ( unknown) date) midline. unknown) (unknown) (no (unknown) (unknown) NEURO: AOx4. (units (u nknown) date) unknown) (unknown) (no (unknown) (unknown) NEUROLOGIC: (units (un known) date) negative weakness, unknown) numbness (unknown) (no (unknown) (unknown) Narrative (units (unkn own) date) unknown) (unknown) (no (unknown) (unknown) Narrative: (units (unk nown) date) unknown) (unknown) (no (unknown) (unknown) Neut # (Auto) (units ( unknown) date) 82480 H unknown) (7211-5602) /uL (unknown) (no (unknown) (unknown) Neut % (Auto) (units ( unknown) date) 76.7 H (50-75) % unknown) (unknown) (no (unknown) (unknown) New (units (unkno wn) date) unknown) (unknown) (no (unknown) (unknown) No Action (units (unkn own) date) unknown) (unknown) (no (unknown) (unknown) Ondansetron HCl (units (unknown) date) (Ondansetron 4 unknown) Mg/2 Ml Inj) 4 mg IV NOW PRN (unknown) (no (unknown) (unknown) Ordered: (units (unkno wn) date) unknown) (unknown) (no (unknown) (unknown) Orders (units (unkno wn) date) unknown) (unknown) (no (unknown) (unknown) Oxygen Delivery (units (unknown) date) Method Room Air unknown) 06/24/22 09:00 (unknown) (no (unknown) (unknown) Oxygen Delivery (units (unknown) date) Method Room Air unknown) (unknown) (no (unknown) (unknown) PELVIS: (units (unkno wn) date) unknown) (unknown) (no (unknown) (unknown) PRN Reason: (units (un known) date) Nausea And unknown) Vomiting (unknown) (no (unknown) (unknown) PROCEDURE:? CT (units (unknown) date) ABDOMEN PELVIS W unknown) CON (unknown) (no (unknown) (unknown) PSYCH: Not (units (unk nown) date) anxious, is unknown) cooperative (unknown) (no (unknown) (unknown) Pancreas:? (units (unk nown) date) Unremarkable.? ? unknown) (unknown) (no (unknown) (unknown) Patient Comments: (units (unknown) date) unknown) (unknown) (no (unknown) (unknown) Patient (units (unkno wn) date) Disposition: Home unknown) (unknown) (no (unknown) (unknown) Patient History (units (unknown) date) unknown) (unknown) (no (unknown) (unknown) Patient here (units (u nknown) date) complaints unknown) epigastric and lower abdominal pain that does not (unknown) (no (unknown) (unknown) Patient: (units (unkno wn) date) Stephan Weinberg unknown) MR#: [id number] (unknown) (no (unknown) (unknown) Pelvic Nodes: No (units (unknown) date) enlarged lymph unknown) nodes.? (unknown) (no (unknown) (unknown) Pelvic Organs:? (units (unknown) date) Unremarkable.? ? unknown) (unknown) (no (unknown) (unknown) Penicillins (units (un known) date) Allergy Unknown unknown) Verified 06/24/22 09:00 (unknown) (no (unknown) (unknown) Peritoneum:? No (units (unknown) date) abnormal unknown) intraperitoneal fluid.? No free air.? (unknown) (no (unknown) (unknown) Please see family (units (unknown) date) doctor this week unknown) for re-evaluation CT scan findings. You will (unknown) (no (unknown) (unknown) Plt Count 263 (units ( unknown) date) (150-400) X103/uL unknown) (unknown) (no (unknown) (unknown) Point of care (units ( unknown) date) testing: unknown) (unknown) (no (unknown) (unknown) Potassium 4.1 (units ( unknown) date) (3.4-5.1) mmol/L unknown) (unknown) (no (unknown) (unknown) Prescriptions: (units (unknown) date) unknown) (unknown) (no (unknown) (unknown) Previous Rx's (units ( unknown) date) unknown) (unknown) (no (unknown) (unknown) Pulse Oximetry 98 (units (unknown) date) 06/24/22 09:00 unknown) (unknown) (no (unknown) (unknown) Pulse Oximetry 98 (units (unknown) date) unknown) (unknown) (no (unknown) (unknown) Pulse Rate 75 (units ( unknown) date) 06/24/22 09:00 unknown) (unknown) (no (unknown) (unknown) Pulse Rate 75 (units ( unknown) date) unknown) (unknown) (no (unknown) (unknown) RBC 4.66 (units (unkno wn) date) (4.0-5.2) X106/uL unknown) (unknown) (no (unknown) (unknown) RDW 13.2 (units (unkno wn) date) (11.6-14.8) % unknown) (unknown) (no (unknown) (unknown) RESPIRATORY: Clear (units (unknown) date) to auscultation. unknown) Breath sounds equal bilaterally. No wheezes, (unknown) (no (unknown) (unknown) RESPIRATORY: (units (u nknown) date) negative dyspnea, unknown) cough (unknown) (no (unknown) (unknown) ROS Unobtainable: (units (unknown) date) All systems unknown) reviewed + are unremarkable except as noted in HPI (unknown) (no (unknown) (unknown) Radiologist's (units ( unknown) date) Impression: unknown) (unknown) (no (unknown) (unknown) Re-evaluations: (units (unknown) date) 10:48 a.m.. unknown) Updated patient results. CT concerning for (unknown) (no (unknown) (unknown) Referrals: (units (unk nown) date) unknown) (unknown) (no (unknown) (unknown) Related Data (units (u nknown) date) unknown) (unknown) (no (unknown) (unknown) Respiratory Rate (units (unknown) date) 20 06/24/22 09:00 unknown) (unknown) (no (unknown) (unknown) Respiratory Rate (units (unknown) date) 20 unknown) (unknown) (no (unknown) (unknown) Review of Systems (units (unknown) date) unknown) (unknown) (no (unknown) (unknown) S/P Nohemi (units (unk nown) date) fundoplication unknown) (with gastrostomy tube placement) (unknown) (no (unknown) (unknown) SKIN: Warm and (units (unknown) date) dry unknown) (unknown) (no (unknown) (unknown) SKIN: negative (units (unknown) date) rash, skin lesions unknown) (unknown) (no (unknown) (unknown) Nicol and has (units (unknown) date) been monitored. unknown) Had colonoscopy in the last 3 months here by (unknown) (no (unknown) (unknown) Signed By: (units (unk nown) date) unknown) (unknown) (no (unknown) (unknown) Smoking Status: (units (unknown) date) Former smoker unknown) (unknown) (no (unknown) (unknown) Social History (units (unknown) date) (Reviewed 06/24/22 unknown) @ 09:16 by Gregor Hernandez MD) (unknown) (no (unknown) (unknown) Sodium 137 (units (unk nown) date) (137-145) mmol/L unknown) (unknown) (no (unknown) (unknown) Sodium Chloride (units (unknown) date) (Normal Saline unknown) 0.9%) 500 mls @ 1,000 mls/hr IV BOLUS ONE (unknown) (no (unknown) (unknown) Source: patient (units (unknown) date) unknown) (unknown) (no (unknown) (unknown) Spleen:? (units (unkno wn) date) Unremarkable.? ? unknown) (unknown) (no (unknown) (unknown) Stand Alone (units (un known) date) Forms: Patient unknown) Portal/API (unknown) (no (unknown) (unknown) Stated Complaint: (units (unknown) date) Upper and lower unknown) gut pain (unknown) (no (unknown) (unknown) Stomach and (units (un known) date) Bowel:? Stomach, unknown) small bowel loops, and colon are unremarkable.? (unknown) (no (unknown) (unknown) Stop: 06/24/22 (units (unknown) date) 09:42 unknown) (unknown) (no (unknown) (unknown) Substance Use (units ( unknown) date) Type: does not use unknown) (unknown) (no (unknown) (unknown) Sulfa (units (unkno wn) date) (Sulfonamide unknown) Allergy Unknown Verified 06/24/22 09:00 (unknown) (no (unknown) (unknown) Surgical History (units (unknown) date) (Reviewed 06/24/22 unknown) @ 09:16 by Gregor Hernandez MD) (unknown) (no (unknown) (unknown) TAKE 1 CAPSULE BY (units (unknown) date) MOUTH ONCE A DAY unknown) (unknown) (no (unknown) (unknown) TECHNIQUE:? (units (un known) date) unknown) (unknown) (no (unknown) (unknown) Temperature 98.3 (units (unknown) date) F 06/24/22 09:00 unknown) (unknown) (no (unknown) (unknown) Temperature 98.3 (units (unknown) date) F unknown) (unknown) (no (unknown) (unknown) Time Seen by (units (u nknown) date) Provider: 06/24/22 unknown) 09:02 (unknown) (no (unknown) (unknown) Total Bilirubin (units (unknown) date) 0.8 (0.2-1.3) unknown) mg/dL (unknown) (no (unknown) (unknown) Total Protein 6.9 (units (unknown) date) (6.3-8.2) g/dL unknown) (unknown) (no (unknown) (unknown) Treatments: (units (un known) date) Normal saline unknown) (unknown) (no (unknown) (unknown) Ur Culture (units (unk nown) date) Indicated? unknown) Specimen cultured (unknown) (no (unknown) (unknown) Ur Squamous Epith (units (unknown) date) Cells 0-1 /hpf unknown) (0-5/HPF) (unknown) (no (unknown) (unknown) Urine Bacteria (units (unknown) date) Few (2-10) H unknown) (None) (unknown) (no (unknown) (unknown) Urine Dip (units (unkn own) date) unknown) (unknown) (no (unknown) (unknown) Urine RBC None (units (unknown) date) seen (0-5/HPF) unknown) (unknown) (no (unknown) (unknown) Urine Specific (units (unknown) date) [place] 1.010 unknown) (unknown) (no (unknown) (unknown) Urine WBC 1-5/hpf (units (unknown) date) (0-5/HPF) unknown) (unknown) (no (unknown) (unknown) Ventral Wall: ? (units (unknown) date) No hernia.? unknown) (unknown) (no (unknown) (unknown) Vessels:? Aorta (units (unknown) date) and inferior vena unknown) cava are normal in size.? (unknown) (no (unknown) (unknown) Vital Signs - 8 (units (unknown) date) hr unknown) (unknown) (no (unknown) (unknown) Vital Signs (units (un known) date) unknown) (unknown) (no (unknown) (unknown) Vital signs: (units (u nknown) date) unknown) (unknown) (no (unknown) (unknown) WBC 13.0 H (units (unk nown) date) (4.5-11.0) X103/uL unknown) (unknown) (no (unknown) (unknown) [Embedded Image (units (unknown) date) Not Available] unknown) (unknown) (no (unknown) (unknown) abdomen with the (units (unknown) date) largest confluent unknown) focus measuring 7.3 x 6.4 cm on series 2, (unknown) (no (unknown) (unknown) abdominal (units (unkn own) date) lymphadenopathy unknown) (unknown) (no (unknown) (unknown) able to get PET (units (unknown) date) scan done but has unknown) not given referral for Oncology at. Hiatal (unknown) (no (unknown) (unknown) adjustment (units (unk nown) date) unknown) (unknown) (no (unknown) (unknown) alcohol intake (units (unknown) date) frequency: 0-2 unknown) drinks per day (unknown) (no (unknown) (unknown) and below (units (unkn own) date) unknown) (unknown) (no (unknown) (unknown) aortic caval (units (u nknown) date) region.? The large unknown) lymph node is in the left para aortic location (unknown) (no (unknown) (unknown) appearance (units (unk nown) date) unknown) (unknown) (no (unknown) (unknown) appendicitis (units (u nknown) date) bowel obstruction unknown) ischemic bowel (unknown) (no (unknown) (unknown) basis. Also will (units (unknown) date) need a PET scan. unknown) Prescription for pain control has been (unknown) (no (unknown) (unknown) care for follow (units (unknown) date) up. I did discuss unknown) with primary care for urgent oncology refe (unknown) (no (unknown) (unknown) clindamycin (units (un known) date) Allergy Unknown unknown) Verified 06/24/22 09:00 (unknown) (no (unknown) (unknown) cm on series 2, (units (unknown) date) image 28. unknown) Scattered lymph nodes/masses are present within the (unknown) (no (unknown) (unknown) complaints. Has (units (unknown) date) had discomfort unknown) with eating. No chest pain. No back pain. (unknown) (no (unknown) (unknown) creatinine 0.8 (units (unknown) date) AST 23 ALT 16 unknown) alkaline phosphatase 94 (unknown) (no (unknown) (unknown) discharge. (units (unk nown) date) Urinalysis noted. unknown) However no urinary complaints. No antibiotics (unknown) (no (unknown) (unknown) epigastric (units (unk nown) date) tenderness unknown) (unknown) (no (unknown) (unknown) estradiol 0.5 mg (units (unknown) date) tablet 0.5 mg PO unknown) DAILY 09/07/19 09/20/19 (unknown) (no (unknown) (unknown) estradiol 0.5 mg (units (unknown) date) tablet unknown) (unknown) (no (unknown) (unknown) familiar to her (units (unknown) date) as she states it unknown) feels like hiatal hernia discomfort she had 7 (unknown) (no (unknown) (unknown) from the (units (unkno wn) date) unknown) (unknown) (no (unknown) (unknown) hemoglobin 13.9 (units (unknown) date) hematocrit 41 unknown) platelets 263 sodium 137 potassium 4.1 BUN 18 (unknown) (no (unknown) (unknown) hernia is (units (unkn own) date) present. unknown) (unknown) (no (unknown) (unknown) hernia likely has (units (unknown) date) returned. I will unknown) prescribe pain medication for brief template (unknown) (no (unknown) (unknown) household (units (unkn own) date) members: spouse unknown) (unknown) (no (unknown) (unknown) hydrocodone 5 (units ( unknown) date) mg-acetaminophen unknown) 325 1 tab PO Q6H PRN pain #20 tabs 06/24/22 (unknown) (no (unknown) (unknown) hydrocodone-aceta (units (unknown) date) minophen 5-325 mg unknown) tablet (unknown) (no (unknown) (unknown) image 53. (units (unkn own) date) unknown) (unknown) (no (unknown) (unknown) indicated at this (units (unknown) date) time. unknown) (unknown) (no (unknown) (unknown) is highly (units (unkn own) date) suggestive of unknown) malignancy including lymphoma. (unknown) (no (unknown) (unknown) lisinopril 5 mg (units (unknown) date) tablet 5 mg PO unknown) DAILY #30 tabs 09/10/19 (unknown) (no (unknown) (unknown) lisinopril 5 mg (units (unknown) date) tablet unknown) (unknown) (no (unknown) (unknown) lower (units (unkno wn) date) unknown) (unknown) (no (unknown) (unknown) lung bases to the (units (unknown) date) pubic symphysis.? unknown) Coronal and sagittal reformats were (unknown) (no (unknown) (unknown) lymphadenopathy (units (unknown) date) suggesting unknown) malignancy/lymphom a, hiatal hernia present (unknown) (no (unknown) (unknown) measuring 2.7 (units ( unknown) date) unknown) (unknown) (no (unknown) (unknown) measuring 5.9 x (units (unknown) date) unknown) (unknown) (no (unknown) (unknown) measuring (units (unkn own) date) unknown) (unknown) (no (unknown) (unknown) metformin 500 mg (units (unknown) date) tablet extended unknown) release 24hr (unknown) (no (unknown) (unknown) metformin 500 mg (units (unknown) date) tablet,extended unknown) 500 mg PO DAILY #30 tabs 09/10/19 (unknown) (no (unknown) (unknown) mg tablet (units (unkn own) date) unknown) (unknown) (no (unknown) (unknown) need referral to (units (unknown) date) oncology services unknown) as well as possible biopsy on outpatient (unknown) (no (unknown) (unknown) of mA and/or kV (units (unknown) date) according to unknown) patient size. (unknown) (no (unknown) (unknown) office this week. (units (unknown) date) unknown) (unknown) (no (unknown) (unknown) omeprazole 20 mg (units (unknown) date) capsule,delayed 20 unknown) mg PO DAILY 09/07/19 03/24/22 (unknown) (no (unknown) (unknown) omeprazole 20 mg (units (unknown) date) capsule,delayed unknown) release(DR/EC) (unknown) (no (unknown) (unknown) on getting (units (unk nown) date) patient PET scan unknown) as well as biopsy. He states he will need to get (unknown) (no (unknown) (unknown) ondansetron 4 mg (units (unknown) date) disintegrating 4 unknown) mg PO Q8H PRN nausea and 06/24/22 (unknown) (no (unknown) (unknown) ondansetron 4 mg (units (unknown) date) tablet,disintegrat unknown) ing (unknown) (no (unknown) (unknown) ordered (units (unkno wn) date) unknown) (unknown) (no (unknown) (unknown) oxybutynin (units (unk nown) date) chloride 5 mg unknown) tablet 5 mg PO DAILY 09/07/19 03/24/22 (unknown) (no (unknown) (unknown) oxybutynin (units (unk nown) date) chloride 5 mg unknown) tablet (unknown) (no (unknown) (unknown) pain control (units (u nknown) date) until office unknown) appointment. She does understand needs urgent follow (unknown) (no (unknown) (unknown) performed.? For (units (unknown) date) unknown) (unknown) (no (unknown) (unknown) periaortic and (units (unknown) date) unknown) (unknown) (no (unknown) (unknown) prescription. (units ( unknown) date) Return if worse if unknown) any questions or concerns. Please do follow (unknown) (no (unknown) (unknown) proportion to (units ( unknown) date) exam. No CVA unknown) tenderness (unknown) (no (unknown) (unknown) provided for you. (units (unknown) date) No driving or unknown) operating machinery when taking this (unknown) (no (unknown) (unknown) radiate for the (units (unknown) date) past 3 days. Has unknown) nausea but no vomiting. Epigastric pain is (unknown) (no (unknown) (unknown) radiation dose (units (unknown) date) reduction, the unknown) following was used:? automated exposure control, (unknown) (no (unknown) (unknown) rales, or (units (unkn own) date) rhonchi. unknown) (unknown) (no (unknown) (unknown) release 24hr (units (u nknown) date) unknown) (unknown) (no (unknown) (unknown) release (units (unkno wn) date) unknown) (unknown) (no (unknown) (unknown) rral and PET (units (u nknown) date) scan. Otherwise unknown) laboratory studies are reassuring. Nontoxic at (unknown) (no (unknown) (unknown) simvastatin 10 mg (units (unknown) date) tablet 10 mg PO unknown) DAILY 09/07/19 03/24/22 (unknown) (no (unknown) (unknown) simvastatin 10 mg (units (unknown) date) tablet unknown) (unknown) (no (unknown) (unknown) since then. (units (un known) date) Patient recently unknown) found to have lymph nodes in lower abdomen back in (unknown) (no (unknown) (unknown) tablet vomiting (units (unknown) date) #10 tabs unknown) (unknown) (no (unknown) (unknown) tenderness but no (units (unknown) date) peritoneal signs, unknown) bowel sounds are present. No pain out of (unknown) (no (unknown) (unknown) that before (units (un known) date) referral to unknown) Oncology. But he is going to be working on these items. (unknown) (no (unknown) (unknown) to go to [place] to (units (unknown) date) have it done, so unknown) she is not had this done yet. No urinary (unknown) (no (unknown) (unknown) up with Oncology. (units (unknown) date) I will be reaching unknown) out to Dr. Reyes primary care today (unknown) (no (unknown) (unknown) up with Michaela (units (unknown) date) [facility] unknown) regarding your hiatal hernia. Or you may call (unknown) (no (unknown) (unknown) worsening (units (unkn own) date) lymphadenopathy, unknown) possible cancer/lymphoma. Primary care has not been (unknown) (no (unknown) (unknown) years ago before (units (unknown) date) repair. It was unknown) done at [facility]. Has been doing well Social History date description facility 2022-06-24 00:00 Ex-smoker (finding) Located Within [facility] Vital Signs date measurement value units 2022-06-24 00:00 BMI 27.3 kg/m2 2022-06-24 00:00 BP_diastolic 77 mmHg 2022-06-24 00:00 BP_systolic 159 mmHg 2022-06-24 00:00 heart_rate 68 /min 2022-06-24 00:00 height_metric 175.26 cm 2022-06-24 00:00 height_standard 69 in 2022-06-24 00:00 o2_saturation 100 % 2022-06-24 00:00 respiration_rate 19 /min 2022-06-24 00:00 temperature_metric 36.83 C 2022-06-24 00:00 temperature_standard 98.3 F 2022-06-24 00:00 weight_metric 83.91 kg 2022-06-24 00:00 weight_standard 184.99 lb
[2022-07-11 12:02] VITALS: BP 140/64
[2022-07-11 12:17] LABS: BILIRUBIN,URINE NEGATIVE (NEGATIVE); GLUCOSE, URINE (UA) NEGATIVE (NEGATIVE); KETONES,URINE (UA) NEGATIVE (NEGATIVE); LEUKOCYTE ESTERASE, URINE NEGATIVE (NEGATIVE); NITRITE,URINE NEGATIVE (NEGATIVE); OCCULT BLOOD,URINE NEGATIVE (NEGATIVE); PROTEIN,URINE NEGATIVE (NEGATIVE); UROBILINOGEN,URINE 0.2 (NORMAL) E.U./dL (NORMAL)
[2022-07-11 12:19] LABS: CLARITY,URINE CLEAR (CLEAR)
== END 2022-07-11 12:53 | disposition home or self-care (01) ==
LOC: ED 08:35
DX: R10.30 Lower abdominal pain, unspecified (principal); I10 Essential (primary) hypertension; E11.9 Type 2 diabetes mellitus without complications; Z79.84 Long term (current) use of oral hypoglycemic drugs
CPT/HCPCS: 36415; 80053; 81003; 83690; 85025; 96374; 96375; 99283; J1170; 81001; 87086

== ENCOUNTER 2022-07-24 08:48 | Outpatient (CLI) | payer MEDICARE, OTHER ==
[2022-07-24 09:20] LABS: INR 1.2 (0.8-1.2); PT - PROTHROMBIN TIME 13.4 secs (9.9-12.6)
[2022-07-24] MEDS ORDERED: LIDOCAINE-MPF 1% 5 ML VIAL ONE ×2 (09:26→10:31)
[2022-07-24 09:27] LABS: PARTIAL THROMBOPLASTIN TIME 33.5 secs (24.9-33.3)
[2022-07-24] MEDS ORDERED: fentaNYL 100 MCG/2 ML VIAL ONE (09:31)
[2022-07-24] MEDS ORDERED: MIDAZOLAM 2 MG/2 ML VIAL ONE (09:31)
[2022-07-24] MEDS ORDERED: LIDOCAINE-MPF 1% 5 ML VIAL SUBQ ONE (10:30)
[2022-07-24] MEDS ORDERED: MIDAZOLAM 2 MG/2 ML VIAL IVP ONE (10:30)
[2022-07-24] MEDS ORDERED: fentaNYL 100 MCG/2 ML VIAL IVP STA (10:30)
[2022-07-24] MEDS ORDERED: LACTATED RINGERS 1,000 ML IV ONE (11:18)
[2022-07-24 13:34] VITALS: BP 140/70
--- NOTE | 2022-07-25 09:37 | CT Report ---
PROCEDURE: Retroperitoneal Mass BX Sedation analgesia for 30 minutes. INDICATIONS: MESENTERIC MASS TECHNIQUE: The indications, alternatives, benefits, risks, and possible complications of the procedure were comm unicated to the patient. Informed written consent from the patient was obtained and placed in the art. Continuous EKG and hemodynamic monitoring was started by trained personnel. For radiation dose reduction, the following was used: automated exposure control, adjustment of mA and/or kV according to patient size. The patient was brought to the CT suite and print support specialist spiral CT imaging was performed with localization g rid. The appropriate site for percutaneous access to the biopsy target was marked, was prepped and d raped sterilely, and was infused with local anaesthesia. Under CT guidance, a core biopsy trocar and needle set was advanced to the biopsy target, and specimen(s) were obtained. The trocar and needle were then removed, and the patient was sent for post-procedure monitoring. COMPARISON: CT abdomen pelvis 07/07/2022 FINDINGS: Biopsy site: Left retroperitoneal Needle: 18 gauge biopsy needle with a 17-gauge introducer trocar. Number of passes: 5. 4 samples placed in formalin and one sample placed into RPMI solution Medications: 1% lidocaine for local anaesthesia. IV Fentanyl and Versed for conscious sedation for 30 minutes (see nursing record). Complications: None. IMPRESSION: Successful CT-guided biopsy of left retroperitoneal sb mass.. Reviewed by: Lauren Parks MD on 07/25/2022 9:35 AM PDT Approved by: Lauren Parks MD on 07/25/2022 9:35 AM PDT Station ID: [id number]
--- NOTE | 2022-08-15 08:45 | CT Report ---
PROCEDURE: CT Scan for Needle Biopsy Sedation analgesia for 30 minutes. INDICATIONS: MESENTERIC MASS TECHNIQUE: The indications, alternatives, benefits, risks, and possible complications of the procedur e were communicated to the patient. Informed written consent from the patient was obtained and placed in the chart. Continuous EKG and hemodynamic monitoring was started by trained personnel. For radiat ion dose reduction, the following was used: automated exposure control, adjustment of mA and/or kV ac cording to patient size. The patient was brought to the CT suite and epic prelude analyst spiral CT imaging was performed with localization g rid. The appropriate site for percutaneous access to the biopsy target was marked, was prepped and dr aped sterilely, and was infused with local anaesthesia. Under CT guidance, a core biopsy trocar and n eedle set was advanced to the biopsy target, and specimen(s) were obtained. The trocar and needle wer e then removed, and the patient was sent for post-procedure monitoring. COMPARISON: CT abdomen pelvis 07/07/2022 FINDINGS: Biopsy site: Left retroperitoneal Needle: 18 gauge biopsy needle with a 17-gauge introducer trocar. Number of passes: 5. 4 samples placed in formalin and one sample placed into RPMI solution Medications: 1% lidocaine for local anaesthesia. IV Fentanyl and Versed for conscious sedation for 30 minutes (see nursing record). Complications: None. IMPRESSION: Successful CT-guided biopsy of left retroperitoneal sb mass.. Reviewed by: Lauren Parks MD on 07/25/2022 9:35 AM PDT Approved by: Lauren Parsk MD on 07/25/2022 9 :35 AM PDT Reviewed by: Lauren Parks MD on 08/15/2022 8:43 AM PDT Approved by: Lauren Parks MD on 08/15/2022 8:43 AM PDT Station ID: [id number]
== END 2022-07-24 08:49 | disposition home or self-care (01) ==
LOC: DI 08:48
PROVIDERS: ATTEND Internal Medicine
DX: C85.13 Unspecified B-cell lymphoma, intra-abdominal lymph nodes (principal)
CPT/HCPCS: 36415; 49180; 77012; 85610; 85730; 88184; 88185; 88307; 88341; 88342; 88360; J7120

== ENCOUNTER 2022-08-05 23:27 | Emergency (ER) | payer MEDICARE, OTHER ==
[2022-08-05] MEDS ORDERED: SODIUM CHLORIDE 0.9% 1,000 ML IV STA (23:57)
[2022-08-05] MEDS ORDERED: METOCLOPRAMIDE 10 MG/2 ML VIAL IVP STA (23:57)
[2022-08-05] MEDS ORDERED: MORPHINE 2 MG/ML CARPUJECT IVP STA (23:57)
--- NOTE | 2022-08-06 00:06 | ED Physician Documentation ---
History of Present Illness - Stated complaint Stated Complaint: ABD PX/V - Chief complaint Chief Complaint: Abd Pain - History obtained from History obtained from: Patient, Family (daughter) - Additonal information Additional information: 82-year-old woman with history of lymphoma, diagnosed this past Thursday, presents with cramping abdominal pain, located diffusely and associated with nonbloody nonbilious nausea and vomiting. 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 She does state that she has been feeling dehydrated after vomiting so much and her daughter states that she has lost 15 pounds in the past month. Review of Systems Constitutional: denies: Fever GI: reports: Abdominal Pain, Nausea, Vomiting. denies: Diarrhea : denies: Dysuria PD PAST MEDICAL HISTORY - Past Medical History Cardiovascular: Hypertension, High cholesterol Respiratory: Asthma Endocrine/Autoimmune: Type 2 diabetes GI: GERD, Hiatal hernia DELIVERY REPRESENTATIVE: None : Incontinence HEENT: None Psych: None Musculoskeletal: None Derm: None - Past Surgical History Past Surgical History: Yes General: Cholecystectomy, Hiatal hernia repair /DELIVERY REPRESENTATIVE: Hysterectomy - Present Medications Home Medications: Ambulatory Orders Medication Instructions Recorded Confirmed Omeprazole 20 mg PO DAILY 12/28/21 07/24/22 Oxybutynin [Ditropan] 5 mg PO DAILY 12/28/21 07/24/22 Simvastatin [Zocor] 10 mg PO DAILY 12/28/21 07/24/22 metFORMIN [Glucophage] 500 mg PO BIDWM 12/28/21 07/24/22 Docusate Sodium 100Mg Capsule 100 mg PO DAILY #20 cap 07/11/22 07/24/22 [Colace 100Mg Capsule] Metoclopramide [Reglan] 10 mg PO Q6H PRN 08/05/22 08/05/22 Ondansetron Odt [Zofran Odt] 2 tab PO Q8H PRN 08/05/22 08/05/22 allopurinoL [Allopurinol] 300 mg PO DAILY 08/05/22 08/05/22 Oxycodone HCl/Acetaminophen 1 each PO Q4H PRN #10 tablet 08/06/22 [Percocet 10-325 mg Tablet] Prochlorperazine Supp [Compazine 25 mg ME BID PRN #8 supp 08/06/22 Supp] - Allergies Allergies/Adverse Reactions: Allergies Allergy/AdvReac Type Severity Reaction Status Date / Time clindamycin Allergy Unknown Verified 07/24/22 07:33 Penicillins Allergy Unknown Verified 07/24/22 07:33 Sulfa (Sulfonamide Allergy Unknown Verified 07/24/22 07:33 Antibiotics) - Social History Does the pt smoke?: No Smoking Status: Never smoker Does the pt drink ETOH?: Yes Does the pt have substance abuse?: No - Immunizations Immunizations are current?: Yes PD ED PE NORMAL - Vitals Vital signs reviewed: Yes - General General: Alert and oriented X 3, No acute distress - HEENT HEENT: Atraumatic, PERRL, EOMI - Neck Neck: Supple, no meningeal sign - Cardiac Cardiac: RRR - Respiratory Respiratory: No respiratory distress, Clear bilaterally - Abdomen Abdomen: Non tender, Non distended, Other (Diffuse discomfort to palpation) - Back Back: No CVA TTP - Extremities Extremities: No deformity - Neuro Neuro: Alert and oriented X 3 Results - Vitals Vitals: Vital Signs - 24 hr 08/05/22 08/05/22 08/06/22 23:37 23:53 01:40 Temperature 36.1 C L Heart Rate 74 72 Respiratory 16 17 17 Rate Blood Pressure 111/50 L 131/65 H O2 Saturation 98 98 Oxygen O2 Source Room air - Labs Labs: Laboratory Tests 08/06/22 08/06/22 00:20 00:20 WBC 11.1 H RBC 4.37 Hgb 12.5 Hct 38.2 MCV 87.4 MCH 28.6 MCHC 32.7 RDW 12.4 Plt Count 434 MPV 10.1 Neut # (Auto) 8.6 H Lymph # (Auto) 0.8 L [place] # (Auto) 1.3 H Eos # (Auto) 0.3 Baso # (Auto) 0.1 Absolute Nucleated RBC 0.00 Nucleated RBC % 0.0 Sodium 133 L Potassium 4.2 Chloride 94 L Carbon Dioxide 27 Anion Gap 12.0 BUN 13 Creatinine 0.8 Estimated GFR (MDRD) 69 L Glucose 143 H Calcium 9.3 Total Bilirubin 0.6 AST 16 ALT 10 Alkaline Phosphatase 74 Total Protein 6.8 Albumin 3.3 Globulin 3.5 Albumin/Globulin Ratio 0.9 L Lipase 22 PD Medical Decision Making - ED course ED course: 82-year-old woman with history of lymphoma presents with acute on chronic vomiting and abdominal pain. We will treat symptomatically with IV Reglan and IV fluids and IV morphine. Patient responsive to morphine with improvement in pain. Nausea improving as well. CBC, abdominal panel, urinalysis ordered. Follow results. labwork noncontributory. she does have some mild hyponatremia compared to previous with na 134. Encouraged fluid hydration and sent rx for rectal compazine as well as percoset. return precautions given. plan to f/u with emili jaquez and her oncologist Departure - Departure Disposition: Home, Self Care Clinical Impression: Vomiting, Abdominal pain Condition: Stable Instructions: Abdominal Pain, ED Nausea Vomiting Follow-Up: Emili Jaquez ARNP [Provider Admit Priv/Credential] - Prescriptions: Prochlorperazine Supp [Compazine Supp] 25 mg ME BID PRN #8 supp PRN Reason: Nausea / Vomiting Oxycodone HCl/Acetaminophen [Percocet 10-325 mg Tablet] 1 each PO Q4H PRN #10 tablet PRN Reason: Pain Comments: Prescriptions were sent electronically to [facility] pharmacy. Make sure that you do not use a promethazine (compazine) rectal suppository within 6 hours of Reglan (metoclopramide) oral antinausea medicine.
--- OUTSIDE RECORDS SUMMARY | 2022-08-06 00:07 | EXTERNAL MEDICAL SUMMARY RPT | Continuity of Care Document ---
:1940 Author Organization [facility] Address [address] [place] [address] Phone Care Team Providers Name Role Phone Unavailable Unavailable Unavailable Ian Amato Unavailable Unavailable Allergies and Intolerances date description facility type (no date) Penicillins [facility] (unknown) (no date) Sulfa (Sulfonamide Antibiotics) [facility] (unknown) (no date) clindamycin [facility] (unknown) Encounters No information. Functional Status No information. Immunizations No information. Medications date description facility 2022-06-24 00:00 Ondansetron [facility] 2022-06-24 00:00 [facility]amin[facility] Problems date description facility 2022-06-24 00:00 Hiatal hernia [facility] 2022-06-24 00:00 Intra-abdominal lymphadenopathy [facility] Procedures date description facility 2022-06-24 00:00 CT abdomen pelvis w con [facility] Results/Labs test date author facility value [...] [facility] unknown) Result panel 74 (unknown) (no date) ([facility] Result panel 75 (unknown) (no date) (unknown[facility]) Result panel 76 (unknown) (no date) (unknown[facility]) Result panel 77 (unknown) (no date) (unknown[facility]) Result panel 78 (unknown) (no date) (unknown[facility]) Result panel 79 (unknown) (no date) (unknown[facility]) Result panel 80 (unknown) (no date) (unknown[facility]) Result panel 81 (unknown) (no date) (unknown[facility]) Result panel 82 (unknown) (no date) (unknown[facility]) Result panel 83 (unknown) (no date) (unknown[facility]) Result panel 84 (unknown) (no date) (unknown[facility]) Result panel 85 (unknown) (no date) (unknown[facility]) Result panel 86 (unknown) (no date) (unknown[facility]) Result panel 87 (unknown) (no date) (unknown[facility]) Result panel 88 (unknown) (no date) (unknown[facility]) Result panel 89 (unknown) (no date) (unknown[facility]) Result panel 90 (unknown) (no date) (unknown[facility]) Result panel 91 (unknown) (no date) (unknown[facility]) Result panel 92 (unknown) (no date) (unknown[facility]) Result panel 93 (unknown) (no date) (unknown[facility]) Result panel 94 (unknown) (no date) (unknown[facility]) Result panel 95 (unknown) (no date) (unknown[facility]) Result panel 96 (unknown) (no date) (unknown[facility]) Result panel 97 (unknown) (no date) (unknown[facility]) Result panel 98 (unknown) (no date) (unknown[facility]) Result panel 99 (unknown) (no date) (unknown[facility]) Result panel 100 (unknown) (no date) (unknown[facility]) Result panel 101 (unknown) (no date) (unknown[facility]) Result panel 102 (unknown) (no date) (unknown[facility]) Result panel 103 (unknown) (no (unknown) (unknown) (no value) (units (unk nown) date) unknown) (unknown) (no (unknown) (unknown) [id number] (units (unkno wn) date) unknown) (unknown) (no [...] (unknown) (unknown) Accession Number: (units (unknown) date) [id number] unknown) (unknown) (no (unknown) (unknown) Adrenal Glands: (units (unknown) date) Unremarkable. unknown) (unknown) (no (unknown) (unknown) After the (units (unkn own) date) administration of unknown) oral and IV contrast, axial sections were acquired (unknown) (no (unknown) (unknown) Age/Sex: 82 / F (units (unknown) date) Date of Service: unknown) (unknown) (no (unknown) (unknown) [place], [place] (units ( unknown) date) [id number] unknown) (unknown) (no (unknown) (unknown) Approved by: [...] (unknown) (unknown) : 1940 (units (unknown) date) Acct:[id number] unknown) (unknown) (no (unknown) (unknown) Dictated by: [...] date) Excellent. unknown) (unknown) (no (unknown) (unknown) [facility] (units (unknown) date) unknown) (unknown) (no (unknown) [...] (unknown) (unknown) Patient: (units (unkno wn) date) Esme Echevarria unknown) MR#: [id number] (unknown) (no (unknown) (unknown) [...] was used: automated exposure control, Result panel 104 (unknown) (no date) (unknown) (unknown) 0.6 % (unkn own) (unknown) (no date) (unknown) (unknown) 10.3 % (unkn own) (unknown) (no date) (unknown) (unknown) 100 /ul (unkn own) (unknown) (no date) (unknown) (unknown) 73209 /ul (unkn own) (unknown) (no date) (unknown) [...] (unknown) 9.6 % (unkn own) Result panel 105 (unknown) (no (unknown) (unknown) (no value) (units [...] (unknown) date) unknown) (unknown) (no (unknown) (unknown) [id number] (units (unkno wn) date) unknown) (unknown) (no [...] (unknown) (unknown) : 1940 (units (unknown) date) Acct:[id number] unknown) (unknown) (no (unknown) (unknown) Data collected [...] date) Signs: unknown) (unknown) (no (unknown) (unknown) [facility] (units (unknown) date) [address] unknown) [place] [address] (unknown) (no (unknown) (unknown) Lab Data (units [...] (unknown) (unknown) Patient: (units (unkno wn) date) Esme Echevarria E unknown) MR#: [id number] (unknown) (no (unknown) [...] date) repair. It was unknown) done at [facility]. Has been doing well Result panel 106 (unknown) (no date) (unknown) (unknown) > 60 [...] (unknown) 94 u/l (unkn own) Result panel 107 (unknown) (no (unknown) (unknown) (no value) (units [...] (unknown) date) unknown) (unknown) (no (unknown) (unknown) [id number] (units (unkno wn) date) unknown) (unknown) (no [...] (unknown) (unknown) : 1940 (units (unknown) date) Acct:[id number] unknown) (unknown) (no (unknown) (unknown) Data collected [...] unknown) Hernia, hiatal (unknown) (no (unknown) (unknown) [facility] (units (unknown) date) [address] unknown) [place] [address] (unknown) (no (unknown) (unknown) Kidneys and (units [...] Lymph # (Auto) (units (unknown) date) 1300 (0626-5418) unknown) /uL (unknown) (no (unknown) (unknown) Lymph [...] date) Ambulatory unknown) (unknown) (no (unknown) (unknown) [place] # (Auto) (units ( unknown) date) 1300 H (0-900) /uL unknown) (unknown) (no (unknown) (unknown) [place] % (Auto) (units ( unknown) date) 10.3 [...] Neut # (Auto) (units ( unknown) date) 23508 H unknown) (7888-9515) /uL (unknown) (no (unknown) (unknown) Neut % [...] (unknown) (unknown) Patient: (units (unkno wn) date) Esme Echevarria E unknown) MR#: [id number] (unknown) (no (unknown) [...] date) repair. It was unknown) done at [facility]. Has been doing well Result panel 108 (unknown) (no (unknown) (unknown) (no value) (units [...] (unknown) date) unknown) (unknown) (no (unknown) (unknown) [id number] (units (unkno wn) date) unknown) (unknown) (no [...] (unknown) (unknown) : 1940 (units (unknown) date) Acct:[id number] unknown) (unknown) (no (unknown) (unknown) Data collected [...] unknown) Hernia, hiatal (unknown) (no (unknown) (unknown) [facility] (units (unknown) date) [address] [place] [address] unknown) [place] [address] (unknown) (no (unknown) (unknown) Kidneys and (units [...] Lymph # (Auto) (units (unknown) date) 1300 (2583-5425) unknown) /uL (unknown) (no (unknown) (unknown) Lymph [...] date) Ambulatory unknown) (unknown) (no (unknown) (unknown) [place] # (Auto) (units ( unknown) date) 1300 H (0-900) /uL unknown) (unknown) (no (unknown) (unknown) [place] % (Auto) (units ( unknown) date) 10.3 [...] Neut # (Auto) (units ( unknown) date) 79786 H unknown) (9654-2710) /uL (unknown) (no (unknown) (unknown) Neut % [...] (unknown) (unknown) Patient: (units (unkno wn) date) Esme Echevarria E unknown) MR#: [id number] (unknown) (no (unknown) [...] date) repair. It was unknown) done at [facility]. Has been doing well Result panel 109 (unknown) (no (unknown) (unknown) (no value) (units [...] (unknown) date) unknown) (unknown) (no (unknown) (unknown) [id number] (units (unkno wn) date) unknown) (unknown) (no [...] (unknown) (unknown) : 1940 (units (unknown) date) Acct:[id number] unknown) (unknown) (no (unknown) (unknown) Data collected [...] unknown) Hernia, hiatal (unknown) (no (unknown) (unknown) [facility] (units (unknown) date) [address] [place] [address] unknown) [place] [address] (unknown) (no (unknown) (unknown) Kidneys and (units [...] Lymph # (Auto) (units (unknown) date) 1300 (7663-1663) unknown) /uL (unknown) (no (unknown) (unknown) Lymph [...] date) Ambulatory unknown) (unknown) (no (unknown) (unknown) [place] # (Auto) (units ( unknown) date) 1300 H (0-900) /uL unknown) (unknown) (no (unknown) (unknown) [place] % (Auto) (units ( unknown) date) 10.3 [...] Neut # (Auto) (units ( unknown) date) 24218 H unknown) (5877-0221) /uL (unknown) (no (unknown) (unknown) Neut % [...] (unknown) (unknown) Patient: (units (unkno wn) date) Esme Echevarria E unknown) MR#: [id number] (unknown) (no (unknown) [...] (unknown) (unknown) Urine Specific (units (unknown) date) [place] 1.010 unknown) (unknown) (no (unknown) (unknown) Ventral [...] date) repair. It was unknown) done at [facility]. Has been doing well Result panel 110 (unknown) (no date) (unknown) (unknown) 0-1 /HPF [...] (units (unkn own) Cultured unknown) Result panel 111 (unknown) (no (unknown) (unknown) (no value) (units [...] (unknown) date) unknown) (unknown) (no (unknown) (unknown) 500500 (units (unkno wn) date) unknown) (unknown) (no [...] (unknown) (unknown) : 1940 (units (unknown) date) Acct:[id number] unknown) (unknown) (no (unknown) (unknown) Data collected [...] unknown) Hernia, hiatal (unknown) (no (unknown) (unknown) [facility] (units (unknown) date) [address] [place] [address] unknown) [place] [address] (unknown) (no (unknown) (unknown) Kidneys and (units [...] Lymph # (Auto) (units (unknown) date) 1300 (5542-8469) unknown) /uL (unknown) (no (unknown) (unknown) Lymph [...] date) Ambulatory unknown) (unknown) (no (unknown) (unknown) [place] # (Auto) (units ( unknown) date) 1300 H (0-900) /uL unknown) (unknown) (no (unknown) (unknown) [place] % (Auto) (units ( unknown) date) 10.3 [...] Neut # (Auto) (units ( unknown) date) 36847 H unknown) (5383-4549) /uL (unknown) (no (unknown) (unknown) Neut % [...] (unknown) (unknown) Patient: (units (unkno wn) date) Esme Echevarria E unknown) MR#: [id number] (unknown) (no (unknown) [...] (unknown) (unknown) Urine Specific (units (unknown) date) [place] 1.010 unknown) (unknown) (no (unknown) (unknown) Ventral [...] date) repair. It was unknown) done at [facility]. Has been doing well Result panel 112 (unknown) (no (unknown) (unknown) (no value) (units [...] (unknown) date) unknown) (unknown) (no (unknown) (unknown) [id number] (units (unkno wn) date) unknown) (unknown) (no [...] (unknown) (unknown) : 1940 (units (unknown) date) Acct:[id number] unknown) (unknown) (no (unknown) (unknown) Data collected [...] unknown) Hernia, hiatal (unknown) (no (unknown) (unknown) [facility] (units (unknown) date) [address] unknown) [place] [address] (unknown) (no (unknown) (unknown) Kidneys and (units [...] Lymph # (Auto) (units (unknown) date) 1300 (6408-3230) unknown) /uL (unknown) (no (unknown) (unknown) Lymph [...] date) Ambulatory unknown) (unknown) (no (unknown) (unknown) [place] # (Auto) (units ( unknown) date) 1300 H (0-900) /uL unknown) (unknown) (no (unknown) (unknown) [place] % (Auto) (units ( unknown) date) 10.3 [...] Neut # (Auto) (units ( unknown) date) 89264 H unknown) (1615-8641) /uL (unknown) (no (unknown) (unknown) Neut % [...] (unknown) (unknown) Patient: (units (unkno wn) date) Esme Echevarria E unknown) MR#: [id number] (unknown) (no (unknown) [...] (unknown) (unknown) Urine Specific (units (unknown) date) [place] 1.010 unknown) (unknown) (no (unknown) (unknown) Urine [...] today (unknown) (no (unknown) (unknown) up with [place] (units (unknown) date) [facility]) regarding your hiatal hernia. Or you may call (unknown) (no (unknown) (unknown) worsening (units (unkn own) date) lymphadenopathy, unknown) possible cancer/lymphoma. Primary care has not been (unknown) (no (unknown) (unknown) years ago before (units (unknown) date) repair. It was unknown) done at [facility]. Has been doing well Result panel 113 (unknown) (no date) (unknown) (unknown) 0.8 % (unkn own) (unknown) (no date) (unknown) (unknown) 1.6 % (unkn own) (unknown) (no date) (unknown) (unknown) 100 /ul (unkn own) (unknown) (no date) (unknown) (unknown) 11.0 x10 3/ul (unkn own) (unknown) (no date) (unknown) (unknown) 12.5 g/dl (unkn own) (unknown) (no date) (unknown) (unknown) 13.3 % (unkn own) (unknown) (no date) (unknown) (unknown) 13.4 % (unkn own) (unknown) (no date) (unknown) (unknown) 1500 /ul (unkn own) (unknown) (no date) (unknown) (unknown) 200 /ul (unkn own) (unknown) (no date) (unknown) (unknown) 29.2 pg (unkn own) (unknown) (no date) (unknown) (unknown) 301 x10 3/ul (unkn own) (unknown) (no date) (unknown) (unknown) 33.3 % (unkn own) (unknown) (no date) (unknown) (unknown) 37.4 % (unkn own) (unknown) (no date) (unknown) (unknown) 4.26 x10 6/ul (unkn own) (unknown) (no date) (unknown) (unknown) 7.2 % (unkn own) (unknown) (no date) (unknown) (unknown) 77.0 % (unkn own) (unknown) (no date) (unknown) (unknown) 800 /ul (unkn own) (unknown) (no date) (unknown) (unknown) 8500 /ul (unkn own) (unknown) (no date) (unknown) (unknown) 87.7 fl (unkn own) Result panel 114 (unknown) (no date) (unknown) (unknown) > 60 ml/min (unkn own) (unknown) (no date) (unknown) (unknown) > 60 ml/min (unkn own) (unknown) (no date) (unknown) (unknown) < 20 u/l (unkn own) (unknown) (no date) (unknown) (unknown) 0.69 mg/dl (unkn own) (unknown) (no date) (unknown) (unknown) 0.9 mg/dl (unkn own) (unknown) (no date) (unknown) (unknown) 1.2 (units (unkn own) unknown) (unknown) (no date) (unknown) (unknown) 126 mg/dl (unkn own) (unknown) (no date) (unknown) (unknown) 126 mg/dl (unkn own) (unknown) (no date) (unknown) (unknown) 127 u/l (unkn own) (unknown) (no date) (unknown) (unknown) 13 mg/dl (unkn own) (unknown) (no date) (unknown) (unknown) 134 mmol/l (unkn own) (unknown) (no date) (unknown) (unknown) 16 u/l (unkn own) (unknown) (no date) (unknown) (unknown) 18.8 (units (unkn own) unknown) (unknown) (no date) (unknown) (unknown) 25 iu/l (unkn own) (unknown) (no date) (unknown) (unknown) 29 mmol/l (unkn own) (unknown) (no date) (unknown) (unknown) 3.1 g/dl (unkn own) (unknown) (no date) (unknown) (unknown) 3.6 g/dl (unkn own) (unknown) (no date) (unknown) (unknown) 39 iu/l (unkn own) (unknown) (no date) (unknown) (unknown) 4.2 mmol/l (unkn own) (unknown) (no date) (unknown) (unknown) 6.7 g/dl (unkn own) (unknown) (no date) (unknown) (unknown) 9.1 mg/dl (unkn own) (unknown) (no date) (unknown) (unknown) 97 mmol/l (unkn own) (unknown) (no date) (unknown) (unknown) Test not % (unkn own) performed (unknown) (no date) (unknown) (unknown) Test not % (unkn own) performed (unknown) (no date) (unknown) (unknown) Test not ng/ml (unkn own) performed (unknown) (no date) (unknown) (unknown) Test not ng/ml (unkn own) performed Result panel 115 (unknown) (no date) (unknown) (unknown) < 0.012 ng/ml (unkn own) (unknown) (no date) (unknown) (unknown) < 0.012 ng/ml (unkn own) (unknown) (no date) (unknown) (unknown) < 20 u/l (unkn own) (unknown) (no date) (unknown) (unknown) Negative (units (unkn own) unknown) (unknown) (no date) (unknown) (unknown) Negative (units (unkn own) unknown) (unknown) (no date) (unknown) (unknown) Test not % (unkn own) performed (unknown) (no date) (unknown) (unknown) Test not % (unkn own) performed (unknown) (no date) (unknown) (unknown) Test not ng/ml (unkn own) performed (unknown) (no date) (unknown) (unknown) Test not ng/ml (unkn own) performed Result panel 116 (unknown) (no (unknown) (unknown) (no value) (units (unk nown) date) unknown) (unknown) (no (unknown) (unknown) [id number] (units (unkno wn) date) unknown) (unknown) (no (unknown) (unknown) 07/14/22 (units (unkno wn) date) unknown) (unknown) (no (unknown) (unknown) 1.5 centimeters (units (unknown) date) on . Heart unknown) size is normal. There are coronary (unknown) (no (unknown) (unknown) [address] [place] [address] (units (unknown) date) unknown) (unknown) (no (unknown) (unknown) 2020, and has (units ( unknown) date) changed compared unknown) to June 24, 2022. A solid index lesion in the (unknown) (no (unknown) (unknown) Accession Number: (units (unknown) date) [id number] unknown) (unknown) (no (unknown) (unknown) After the (units (unkn own) date) administration of unknown) intravenous contrast, 5 mm thick sections acquired (unknown) (no (unknown) (unknown) Age/Sex: 82 / F (units (unknown) date) Date of Service: unknown) (unknown) (no (unknown) (unknown) [place], [place] (units ( unknown) date) [address] unknown) (unknown) (no (unknown) (unknown) Approved by: (units (u nknown) date) Andrea Lan M.D. on unknown) 07/14/2022 at 14:12 (unknown) (no (unknown) (unknown) Body wall: (units (unk nown) date) Unremarkable unknown) (unknown) (no (unknown) (unknown) Bones: No acute (units (unknown) date) or suspicious unknown) osseous finding. Degenerative changes are (unknown) (no (unknown) (unknown) Bowel and (units (unkn own) date) peritoneum: No unknown) evidence of small bowel obstruction. In the left (unknown) (no (unknown) (unknown) COMPARISON: (units (un known) date) [facility], unknown) CT, CT CHEST ABD PEL W CON, 09/07/2019, 10:23. (unknown) (no (unknown) (unknown) CT Scan Report (units (unknown) date) unknown) (unknown) (no (unknown) (unknown) Chest wall and (units (unknown) date) thyroid: No unknown) axillary adenopathy. Chest wall is unremarkable. (unknown) (no (unknown) (unknown) : 1940 (units (unknown) date) Acct:[id number] unknown) (unknown) (no (unknown) (unknown) Dictated by: (units (u nknown) date) Andrea Lan M.D. on unknown) 07/14/2022 at 14:03 (unknown) (no (unknown) (unknown) FINDINGS: (units (unkn own) date) unknown) (unknown) (no (unknown) (unknown) Hospital, CT, CT (units (unknown) date) ABDOMEN PELVIS W unknown) CON, 06/24/2022, 10:08. 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 No airspace consolidation. Scattered (unknown) (no (unknown) (unknown) Mediastinum, (units (u nknown) date) heart, and unknown) esophagus: Enlarged periesophageal lymph nodes, (unknown) (no (unknown) (unknown) Mesenteric root (units (unknown) date) and unknown) retroperitoneal adenopathy is significantly increased (unknown) (no (unknown) (unknown) Ordering (units (unkno wn) date) Provider: unknown) Silas,Hyma P.A-C (unknown) (no (unknown) (unknown) Other findings as (units (unknown) date) above. unknown) (unknown) (no (unknown) (unknown) PROCEDURE: CT (units ( unknown) date) CHEST ABD PEL W unknown) CON (unknown) (no (unknown) (unknown) Patient: (units (unkno wn) date) Esme Echevarria unknown) MR#: [id number] (unknown) (no (unknown) (unknown) Pelvis: Bladder (units (unknown) date) is unremarkable. unknown) Hysterectomy. (unknown) (no (unknown) (unknown) Procedure: CT (units ( unknown) date) chest abd pel w unknown) con (unknown) (no (unknown) (unknown) Signed (units (unkno wn) date) unknown) (unknown) (no (unknown) (unknown) Small hiatal (units (u nknown) date) hernia. unknown) (unknown) (no (unknown) (unknown) Solid organs: (units ( unknown) date) Liver is unknown) unremarkable. Cholecystectomy. Mildly dilated biliary (unknown) (no (unknown) (unknown) TECHNIQUE: (units (unk nown) date) unknown) (unknown) (no (unknown) (unknown) There is (units (unkno wn) date) pancreatic unknown) parenchymal atrophy. Prominent spleen, without enlargement (unknown) (no (unknown) (unknown) Vessels and lymph (units (unknown) date) nodes: Main portal unknown) vein is patent. No abdominal aortic (unknown) (no (unknown) (unknown) above the (units (unkn own) date) diaphragm. unknown) (unknown) (no (unknown) (unknown) according to (units (u nknown) date) unknown) (unknown) (no (unknown) (unknown) additional 7 mm (units (unknown) date) MIP reformats unknown) through the lungs. For radiation dose reduction, (unknown) (no (unknown) (unknown) adenopathy () (units (unknown) date) no pathologic unknown) ascites. Colonic diverticulosis. (unknown) (no (unknown) (unknown) adenopathy (units (unk nown) date) compared to June. unknown) Oncologic consultation is advised. 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 (units (unkn own) date) unknown) (unknown) (no (unknown) (unknown) aortocaval (units (unk nown) date) unknown) (unknown) (no (unknown) (unknown) by size (units (unkno wn) date) unknown) (unknown) (no (unknown) (unknown) calcifications. (units (unknown) date) unknown) (unknown) (no (unknown) (unknown) cholecystectomy, (units (unknown) date) possibly unknown) physiologic. No pathologic dilation of the pancreatic (unknown) (no (unknown) (unknown) compared to (units (un known) date) unknown) (unknown) (no (unknown) (unknown) compatible (units (unk nown) date) unknown) (unknown) (no (unknown) (unknown) criteria. No (units (u nknown) date) adrenal nodules. unknown) No hydronephrosis. (unknown) (no (unknown) (unknown) duct. (units (unkno wn) date) unknown) (unknown) (no (unknown) (unknown) enlarged. A left (units (unknown) date) periaortic lymph unknown) node is significantly enlarged, now with more (unknown) (no (unknown) (unknown) following was (units ( unknown) date) used: automated unknown) exposure control, adjustment of mA and/or kV (unknown) (no (unknown) (unknown) from the (units (unkno wn) date) unknown) (unknown) (no (unknown) (unknown) imaging be (units (unk nown) date) unknown) (unknown) (no (unknown) (unknown) jejunal (units (unkno wn) date) unknown) (unknown) (no (unknown) (unknown) lung apices to (units (unknown) date) the symphysis. 5 unknown) mm coronal and sagittal reformats were (unknown) (no (unknown) (unknown) measuring up to (units (unknown) date) 3.4 centimeters, unknown) previously 2.5 centimeters. (unknown) (no (unknown) (unknown) measuring up to (units (unknown) date) unknown) (unknown) (no (unknown) (unknown) mediastinum (units (un known) date) unknown) (unknown) (no (unknown) (unknown) mesentery, there (units (unknown) date) appears to be unknown) desmoplastic reaction adjacent to the mesenteric (unknown) (no (unknown) (unknown) necrosis (units (unkno wn) date) unknown) (unknown) (no (unknown) (unknown) obtained in the (units (unknown) date) setting of unknown) probable malignancy, for example on the right. (unknown) (no (unknown) (unknown) patient size. (units ( unknown) date) unknown) (unknown) (no (unknown) (unknown) performed, with (units (unknown) date) unknown) (unknown) (no (unknown) (unknown) present. (units (unkno wn) date) unknown) (unknown) (no (unknown) (unknown) region at the (units ( unknown) date) level of the right unknown) kidney () measures 1.9 centimeters, (unknown) (no (unknown) (unknown) scarring/atelecta (units (unknown) date) sis. 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 Result panel 117 (unknown) (no (unknown) (unknown) (no value) (units (unk nown) date) unknown) (unknown) (no (unknown) (unknown) 0.5 mg PO DAILY (units (unknown) date) unknown) (unknown) (no (unknown) (unknown) 07/14/22 07/14/22 (units (unknown) date) 07/14/22 unknown) Range/Units (unknown) (no (unknown) (unknown) 07/14/22 11:20 (units (unknown) date) unknown) (unknown) (no (unknown) (unknown) 07/14/22 12:32 (units (unknown) date) unknown) (unknown) (no (unknown) (unknown) 07/14/22 (units (unkno wn) date) Range/Units unknown) (unknown) (no (unknown) (unknown) 07/14/22 (units (unkno wn) date) unknown) (unknown) (no (unknown) (unknown) 1 tab PO Q6H PRN (units (unknown) date) (Reason: pain) unknown) Qty: 20 0RF (unknown) (no (unknown) (unknown) 10 mg PO DAILY (units (unknown) date) unknown) (unknown) (no (unknown) (unknown) 11:20 11:20 11:20 (units (unknown) date) unknown) (unknown) (no (unknown) (unknown) 11:20 (units (unkno wn) date) unknown) (unknown) (no (unknown) (unknown) 13:00 07/14/22 (units (unknown) date) unknown) (unknown) (no (unknown) (unknown) 13:10 07/14/22 (units (unknown) date) unknown) (unknown) (no (unknown) (unknown) 13:10 (units (unkno wn) date) unknown) (unknown) (no (unknown) (unknown) 13:15 07/14/22 (units (unknown) date) unknown) (unknown) (no (unknown) (unknown) 13:15 (units (unkno wn) date) unknown) (unknown) (no (unknown) (unknown) 13:30 07/14/22 (units (unknown) date) unknown) (unknown) (no (unknown) (unknown) 13:41 07/14/22 (units (unknown) date) unknown) (unknown) (no (unknown) (unknown) 13:41 (units (unkno wn) date) unknown) (unknown) (no (unknown) (unknown) 13:45 07/14/22 (units (unknown) date) unknown) (unknown) (no (unknown) (unknown) 14:00 07/14/22 (units (unknown) date) unknown) (unknown) (no (unknown) (unknown) 14:00 (units (unkno wn) date) unknown) (unknown) (no (unknown) (unknown) 14:15 07/14/22 (units (unknown) date) unknown) (unknown) (no (unknown) (unknown) 14:15 (units (unkno wn) date) unknown) (unknown) (no (unknown) (unknown) 14:30 07/14/22 (units (unknown) date) unknown) (unknown) (no (unknown) (unknown) 14:45 07/14/22 (units (unknown) date) unknown) (unknown) (no (unknown) (unknown) 14:45 (units (unkno wn) date) unknown) (unknown) (no (unknown) (unknown) 15:00 07/14/22 (units (unknown) date) unknown) (unknown) (no (unknown) (unknown) 15:00 (units (unkno wn) date) unknown) (unknown) (no (unknown) (unknown) 15:15 07/14/22 (units (unknown) date) unknown) (unknown) (no (unknown) (unknown) 15:30 07/14/22 (units (unknown) date) unknown) (unknown) (no (unknown) (unknown) 15:30 (units (unkno wn) date) unknown) (unknown) (no (unknown) (unknown) 15:45 07/14/22 (units (unknown) date) unknown) (unknown) (no (unknown) (unknown) 15:45 (units (unkno wn) date) unknown) (unknown) (no (unknown) (unknown) 16:00 07/14/22 (units (unknown) date) unknown) (unknown) (no (unknown) (unknown) 16:15 07/14/22 (units (unknown) date) unknown) (unknown) (no (unknown) (unknown) 16:15 (units (unkno wn) date) unknown) (unknown) (no (unknown) (unknown) 17:09 (units (unkno wn) date) unknown) (unknown) (no (unknown) (unknown) 2 tab PO Q6H PRN (units (unknown) date) (Reason: pain) 3 unknown) Days Qty: 30 0RF (unknown) (no (unknown) (unknown) 20 mg PO DAILY (units (unknown) date) unknown) (unknown) (no (unknown) (unknown) [id number] (units (unkno wn) date) unknown) (unknown) (no [...] 30 0RF unknown) (unknown) (no (unknown) (unknown) 82-year-old (units (un known) date) female presents to unknown) the ED with 4 days of worsening abdominal pain. (unknown) (no (unknown) (unknown) ALT (<35) IU/L (units (unknown) date) unknown) (unknown) (no (unknown) (unknown) ALT 25 (<35) IU/L (units (unknown) date) unknown) (unknown) (no (unknown) (unknown) AST (14-36) IU/L (units (unknown) date) unknown) (unknown) (no (unknown) (unknown) AST 39 H (14-36) (units (unknown) date) IU/L unknown) (unknown) (no (unknown) (unknown) Abdominal pain (units (unknown) date) unknown) (unknown) (no (unknown) (unknown) Activity (units (unkno wn) date) Restrictions/Addit unknown) ional Instructions: (unknown) (no (unknown) (unknown) Admin: 07/14/22 (units (unknown) date) 11:47 Dose: 200 unknown) mls/hr (unknown) (no (unknown) (unknown) Age/Sex: 82 / F (units (unknown) date) unknown) (unknown) (no (unknown) (unknown) Al Hydrox/Mg (units (u nknown) date) Hydrox/Simethicone unknown) 20 ml/ Lidocaine HCl 15 ml 0 ml PO NOW ONE (unknown) (no (unknown) (unknown) Albumin (3.5-5.0) (units (unknown) date) g/dL unknown) (unknown) (no (unknown) (unknown) Albumin 3.6 (units (un known) date) (3.5-5.0) g/dL unknown) (unknown) (no (unknown) (unknown) Albumin/Globulin (units (unknown) date) Ratio (1.0-2.8) unknown) (unknown) (no (unknown) (unknown) Albumin/Globulin (units (unknown) date) Ratio 1.2 unknown) (1.0-2.8) (unknown) (no (unknown) (unknown) Alcohol type: (units ( unknown) date) wine unknown) (unknown) (no (unknown) (unknown) Alkaline (units (unkno wn) date) Phosphatase unknown) (38-126) U/L (unknown) (no (unknown) (unknown) Alkaline (units (unkno wn) date) Phosphatase 127 H unknown) (38-126) U/L (unknown) (no (unknown) (unknown) Allergies (units (unkn own) date) unknown) (unknown) (no (unknown) (unknown) Allergy/AdvReac (units (unknown) date) Type Severity unknown) Reaction Status Date / Time (unknown) (no (unknown) (unknown) Antibiotics) (units (u nknown) date) unknown) (unknown) (no (unknown) (unknown) BUN (7-17) mg/dL (units (unknown) date) unknown) (unknown) (no (unknown) (unknown) BUN 13 (7-17) (units ( unknown) date) mg/dL unknown) (unknown) (no (unknown) (unknown) BUN/Creatinine (units (unknown) date) Ratio (6-22) unknown) (unknown) (no (unknown) (unknown) BUN/Creatinine (units (unknown) date) Ratio 18.8 (6-22) unknown) (unknown) (no (unknown) (unknown) Baso # (Auto) (units ( unknown) date) (0-100) /uL unknown) (unknown) (no (unknown) (unknown) Baso # (Auto) 100 (units (unknown) date) (0-100) /uL unknown) (unknown) (no (unknown) (unknown) Baso % (Auto) (units ( unknown) date) (0-2) % unknown) (unknown) (no (unknown) (unknown) Baso % (Auto) 0.8 (units (unknown) date) (0-2) % unknown) (unknown) (no (unknown) (unknown) Bedside Urine (units ( unknown) date) Bilirubin - unknown) Negative (unknown) (no (unknown) (unknown) Bedside Urine (units ( unknown) date) Glucose Negative unknown) (unknown) (no (unknown) (unknown) Bedside Urine (units ( unknown) date) Ketone +/- 5 unknown) (unknown) (no (unknown) (unknown) Bedside Urine (units ( unknown) date) Leukocytes - unknown) Negative (unknown) (no (unknown) (unknown) Bedside Urine (units ( unknown) date) Nitrite - Negative unknown) (unknown) (no (unknown) (unknown) Bedside Urine (units ( unknown) date) Occult Blood - unknown) Negative (unknown) (no (unknown) (unknown) Bedside Urine (units ( unknown) date) Protein - Negative unknown) (unknown) (no (unknown) (unknown) Bedside Urine (units ( unknown) date) Urobilinogen 0.2 unknown) (unknown) (no (unknown) (unknown) Bedside Urine pH (units (unknown) date) 6.0 unknown) (unknown) (no (unknown) (unknown) Blood Pressure (units (unknown) date) 122/60 125/60 unknown) (unknown) (no (unknown) (unknown) Blood Pressure (units (unknown) date) 133/64 unknown) (unknown) (no (unknown) (unknown) Blood Pressure (units (unknown) date) 135/60 unknown) (unknown) (no (unknown) (unknown) Blood Pressure (units (unknown) date) 137/63 unknown) (unknown) (no (unknown) (unknown) Blood Pressure (units (unknown) date) 139/65 unknown) (unknown) (no (unknown) (unknown) Blood Pressure (units (unknown) date) 139/77 04/03/23 unknown) 10:40 (unknown) (no (unknown) (unknown) Blood Pressure (units (unknown) date) 143/65 H 132/60 unknown) (unknown) (no (unknown) (unknown) Blood Pressure (units (unknown) date) 143/65 H 140/62 unknown) (unknown) (no (unknown) (unknown) Blood Pressure (units (unknown) date) 143/66 H 134/63 unknown) (unknown) (no (unknown) (unknown) Blood Pressure (units (unknown) date) 145/61 H unknown) (unknown) (no (unknown) (unknown) Blood Pressure (units (unknown) date) 167/68 H unknown) (unknown) (no (unknown) (unknown) CK-MB (CK-2) Rel (units (unknown) date) Index TNP unknown) (unknown) (no (unknown) (unknown) CK-MB (CK-2) Rel (units (unknown) date) Index unknown) (unknown) (no (unknown) (unknown) CK-MB (CK-2) TNP (units (unknown) date) unknown) (unknown) (no (unknown) (unknown) CK-MB (CK-2) (units (u nknown) date) unknown) (unknown) (no (unknown) (unknown) CT chest abd pel (units (unknown) date) w con Stat unknown) (unknown) (no (unknown) (unknown) Calcium (units (unkno wn) date) (8.4-10.2) mg/dL unknown) (unknown) (no (unknown) (unknown) Calcium 9.1 (units (un known) date) (8.4-10.2) mg/dL unknown) (unknown) (no (unknown) (unknown) Carbon Dioxide (units (unknown) date) (22-32) mmol/L unknown) (unknown) (no (unknown) (unknown) Carbon Dioxide 29 (units (unknown) date) (22-32) mmol/L unknown) (unknown) (no (unknown) (unknown) Chief Complaint: (units (unknown) date) Abdominal Pain unknown) (unknown) (no (unknown) (unknown) Chloride (98-107) (units (unknown) date) mmol/L unknown) (unknown) (no (unknown) (unknown) Chloride 97 L (units ( unknown) date) (98-107) mmol/L unknown) (unknown) (no (unknown) (unknown) Clinical (units (unkno wn) date) Impression: unknown) (unknown) (no (unknown) (unknown) Course (units (unkno wn) date) unknown) (unknown) (no (unknown) (unknown) Creatinine (units (unk nown) date) (0.52-1.04) mg/dL unknown) (unknown) (no (unknown) (unknown) Creatinine 0.69 (units (unknown) date) (0.52-1.04) mg/dL unknown) (unknown) (no (unknown) (unknown) : 1940 (units (unknown) date) Acct:[id number] unknown) (unknown) (no (unknown) (unknown) Date of Service: (units (unknown) date) 07/14/22 unknown) (unknown) (no (unknown) (unknown) Departure (units (unkn own) date) unknown) (unknown) (no (unknown) (unknown) Discharge Plan (units (unknown) date) unknown) (unknown) (no (unknown) (unknown) Discontinued (units (u nknown) date) Medications unknown) (unknown) (no (unknown) (unknown) Documented By: (units (unknown) date) [facility]U unknown) (unknown) (no (unknown) (unknown) Documented By: RB (units (unknown) date) unknown) (unknown) (no (unknown) (unknown) ED Orders (units (unkn own) date) unknown) (unknown) (no (unknown) (unknown) ER Physician: (units ( unknown) date) Jaz Rosen P.A-C unknown) (unknown) (no (unknown) (unknown) Emergency Report (units (unknown) date) unknown) (unknown) (no (unknown) (unknown) Eos # (Auto) (units (u nknown) date) (0-450) /uL unknown) (unknown) (no (unknown) (unknown) Eos # (Auto) 200 (units (unknown) date) (0-450) /uL unknown) (unknown) (no (unknown) (unknown) Eos % (Auto) (units (u nknown) date) (2-4) % unknown) (unknown) (no (unknown) (unknown) Eos % (Auto) 1.6 (units (unknown) date) L (2-4) % unknown) (unknown) (no (unknown) (unknown) Esterase (units (unkno wn) date) unknown) (unknown) (no (unknown) (unknown) Estimated GFR > (units (unknown) date) 60 (>60) mL/min unknown) (unknown) (no (unknown) (unknown) Estimated GFR (units ( unknown) date) (>60) mL/min unknown) (unknown) (no (unknown) (unknown) Exam (units (unkno wn) date) unknown) (unknown) (no (unknown) (unknown) Famotidine (units (unk nown) date) (Famotidine 20 unknown) Mg/2 Ml Vial) 20 mg IV NOW LUZ ELENA (unknown) (no (unknown) (unknown) Lázaro Reyes (units (unk nown) date) MD Can unknown) [Primary Care Provider] (unknown) (no (unknown) (unknown) General (units (unkno wn) date) unknown) (unknown) (no (unknown) (unknown) Globulin (units (unkno wn) date) (1.7-4.1) g/dL unknown) (unknown) (no (unknown) (unknown) Globulin 3.1 (units (u nknown) date) (1.7-4.1) g/dL unknown) (unknown) (no (unknown) (unknown) Glucose (80-110) (units (unknown) date) mg/dL unknown) (unknown) (no (unknown) (unknown) Glucose 126 H (units ( unknown) date) (80-110) mg/dL unknown) (unknown) (no (unknown) (unknown) H/O total (units (unkn own) date) hysterectomy unknown) (unknown) (no (unknown) (unknown) HPI - Abdominal (units (unknown) date) Pain unknown) (unknown) (no (unknown) (unknown) HPI narrative: (units (unknown) date) unknown) (unknown) (no (unknown) (unknown) Hct (36-46) % (units ( unknown) date) unknown) (unknown) (no (unknown) (unknown) Hct 37.4 (36-46) (units (unknown) date) % unknown) (unknown) (no (unknown) (unknown) Hgb (12.0-16.0) (units (unknown) date) g/dL unknown) (unknown) (no (unknown) (unknown) Hgb 12.5 (units (unkno wn) date) (12.0-16.0) g/dL unknown) (unknown) (no (unknown) (unknown) 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 unknown) (unknown) (no (unknown) (unknown) History of (units (unk nown) date) Present Illness unknown) (unknown) (no (unknown) (unknown) Home Medications (units (unknown) date) unknown) (unknown) (no (unknown) (unknown) Hyperlipidemia (units (unknown) date) unknown) (unknown) (no (unknown) (unknown) Initial Vital (units ( unknown) date) Signs unknown) (unknown) (no (unknown) (unknown) Initial Vital (units ( unknown) date) Signs: unknown) (unknown) (no (unknown) (unknown) Instructions: DI (units (unknown) date) for Abdominal unknown) Pain-Adult (unknown) (no (unknown) (unknown) [facility] (units (unknown) date) [address] unknown) [place] [address] (unknown) (no (unknown) (unknown) Lab Data (units (unkno wn) date) unknown) (unknown) (no (unknown) (unknown) Lab Results (units (un known) date) unknown) (unknown) (no (unknown) (unknown) Labs: (units (unkno wn) date) unknown) (unknown) (no (unknown) (unknown) Last Admin: (units (un known) date) 07/14/22 13:04 unknown) Dose: 4 mg (unknown) (no (unknown) (unknown) Last Admin: (units (un known) date) 07/14/22 13:58 unknown) Dose: 15 ml (unknown) (no (unknown) (unknown) Last Admin: (units (un known) date) 07/14/22 13:58 unknown) Dose: 20 mg (unknown) (no (unknown) (unknown) Last Infusion: (units (unknown) date) 07/14/22 16:56 unknown) Dose: 0 mls/hr (unknown) (no (unknown) (unknown) Lipase (23-300) (units (unknown) date) U/L unknown) (unknown) (no (unknown) (unknown) Lipase 16 L (units (un known) date) (23-300) U/L unknown) (unknown) (no (unknown) (unknown) Lymph # (Auto) (units (unknown) date) (8729-9932) /uL unknown) (unknown) (no (unknown) (unknown) Lymph # (Auto) (units (unknown) date) 800 L (9286-6554) unknown) /uL (unknown) (no (unknown) (unknown) Lymph % (Auto) (units (unknown) date) (25-40) % unknown) (unknown) (no (unknown) (unknown) Lymph % (Auto) (units (unknown) date) 7.2 L (25-40) % unknown) (unknown) (no (unknown) (unknown) MCH (26-34) PG (units (unknown) date) unknown) (unknown) (no (unknown) (unknown) MCH 29.2 (26-34) (units (unknown) date) PG unknown) (unknown) (no (unknown) (unknown) MCHC (30-36) % (units (unknown) date) unknown) (unknown) (no (unknown) (unknown) MCHC 33.3 (30-36) (units (unknown) date) % unknown) (unknown) (no (unknown) (unknown) MCV (80-100) fL (units (unknown) date) unknown) (unknown) (no (unknown) (unknown) MCV 87.7 (80-100) (units (unknown) date) fL unknown) (unknown) (no (unknown) (unknown) MDM - Abdominal (units (unknown) date) Pain unknown) (unknown) (no (unknown) (unknown) Medical History (units (unknown) date) (Updated 07/14/22 unknown) @ 16:49 by Jaz Rosen PA-C) (unknown) (no (unknown) (unknown) Medication (units (unk nown) date) Instructions unknown) Recorded Confirmed (unknown) (no (unknown) (unknown) Medication (units (unk nown) date) Instructions unknown) Recorded (unknown) (no (unknown) (unknown) Mode of arrival: (units (unknown) date) Ambulatory unknown) (unknown) (no (unknown) (unknown) [place] # (Auto) (units ( unknown) date) (0-900) /uL unknown) (unknown) (no (unknown) (unknown) [place] # (Auto) (units ( unknown) date) 1500 H (0-900) /uL unknown) (unknown) (no (unknown) (unknown) [place] % (Auto) (units ( unknown) date) (3-14) % unknown) (unknown) (no (unknown) (unknown) [place] % (Auto) (units ( unknown) date) 13.4 (3-14) % unknown) (unknown) (no (unknown) (unknown) Morphine Sulfate (units (unknown) date) (Morphine 4 Mg/Ml unknown) Inj) 4 mg IV NOW ONE (unknown) (no (unknown) (unknown) Neut # (Auto) (units ( unknown) date) (4970-6966) /uL unknown) (unknown) (no (unknown) (unknown) Neut # (Auto) (units ( unknown) date) 8500 H (4996-6583) unknown) /uL (unknown) (no (unknown) (unknown) Neut % (Auto) (units ( unknown) date) (50-75) % unknown) (unknown) (no (unknown) (unknown) Neut % (Auto) (units ( unknown) date) 77.0 H (50-75) % unknown) (unknown) (no (unknown) (unknown) New (units (unkno wn) date) unknown) (unknown) (no (unknown) (unknown) No Action (units (unkn own) date) unknown) (unknown) (no (unknown) (unknown) Ondansetron HCl (units (unknown) date) (Ondansetron 4 Mg unknown) Odt) 4 mg PO NOW PRN (unknown) (no (unknown) (unknown) Ondansetron HCl (units (unknown) date) (Ondansetron 4 unknown) Mg/2 Ml Inj) 4 mg IV NOW PRN (unknown) (no (unknown) (unknown) Ordered: (units (unkno wn) date) unknown) (unknown) (no (unknown) (unknown) Orders (units (unkno wn) date) unknown) (unknown) (no (unknown) (unknown) Oxygen Delivery (units (unknown) date) Method Room Air unknown) 07/14/22 10:40 (unknown) (no (unknown) (unknown) Oxygen Delivery (units (unknown) date) Method Room Air unknown) (unknown) (no (unknown) (unknown) Oxygen Delivery (units (unknown) date) Method unknown) (unknown) (no (unknown) (unknown) PRN Reason: (units (un known) date) Nausea And unknown) Vomiting (unknown) (no (unknown) (unknown) Patient Comments: (units (unknown) date) unknown) (unknown) (no (unknown) (unknown) Patient (units (unkno wn) date) Disposition: Home unknown) (unknown) (no (unknown) (unknown) Patient History (units (unknown) date) unknown) (unknown) (no (unknown) (unknown) Patient has been (units (unknown) date) diagnosed on CT unknown) with abdominal adenopathy, highly suggestive of (unknown) (no (unknown) (unknown) Patient: (units (unkno wn) date) Esme Echevarria unknown) MR#: [id number] (unknown) (no (unknown) (unknown) Penicillins (units (un known) date) Allergy Unknown unknown) Verified 07/14/22 11:01 (unknown) (no (unknown) (unknown) Plt Count (units (unkn own) date) (150-400) X103/uL unknown) (unknown) (no (unknown) (unknown) Plt Count 301 (units ( unknown) date) (150-400) X103/uL unknown) (unknown) (no (unknown) (unknown) Point of care (units ( unknown) date) testing: unknown) (unknown) (no (unknown) (unknown) Potassium (units (unkn own) date) (3.4-5.1) mmol/L unknown) (unknown) (no (unknown) (unknown) Potassium 4.2 (units ( unknown) date) (3.4-5.1) mmol/L unknown) (unknown) (no (unknown) (unknown) Prescriptions: (units (unknown) date) unknown) (unknown) (no (unknown) (unknown) Previous Rx's (units ( unknown) date) unknown) (unknown) (no (unknown) (unknown) Pulse Oximetry 95 (units (unknown) date) unknown) (unknown) (no (unknown) (unknown) Pulse Oximetry 96 (units (unknown) date) 98 unknown) (unknown) (no (unknown) (unknown) Pulse Oximetry 96 (units (unknown) date) unknown) (unknown) (no (unknown) (unknown) Pulse Oximetry 97 (units (unknown) date) 96 unknown) (unknown) (no (unknown) (unknown) Pulse Oximetry 97 (units (unknown) date) 97 unknown) (unknown) (no (unknown) (unknown) Pulse Oximetry 97 (units (unknown) date) 98 unknown) (unknown) (no (unknown) (unknown) Pulse Oximetry 98 (units (unknown) date) unknown) (unknown) (no (unknown) (unknown) Pulse Oximetry 99 (units (unknown) date) 07/14/22 10:40 unknown) (unknown) (no (unknown) (unknown) Pulse Oximetry 99 (units (unknown) date) unknown) (unknown) (no (unknown) (unknown) Pulse Rate 68 (units ( unknown) date) unknown) (unknown) (no (unknown) (unknown) Pulse Rate 71 75 (units (unknown) date) unknown) (unknown) (no (unknown) (unknown) Pulse Rate 72 (units ( unknown) date) 07/14/22 10:40 unknown) (unknown) (no (unknown) (unknown) Pulse Rate 72 73 (units (unknown) date) unknown) (unknown) (no (unknown) (unknown) Pulse Rate 72 75 (units (unknown) date) unknown) (unknown) (no (unknown) (unknown) Pulse Rate 73 (units ( unknown) date) unknown) (unknown) (no (unknown) (unknown) Pulse Rate 74 74 (units (unknown) date) unknown) (unknown) (no (unknown) (unknown) Pulse Rate 74 (units ( unknown) date) unknown) (unknown) (no (unknown) (unknown) Pulse Rate 75 (units ( unknown) date) unknown) (unknown) (no (unknown) (unknown) Pulse Rate 76 73 (units (unknown) date) unknown) (unknown) (no (unknown) (unknown) Pulse Rate 76 75 (units (unknown) date) unknown) (unknown) (no (unknown) (unknown) RBC (4.0-5.2) (units ( unknown) date) X106/uL unknown) (unknown) (no (unknown) (unknown) RBC 4.26 (units (unkno wn) date) (4.0-5.2) X106/uL unknown) (unknown) (no (unknown) (unknown) RDW (11.6-14.8) % (units (unknown) date) unknown) (unknown) (no (unknown) (unknown) RDW 13.3 (units (unkno wn) date) (11.6-14.8) % unknown) (unknown) (no (unknown) (unknown) Referrals: (units (unk nown) date) unknown) (unknown) (no (unknown) (unknown) Related Data (units (u nknown) date) unknown) (unknown) (no (unknown) (unknown) Respiratory Rate (units (unknown) date) 11 L unknown) (unknown) (no (unknown) (unknown) Respiratory Rate (units (unknown) date) 12 12 unknown) (unknown) (no (unknown) (unknown) Respiratory Rate (units (unknown) date) 12 unknown) (unknown) (no (unknown) (unknown) Respiratory Rate (units (unknown) date) 13 14 unknown) (unknown) (no (unknown) (unknown) Respiratory Rate (units (unknown) date) 13 23 unknown) (unknown) (no (unknown) (unknown) Respiratory Rate (units (unknown) date) 14 unknown) (unknown) (no (unknown) (unknown) Respiratory Rate (units (unknown) date) 15 13 unknown) (unknown) (no (unknown) (unknown) Respiratory Rate (units (unknown) date) 16 16 unknown) (unknown) (no (unknown) (unknown) Respiratory Rate (units (unknown) date) 18 07/14/22 10:40 unknown) (unknown) (no (unknown) (unknown) Respiratory Rate (units (unknown) date) 21 unknown) (unknown) (no (unknown) (unknown) Respiratory Rate (units (unknown) date) 24 unknown) (unknown) (no (unknown) (unknown) Respiratory Rate (units (unknown) date) unknown) (unknown) (no (unknown) (unknown) S/P Nohemi (units (unk nown) date) fundoplication unknown) (with gastrostomy tube placement) (unknown) (no (unknown) (unknown) SARS-CoV-2 (PCR) (units (unknown) date) (Negative) unknown) (unknown) (no (unknown) (unknown) SARS-CoV-2 (PCR) (units (unknown) date) Negative unknown) (Negative) (unknown) (no (unknown) (unknown) Signed By: (units (unk nown) date) unknown) (unknown) (no (unknown) (unknown) Smoking Status: (units (unknown) date) Former smoker unknown) (unknown) (no (unknown) (unknown) Social History (units (unknown) date) (Reviewed 06/24/22 unknown) @ 09:16 by Gregor Hernandez MD) (unknown) (no (unknown) (unknown) Sodium (137-145) (units (unknown) date) mmol/L unknown) (unknown) (no (unknown) (unknown) Sodium 134 L (units (u nknown) date) (137-145) mmol/L unknown) (unknown) (no (unknown) (unknown) Sodium Chloride (units (unknown) date) (Normal Saline unknown) 0.9%) 1,000 mls @ 200 mls/hr IV BOLUS ONE (unknown) (no (unknown) (unknown) Source: patient (units (unknown) date) and family unknown) (unknown) (no (unknown) (unknown) Stand Alone (units (un known) date) Forms: Patient unknown) Portal/API (unknown) (no (unknown) (unknown) Stated Complaint: (units (unknown) date) nodules in gut + unknown) chest pain T-4 not eating/drink (unknown) (no (unknown) (unknown) Stop: 07/14/22 (units (unknown) date) 13:02 unknown) (unknown) (no (unknown) (unknown) Stop: 07/14/22 (units (unknown) date) 13:18 unknown) (unknown) (no (unknown) (unknown) Stop: 07/14/22 (units (unknown) date) 16:02 unknown) (unknown) (no (unknown) (unknown) Substance Use (units ( unknown) date) Type: does not use unknown) (unknown) (no (unknown) (unknown) Sulfa (units (unkno wn) date) (Sulfonamide unknown) Allergy Unknown Verified 07/14/22 11:01 (unknown) (no (unknown) (unknown) Surgical History (units (unknown) date) (Reviewed 06/24/22 unknown) @ 09:16 by Gregor Hernandez MD) (unknown) (no (unknown) (unknown) TAKE 1 CAPSULE BY (units (unknown) date) MOUTH ONCE A DAY unknown) (unknown) (no (unknown) (unknown) Temperature 97.9 (units (unknown) date) F 07/14/22 10:40 unknown) (unknown) (no (unknown) (unknown) Time Seen by (units (u nknown) date) Provider: 07/14/22 unknown) 12:15 (unknown) (no (unknown) (unknown) Total Bilirubin (units (unknown) date) (0.2-1.3) mg/dL unknown) (unknown) (no (unknown) (unknown) Total Bilirubin (units (unknown) date) 0.9 (0.2-1.3) unknown) mg/dL (unknown) (no (unknown) (unknown) Total Creatine (units (unknown) date) Kinase < 20 L unknown) (30-135) U/L (unknown) (no (unknown) (unknown) Total Creatine (units (unknown) date) Kinase (30-135) unknown) U/L (unknown) (no (unknown) (unknown) Total Protein (units ( unknown) date) (6.3-8.2) g/dL unknown) (unknown) (no (unknown) (unknown) Total Protein 6.7 (units (unknown) date) (6.3-8.2) g/dL unknown) (unknown) (no (unknown) (unknown) Troponin I < (units (u nknown) date) 0.012 (0.01-0.034) unknown) ng/mL (unknown) (no (unknown) (unknown) Troponin I (units (unk nown) date) (0.01-0.034) ng/mL unknown) (unknown) (no (unknown) (unknown) Urine Dip (units (unkn own) date) unknown) (unknown) (no (unknown) (unknown) Urine Specific (units (unknown) date) [place] 1.010 unknown) (unknown) (no (unknown) (unknown) Vital Signs - 8 (units (unknown) date) hr unknown) (unknown) (no (unknown) (unknown) Vital Signs (units (un known) date) unknown) (unknown) (no (unknown) (unknown) Vital signs: (units (u nknown) date) unknown) (unknown) (no (unknown) (unknown) WBC (4.5-11.0) (units (unknown) date) X103/uL unknown) (unknown) (no (unknown) (unknown) WBC 11.0 (units (unkno wn) date) (4.5-11.0) X103/uL unknown) (unknown) (no (unknown) (unknown) You were (units (unkno wn) date) evaluated in the unknown) ED today for worsening abdominal pain. Your CT scan (unknown) (no (unknown) (unknown) [Embedded Image (units (unknown) date) Not Available] unknown) (unknown) (no (unknown) (unknown) adenopathy (units (unk nown) date) compared to the unknown) scan on 06/24/2022. You have been referred for a (unknown) (no (unknown) (unknown) alcohol intake (units (unknown) date) frequency: 0-2 unknown) drinks per day (unknown) (no (unknown) (unknown) beginning of next (units (unknown) date) week. 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 (unknown) (no (unknown) (unknown) estradiol 0.5 mg (units (unknown) date) tablet 0.5 mg PO unknown) DAILY 09/07/19 09/20/19 (unknown) (no (unknown) (unknown) estradiol 0.5 mg (units (unknown) date) tablet unknown) (unknown) (no (unknown) (unknown) for a procedure (units (unknown) date) that might be unknown) scheduled either at the end of this week or the (unknown) (no (unknown) (unknown) household (units (unkn own) date) members: spouse unknown) (unknown) (no (unknown) (unknown) hydrocodone 5 (units ( unknown) date) mg-acetaminophen unknown) 325 1 tab PO Q6H PRN pain #20 tabs 06/24/22 (unknown) (no (unknown) (unknown) hydrocodone-aceta (units (unknown) date) minophen 5-325 mg unknown) tablet (unknown) (no (unknown) (unknown) lisinopril 5 mg (units (unknown) date) tablet 5 mg PO unknown) DAILY #30 tabs 09/10/19 (unknown) (no (unknown) (unknown) lisinopril 5 mg (units (unknown) date) tablet unknown) (unknown) (no (unknown) (unknown) malignancy (units (unk nown) date) including unknown) lymphoma. Last CT was on 07/07/22 at [facility]. (unknown) (no (unknown) (unknown) metformin 500 mg (units (unknown) date) tablet extended unknown) release 24hr (unknown) (no (unknown) (unknown) metformin 500 mg (units (unknown) date) tablet,extended unknown) 500 mg PO DAILY #30 tabs 09/10/19 (unknown) (no (unknown) (unknown) mg tablet (units (unkn own) date) (Endocet) tabs unknown) (unknown) (no (unknown) (unknown) mg tablet (units (unkn own) date) unknown) (unknown) (no (unknown) (unknown) morning. You may (units (unknown) date) take oxycodone for unknown) the pain. Please return to the ED if your (unknown) (no (unknown) (unknown) needle biopsy as (units (unknown) date) ordered by your unknown) primary care doctor Dr. Reyes. Our (unknown) (no (unknown) (unknown) omeprazole 20 mg (units (unknown) date) capsule,delayed 20 unknown) mg PO DAILY 09/07/19 03/24/22 (unknown) (no (unknown) (unknown) omeprazole 20 mg (units (unknown) date) capsule,delayed unknown) release(DR/EC) (unknown) (no (unknown) (unknown) ondansetron 4 mg (units (unknown) date) disintegrating 4 unknown) mg PO Q8H PRN nausea and 06/24/22 (unknown) (no (unknown) (unknown) ondansetron 4 mg (units (unknown) date) tablet,disintegrat unknown) ing (unknown) (no (unknown) (unknown) oxybutynin (units (unk nown) date) chloride 5 mg unknown) tablet 5 mg PO DAILY 09/07/19 03/24/22 (unknown) (no (unknown) (unknown) oxybutynin (units (unk nown) date) chloride 5 mg unknown) tablet (unknown) (no (unknown) (unknown) oxycodone-acetami (units (unknown) date) nophen 5 mg-325 2 unknown) tab PO Q6H PRN pain 3 days #30 07/14/22 (unknown) (no (unknown) (unknown) oxycodone-acetami (units (unknown) date) nophen [Endocet] unknown) 5-325 mg tablet (unknown) (no (unknown) (unknown) radiologist has (units (unknown) date) approved your unknown) procedure to be performed at the [facility], (unknown) (no (unknown) (unknown) release 24hr (units (u nknown) date) unknown) (unknown) (no (unknown) (unknown) release (units (unkno wn) date) unknown) (unknown) (no (unknown) (unknown) simvastatin 10 mg (units (unknown) date) tablet 10 mg PO unknown) DAILY 09/07/19 03/24/22 (unknown) (no (unknown) (unknown) simvastatin 10 mg (units (unknown) date) tablet unknown) (unknown) (no (unknown) (unknown) symptoms worsen, (units (unknown) date) you are unknown) persistently vomiting, you experience fevers, chills. (unknown) (no (unknown) (unknown) tablet vomiting (units (unknown) date) #10 tabs unknown) (unknown) (no (unknown) (unknown) you will be (units (un known) date) hearing from unknown) [place] [facility] tomorrow to schedule Result panel [id number] (unknown) (no (unknown) (unknown) (no value) (units (unk nown) date) unknown) (unknown) (no (unknown) (unknown) <Electronically (units (unknown) date) signed by Jaz unknown) P.A-C Silas> (unknown) (no (unknown) (unknown) 0.5 mg PO DAILY (units (unknown) date) unknown) (unknown) (no (unknown) (unknown) 07/14/22 07/14/22 (units (unknown) date) 07/14/22 unknown) Range/Units (unknown) (no (unknown) (unknown) 07/14/22 11:20 (units (unknown) date) unknown) (unknown) (no (unknown) (unknown) 07/14/22 (units (unkno wn) date) Range/Units unknown) (unknown) (no (unknown) (unknown) 07/14/22 (units (unkno wn) date) unknown) (unknown) (no (unknown) (unknown) 07/30/222010 (units ( unknown) date) unknown) (unknown) (no (unknown) (unknown) 1 tab PO Q6H PRN (units (unknown) date) (Reason: pain) Qty: unknown) 20 0RF (unknown) (no (unknown) (unknown) 10 mg PO DAILY (units (unknown) date) unknown) (unknown) (no (unknown) (unknown) 11:20 11:20 11:20 (units (unknown) date) unknown) (unknown) (no (unknown) (unknown) 11:20 (units (unkno wn) date) unknown) (unknown) (no (unknown) (unknown) 13:00 07/14/22 (units (unknown) date) unknown) (unknown) (no (unknown) (unknown) 13:10 07/14/22 (units (unknown) date) unknown) (unknown) (no (unknown) (unknown) 13:10 (units (unkno wn) date) unknown) (unknown) (no (unknown) (unknown) 13:15 07/14/22 (units (unknown) date) unknown) (unknown) (no (unknown) (unknown) 13:15 (units (unkno wn) date) unknown) (unknown) (no (unknown) (unknown) 13:30 07/14/22 (units (unknown) date) unknown) (unknown) (no (unknown) (unknown) 13:41 07/14/22 (units (unknown) date) unknown) (unknown) (no (unknown) (unknown) 13:41 (units (unkno wn) date) unknown) (unknown) (no (unknown) (unknown) 13:45 07/14/22 (units (unknown) date) unknown) (unknown) (no (unknown) (unknown) 14:00 07/14/22 (units (unknown) date) unknown) (unknown) (no (unknown) (unknown) 14:00 (units (unkno wn) date) unknown) (unknown) (no (unknown) (unknown) 14:15 07/14/22 (units (unknown) date) unknown) (unknown) (no (unknown) (unknown) 14:15 (units (unkno wn) date) unknown) (unknown) (no (unknown) (unknown) 14:30 07/14/22 (units (unknown) date) unknown) (unknown) (no (unknown) (unknown) 14:45 07/14/22 (units (unknown) date) unknown) (unknown) (no (unknown) (unknown) 14:45 (units (unkno wn) date) unknown) (unknown) (no (unknown) (unknown) 15:00 07/14/22 (units (unknown) date) unknown) (unknown) (no (unknown) (unknown) 15:00 (units (unkno wn) date) unknown) (unknown) (no (unknown) (unknown) 15:15 07/14/22 (units (unknown) date) unknown) (unknown) (no (unknown) (unknown) 15:30 07/14/22 (units (unknown) date) unknown) (unknown) (no (unknown) (unknown) 15:30 (units (unkno wn) date) unknown) (unknown) (no (unknown) (unknown) 15:45 07/14/22 (units (unknown) date) unknown) (unknown) (no (unknown) (unknown) 15:45 (units (unkno wn) date) unknown) (unknown) (no (unknown) (unknown) 16:00 07/14/22 (units (unknown) date) unknown) (unknown) (no (unknown) (unknown) 16:15 07/14/22 (units (unknown) date) unknown) (unknown) (no (unknown) (unknown) 16:15 (units (unkno wn) date) unknown) (unknown) (no (unknown) (unknown) 17:09 (units (unkno wn) date) unknown) (unknown) (no (unknown) (unknown) 20 mg PO DAILY (units (unknown) date) unknown) (unknown) (no (unknown) (unknown) [id number] (units (unkno wn) date) unknown) (unknown) (no (unknown) (unknown) 4 mg PO Q8H PRN (units (unknown) date) (Reason: nausea and unknown) vomiting) Qty: 10 0RF (unknown) (no (unknown) (unknown) 5 mg PO DAILY Qty: (units (unknown) date) 30 0RF unknown) (unknown) (no (unknown) (unknown) 5 mg PO DAILY (units ( unknown) date) unknown) (unknown) (no (unknown) (unknown) 500 mg PO DAILY (units (unknown) date) Qty: 30 0RF unknown) (unknown) (no (unknown) (unknown) 82-year-old female (units (unknown) date) presents to the ED unknown) with 4 days of worsening abdominal pain. (unknown) (no (unknown) (unknown) ALT (<35) IU/L (units (unknown) date) unknown) (unknown) (no (unknown) (unknown) ALT 25 (<35) IU/L (units (unknown) date) unknown) (unknown) (no (unknown) (unknown) AST (14-36) IU/L (units (unknown) date) unknown) (unknown) (no (unknown) (unknown) AST 39 H (14-36) (units (unknown) date) IU/L unknown) (unknown) (no (unknown) (unknown) Abdomen is soft, (units (unknown) date) nondistended. unknown) Generalized tenderness to palpation. (unknown) (no (unknown) (unknown) Abdominal pain (units (unknown) date) unknown) (unknown) (no (unknown) (unknown) Activity (units (unkno wn) date) Restrictions/Additi unknown) onal Instructions: (unknown) (no (unknown) (unknown) Admin: 07/14/22 (units (unknown) date) 11:47 Dose: 200 unknown) mls/hr (unknown) (no (unknown) (unknown) Age/Sex: 82 / F (units (unknown) date) unknown) (unknown) (no (unknown) (unknown) Al Hydrox/Mg (units (u nknown) date) Hydrox/Simethicone unknown) 20 ml/ Lidocaine HCl 15 ml 0 ml PO NOW ONE (unknown) (no (unknown) (unknown) Albumin (3.5-5.0) (units (unknown) date) g/dL unknown) (unknown) (no (unknown) (unknown) Albumin 3.6 (units (un known) date) (3.5-5.0) g/dL unknown) (unknown) (no (unknown) (unknown) Albumin/Globulin (units (unknown) date) Ratio (1.0-2.8) unknown) (unknown) (no (unknown) (unknown) Albumin/Globulin (units (unknown) date) Ratio 1.2 (1.0-2.8) unknown) (unknown) (no (unknown) (unknown) Alcohol type: wine (units (unknown) date) unknown) (unknown) (no (unknown) (unknown) Alkaline (units (unkno wn) date) Phosphatase unknown) (38-126) U/L (unknown) (no (unknown) (unknown) Alkaline (units (unkno wn) date) Phosphatase 127 H unknown) (38-126) U/L (unknown) (no (unknown) (unknown) Allergic/Immunolog (units (unknown) date) ic unknown) (unknown) (no (unknown) (unknown) Allergic/Immunolog (units (unknown) date) ic: Denies unknown) urticaria, Denies throat swelling and Denies (unknown) (no (unknown) (unknown) Allergies (units (unkn own) date) unknown) (unknown) (no (unknown) (unknown) Allergy/AdvReac (units (unknown) date) Type Severity unknown) Reaction Status Date / Time (unknown) (no (unknown) (unknown) Antibiotics) (units (u nknown) date) unknown) (unknown) (no (unknown) (unknown) Auscultation:?radha (units (unknown) date) r to auscultation unknown) bilaterally (unknown) (no (unknown) (unknown) BUN (7-17) mg/dL (units (unknown) date) unknown) (unknown) (no (unknown) (unknown) BUN 13 (7-17) (units ( unknown) date) mg/dL unknown) (unknown) (no (unknown) (unknown) BUN/Creatinine (units (unknown) date) Ratio (6-22) unknown) (unknown) (no (unknown) (unknown) BUN/Creatinine (units (unknown) date) Ratio 18.8 (6-22) unknown) (unknown) (no (unknown) (unknown) Baso # (Auto) (units ( unknown) date) (0-100) /uL unknown) (unknown) (no (unknown) (unknown) Baso # (Auto) 100 (units (unknown) date) (0-100) /uL unknown) (unknown) (no (unknown) (unknown) Baso % (Auto) (units ( unknown) date) (0-2) % unknown) (unknown) (no (unknown) (unknown) Baso % (Auto) 0.8 (units (unknown) date) (0-2) % unknown) (unknown) (no (unknown) (unknown) Bedside Urine (units ( unknown) date) Bilirubin - unknown) Negative (unknown) (no (unknown) (unknown) Bedside Urine (units ( unknown) date) Glucose Negative unknown) (unknown) (no (unknown) (unknown) Bedside Urine (units ( unknown) date) Ketone +/- 5 unknown) (unknown) (no (unknown) (unknown) Bedside Urine (units ( unknown) date) Leukocytes - unknown) Negative (unknown) (no (unknown) (unknown) Bedside Urine (units ( unknown) date) Nitrite - Negative unknown) (unknown) (no (unknown) (unknown) Bedside Urine (units ( unknown) date) Occult Blood - unknown) Negative (unknown) (no (unknown) (unknown) Bedside Urine (units ( unknown) date) Protein - Negative unknown) (unknown) (no (unknown) (unknown) Bedside Urine (units ( unknown) date) Urobilinogen 0.2 unknown) (unknown) (no (unknown) (unknown) Bedside Urine pH (units (unknown) date) 6.0 unknown) (unknown) (no (unknown) (unknown) Blood Pressure (units (unknown) date) 122/60 125/60 unknown) (unknown) (no (unknown) (unknown) Blood Pressure (units (unknown) date) 133/64 unknown) (unknown) (no (unknown) (unknown) Blood Pressure (units (unknown) date) 135/60 unknown) (unknown) (no (unknown) (unknown) Blood Pressure (units (unknown) date) 137/63 unknown) (unknown) (no (unknown) (unknown) Blood Pressure (units (unknown) date) 139/65 unknown) (unknown) (no (unknown) (unknown) Blood Pressure (units (unknown) date) 139/77 0403 unknown) 10:40 (unknown) (no (unknown) (unknown) Blood Pressure (units (unknown) date) 143/65 H 132/60 unknown) (unknown) (no (unknown) (unknown) Blood Pressure (units (unknown) date) 143/65 H 140/62 unknown) (unknown) (no (unknown) (unknown) Blood Pressure (units (unknown) date) 143/66 H 134/63 unknown) (unknown) (no (unknown) (unknown) Blood Pressure (units (unknown) date) 145/61 H unknown) (unknown) (no (unknown) (unknown) Blood Pressure (units (unknown) date) 167/68 H unknown) (unknown) (no (unknown) (unknown) CK-MB (CK-2) Rel (units (unknown) date) Index TNP unknown) (unknown) (no (unknown) (unknown) CK-MB (CK-2) Rel (units (unknown) date) Index unknown) (unknown) (no (unknown) (unknown) CK-MB (CK-2) TNP (units (unknown) date) unknown) (unknown) (no (unknown) (unknown) CK-MB (CK-2) (units (u nknown) date) unknown) (unknown) (no (unknown) (unknown) Calcium (8.4-10.2) (units (unknown) date) mg/dL unknown) (unknown) (no (unknown) (unknown) Calcium 9.1 (units (un known) date) (8.4-10.2) mg/dL unknown) (unknown) (no (unknown) (unknown) Carbon Dioxide (units (unknown) date) (22-32) mmol/L unknown) (unknown) (no (unknown) (unknown) Carbon Dioxide 29 (units (unknown) date) (22-32) mmol/L unknown) (unknown) (no (unknown) (unknown) Cardio (units (unkno wn) date) unknown) (unknown) (no (unknown) (unknown) Cardiovascular (units (unknown) date) unknown) (unknown) (no (unknown) (unknown) Cardiovascular: (units (unknown) date) Denies chest pain, unknown) Denies irregular heart rhythm, Denies (unknown) (no (unknown) (unknown) Chief Complaint: (units (unknown) date) Abdominal Pain unknown) (unknown) (no (unknown) (unknown) Chloride (98-107) (units (unknown) date) mmol/L unknown) (unknown) (no (unknown) (unknown) Chloride 97 L (units ( unknown) date) (98-107) mmol/L unknown) (unknown) (no (unknown) (unknown) Clinical (units (o wn) date) Impression: unknown) (unknown) (no (unknown) (unknown) Const (units (unkno wn) date) unknown) (unknown) (no (unknown) (unknown) Constitutional (units (unknown) date) unknown) (unknown) (no (unknown) (unknown) Constitutional: (units (unknown) date) Denies chills, unknown) Denies fatigue, Denies fever(s), Denies frequent (unknown) (no (unknown) (unknown) Course (units (o wn) date) unknown) (unknown) (no (unknown) (unknown) Creatinine (units (unk nown) date) (0.52-1.04) mg/dL unknown) (unknown) (no (unknown) (unknown) Creatinine 0.69 (units (unknown) date) (0.52-1.04) mg/dL unknown) (unknown) (no (unknown) (unknown) : 1940 (units (unknown) date) Acct:[id number] unknown) (unknown) (no (unknown) (unknown) Date of Service: (units (unknown) date) 07/14/22 unknown) (unknown) (no (unknown) (unknown) Denies frequent (units (unknown) date) falls, Denies loss unknown) of vision, Denies numbness, Denies tingling (unknown) (no (unknown) (unknown) Denies loss of (units (unknown) date) vision unknown) (unknown) (no (unknown) (unknown) Denies numbness (units (unknown) date) and Denies tingling unknown) (unknown) (no (unknown) (unknown) Departure (units (unkn own) date) unknown) (unknown) (no (unknown) (unknown) Discharge Plan (units (unknown) date) unknown) (unknown) (no (unknown) (unknown) Discontinued (units (u nknown) date) Medications unknown) (unknown) (no (unknown) (unknown) Documented By: [facility] (units (unknown) date) unknown) (unknown) (no (unknown) (unknown) Documented By: RB (units (unknown) date) unknown) (unknown) (no (unknown) (unknown) ENT (units (unkno wn) date) unknown) (unknown) (no (unknown) (unknown) ER Physician: (units ( unknown) date) Silas,Hyma P.A-C unknown) (unknown) (no (unknown) (unknown) Ears, Nose, Mouth, (units (unknown) date) and Throat: Denies unknown) change in voice, Denies dizziness, Denies (unknown) (no (unknown) (unknown) Ears:?hearing (units ( unknown) date) grossly normal unknown) bilaterally (unknown) (no (unknown) (unknown) Effort + (units (unkno wn) date) Inspection:?normal unknown) respiratory effort (unknown) (no (unknown) (unknown) Emergency Report (units (unknown) date) unknown) (unknown) (no (unknown) (unknown) Endocrine (units (unkn own) date) unknown) (unknown) (no (unknown) (unknown) Endocrine: Denies (units (unknown) date) fatigue, Denies unknown) flushing and Denies palpitations (unknown) (no (unknown) (unknown) Eos # (Auto) (units (u nknown) date) (0-450) /uL unknown) (unknown) (no (unknown) (unknown) Eos # (Auto) 200 (units (unknown) date) (0-450) /uL unknown) (unknown) (no (unknown) (unknown) Eos % (Auto) (2-4) (units (unknown) date) % unknown) (unknown) (no (unknown) (unknown) Eos % (Auto) 1.6 L (units (unknown) date) (2-4) % unknown) (unknown) (no (unknown) (unknown) Esterase (units (unkno wn) date) unknown) (unknown) (no (unknown) (unknown) Estimated GFR > 60 (units (unknown) date) (>60) mL/min unknown) (unknown) (no (unknown) (unknown) Estimated GFR (units ( unknown) date) (>60) mL/min unknown) (unknown) (no (unknown) (unknown) Exam Narrative: (units (unknown) date) unknown) (unknown) (no (unknown) (unknown) Exam (units (unkno wn) date) unknown) (unknown) (no (unknown) (unknown) Eyes (units (unkno wn) date) unknown) (unknown) (no (unknown) (unknown) Eyes: Denies (units (u nknown) date) change in vision, unknown) Denies eye discharge, Denies irritation and (unknown) (no (unknown) (unknown) Face and (units (unkno wn) date) sinus:?normal unknown) facial exam and sinuses nontender (unknown) (no (unknown) (unknown) Famotidine (units (unk nown) date) (Famotidine 20 Mg/2 unknown) Ml Vial) 20 mg IV NOW LUZ ELENA (unknown) (no (unknown) (unknown) Lázaro Reyes, (units (unknown) date) [Primary Care unknown) Provider] (unknown) (no (unknown) (unknown) GI (units (unkno wn) date) unknown) (unknown) (no (unknown) (unknown) Gastrointestinal (units (unknown) date) unknown) (unknown) (no (unknown) (unknown) Gastrointestinal: (units (unknown) date) Reports abdominal unknown) pain, Denies change in bowel habits, Denies (unknown) (no (unknown) (unknown) General (units (unkno wn) date) unknown) (unknown) (no (unknown) (unknown) General:?appearanc (units (unknown) date) e normal, both eyes unknown) and all related structures (unknown) (no (unknown) (unknown) General:?cooperati (units (unknown) date) ve, healthy unknown) appearing and comfortable (unknown) (no (unknown) (unknown) General:?patient (units (unknown) date) alert, patient unknown) awake and patient oriented x3 (unknown) (no (unknown) (unknown) Genitourinary (units ( unknown) date) unknown) (unknown) (no (unknown) (unknown) Genitourinary: (units (unknown) date) Denies hematuria, unknown) Denies flank pain, Denies urinary incontinence (unknown) (no (unknown) (unknown) Globulin (1.7-4.1) (units (unknown) date) g/dL unknown) (unknown) (no (unknown) (unknown) Globulin 3.1 (units (u nknown) date) (1.7-4.1) g/dL unknown) (unknown) (no (unknown) (unknown) Glucose (80-110) (units (unknown) date) mg/dL unknown) (unknown) (no (unknown) (unknown) Glucose 126 H (units ( unknown) date) (80-110) mg/dL unknown) (unknown) (no (unknown) (unknown) H/O total (units (unkn own) date) hysterectomy unknown) (unknown) (no (unknown) (unknown) HENMT (units (unkno wn) date) unknown) (unknown) (no (unknown) (unknown) HPI - Abdominal (units (unknown) date) Pain unknown) (unknown) (no (unknown) (unknown) HPI narrative: (units (unknown) date) unknown) (unknown) (no (unknown) (unknown) Hct (36-46) % (units ( unknown) date) unknown) (unknown) (no (unknown) (unknown) Hct 37.4 (36-46) % (units (unknown) date) unknown) (unknown) (no (unknown) (unknown) Head:?normal to (units (unknown) date) inspection unknown) (unknown) (no (unknown) (unknown) Hematologic/Lympha (units (unknown) date) tic unknown) (unknown) (no (unknown) (unknown) Hematologic/Lympha (units (unknown) date) tic: Denies easy unknown) bruising (unknown) (no (unknown) (unknown) Hgb (12.0-16.0) (units (unknown) date) g/dL unknown) (unknown) (no (unknown) (unknown) Hgb 12.5 (units (unkno wn) date) (12.0-16.0) g/dL unknown) (unknown) (no (unknown) (unknown) 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 unknown) (unknown) (no (unknown) (unknown) History of Present (units (unknown) date) Illness unknown) (unknown) (no (unknown) (unknown) Home Medications (units (unknown) date) unknown) (unknown) (no (unknown) (unknown) Hyperlipidemia (units (unknown) date) unknown) (unknown) (no (unknown) (unknown) Initial Vital (units ( unknown) date) Signs unknown) (unknown) (no (unknown) (unknown) Initial Vital (units ( unknown) date) Signs: unknown) (unknown) (no (unknown) (unknown) Instructions: DI (units (unknown) date) for Abdominal unknown) Pain-Adult (unknown) (no (unknown) (unknown) Integumentary/[place] (units (unknown) date) sts unknown) (unknown) (no (unknown) (unknown) [facility] (units (unknown) date) [address] unknown) [place] [address] (unknown) (no (unknown) (unknown) [facility] (units (unknown) date) radiology was unknown) consulted, the radiologist approved the needle (unknown) (no (unknown) (unknown) Lab Data (units (unkno wn) date) unknown) (unknown) (no (unknown) (unknown) Lab Results (units (un known) date) unknown) (unknown) (no (unknown) (unknown) Labs, UA without (units (unknown) date) acute findings. 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 (unknown) (no (unknown) (unknown) Lipase (23-300) (units (unknown) date) U/L unknown) (unknown) (no (unknown) (unknown) Lipase 16 L (units (un known) date) (23-300) U/L unknown) (unknown) (no (unknown) (unknown) Lymph # (Auto) (units (unknown) date) (1297-6256) /uL unknown) (unknown) (no (unknown) (unknown) Lymph # (Auto) 800 (units (unknown) date) L (2375-9192) /uL unknown) (unknown) (no (unknown) (unknown) Lymph % (Auto) (units (unknown) date) (25-40) % unknown) (unknown) (no (unknown) (unknown) Lymph % (Auto) 7.2 (units (unknown) date) L (25-40) % unknown) (unknown) (no (unknown) (unknown) MCH (26-34) PG (units (unknown) date) unknown) (unknown) (no (unknown) (unknown) MCH 29.2 (26-34) (units (unknown) date) PG unknown) (unknown) (no (unknown) (unknown) MCHC (30-36) % (units (unknown) date) unknown) (unknown) (no (unknown) (unknown) MCHC 33.3 (30-36) (units (unknown) date) % unknown) (unknown) (no (unknown) (unknown) MCV (80-100) fL (units (unknown) date) unknown) (unknown) (no (unknown) (unknown) MCV 87.7 (80-100) (units (unknown) date) fL unknown) (unknown) (no (unknown) (unknown) MDM - Abdominal (units (unknown) date) Pain unknown) (unknown) (no (unknown) (unknown) MDM Narrative (units ( unknown) date) unknown) (unknown) (no (unknown) (unknown) Medical History (units (unknown) date) (Updated 07/29/22 @ unknown) 00:00 by ) (unknown) (no (unknown) (unknown) Medical decision (units (unknown) date) making narrative: unknown) (unknown) (no (unknown) (unknown) Medical records (units (unknown) date) reviewed: Yes unknown) (unknown) (no (unknown) (unknown) Medication (units (unk nown) date) Instructions unknown) Recorded Confirmed (unknown) (no (unknown) (unknown) Medication (units (unk nown) date) Instructions unknown) Recorded (unknown) (no (unknown) (unknown) Mode of arrival: (units (unknown) date) Ambulatory unknown) (unknown) (no (unknown) (unknown) [place] # (Auto) (units ( unknown) date) (0-900) /uL unknown) (unknown) (no (unknown) (unknown) [place] # (Auto) 1500 (units (unknown) date) H (0-900) /uL unknown) (unknown) (no (unknown) (unknown) [place] % (Auto) (units ( unknown) date) (3-14) % unknown) (unknown) (no (unknown) (unknown) [place] % (Auto) 13.4 (units (unknown) date) (3-14) % unknown) (unknown) (no (unknown) (unknown) Morphine Sulfate (units (unknown) date) (Morphine 4 Mg/Ml unknown) Inj) 4 mg IV NOW ONE (unknown) (no (unknown) (unknown) Mouth:?oral (units (un known) date) mucosae normal unknown) (unknown) (no (unknown) (unknown) Musculoskeletal (units (unknown) date) unknown) (unknown) (no (unknown) (unknown) Musculoskeletal: (units (unknown) date) Denies back pain, unknown) Denies muscle weakness, Denies neck pain, (unknown) (no (unknown) (unknown) Narrative (units (unkn own) date) unknown) (unknown) (no (unknown) (unknown) Neck (units (unkno wn) date) unknown) (unknown) (no (unknown) (unknown) Neck:?normal (units (u nknown) date) visual inspection unknown) and no lymphadenopathy noted (unknown) (no (unknown) (unknown) Neuro (units (unkno wn) date) unknown) (unknown) (no (unknown) (unknown) Neurologic (units (unk nown) date) unknown) (unknown) (no (unknown) (unknown) Neurologic: Denies (units (unknown) date) behavioral changes, unknown) Denies confusion, Denies dizziness, (unknown) (no (unknown) (unknown) Neut # (Auto) (units ( unknown) date) (3722-7654) /uL unknown) (unknown) (no (unknown) (unknown) Neut # (Auto) 8500 (units (unknown) date) H (4166-1749) /uL unknown) (unknown) (no (unknown) (unknown) Neut % (Auto) (units ( unknown) date) (50-75) % unknown) (unknown) (no (unknown) (unknown) Neut % (Auto) 77.0 (units (unknown) date) H (50-75) % unknown) (unknown) (no (unknown) (unknown) No Action (units (unkn own) date) unknown) (unknown) (no (unknown) (unknown) Nose:?external (units (unknown) date) nose normal unknown) (unknown) (no (unknown) (unknown) Ondansetron HCl (units (unknown) date) (Ondansetron 4 Mg unknown) Odt) 4 mg PO NOW PRN (unknown) (no (unknown) (unknown) Ondansetron HCl (units (unknown) date) (Ondansetron 4 Mg/2 unknown) Ml Inj) 4 mg IV NOW PRN (unknown) (no (unknown) (unknown) Ordered: (units (unkno wn) date) unknown) (unknown) (no (unknown) (unknown) Orders (units (unkno wn) date) unknown) (unknown) (no (unknown) (unknown) Oxygen Delivery (units (unknown) date) Method Room Air unknown) 07/14/22 10:40 (unknown) (no (unknown) (unknown) Oxygen Delivery (units (unknown) date) Method Room Air unknown) (unknown) (no (unknown) (unknown) Oxygen Delivery (units (unknown) date) Method unknown) (unknown) (no (unknown) (unknown) PRN Reason: Nausea (units (unknown) date) And Vomiting unknown) (unknown) (no (unknown) (unknown) Patient Comments: (units (unknown) date) unknown) (unknown) (no (unknown) (unknown) Patient (units (unkno wn) date) Disposition: Home unknown) (unknown) (no (unknown) (unknown) Patient History (units (unknown) date) unknown) (unknown) (no (unknown) (unknown) Patient denies (units ( unknown) date) fever, chills, unknown) chest pain, shortness of breath, nausea, vomiting, (unknown) (no (unknown) (unknown) Patient has been (units (unknown) date) diagnosed on CT unknown) with abdominal adenopathy, highly suggestive of (unknown) (no (unknown) (unknown) Patient: (units (unkno wn) date) Esme Echevarria MR#: unknown) M000 (unknown) (no (unknown) (unknown) Penicillins (units (un known) date) Allergy Unknown unknown) Verified 07/14/22 11:01 (unknown) (no (unknown) (unknown) Plt Count (units (unkn own) date) (150-400) X103/uL unknown) (unknown) (no (unknown) (unknown) Plt Count 301 (units ( unknown) date) (150-400) X103/uL unknown) (unknown) (no (unknown) (unknown) Point of care (units ( unknown) date) testing: unknown) (unknown) (no (unknown) (unknown) Potassium (units (unkn own) date) (3.4-5.1) mmol/L unknown) (unknown) (no (unknown) (unknown) Potassium 4.2 (units ( unknown) date) (3.4-5.1) mmol/L unknown) (unknown) (no (unknown) (unknown) Prescriptions: (units (unknown) date) unknown) (unknown) (no (unknown) (unknown) Previous Rx's (units ( unknown) date) unknown) (unknown) (no (unknown) (unknown) Psychiatric (units (un known) date) unknown) (unknown) (no (unknown) (unknown) Psychiatric: Denies (units (unknown) date) anxiety, Denies unknown) behavioral changes, Denies confusion, Denies (unknown) (no (unknown) (unknown) Pulse Oximetry 95 (units (unknown) date) unknown) (unknown) (no (unknown) (unknown) Pulse Oximetry 96 (units (unknown) date) 98 unknown) (unknown) (no (unknown) (unknown) Pulse Oximetry 96 (units (unknown) date) unknown) (unknown) (no (unknown) (unknown) Pulse Oximetry 97 (units (unknown) date) 96 unknown) (unknown) (no (unknown) (unknown) Pulse Oximetry 97 (units (unknown) date) 97 unknown) (unknown) (no (unknown) (unknown) Pulse Oximetry 97 (units (unknown) date) 98 unknown) (unknown) (no (unknown) (unknown) Pulse Oximetry 98 (units (unknown) date) unknown) (unknown) (no (unknown) (unknown) Pulse Oximetry 99 (units (unknown) date) 07/14/22 10:40 unknown) (unknown) (no (unknown) (unknown) Pulse Oximetry 99 (units (unknown) date) unknown) (unknown) (no (unknown) (unknown) Pulse Rate 68 (units ( unknown) date) unknown) (unknown) (no (unknown) (unknown) Pulse Rate 71 75 (units (unknown) date) unknown) (unknown) (no (unknown) (unknown) Pulse Rate 72 (units ( unknown) date) 07/14/22 10:40 unknown) (unknown) (no (unknown) (unknown) Pulse Rate 72 73 (units (unknown) date) unknown) (unknown) (no (unknown) (unknown) Pulse Rate 72 75 (units (unknown) date) unknown) (unknown) (no (unknown) (unknown) Pulse Rate 73 (units ( unknown) date) unknown) (unknown) (no (unknown) (unknown) Pulse Rate 74 74 (units (unknown) date) unknown) (unknown) (no (unknown) (unknown) Pulse Rate 74 (units ( unknown) date) unknown) (unknown) (no (unknown) (unknown) Pulse Rate 75 (units ( unknown) date) unknown) (unknown) (no (unknown) (unknown) Pulse Rate 76 73 (units (unknown) date) unknown) (unknown) (no (unknown) (unknown) Pulse Rate 76 75 (units (unknown) date) unknown) (unknown) (no (unknown) (unknown) RBC (4.0-5.2) (units ( unknown) date) X106/uL unknown) (unknown) (no (unknown) (unknown) RBC 4.26 (4.0-5.2) (units (unknown) date) X106/uL unknown) (unknown) (no (unknown) (unknown) RDW (11.6-14.8) % (units (unknown) date) unknown) (unknown) (no (unknown) (unknown) RDW 13.3 (units (unkno wn) date) (11.6-14.8) % unknown) (unknown) (no (unknown) (unknown) ROS Unobtainable: (units (unknown) date) All systems unknown) reviewed + are unremarkable except as noted in HPI (unknown) (no (unknown) (unknown) Rate:?regular rate (units (unknown) date) unknown) (unknown) (no (unknown) (unknown) Referrals: (units (unk nown) date) unknown) (unknown) (no (unknown) (unknown) Related Data (units (u nknown) date) unknown) (unknown) (no (unknown) (unknown) Resp (units (unkno wn) date) unknown) (unknown) (no (unknown) (unknown) Respiratory Rate (units (unknown) date) 11 L unknown) (unknown) (no (unknown) (unknown) Respiratory Rate (units (unknown) date) 12 12 unknown) (unknown) (no (unknown) (unknown) Respiratory Rate (units (unknown) date) 12 unknown) (unknown) (no (unknown) (unknown) Respiratory Rate (units (unknown) date) 13 14 unknown) (unknown) (no (unknown) (unknown) Respiratory Rate (units (unknown) date) 13 23 unknown) (unknown) (no (unknown) (unknown) Respiratory Rate (units (unknown) date) 14 unknown) (unknown) (no (unknown) (unknown) Respiratory Rate (units (unknown) date) 15 13 unknown) (unknown) (no (unknown) (unknown) Respiratory Rate (units (unknown) date) 16 16 unknown) (unknown) (no (unknown) (unknown) Respiratory Rate (units (unknown) date) 18 07/14/22 10:40 unknown) (unknown) (no (unknown) (unknown) Respiratory Rate (units (unknown) date) 21 unknown) (unknown) (no (unknown) (unknown) Respiratory Rate (units (unknown) date) 24 unknown) (unknown) (no (unknown) (unknown) Respiratory Rate (units (unknown) date) unknown) (unknown) (no (unknown) (unknown) Respiratory (units (un known) date) unknown) (unknown) (no (unknown) (unknown) Respiratory: Denies (units (unknown) date) cough, Denies unknown) dyspnea, Denies dyspnea on exertion and Denies (unknown) (no (unknown) (unknown) Review of Systems (units (unknown) date) unknown) (unknown) (no (unknown) (unknown) Rhythm:?regular (units (unknown) date) rhythm unknown) (unknown) (no (unknown) (unknown) S/P Nohemi (units (unk nown) date) fundoplication unknown) (with gastrostomy tube placement) (unknown) (no (unknown) (unknown) SARS-CoV-2 (PCR) (units (unknown) date) (Negative) unknown) (unknown) (no (unknown) (unknown) SARS-CoV-2 (PCR) (units (unknown) date) Negative (Negative) unknown) (unknown) (no (unknown) (unknown) Signed By: (units (unk nown) date) unknown) (unknown) (no (unknown) (unknown) Skin/Breast: (units (u nknown) date) Denies pruritus, unknown) Denies erythema, Denies rash and Denies wounds (unknown) (no (unknown) (unknown) Smoking Status: (units (unknown) date) Former smoker unknown) (unknown) (no (unknown) (unknown) Social History (units (unknown) date) (Reviewed 06/24/22 unknown) @ 09:16 by Gregor Hernandez MD) (unknown) (no (unknown) (unknown) Sodium (137-145) (units (unknown) date) mmol/L unknown) (unknown) (no (unknown) (unknown) Sodium 134 L (units (u nknown) date) (137-145) mmol/L unknown) (unknown) (no (unknown) (unknown) Sodium Chloride (units (unknown) date) (Normal Saline unknown) 0.9%) 1,000 mls @ 200 mls/hr IV BOLUS ONE (unknown) (no (unknown) (unknown) Source: patient (units (unknown) date) and family unknown) (unknown) (no (unknown) (unknown) Stand Alone Forms: (units (unknown) date) Patient Portal/API unknown) (unknown) (no (unknown) (unknown) Stated Complaint: (units (unknown) date) nodules in gut + unknown) chest pain T-4 not eating/drink (unknown) (no (unknown) (unknown) Stop: 07/14/22 (units (unknown) date) 13:02 unknown) (unknown) (no (unknown) (unknown) Stop: 07/14/22 (units (unknown) date) 13:18 unknown) (unknown) (no (unknown) (unknown) Stop: 07/14/22 (units (unknown) date) 16:02 unknown) (unknown) (no (unknown) (unknown) Substance Use (units ( unknown) date) Type: does not use unknown) (unknown) (no (unknown) (unknown) Sulfa (Sulfonamide (units (unknown) date) Allergy Unknown unknown) Verified 07/14/22 11:01 (unknown) (no (unknown) (unknown) Surgical History (units (unknown) date) (Reviewed 06/24/22 unknown) @ 09:16 by Gregor Hernandez MD) (unknown) (no (unknown) (unknown) TAKE 1 CAPSULE BY (units (unknown) date) MOUTH ONCE A DAY unknown) (unknown) (no (unknown) (unknown) Temperature 97.9 F (units (unknown) date) 07/14/22 10:40 unknown) (unknown) (no (unknown) (unknown) Throat:?posterior (units (unknown) date) oropharynx normal unknown) (unknown) (no (unknown) (unknown) Time Seen by (units (u nknown) date) Provider: 07/14/22 unknown) 12:15 (unknown) (no (unknown) (unknown) Total Bilirubin (units (unknown) date) (0.2-1.3) mg/dL unknown) (unknown) (no (unknown) (unknown) Total Bilirubin (units (unknown) date) 0.9 (0.2-1.3) mg/dL unknown) (unknown) (no (unknown) (unknown) Total Creatine (units (unknown) date) Kinase < 20 L unknown) (30-135) U/L (unknown) (no (unknown) (unknown) Total Creatine (units (unknown) date) Kinase (30-135) U/L unknown) (unknown) (no (unknown) (unknown) Total Protein (units ( unknown) date) (6.3-8.2) g/dL unknown) (unknown) (no (unknown) (unknown) Total Protein 6.7 (units (unknown) date) (6.3-8.2) g/dL unknown) (unknown) (no (unknown) (unknown) Troponin I < 0.012 (units (unknown) date) (0.01-0.034) ng/mL unknown) (unknown) (no (unknown) (unknown) Troponin I (units (unk nown) date) (0.01-0.034) ng/mL unknown) (unknown) (no (unknown) (unknown) Urine Dip (units (unkn own) date) unknown) (unknown) (no (unknown) (unknown) Urine Specific (units (unknown) date) [place] 1.010 unknown) (unknown) (no (unknown) (unknown) Vital Signs - 8 hr (units (unknown) date) unknown) (unknown) (no (unknown) (unknown) Vital Signs (units (un known) date) unknown) (unknown) (no (unknown) (unknown) Vital signs: (units (u nknown) date) unknown) (unknown) (no (unknown) (unknown) WBC (4.5-11.0) (units (unknown) date) X103/uL unknown) (unknown) (no (unknown) (unknown) WBC 11.0 (units (unkno wn) date) (4.5-11.0) X103/uL unknown) (unknown) (no (unknown) (unknown) Will obtain labs, (units (unknown) date) UA, CT abdomen unknown) pelvis. (unknown) (no (unknown) (unknown) You were evaluated (units (unknown) date) in the ED today for unknown) worsening abdominal pain. Your CT scan (unknown) (no (unknown) (unknown) [Embedded Image (units (unknown) date) Not Available] unknown) (unknown) (no (unknown) (unknown) adenopathy (units (unk nown) date) compared to the unknown) scan on 06/24/2022. You have been referred for a (unknown) (no (unknown) (unknown) alcohol intake (units (unknown) date) frequency: 0-2 unknown) drinks per day (unknown) (no (unknown) (unknown) and Denies (units (unk nown) date) orthopnea unknown) (unknown) (no (unknown) (unknown) and Denies urinary (units (unknown) date) urgency unknown) (unknown) (no (unknown) (unknown) and Denies (units (unk nown) date) weakness unknown) (unknown) (no (unknown) (unknown) and below (units (unkn own) date) unknown) (unknown) (no (unknown) (unknown) beginning of next (units (unknown) date) week. Recommend unknown) oxycodone for the pain. Discussed plan with (unknown) (no (unknown) (unknown) beginning of next (units (unknown) date) week. You may also unknown) give them a call at [phone] tomorrow (unknown) (no (unknown) (unknown) biopsy to be (units (u nknown) date) performed here at unknown) [facility]. They will call patient (unknown) (no (unknown) (unknown) clindamycin (units (un known) date) Allergy Unknown unknown) Verified 07/14/22 11:01 (unknown) (no (unknown) (unknown) constipation, last (units (unknown) date) bowel movement was unknown) 4 days ago. Patient endorses anorexia and (unknown) (no (unknown) (unknown) depression, Denies (units (unknown) date) homicidal ideation unknown) and Denies suicidal ideation (unknown) (no (unknown) (unknown) diarrhea, Reports (units (unknown) date) nausea and Denies unknown) vomiting (unknown) (no (unknown) (unknown) discussed with (units (unknown) date) patient. Patient unknown) verbalized understanding. (unknown) (no (unknown) (unknown) does show (units (unkn own) date) increased size and unknown) necrosis of retroperitoneal and mesenteric root (unknown) (no (unknown) (unknown) dysuria, (units (unkno wn) date) lightheadedness, unknown) dizziness, syncope. Patient also endorses (unknown) (no (unknown) (unknown) estradiol 0.5 mg (units (unknown) date) tablet 0.5 mg PO unknown) DAILY 09/07/19 09/20/19 (unknown) (no (unknown) (unknown) estradiol 0.5 mg (units (unknown) date) tablet unknown) (unknown) (no (unknown) (unknown) falls, Denies (units ( unknown) date) lethargy, Reports unknown) poor appetite, Denies weakness and Reports (unknown) (no (unknown) (unknown) for a procedure (units (unknown) date) that might be unknown) scheduled either at the end of this week or the (unknown) (no (unknown) (unknown) household members: (units (unknown) date) spouse unknown) (unknown) (no (unknown) (unknown) hydrocodone 5 (units ( unknown) date) mg-acetaminophen unknown) 325 1 tab PO Q6H PRN pain #20 tabs 06/24/22 (unknown) (no (unknown) (unknown) hydrocodone-acetam (units (unknown) date) inophen 5-325 mg unknown) tablet (unknown) (no (unknown) (unknown) lightheadedness, (units (unknown) date) Denies unknown) palpitations, Denies dyspnea, Denies dyspnea on exertion (unknown) (no (unknown) (unknown) lisinopril 5 mg (units (unknown) date) tablet 5 mg PO unknown) DAILY #30 tabs 09/10/19 (unknown) (no (unknown) (unknown) lisinopril 5 mg (units (unknown) date) tablet unknown) (unknown) (no (unknown) (unknown) malignancy (units (unk nown) date) including lymphoma. unknown) Concern for worsening adenopathy versus (unknown) (no (unknown) (unknown) malignancy (units (unk nown) date) including lymphoma. unknown) Last CT was on 07/07/22 at [facility]. (unknown) (no (unknown) (unknown) malignancy versus (units (unknown) date) constipation versus unknown) other acute intra-abdominal pathology. (unknown) (no (unknown) (unknown) metformin 500 mg (units (unknown) date) tablet extended unknown) release 24hr (unknown) (no (unknown) (unknown) metformin 500 mg (units (unknown) date) tablet,extended 500 unknown) mg PO DAILY #30 tabs 09/10/19 (unknown) (no (unknown) (unknown) mg tablet (units (unkn own) date) unknown) (unknown) (no (unknown) (unknown) morning. You may (units (unknown) date) take oxycodone for unknown) the pain. Please return to the ED if your (unknown) (no (unknown) (unknown) neck pain, Denies (units (unknown) date) sore throat and unknown) Denies throat swelling (unknown) (no (unknown) (unknown) necrosis of (units (un known) date) retroperitoneal and unknown) mesenteric root adenopathy compared to June. (unknown) (no (unknown) (unknown) needle biopsy as (units (unknown) date) ordered by your unknown) primary care doctor Dr. Reyes. Our (unknown) (no (unknown) (unknown) omeprazole 20 mg (units (unknown) date) capsule,delayed 20 unknown) mg PO DAILY 09/07/19 03/24/22 (unknown) (no (unknown) (unknown) omeprazole 20 mg (units (unknown) date) capsule,delayed unknown) release(DR/EC) (unknown) (no (unknown) (unknown) ondansetron 4 mg (units (unknown) date) disintegrating 4 mg unknown) PO Q8H PRN nausea and 06/24/22 (unknown) (no (unknown) (unknown) ondansetron 4 mg (units (unknown) date) tablet,disintegrati unknown) ng (unknown) (no (unknown) (unknown) oxybutynin (units (unk nown) date) chloride 5 mg unknown) tablet 5 mg PO DAILY 09/07/19 03/24/22 (unknown) (no (unknown) (unknown) oxybutynin (units (unk nown) date) chloride 5 mg unknown) tablet (unknown) (no (unknown) (unknown) patient and (units (un known) date) patient's daughter. unknown) They were appreciative of the care and clarity (unknown) (no (unknown) (unknown) patient states (units (unknown) date) that her PCP unknown) Eric has ordered a needle biopsy which is (unknown) (no (unknown) (unknown) radiologist has (units (unknown) date) approved your unknown) procedure to be performed at the [facility], (unknown) (no (unknown) (unknown) release 24hr (units (u nknown) date) unknown) (unknown) (no (unknown) (unknown) release (units (unkno wn) date) unknown) (unknown) (no (unknown) (unknown) required prior to (units (unknown) date) referral to unknown) Oncology. Patient states she is unclear as to (unknown) (no (unknown) (unknown) simvastatin 10 mg (units (unknown) date) tablet 10 mg PO unknown) DAILY 09/07/19 03/24/22 (unknown) (no (unknown) (unknown) simvastatin 10 mg (units (unknown) date) tablet unknown) (unknown) (no (unknown) (unknown) symptoms worsen, (units (unknown) date) you are unknown) persistently vomiting, you experience fevers, chills. (unknown) (no (unknown) (unknown) tablet vomiting (units (unknown) date) #10 tabs unknown) (unknown) (no (unknown) (unknown) that they received (units (unknown) date) today regarding unknown) next steps. ED return precautions were (unknown) (no (unknown) (unknown) the inability to (units (unknown) date) eat very much. unknown) Patient has had unintentional weight loss. (unknown) (no (unknown) (unknown) to posterior (units (u nknown) date) mediastinum above unknown) the diaphragm. (unknown) (no (unknown) (unknown) tomorrow to (units (un known) date) schedule the unknown) procedure for either the end of this week or the (unknown) (no (unknown) (unknown) weight loss (units (un known) date) unknown) (unknown) (no (unknown) (unknown) wheezing (units (unkno wn) date) unknown) (unknown) (no (unknown) (unknown) when she can get (units (unknown) date) the biopsy. unknown) Meanwhile, patient's abdominal pain has worsened. (unknown) (no (unknown) (unknown) you will be (units (un known) date) [place] Interventional Radiology tomorrow to schedule Result panel 119 (unknown) (no (unknown) (unknown) (no value) (units (unk nown) date) unknown) (unknown) (no (unknown) (unknown) <Electronically (units (unknown) date) signed by Jaz unknown) Alicia Rosen> (unknown) (no (unknown) (unknown) <Electronically (units (unknown) date) signed by Sia Fatima unknown) Leo D.O.> (unknown) (no (unknown) (unknown) <Electronically (units (unknown) date) signed by Sia C unknown) Esther Bailey> (unknown) (no (unknown) (unknown) <Jaz Rosen PA-C (units (unknown) date) - Last Filed: unknown) 07/30/22 20:11> (unknown) (no (unknown) (unknown) <Sia C DO Leo (units (unknown) date) - Last Filed: unknown) 07/31/22 20:13> (unknown) (no (unknown) (unknown) <cosigner> (units (unk nown) date) unknown) (unknown) (no (unknown) (unknown) 0.5 mg PO DAILY (units (unknown) date) unknown) (unknown) (no (unknown) (unknown) 07/14/22 07/14/22 (units (unknown) date) 07/14/22 unknown) Range/Units (unknown) (no (unknown) (unknown) 07/14/22 11:20 (units (unknown) date) unknown) (unknown) (no (unknown) (unknown) 07/14/22 (units (unkno wn) date) Range/Units unknown) (unknown) (no (unknown) (unknown) 07/14/22 (units (unkno wn) date) unknown) (unknown) (no (unknown) (unknown) 07/30/222010 (units ( unknown) date) unknown) (unknown) (no (unknown) (unknown) 07/31/222012 (units ( unknown) date) unknown) (unknown) (no (unknown) (unknown) 1 tab PO Q6H PRN (units (unknown) date) (Reason: pain) Qty: unknown) 20 0RF (unknown) (no (unknown) (unknown) 10 mg PO DAILY (units (unknown) date) unknown) (unknown) (no (unknown) (unknown) 11:20 11:20 11:20 (units (unknown) date) unknown) (unknown) (no (unknown) (unknown) 11:20 (units (unkno wn) date) unknown) (unknown) (no (unknown) (unknown) 13:00 07/14/22 (units (unknown) date) unknown) (unknown) (no (unknown) (unknown) 13:10 07/14/22 (units (unknown) date) unknown) (unknown) (no (unknown) (unknown) 13:10 (units (unkno wn) date) unknown) (unknown) (no (unknown) (unknown) 13:15 07/14/22 (units (unknown) date) unknown) (unknown) (no (unknown) (unknown) 13:15 (units (unkno wn) date) unknown) (unknown) (no (unknown) (unknown) 13:30 07/14/22 (units (unknown) date) unknown) (unknown) (no (unknown) (unknown) 13:41 07/14/22 (units (unknown) date) unknown) (unknown) (no (unknown) (unknown) 13:41 (units (unkno wn) date) unknown) (unknown) (no (unknown) (unknown) 13:45 07/14/22 (units (unknown) date) unknown) (unknown) (no (unknown) (unknown) 14:00 07/14/22 (units (unknown) date) unknown) (unknown) (no (unknown) (unknown) 14:00 (units (unkno wn) date) unknown) (unknown) (no (unknown) (unknown) 14:15 07/14/22 (units (unknown) date) unknown) (unknown) (no (unknown) (unknown) 14:15 (units (unkno wn) date) unknown) (unknown) (no (unknown) (unknown) 14:30 07/14/22 (units (unknown) date) unknown) (unknown) (no (unknown) (unknown) 14:45 07/14/22 (units (unknown) date) unknown) (unknown) (no (unknown) (unknown) 14:45 (units (unkno wn) date) unknown) (unknown) (no (unknown) (unknown) 15:00 07/14/22 (units (unknown) date) unknown) (unknown) (no (unknown) (unknown) 15:00 (units (unkno wn) date) unknown) (unknown) (no (unknown) (unknown) 15:15 07/14/22 (units (unknown) date) unknown) (unknown) (no (unknown) (unknown) 15:30 07/14/22 (units (unknown) date) unknown) (unknown) (no (unknown) (unknown) 15:30 (units (unkno wn) date) unknown) (unknown) (no (unknown) (unknown) 15:45 07/14/22 (units (unknown) date) unknown) (unknown) (no (unknown) (unknown) 15:45 (units (unkno wn) date) unknown) (unknown) (no (unknown) (unknown) 16:00 07/14/22 (units (unknown) date) unknown) (unknown) (no (unknown) (unknown) 16:15 07/14/22 (units (unknown) date) unknown) (unknown) (no (unknown) (unknown) 16:15 (units (unkno wn) date) unknown) (unknown) (no (unknown) (unknown) 17:09 (units (unkno wn) date) unknown) (unknown) (no (unknown) (unknown) 20 mg PO DAILY (units (unknown) date) unknown) (unknown) (no (unknown) (unknown) [id number] (units (unkno wn) date) unknown) (unknown) (no (unknown) (unknown) 4 mg PO Q8H PRN (units (unknown) date) (Reason: nausea and unknown) vomiting) Qty: 10 0RF (unknown) (no (unknown) (unknown) 5 mg PO DAILY Qty: (units (unknown) date) 30 0RF unknown) (unknown) (no (unknown) (unknown) 5 mg PO DAILY (units ( unknown) date) unknown) (unknown) (no (unknown) (unknown) 500 mg PO DAILY (units (unknown) date) Qty: 30 0RF unknown) (unknown) (no (unknown) (unknown) 82-year-old female (units (unknown) date) presents to the ED unknown) with 4 days of worsening abdominal pain. (unknown) (no (unknown) (unknown) ALT (<35) IU/L (units (unknown) date) unknown) (unknown) (no (unknown) (unknown) ALT 25 (<35) IU/L (units (unknown) date) unknown) (unknown) (no (unknown) (unknown) AST (14-36) IU/L (units (unknown) date) unknown) (unknown) (no (unknown) (unknown) AST 39 H (14-36) (units (unknown) date) IU/L unknown) (unknown) (no (unknown) (unknown) Abdomen is soft, (units (unknown) date) nondistended. unknown) Generalized tenderness to palpation. (unknown) (no (unknown) (unknown) Abdominal pain (units (unknown) date) unknown) (unknown) (no (unknown) (unknown) Activity (units (unkno wn) date) Restrictions/Additi unknown) onal Instructions: (unknown) (no (unknown) (unknown) Admin: 07/14/22 (units (unknown) date) 11:47 Dose: 200 unknown) mls/hr (unknown) (no (unknown) (unknown) Age/Sex: 82 / F (units (unknown) date) unknown) (unknown) (no (unknown) (unknown) Al Hydrox/Mg (units (u nknown) date) Hydrox/Simethicone unknown) 20 ml/ Lidocaine HCl 15 ml 0 ml PO NOW ONE (unknown) (no (unknown) (unknown) Albumin (3.5-5.0) (units (unknown) date) g/dL unknown) (unknown) (no (unknown) (unknown) Albumin 3.6 (units (un known) date) (3.5-5.0) g/dL unknown) (unknown) (no (unknown) (unknown) Albumin/Globulin (units (unknown) date) Ratio (1.0-2.8) unknown) (unknown) (no (unknown) (unknown) Albumin/Globulin (units (unknown) date) Ratio 1.2 (1.0-2.8) unknown) (unknown) (no (unknown) (unknown) Alcohol type: wine (units (unknown) date) unknown) (unknown) (no (unknown) (unknown) Alkaline (units (unkno wn) date) Phosphatase unknown) (38-126) U/L (unknown) (no (unknown) (unknown) Alkaline (units (unkno wn) date) Phosphatase 127 H unknown) (38-126) U/L (unknown) (no (unknown) (unknown) Allergic/Immunolog (units (unknown) date) ic unknown) (unknown) (no (unknown) (unknown) Allergic/Immunolog (units (unknown) date) ic: Denies unknown) urticaria, Denies throat swelling and Denies (unknown) (no (unknown) (unknown) Allergies (units (unkn own) date) unknown) (unknown) (no (unknown) (unknown) Allergy/AdvReac (units (unknown) date) Type Severity unknown) Reaction Status Date / Time (unknown) (no (unknown) (unknown) Antibiotics) (units (u nknown) date) unknown) (unknown) (no (unknown) (unknown) Auscultation:?radha (units (unknown) date) r to auscultation unknown) bilaterally (unknown) (no (unknown) (unknown) BUN (7-17) mg/dL (units (unknown) date) unknown) (unknown) (no (unknown) (unknown) BUN 13 (7-17) (units ( unknown) date) mg/dL unknown) (unknown) (no (unknown) (unknown) BUN/Creatinine (units (unknown) date) Ratio (6-22) unknown) (unknown) (no (unknown) (unknown) BUN/Creatinine (units (unknown) date) Ratio 18.8 (6-22) unknown) (unknown) (no (unknown) (unknown) Baso # (Auto) (units ( unknown) date) (0-100) /uL unknown) (unknown) (no (unknown) (unknown) Baso # (Auto) 100 (units (unknown) date) (0-100) /uL unknown) (unknown) (no (unknown) (unknown) Baso % (Auto) (units ( unknown) date) (0-2) % unknown) (unknown) (no (unknown) (unknown) Baso % (Auto) 0.8 (units (unknown) date) (0-2) % unknown) (unknown) (no (unknown) (unknown) Bedside Urine (units ( unknown) date) Bilirubin - unknown) Negative (unknown) (no (unknown) (unknown) Bedside Urine (units ( unknown) date) Glucose Negative unknown) (unknown) (no (unknown) (unknown) Bedside Urine (units ( unknown) date) Ketone +/- 5 unknown) (unknown) (no (unknown) (unknown) Bedside Urine (units ( unknown) date) Leukocytes - unknown) Negative (unknown) (no (unknown) (unknown) Bedside Urine (units ( unknown) date) Nitrite - Negative unknown) (unknown) (no (unknown) (unknown) Bedside Urine (units ( unknown) date) Occult Blood - unknown) Negative (unknown) (no (unknown) (unknown) Bedside Urine (units ( unknown) date) Protein - Negative unknown) (unknown) (no (unknown) (unknown) Bedside Urine (units ( unknown) date) Urobilinogen 0.2 unknown) (unknown) (no (unknown) (unknown) Bedside Urine pH (units (unknown) date) 6.0 unknown) (unknown) (no (unknown) (unknown) Blood Pressure (units (unknown) date) 122/60 125/60 unknown) (unknown) (no (unknown) (unknown) Blood Pressure (units (unknown) date) 133/64 unknown) (unknown) (no (unknown) (unknown) Blood Pressure (units (unknown) date) 135/60 unknown) (unknown) (no (unknown) (unknown) Blood Pressure (units (unknown) date) 137/63 unknown) (unknown) (no (unknown) (unknown) Blood Pressure (units (unknown) date) 139/65 unknown) (unknown) (no (unknown) (unknown) Blood Pressure (units (unknown) date) 139/77 0403/ unknown) 10:40 (unknown) (no (unknown) (unknown) Blood Pressure (units (unknown) date) 143/65 H 132/60 unknown) (unknown) (no (unknown) (unknown) Blood Pressure (units (unknown) date) 143/65 H 140/62 unknown) (unknown) (no (unknown) (unknown) Blood Pressure (units (unknown) date) 143/66 H 134/63 unknown) (unknown) (no (unknown) (unknown) Blood Pressure (units (unknown) date) 145/61 H unknown) (unknown) (no (unknown) (unknown) Blood Pressure (units (unknown) date) 167/68 H unknown) (unknown) (no (unknown) (unknown) CK-MB (CK-2) Rel (units (unknown) date) Index TNP unknown) (unknown) (no (unknown) (unknown) CK-MB (CK-2) Rel (units (unknown) date) Index unknown) (unknown) (no (unknown) (unknown) CK-MB (CK-2) TNP (units (unknown) date) unknown) (unknown) (no (unknown) (unknown) CK-MB (CK-2) (units (u nknown) date) unknown) (unknown) (no (unknown) (unknown) Calcium (8.4-10.2) (units (unknown) date) mg/dL unknown) (unknown) (no (unknown) (unknown) Calcium 9.1 (units (un known) date) (8.4-10.2) mg/dL unknown) (unknown) (no (unknown) (unknown) Carbon Dioxide (units (unknown) date) (22-32) mmol/L unknown) (unknown) (no (unknown) (unknown) Carbon Dioxide 29 (units (unknown) date) (22-32) mmol/L unknown) (unknown) (no (unknown) (unknown) Cardio (units (unkno wn) date) unknown) (unknown) (no (unknown) (unknown) Cardiovascular (units (unknown) date) unknown) (unknown) (no (unknown) (unknown) Cardiovascular: (units (unknown) date) Denies chest pain, unknown) Denies irregular heart rhythm, Denies (unknown) (no (unknown) (unknown) Chief Complaint: (units (unknown) date) Abdominal Pain unknown) (unknown) (no (unknown) (unknown) Chloride (98-107) (units (unknown) date) mmol/L unknown) (unknown) (no (unknown) (unknown) Chloride 97 L (units ( unknown) date) (98-107) mmol/L unknown) (unknown) (no (unknown) (unknown) Clinical (units (unkno wn) date) Impression: unknown) (unknown) (no (unknown) (unknown) Const (units (unkno wn) date) unknown) (unknown) (no (unknown) (unknown) Constitutional (units (unknown) date) unknown) (unknown) (no (unknown) (unknown) Constitutional: (units (unknown) date) Denies chills, unknown) Denies fatigue, Denies fever(s), Denies frequent (unknown) (no (unknown) (unknown) Cosign (units (unkno wn) date) unknown) (unknown) (no (unknown) (unknown) Course (units (unkno wn) date) unknown) (unknown) (no (unknown) (unknown) Creatinine (units (unk nown) date) (0.52-1.04) mg/dL unknown) (unknown) (no (unknown) (unknown) Creatinine 0.69 (units (unknown) date) (0.52-1.04) mg/dL unknown) (unknown) (no (unknown) (unknown) : 1940 (units (unknown) date) Acct:[id number] unknown) (unknown) (no (unknown) (unknown) Date of Service: (units (unknown) date) 07/14/22 unknown) (unknown) (no (unknown) (unknown) Denies frequent (units (unknown) date) falls, Denies loss unknown) of vision, Denies numbness, Denies tingling (unknown) (no (unknown) (unknown) Denies loss of (units (unknown) date) vision unknown) (unknown) (no (unknown) (unknown) Denies numbness (units (unknown) date) and Denies tingling unknown) (unknown) (no (unknown) (unknown) Departure (units (unkn own) date) unknown) (unknown) (no (unknown) (unknown) Discharge Plan (units (unknown) date) unknown) (unknown) (no (unknown) (unknown) Discontinued (units (u nknown) date) Medications unknown) (unknown) (no (unknown) (unknown) Documented By: [facility] (units (unknown) date) unknown) (unknown) (no (unknown) (unknown) Documented By: RB (units (unknown) date) unknown) (unknown) (no (unknown) (unknown) ED Attending (units (u nknown) date) Cosignature unknown) Attestation: (unknown) (no (unknown) (unknown) ENT (units (unkno wn) date) unknown) (unknown) (no (unknown) (unknown) ER Physician: (units ( unknown) date) Silas,Hyma P.A-C unknown) (unknown) (no (unknown) (unknown) Ears, Nose, Mouth, (units (unknown) date) and Throat: Denies unknown) change in voice, Denies dizziness, Denies (unknown) (no (unknown) (unknown) Ears:?hearing (units ( unknown) date) grossly normal unknown) bilaterally (unknown) (no (unknown) (unknown) Effort + (units (unkno wn) date) Inspection:?normal unknown) respiratory effort (unknown) (no (unknown) (unknown) Emergency Report (units (unknown) date) unknown) (unknown) (no (unknown) (unknown) Endocrine (units (unkn own) date) unknown) (unknown) (no (unknown) (unknown) Endocrine: Denies (units (unknown) date) fatigue, Denies unknown) flushing and Denies palpitations (unknown) (no (unknown) (unknown) Eos # (Auto) (units (u nknown) date) (0-450) /uL unknown) (unknown) (no (unknown) (unknown) Eos # (Auto) 200 (units (unknown) date) (0-450) /uL unknown) (unknown) (no (unknown) (unknown) Eos % (Auto) (2-4) (units (unknown) date) % unknown) (unknown) (no (unknown) (unknown) Eos % (Auto) 1.6 L (units (unknown) date) (2-4) % unknown) (unknown) (no (unknown) (unknown) Esterase (units (unkno wn) date) unknown) (unknown) (no (unknown) (unknown) Estimated GFR > 60 (units (unknown) date) (>60) mL/min unknown) (unknown) (no (unknown) (unknown) Estimated GFR (units ( unknown) date) (>60) mL/min unknown) (unknown) (no (unknown) (unknown) Exam Narrative: (units (unknown) date) unknown) (unknown) (no (unknown) (unknown) Exam (units (unkno wn) date) unknown) (unknown) (no (unknown) (unknown) Eyes (units (unkno wn) date) unknown) (unknown) (no (unknown) (unknown) Eyes: Denies (units (u nknown) date) change in vision, unknown) Denies eye discharge, Denies irritation and (unknown) (no (unknown) (unknown) Face and (units (unkno wn) date) sinus:?normal unknown) facial exam and sinuses nontender (unknown) (no (unknown) (unknown) Famotidine (units (unk nown) date) (Famotidine 20 Mg/2 unknown) Ml Vial) 20 mg IV NOW LUZ ELENA (unknown) (no (unknown) (unknown) Lázaor Reyes, (units (unknown) date) MD [Primary Care unknown) Provider] (unknown) (no (unknown) (unknown) GI (units (unkno wn) date) unknown) (unknown) (no (unknown) (unknown) Gastrointestinal (units (unknown) date) unknown) (unknown) (no (unknown) (unknown) Gastrointestinal: (units (unknown) date) Reports abdominal unknown) pain, Denies change in bowel habits, Denies (unknown) (no (unknown) (unknown) General (units (unkno wn) date) unknown) (unknown) (no (unknown) (unknown) General:?appearanc (units (unknown) date) e normal, both eyes unknown) and all related structures (unknown) (no (unknown) (unknown) General:?cooperati (units (unknown) date) ve, healthy unknown) appearing and comfortable (unknown) (no (unknown) (unknown) General:?patient (units (unknown) date) alert, patient unknown) awake and patient oriented x3 (unknown) (no (unknown) (unknown) Genitourinary (units ( unknown) date) unknown) (unknown) (no (unknown) (unknown) Genitourinary: (units (unknown) date) Denies hematuria, unknown) Denies flank pain, Denies urinary incontinence (unknown) (no (unknown) (unknown) Globulin (1.7-4.1) (units (unknown) date) g/dL unknown) (unknown) (no (unknown) (unknown) Globulin 3.1 (units (u nknown) date) (1.7-4.1) g/dL unknown) (unknown) (no (unknown) (unknown) Glucose (80-110) (units (unknown) date) mg/dL unknown) (unknown) (no (unknown) (unknown) Glucose 126 H (units ( unknown) date) (80-110) mg/dL unknown) (unknown) (no (unknown) (unknown) H/O total (units (unkn own) date) hysterectomy unknown) (unknown) (no (unknown) (unknown) HENMT (units (unkno wn) date) unknown) (unknown) (no (unknown) (unknown) HPI - Abdominal (units (unknown) date) Pain unknown) (unknown) (no (unknown) (unknown) HPI narrative: (units (unknown) date) unknown) (unknown) (no (unknown) (unknown) Hct (36-46) % (units ( unknown) date) unknown) (unknown) (no (unknown) (unknown) Hct 37.4 (36-46) % (units (unknown) date) unknown) (unknown) (no (unknown) (unknown) Head:?normal to (units (unknown) date) inspection unknown) (unknown) (no (unknown) (unknown) Hematologic/Lympha (units (unknown) date) tic unknown) (unknown) (no (unknown) (unknown) Hematologic/Lympha (units (unknown) date) tic: Denies easy unknown) bruising (unknown) (no (unknown) (unknown) Hgb (12.0-16.0) (units (unknown) date) g/dL unknown) (unknown) (no (unknown) (unknown) Hgb 12.5 (units (unkno wn) date) (12.0-16.0) g/dL unknown) (unknown) (no (unknown) (unknown) 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 (unknown) (no (unknown) (unknown) Initial Vital (units ( unknown) date) Signs unknown) (unknown) (no (unknown) (unknown) Initial Vital (units ( unknown) date) Signs: unknown) (unknown) (no (unknown) (unknown) Instructions: DI (units (unknown) date) for Abdominal unknown) Pain-Adult (unknown) (no (unknown) (unknown) Integumentary/[place] (units (unknown) date) sts unknown) (unknown) (no (unknown) (unknown) [facility] (units (unknown) date) [address] unknown) [place] [address] (unknown) (no (unknown) (unknown) [facility] (units (unknown) date) radiology was unknown) consulted, the radiologist approved the needle (unknown) (no (unknown) (unknown) Lab Data (units (unkno wn) date) unknown) (unknown) (no (unknown) (unknown) Lab Results (units (un known) date) unknown) (unknown) (no (unknown) (unknown) Labs, UA without (units (unknown) date) acute findings. 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 (unknown) (no (unknown) (unknown) Lipase (23-300) (units (unknown) date) U/L unknown) (unknown) (no (unknown) (unknown) Lipase 16 L (units (un known) date) (23-300) U/L unknown) (unknown) (no (unknown) (unknown) Lymph # (Auto) (units (unknown) date) (4984-8826) /uL unknown) (unknown) (no (unknown) (unknown) Lymph # (Auto) 800 (units (unknown) date) L (3051-6878) /uL unknown) (unknown) (no (unknown) (unknown) Lymph % (Auto) (units (unknown) date) (25-40) % unknown) (unknown) (no (unknown) (unknown) Lymph % (Auto) 7.2 (units (unknown) date) L (25-40) % unknown) (unknown) (no (unknown) (unknown) MCH (26-34) PG (units (unknown) date) unknown) (unknown) (no (unknown) (unknown) MCH 29.2 (26-34) (units (unknown) date) PG unknown) (unknown) (no (unknown) (unknown) MCHC (30-36) % (units (unknown) date) unknown) (unknown) (no (unknown) (unknown) MCHC 33.3 (30-36) (units (unknown) date) % unknown) (unknown) (no (unknown) (unknown) MCV (80-100) fL (units (unknown) date) unknown) (unknown) (no (unknown) (unknown) MCV 87.7 (80-100) (units (unknown) date) fL unknown) (unknown) (no (unknown) (unknown) MDM - Abdominal (units (unknown) date) Pain unknown) (unknown) (no (unknown) (unknown) MDM Narrative (units ( unknown) date) unknown) (unknown) (no (unknown) (unknown) Medical History (units (unknown) date) (Updated 07/29/22 @ unknown) 00:00 by ) (unknown) (no (unknown) (unknown) Medical decision (units (unknown) date) making narrative: unknown) (unknown) (no (unknown) (unknown) Medical records (units (unknown) date) reviewed: Yes unknown) (unknown) (no (unknown) (unknown) Medication (units (unk nown) date) Instructions unknown) Recorded Confirmed (unknown) (no (unknown) (unknown) Medication (units (unk nown) date) Instructions unknown) Recorded (unknown) (no (unknown) (unknown) Mode of arrival: (units (unknown) date) Ambulatory unknown) (unknown) (no (unknown) (unknown) [place] # (Auto) (units ( unknown) date) (0-900) /uL unknown) (unknown) (no (unknown) (unknown) [place] # (Auto) 1500 (units (unknown) date) H (0-900) /uL unknown) (unknown) (no (unknown) (unknown) [place] % (Auto) (units ( unknown) date) (3-14) % unknown) (unknown) (no (unknown) (unknown) [place] % (Auto) 13.4 (units (unknown) date) (3-14) % unknown) (unknown) (no (unknown) (unknown) Morphine Sulfate (units (unknown) date) (Morphine 4 Mg/Ml unknown) Inj) 4 mg IV NOW ONE (unknown) (no (unknown) (unknown) Mouth:?oral (units (un known) date) mucosae normal unknown) (unknown) (no (unknown) (unknown) Musculoskeletal (units (unknown) date) unknown) (unknown) (no (unknown) (unknown) Musculoskeletal: (units (unknown) date) Denies back pain, unknown) Denies muscle weakness, Denies neck pain, (unknown) (no (unknown) (unknown) Narrative (units (unkn own) date) unknown) (unknown) (no (unknown) (unknown) Neck (units (unkno wn) date) unknown) (unknown) (no (unknown) (unknown) Neck:?normal (units (u nknown) date) visual inspection unknown) and no lymphadenopathy noted (unknown) (no (unknown) (unknown) Neuro (units (unkno wn) date) unknown) (unknown) (no (unknown) (unknown) Neurologic (units (unk nown) date) unknown) (unknown) (no (unknown) (unknown) Neurologic: Denies (units (unknown) date) behavioral changes, unknown) Denies confusion, Denies dizziness, (unknown) (no (unknown) (unknown) Neut # (Auto) (units ( unknown) date) (1482-4840) /uL unknown) (unknown) (no (unknown) (unknown) Neut # (Auto) 8500 (units (unknown) date) H (9894-3050) /uL unknown) (unknown) (no (unknown) (unknown) Neut % (Auto) (units ( unknown) date) (50-75) % unknown) (unknown) (no (unknown) (unknown) Neut % (Auto) 77.0 (units (unknown) date) H (50-75) % unknown) (unknown) (no (unknown) (unknown) No Action (units (unkn own) date) unknown) (unknown) (no (unknown) (unknown) Nose:?external (units (unknown) date) nose normal unknown) (unknown) (no (unknown) (unknown) Ondansetron HCl (units (unknown) date) (Ondansetron 4 Mg unknown) Odt) 4 mg PO NOW PRN (unknown) (no (unknown) (unknown) Ondansetron HCl (units (unknown) date) (Ondansetron 4 Mg/2 unknown) Ml Inj) 4 mg IV NOW PRN (unknown) (no (unknown) (unknown) Ordered: (units (unkno wn) date) unknown) (unknown) (no (unknown) (unknown) Orders (units (unkno wn) date) unknown) (unknown) (no (unknown) (unknown) Oxygen Delivery (units (unknown) date) Method Room Air unknown) 07/14/22 10:40 (unknown) (no (unknown) (unknown) Oxygen Delivery (units (unknown) date) Method Room Air unknown) (unknown) (no (unknown) (unknown) Oxygen Delivery (units (unknown) date) Method unknown) (unknown) (no (unknown) (unknown) PRN Reason: Nausea (units (unknown) date) And Vomiting unknown) (unknown) (no (unknown) (unknown) Patient Comments: (units (unknown) date) unknown) (unknown) (no (unknown) (unknown) Patient (units (unkno wn) date) Disposition: Home unknown) (unknown) (no (unknown) (unknown) Patient History (units (unknown) date) unknown) (unknown) (no (unknown) (unknown) Patient denies (units ( unknown) date) fever, chills, unknown) chest pain, shortness of breath, nausea, vomiting, (unknown) (no (unknown) (unknown) Patient has been (units (unknown) date) diagnosed on CT unknown) with abdominal adenopathy, highly suggestive of (unknown) (no (unknown) (unknown) Patient: (units (o wn) date) Esme Echevarria MR#: unknown) M000 (unknown) (no (unknown) (unknown) Penicillins (units (un known) date) Allergy Unknown unknown) Verified 07/14/22 11:01 (unknown) (no (unknown) (unknown) Plt Count (units (unkn own) date) (150-400) X103/uL unknown) (unknown) (no (unknown) (unknown) Plt Count 301 (units ( unknown) date) (150-400) X103/uL unknown) (unknown) (no (unknown) (unknown) Point of care (units ( unknown) date) testing: unknown) (unknown) (no (unknown) (unknown) Potassium (units (unkn own) date) (3.4-5.1) mmol/L unknown) (unknown) (no (unknown) (unknown) Potassium 4.2 (units ( unknown) date) (3.4-5.1) mmol/L unknown) (unknown) (no (unknown) (unknown) Prescriptions: (units (unknown) date) unknown) (unknown) (no (unknown) (unknown) Previous Rx's (units ( unknown) date) unknown) (unknown) (no (unknown) (unknown) Psychiatric (units (un known) date) unknown) (unknown) (no (unknown) (unknown) Psychiatric: Denies (units (unknown) date) anxiety, Denies unknown) behavioral changes, Denies confusion, Denies (unknown) (no (unknown) (unknown) Pulse Oximetry 95 (units (unknown) date) unknown) (unknown) (no (unknown) (unknown) Pulse Oximetry 96 (units (unknown) date) 98 unknown) (unknown) (no (unknown) (unknown) Pulse Oximetry 96 (units (unknown) date) unknown) (unknown) (no (unknown) (unknown) Pulse Oximetry 97 (units (unknown) date) 96 unknown) (unknown) (no (unknown) (unknown) Pulse Oximetry 97 (units (unknown) date) 97 unknown) (unknown) (no (unknown) (unknown) Pulse Oximetry 97 (units (unknown) date) 98 unknown) (unknown) (no (unknown) (unknown) Pulse Oximetry 98 (units (unknown) date) unknown) (unknown) (no (unknown) (unknown) Pulse Oximetry 99 (units (unknown) date) 07/14/22 10:40 unknown) (unknown) (no (unknown) (unknown) Pulse Oximetry 99 (units (unknown) date) unknown) (unknown) (no (unknown) (unknown) Pulse Rate 68 (units ( unknown) date) unknown) (unknown) (no (unknown) (unknown) Pulse Rate 71 75 (units (unknown) date) unknown) (unknown) (no (unknown) (unknown) Pulse Rate 72 (units ( unknown) date) 07/14/22 10:40 unknown) (unknown) (no (unknown) (unknown) Pulse Rate 72 73 (units (unknown) date) unknown) (unknown) (no (unknown) (unknown) Pulse Rate 72 75 (units (unknown) date) unknown) (unknown) (no (unknown) (unknown) Pulse Rate 73 (units ( unknown) date) unknown) (unknown) (no (unknown) (unknown) Pulse Rate 74 74 (units (unknown) date) unknown) (unknown) (no (unknown) (unknown) Pulse Rate 74 (units ( unknown) date) unknown) (unknown) (no (unknown) (unknown) Pulse Rate 75 (units ( unknown) date) unknown) (unknown) (no (unknown) (unknown) Pulse Rate 76 73 (units (unknown) date) unknown) (unknown) (no (unknown) (unknown) Pulse Rate 76 75 (units (unknown) date) unknown) (unknown) (no (unknown) (unknown) RBC (4.0-5.2) (units ( unknown) date) X106/uL unknown) (unknown) (no (unknown) (unknown) RBC 4.26 (4.0-5.2) (units (unknown) date) X106/uL unknown) (unknown) (no (unknown) (unknown) RDW (11.6-14.8) % (units (unknown) date) unknown) (unknown) (no (unknown) (unknown) RDW 13.3 (units (unkno wn) date) (11.6-14.8) % unknown) (unknown) (no (unknown) (unknown) ROS Unobtainable: (units (unknown) date) All systems unknown) reviewed + are unremarkable except as noted in HPI (unknown) (no (unknown) (unknown) Rate:?regular rate (units (unknown) date) unknown) (unknown) (no (unknown) (unknown) Referrals: (units (unk nown) date) unknown) (unknown) (no (unknown) (unknown) Related Data (units (u nknown) date) unknown) (unknown) (no (unknown) (unknown) Resp (units (unkno wn) date) unknown) (unknown) (no (unknown) (unknown) Respiratory Rate (units (unknown) date) 11 L unknown) (unknown) (no (unknown) (unknown) Respiratory Rate (units (unknown) date) 12 12 unknown) (unknown) (no (unknown) (unknown) Respiratory Rate (units (unknown) date) 12 unknown) (unknown) (no (unknown) (unknown) Respiratory Rate (units (unknown) date) 13 14 unknown) (unknown) (no (unknown) (unknown) Respiratory Rate (units (unknown) date) 13 23 unknown) (unknown) (no (unknown) (unknown) Respiratory Rate (units (unknown) date) 14 unknown) (unknown) (no (unknown) (unknown) Respiratory Rate (units (unknown) date) 15 13 unknown) (unknown) (no (unknown) (unknown) Respiratory Rate (units (unknown) date) 16 16 unknown) (unknown) (no (unknown) (unknown) Respiratory Rate (units (unknown) date) 18 07/14/22 10:40 unknown) (unknown) (no (unknown) (unknown) Respiratory Rate (units (unknown) date) 21 unknown) (unknown) (no (unknown) (unknown) Respiratory Rate (units (unknown) date) 24 unknown) (unknown) (no (unknown) (unknown) Respiratory Rate (units (unknown) date) unknown) (unknown) (no (unknown) (unknown) Respiratory (units (un known) date) unknown) (unknown) (no (unknown) (unknown) Respiratory: Denies (units (unknown) date) cough, Denies unknown) dyspnea, Denies dyspnea on exertion and Denies (unknown) (no (unknown) (unknown) Review of Systems (units (unknown) date) unknown) (unknown) (no (unknown) (unknown) Rhythm:?regular (units (unknown) date) rhythm unknown) (unknown) (no (unknown) (unknown) S/P Nohemi (units (unk nown) date) fundoplication unknown) (with gastrostomy tube placement) (unknown) (no (unknown) (unknown) SARS-CoV-2 (PCR) (units (unknown) date) (Negative) unknown) (unknown) (no (unknown) (unknown) SARS-CoV-2 (PCR) (units (unknown) date) Negative (Negative) unknown) (unknown) (no (unknown) (unknown) Signed By: (units (unk nown) date) unknown) (unknown) (no (unknown) (unknown) Skin/Breast: (units (u nknown) date) Denies pruritus, unknown) Denies erythema, Denies rash and Denies wounds (unknown) (no (unknown) (unknown) Smoking Status: (units (unknown) date) Former smoker unknown) (unknown) (no (unknown) (unknown) Social History (units (unknown) date) (Reviewed 06/24/22 unknown) @ 09:16 by Gregor Hernandez MD) (unknown) (no (unknown) (unknown) Sodium (137-145) (units (unknown) date) mmol/L unknown) (unknown) (no (unknown) (unknown) Sodium 134 L (units (u nknown) date) (137-145) mmol/L unknown) (unknown) (no (unknown) (unknown) Sodium Chloride (units (unknown) date) (Normal Saline unknown) 0.9%) 1,000 mls @ 200 mls/hr IV BOLUS ONE (unknown) (no (unknown) (unknown) Source: patient (units (unknown) date) and family unknown) (unknown) (no (unknown) (unknown) Stand Alone Forms: (units (unknown) date) Patient Portal/API unknown) (unknown) (no (unknown) (unknown) Stated Complaint: (units (unknown) date) nodules in gut + unknown) chest pain T-4 not eating/drink (unknown) (no (unknown) (unknown) Stop: 07/14/22 (units (unknown) date) 13:02 unknown) (unknown) (no (unknown) (unknown) Stop: 07/14/22 (units (unknown) date) 13:18 unknown) (unknown) (no (unknown) (unknown) Stop: 07/14/22 (units (unknown) date) 16:02 unknown) (unknown) (no (unknown) (unknown) Substance Use (units ( unknown) date) Type: does not use unknown) (unknown) (no (unknown) (unknown) Sulfa (Sulfonamide (units (unknown) date) Allergy Unknown unknown) Verified 07/14/22 11:01 (unknown) (no (unknown) (unknown) Surgical History (units (unknown) date) (Reviewed 06/24/22 unknown) @ 09:16 by Gregor Hernandez MD) (unknown) (no (unknown) (unknown) TAKE 1 CAPSULE BY (units (unknown) date) MOUTH ONCE A DAY unknown) (unknown) (no (unknown) (unknown) Temperature 97.9 F (units (unknown) date) 07/14/22 10:40 unknown) (unknown) (no (unknown) (unknown) Throat:?posterior (units (unknown) date) oropharynx normal unknown) (unknown) (no (unknown) (unknown) Time Seen by (units (u nknown) date) Provider: 07/14/22 unknown) 12:15 (unknown) (no (unknown) (unknown) Total Bilirubin (units (unknown) date) (0.2-1.3) mg/dL unknown) (unknown) (no (unknown) (unknown) Total Bilirubin (units (unknown) date) 0.9 (0.2-1.3) mg/dL unknown) (unknown) (no (unknown) (unknown) Total Creatine (units (unknown) date) Kinase < 20 L unknown) (30-135) U/L (unknown) (no (unknown) (unknown) Total Creatine (units (unknown) date) Kinase (30-135) U/L unknown) (unknown) (no (unknown) (unknown) Total Protein (units ( unknown) date) (6.3-8.2) g/dL unknown) (unknown) (no (unknown) (unknown) Total Protein 6.7 (units (unknown) date) (6.3-8.2) g/dL unknown) (unknown) (no (unknown) (unknown) Troponin I < 0.012 (units (unknown) date) (0.01-0.034) ng/mL unknown) (unknown) (no (unknown) (unknown) Troponin I (units (unk nown) date) (0.01-0.034) ng/mL unknown) (unknown) (no (unknown) (unknown) Urine Dip (units (unkn own) date) unknown) (unknown) (no (unknown) (unknown) Urine Specific (units (unknown) date) [place] 1.010 unknown) (unknown) (no (unknown) (unknown) Vital Signs - 8 hr (units (unknown) date) unknown) (unknown) (no (unknown) (unknown) Vital Signs (units (un known) date) unknown) (unknown) (no (unknown) (unknown) Vital signs: (units (u nknown) date) unknown) (unknown) (no (unknown) (unknown) WBC (4.5-11.0) (units (unknown) date) X103/uL unknown) (unknown) (no (unknown) (unknown) WBC 11.0 (units (unkno wn) date) (4.5-11.0) X103/uL unknown) (unknown) (no (unknown) (unknown) Will obtain labs, (units (unknown) date) UA, CT abdomen unknown) pelvis. (unknown) (no (unknown) (unknown) You were evaluated (units (unknown) date) in the ED today for unknown) worsening abdominal pain. Your CT scan (unknown) (no (unknown) (unknown) [Embedded Image (units (unknown) date) Not Available] unknown) (unknown) (no (unknown) (unknown) adenopathy (units (unk nown) date) compared to the unknown) scan on 06/24/2022. You have been referred for a (unknown) (no (unknown) (unknown) alcohol intake (units (unknown) date) frequency: 0-2 unknown) drinks per day (unknown) (no (unknown) (unknown) and Denies (units (unk nown) date) orthopnea unknown) (unknown) (no (unknown) (unknown) and Denies urinary (units (unknown) date) urgency unknown) (unknown) (no (unknown) (unknown) and Denies (units (unk nown) date) weakness unknown) (unknown) (no (unknown) (unknown) and below (units (unkn own) date) unknown) (unknown) (no (unknown) (unknown) beginning of next (units (unknown) date) week. Recommend unknown) oxycodone for the pain. Discussed plan with (unknown) (no (unknown) (unknown) beginning of next (units (unknown) date) week. You may also unknown) give them a call at [phone] tomorrow (unknown) (no (unknown) (unknown) biopsy to be (units (u nknown) date) performed here at unknown) [facility]. They will call patient (unknown) (no (unknown) (unknown) clindamycin (units (un known) date) Allergy Unknown unknown) Verified 07/14/22 11:01 (unknown) (no (unknown) (unknown) constipation, last (units (unknown) date) bowel movement was unknown) 4 days ago. Patient endorses anorexia and (unknown) (no (unknown) (unknown) depression, Denies (units (unknown) date) homicidal ideation unknown) and Denies suicidal ideation (unknown) (no (unknown) (unknown) diarrhea, Reports (units (unknown) date) nausea and Denies unknown) vomiting (unknown) (no (unknown) (unknown) discussed with (units (unknown) date) patient. Patient unknown) verbalized understanding. (unknown) (no (unknown) (unknown) does show (units (unkn own) date) increased size and unknown) necrosis of retroperitoneal and mesenteric root (unknown) (no (unknown) (unknown) dysuria, (units (unkno wn) date) lightheadedness, unknown) dizziness, syncope. Patient also endorses (unknown) (no (unknown) (unknown) estradiol 0.5 mg (units (unknown) date) tablet 0.5 mg PO unknown) DAILY 09/07/19 09/20/19 (unknown) (no (unknown) (unknown) estradiol 0.5 mg (units (unknown) date) tablet unknown) (unknown) (no (unknown) (unknown) falls, Denies (units ( unknown) date) lethargy, Reports unknown) poor appetite, Denies weakness and Reports (unknown) (no (unknown) (unknown) for a procedure (units (unknown) date) that might be unknown) scheduled either at the end of this week or the (unknown) (no (unknown) (unknown) household members: (units (unknown) date) spouse unknown) (unknown) (no (unknown) (unknown) hydrocodone 5 (units ( unknown) date) mg-acetaminophen unknown) 325 1 tab PO Q6H PRN pain #20 tabs 06/24/22 (unknown) (no (unknown) (unknown) hydrocodone-acetam (units (unknown) date) inophen 5-325 mg unknown) tablet (unknown) (no (unknown) (unknown) lightheadedness, (units (unknown) date) Denies unknown) palpitations, Denies dyspnea, Denies dyspnea on exertion (unknown) (no (unknown) (unknown) lisinopril 5 mg (units (unknown) date) tablet 5 mg PO unknown) DAILY #30 tabs 09/10/19 (unknown) (no (unknown) (unknown) lisinopril 5 mg (units (unknown) date) tablet unknown) (unknown) (no (unknown) (unknown) malignancy (units (unk nown) date) including lymphoma. unknown) Concern for worsening adenopathy versus (unknown) (no (unknown) (unknown) malignancy (units (unk nown) date) including lymphoma. unknown) Last CT was on 07/07/22 at [facility]. (unknown) (no (unknown) (unknown) malignancy versus (units (unknown) date) constipation versus unknown) other acute intra-abdominal pathology. (unknown) (no (unknown) (unknown) metformin 500 mg (units (unknown) date) tablet extended unknown) release 24hr (unknown) (no (unknown) (unknown) metformin 500 mg (units (unknown) date) tablet,extended 500 unknown) mg PO DAILY #30 tabs 09/10/19 (unknown) (no (unknown) (unknown) mg tablet (units (unkn own) date) unknown) (unknown) (no (unknown) (unknown) morning. You may (units (unknown) date) take oxycodone for unknown) the pain. Please return to the ED if your (unknown) (no (unknown) (unknown) neck pain, Denies (units (unknown) date) sore throat and unknown) Denies throat swelling (unknown) (no (unknown) (unknown) necrosis of (units (un known) date) retroperitoneal and unknown) mesenteric root adenopathy compared to June. (unknown) (no (unknown) (unknown) needle biopsy as (units (unknown) date) ordered by your unknown) primary care doctor Dr. Reyes. Our (unknown) (no (unknown) (unknown) omeprazole 20 mg (units (unknown) date) capsule,delayed 20 unknown) mg PO DAILY 09/07/19 03/24/22 (unknown) (no (unknown) (unknown) omeprazole 20 mg (units (unknown) date) capsule,delayed unknown) release(DR/EC) (unknown) (no (unknown) (unknown) ondansetron 4 mg (units (unknown) date) disintegrating 4 mg unknown) PO Q8H PRN nausea and 06/24/22 (unknown) (no (unknown) (unknown) ondansetron 4 mg (units (unknown) date) tablet,disintegrati unknown) ng (unknown) (no (unknown) (unknown) oxybutynin (units (unk nown) date) chloride 5 mg unknown) tablet 5 mg PO DAILY 09/07/19 03/24/22 (unknown) (no (unknown) (unknown) oxybutynin (units (unk nown) date) chloride 5 mg unknown) tablet (unknown) (no (unknown) (unknown) patient and (units (un known) date) patient's daughter. unknown) They were appreciative of the care and clarity (unknown) (no (unknown) (unknown) patient states (units (unknown) date) that her PCP unknown) Eric has ordered a needle biopsy which is (unknown) (no (unknown) (unknown) radiologist has (units (unknown) date) approved your unknown) procedure to be performed at the [facility], (unknown) (no (unknown) (unknown) release 24hr (units (u nknown) date) unknown) (unknown) (no (unknown) (unknown) release (units (unkno wn) date) unknown) (unknown) (no (unknown) (unknown) required prior to (units (unknown) date) referral to unknown) Oncology. Patient states she is unclear as to (unknown) (no (unknown) (unknown) simvastatin 10 mg (units (unknown) date) tablet 10 mg PO unknown) DAILY 09/07/19 03/24/22 (unknown) (no (unknown) (unknown) simvastatin 10 mg (units (unknown) date) tablet unknown) (unknown) (no (unknown) (unknown) symptoms worsen, (units (unknown) date) you are unknown) persistently vomiting, you experience fevers, chills. (unknown) (no (unknown) (unknown) tablet vomiting (units (unknown) date) #10 tabs unknown) (unknown) (no (unknown) (unknown) that they received (units (unknown) date) today regarding unknown) next steps. ED return precautions were (unknown) (no (unknown) (unknown) the inability to (units (unknown) date) eat very much. unknown) Patient has had unintentional weight loss. (unknown) (no (unknown) (unknown) to posterior (units (u nknown) date) mediastinum above unknown) the diaphragm. (unknown) (no (unknown) (unknown) tomorrow to (units (un known) date) schedule the unknown) procedure for either the end of this week or the (unknown) (no (unknown) (unknown) weight loss (units (un known) date) unknown) (unknown) (no (unknown) (unknown) wheezing (units (unkno wn) date) unknown) (unknown) (no (unknown) (unknown) when she can get (units (unknown) date) the biopsy. unknown) Meanwhile, patient's abdominal pain has worsened. (unknown) (no (unknown) (unknown) you will be (units (un known) date) [place] Interventional Radiology tomorrow to schedule Social History date description facility 2022-06-24 00:00 Ex-smoker (finding) [facility] Vital Signs date measurement value units 2022-06-24 [...]
[2022-08-06 00:35] LABS: BASOPHILS # (AUTO) 0.1 10^3/uL (0.0-0.1); BASOPHILS % (AUTO) 0.7 %; EOSINOPHILS # (AUTO) 0.3 10^3/uL (0.0-0.7); HCT - HEMATOCRIT 38.2 % (37.0-47.0); HGB - HEMOGLOBIN 12.5 g/dL (12.0-16.0); LYMPHOCYTES # (AUTO) 0.8 10^3/uL (1.5-3.5); MEAN CORPUSCULAR HEMOGLOBIN 28.6 pg (27.0-31.0); MEAN CORPUSCULAR HGB CONC 32.7 g/dL (32.0-36.0); MEAN CORPUSCULAR VOLUME 87.4 fL (81.0-99.0); MEAN PLATELET VOLUME 10.1 fL (7.9-10.8); MONOCYTES # (AUTO) 1.3 10^3/uL (0.0-1.0); NEUTROPHILS # (AUTO) 8.6 10^3/uL (1.5-6.6); PLT - PLATELET COUNT 434 10^3/uL (130-450); RED BLOOD COUNT 4.37 10^6/uL (4.20-5.40); RED CELL DISTRIBUTION WIDTH 12.4 % (12.0-15.0); WHITE BLOOD COUNT 11.1 x10^3/uL (4.8-10.8)
[2022-08-06 00:49] LABS: ALBUMIN 3.3 g/dL (3.2-5.5); ALBUMIN/GLOBULIN RATIO 0.9 (1.0-2.2); BILIRUBIN,TOTAL 0.6 mg/dL (0.2-1.0); CALCIUM 9.3 mg/dL (8.5-10.3); CREATININE 0.8 mg/dL (0.4-1.0); POTASSIUM 4.2 mmol/L (3.5-5.0); TOTAL PROTEIN 6.8 g/dL (6.7-8.2)
[2022-08-06 02:07] VITALS: BP 132/65
== END 2022-08-06 02:07 | disposition home or self-care (01) ==
LOC: ED 23:27
DX: R10.84 Generalized abdominal pain (principal); R11.10 Vomiting, unspecified; I10 Essential (primary) hypertension; E78.00 Pure hypercholesterolemia, unspecified; E11.9 Type 2 diabetes mellitus without complications; Z79.84 Long term (current) use of oral hypoglycemic drugs; Z79.899 Other long term (current) drug therapy
CPT/HCPCS: 36415; 80053; 83690; 85025; 96374; 96375; 99284; J2765

== ENCOUNTER 2022-08-07 10:10 | Day surgery (SDC) | payer MEDICARE, OTHER ==
[2022-08-07] MEDS ORDERED: ONDANSETRON 4 MG/2 ML VIAL ONE (10:45)
[2022-08-07] MEDS ORDERED: LACTATED RINGERS 1,000 ML IV ONE ×2 (10:47→14:03)
[2022-08-07] MEDS ORDERED: LIDOCAINE MPF 2%-EPI 1:200000 20 ML VIAL ONE (11:23)
[2022-08-07] MEDS ORDERED: BUPIVACAINE 0.25% PF 30 ML VIAL ONE (11:24)
[2022-08-07] MEDS ORDERED: PROPOFOL 500 MG/50 ML 500 MG/50 ML VIAL ONE ×2 (11:31)
[2022-08-07] MEDS ORDERED: diphenhydrAMINE INJ 50 MG/ML VIAL ONE (11:31)
[2022-08-07] MEDS ORDERED: MIDAZOLAM 2 MG/2 ML VIAL ONE (11:31)
[2022-08-07] MEDS ORDERED: DEXAMETHASONE 4 MG/ML VIAL ONE (11:31)
[2022-08-07] MEDS ORDERED: fentaNYL 100 MCG/2 ML VIAL IVP PRN (11:42)
[2022-08-07] MEDS ORDERED: MORPHINE 2 MG/ML CARPUJECT IVP PRN (11:42)
[2022-08-07] MEDS ORDERED: ONDANSETRON 4 MG/2 ML VIAL IVP PRN ×2 (11:42→13:57)
[2022-08-07] MEDS ORDERED: METOCLOPRAMIDE 10 MG/2 ML VIAL IVP PRN (11:42)
[2022-08-07] MEDS ORDERED: ePHEDrine 50 MG/ML VIAL IVP PRN (11:42)
[2022-08-07] MEDS ORDERED: NALOXONE 0.4 MG/ML VIAL IVP PRN (11:42)
[2022-08-07] MEDS ORDERED: ATROPINE ABBOJECT 1 MG/10 ML SYRINGE IVP PRN (11:42)
[2022-08-07] MEDS ORDERED: HYDROmorphone 0.5 MG/0.5 ML SYRINGE IVP PRN ×2 (11:42→13:57)
--- NOTE | 2022-08-07 11:42 | ANESTHESIA ---
Pre-Anesthesia VS, & Labs - Diagnosis B cell lymphoma - Procedure Port placement Vital Signs: Temp Pulse Resp BP Pulse Ox O2 Flow Rate 36.1 C L 88 12 145/69 H 97 08/07/22 10:47 08/07/22 10:47 08/07/22 10:47 08/07/22 10:47 08/07/22 10:47 Height: 5 ft 8.5 in Weight (kg): 78 kg Body Mass Index: 25.7 BMI Classification: Overweight - NPO >8 hours - Is Patient ?: No - Lab Results Current Lab Results: Laboratory Tests 08/07/22 11:17: POC Whole Bld Glucose 129 H Home Medications and Allergies Home Medications: Ambulatory Orders lisinopriL [Zestril] 5 mg PO DAILY 08/06/22 Omeprazole 20 mg PO DAILY 12/28/21 Oxybutynin [Ditropan] 5 mg PO DAILY 12/28/21 Simvastatin [Zocor] 10 mg PO DAILY 12/28/21 metFORMIN [Glucophage] 500 mg PO BIDWM 12/28/21 Metoclopramide [Reglan] 10 mg PO Q6H PRN 08/05/22 Ondansetron Odt [Zofran Odt] 2 tab PO Q8H PRN 08/05/22 lisinopriL [Zestril] 5 mg PO DAILY 08/06/22 Allergies/Adverse Reactions: Allergies Allergy/AdvReac Type Severity Reaction Status Date / Time clindamycin Allergy Hives Verified 08/07/22 11:30 Penicillins Allergy Edema Verified 08/07/22 11:30 Sulfa (Sulfonamide Allergy Rash Verified 08/07/22 11:30 Antibiotics) Anes History & Medical History - Anesthetic History Anesthesia Complications: reports: No previous complications Family history of Anesthesia Complications: Denies Family history of Malignant Hyperthermia: Denies - Medical History Cardiovascular: reports: Hypertension, High cholesterol Pulmonary: reports: Asthma Gastrointestinal: reports: GERD, Hiatal hernia, Other (nausea, wt loss) Urinary: reports: Incontinence Musculoskeletal: reports: None Endocrine/Autoimmune: reports: Type 2 diabetes Blood Disorders: reports: None Skin: reports: None Smoking Status: Never smoker Psychosocial: reports: Alcohol History of Cancer?: Yes - Surgical History General: reports: Cholecystectomy, Hiatal hernia repair Gynecologic: reports: Hysterectomy Exam General: Alert, Oriented x3, Cooperative Dental: WNL Mouth Openin Fingerbreadth Neck Mobility: Normal Thyromental Distance: 4-6 cm Respiratory: Lungs clear Cardiovascular: Regular rate Plan Anesthesia Type: General, Total IV Consent for Procedure(s) Verified and Reviewed: Yes Code Status: Attempt Resuscitation ASA classification: 4-Incapacitating disease Is this case an emergency?: No
[2022-08-07] MEDS ORDERED: LACTATED RINGERS 1,000 ML IV SCH (12:00)
[2022-08-07] MEDS ORDERED: ONDANSETRON 4 MG/2 ML VIAL IVP SCH (12:00)
[2022-08-07] MEDS ORDERED: PROPOFOL 200 MG/20 ML VIAL IVP ONE (12:34)
--- NOTE | 2022-08-07 12:38 | HISTORY & PHYSICAL EXAMINATION ---
Chief Complaint - Chief Complaint Chief Complaint: abdominal and back pain History of Present Illness - History Obtained From Records Reviewed: yes History obtained from: pt Exam Limitations: none - History of Present Illness HPI Comment/Other: symptomatic lymphoma and need for chemotherapy and port History - Past Medical History Cardiovascular: reports: Hypertension, High cholesterol Respiratory: reports: Asthma Endocrine/Autoimmune: reports: Type 2 diabetes GI: reports: GERD, Hiatal hernia, Other (nausea, wt loss) SHEET FOLDER: reports: None : reports: Incontinence HEENT: reports: None Psych: reports: None Musculoskeletal: reports: None Derm: reports: None MRSA Hx?: No - Past Surgical History General: reports: Cholecystectomy, Hiatal hernia repair /SHEET FOLDER: reports: Hysterectomy Meds/Allgy - Home Medications Home Medications: Ambulatory Orders Medication Instructions Recorded Confirmed Omeprazole 20 mg PO DAILY 12/28/21 08/06/22 Oxybutynin [Ditropan] 5 mg PO DAILY 12/28/21 08/06/22 Simvastatin [Zocor] 10 mg PO DAILY 12/28/21 08/06/22 metFORMIN [Glucophage] 500 mg PO BIDWM 12/28/21 08/06/22 Docusate Sodium 100Mg Capsule 100 mg PO DAILY #20 cap 07/11/22 08/06/22 [Colace 100Mg Capsule] Metoclopramide [Reglan] 10 mg PO Q6H PRN 08/05/22 08/06/22 Ondansetron Odt [Zofran Odt] 2 tab PO Q8H PRN 08/05/22 08/06/22 Oxycodone HCl/Acetaminophen 1 each PO Q4H PRN #10 tablet 08/06/22 08/06/22 [Percocet 10-325 mg Tablet] Prochlorperazine Supp [Compazine 25 mg MI BID PRN #8 supp 08/06/22 08/06/22 Supp] lisinopriL [Zestril] 5 mg PO DAILY 08/06/22 08/06/22 - Allergies Allergies/Adverse Reactions: Allergies Allergy/AdvReac Type Severity Reaction Status Date / Time clindamycin Allergy Hives Verified 08/07/22 11:30 Penicillins Allergy Edema Verified 08/07/22 11:30 Sulfa (Sulfonamide Allergy Rash Verified 08/07/22 11:30 Antibiotics) Review of Systems - Other Findings Other Findings: 10 pt ros as above otherwise unremarkable Exam - Vital Signs Reviewed Vital Signs: Yes Vital Signs: Vital Signs x48h Temp Pulse Resp BP Pulse Ox 08/07/22 10:47 36.1 C L 88 12 145/69 H 97 - Physical Exam General Appearance: positive: No acute distress Eyes Bilateral: positive: PERRL, EOMI ENT: positive: No signs of dehydration Neck: positive: No JVD, Trachea midline Respiratory: positive: No respiratory distress, Breath sounds nml Cardiovascular: positive: Regular rate & rhythm Abdomen: positive: No distention Neurologic/Psychiatric: positive: Oriented x3 Conclusion/Plan - Problem List (1) Lymphoma Conclusion/Plan: need for chemotherapy and port. she is very allergic to several antibiotics. plan no antibiotics. parq held and consent obtained
[2022-08-07] MEDS ORDERED: BUPIVACAINE 0.25% PF 30 ML VIAL SUBQ ONE ×2 (13:39)
[2022-08-07] MEDS ORDERED: LIDOCAINE 2%-EPI 1:100000 20 ML MDV SUBQ ONE ×2 (13:39)
[2022-08-07] MEDS ORDERED: oxyCODONE 5 MG TABLET PO PRN (13:57)
--- NOTE | 2022-08-07 14:01 | OPERATIVE REPORT ---
Operative Report - General Procedure Date: 08/07/22 Planned Procedure: power port placement Pre-Op Diagnosis: lymphoma Procedure Performed: right subclavian power port placement fluoroscopic guidance Post Op Diagnosis: lymphoma - Procedure Note Primary Surgeon: dione rodríguez Anesthesia Technique: Local, MAC Pathology: none Estimated Blood Loss (mL): 5 Drain/Tube Type: Other (none) Indications: port needed for chemotherapy Findings: good placement with tip at junction svc and atrium good flush and flow Complications: none - Other Other Information/Narrative: The patient was properly identified brought to the operating room and placed in supine position. Monitored anesthesia care was given as well as IV sedation. A towel roll was placed under the upper back. The patient was prepped and draped in a sterile fashion and given preoperative antibiotics. Local anesthetic was given. The left subclavian vein was easily accessed first pass with a needle; however, guidewire would not feed more thant 6 cm. The right subclavian vein was then easily accessed. Guide wire placed and position confirmed. A subcutaneous pocket on the right upper chest was created measuring approximately 2-1/2 cm. Portacatheter tubing was then placed subcutaneous up to the venous access point. The portacatheter tubing was then easily placed with the use of a dilator peel-away sheath. The tubing was aspirated and flushed with saline. Under fluoroscopic guidance the tubing was pulled back to the junction of the atrium and the superior vena cava. The portacatheter aspirated and flushed easily assuring good position. The portacatheter was then cut to size and further assembled. The port was secured to subcutaneous tissue with 2 interrupted 4-0 Prolene sutures. The port again was aspirated and flushed now with heparin. Buried interrupted subdermal 3-0 Vicryl sutures were then placed. Skin was closed with buried interrupted and running 4-0 Monocryl subcuticular suture. Dressing was applied. The patient tolerated the procedure well was awakened and brought to recovery in good condition.
[2022-08-07 14:42] VITALS: BP 143/67
--- NOTE | 2022-08-07 16:16 | ANESTHESIA POST OP EVALUATION ---
Anesthesia Post Eval - Post Anesthesia Eval Vitals: Last Vital Signs Temp 36.0 C L 08/07/22 14:41 Pulse 81 08/07/22 14:41 Resp 14 08/07/22 14:41 BP 143/67 H 08/07/22 14:41 Pulse Ox 100 08/07/22 14:41 O2 Flow Rate CV Function Including HR & BP: Stable Pain Control: Satisfactory Nausea & Vomiting: Negative Mental Status: Baseline Respiratory Status: Airway Patent Hydration Status: Satisfactory Anesthesia Complications: None
--- NOTE | 2022-08-07 16:53 | XRAY Report ---
PROCEDURE: OR Port-A-Cath INDICATIONS: PORT-A-CATH PLACEMENT FLUORO TIME: 0.4 TECHNIQUE: Real time fluoroscopy was performed of the thorax. COMPARISON: None. FINDINGS: Limited intraoperative images demonstrate distal aspect of a catheter overlying the distal SVC/right atrial junction. IMPRESSION: Distal aspect of presumed Port-A-Cath overlies distal SVC/right atrial junction. Reviewed by: Citlalli Ramirez MD on 08/07/2022 4:52 PM PDT Approved by: Citlalli Ramirez MD on 08/07/2022 4:52 PM PDT Station ID: [id number]
== END 2022-08-07 10:11 | disposition home or self-care (01) ==
LOC: SDS 10:10
PROVIDERS: ATTEND Surgery
DX: C85.10 Unspecified B-cell lymphoma, unspecified site (principal); I10 Essential (primary) hypertension; J45.909 Unspecified asthma, uncomplicated; E11.9 Type 2 diabetes mellitus without complications; Z79.84 Long term (current) use of oral hypoglycemic drugs
CPT/HCPCS: 36561; C1788; J1200; J7120

== ENCOUNTER 2022-09-25 15:07 | Outpatient (CLI) | payer MEDICARE, OTHER ==
[2022-09-25 15:19] LABS: BASOPHILS % (AUTO) 0.8 %; EOSINOPHILS # (AUTO) 0.2 10^3/uL (0.0-0.7); EOSINOPHILS % (AUTO) 3.8 %; HCT - HEMATOCRIT 35.5 % (37.0-47.0); HGB - HEMOGLOBIN 11.8 g/dL (12.0-16.0); LYMPHOCYTES # (AUTO) 0.4 10^3/uL (1.5-3.5); LYMPHOCYTES % (AUTO) 7.7 %; MEAN CORPUSCULAR HEMOGLOBIN 29.7 pg (27.0-31.0); MEAN CORPUSCULAR HGB CONC 33.2 g/dL (32.0-36.0); MEAN CORPUSCULAR VOLUME 89.4 fL (81.0-99.0); MEAN PLATELET VOLUME 9.8 fL (7.9-10.8); MONOCYTES # (AUTO) 0.7 10^3/uL (0.0-1.0); MONOCYTES % (AUTO) 14.9 %; NEUTROPHILS # (AUTO) 3.6 10^3/uL (1.5-6.6); NEUTROPHILS % (AUTO) 72.6 %; PLT - PLATELET COUNT 217 10^3/uL (130-450); RED BLOOD COUNT 3.97 10^6/uL (4.20-5.40); RED CELL DISTRIBUTION WIDTH 15.8 % (12.0-15.0)
[2022-09-25 15:27] LABS: ESTIMATED AVERAGE GLUCOSE 123 mg/dL (70-100); HEMOGLOBIN A1c% 5.9 % (4.27-6.07)
[2022-09-25 15:38] LABS: ALBUMIN 3.5 g/dL (3.2-5.5); ALBUMIN/GLOBULIN RATIO 1.3 (1.0-2.2); ALKALINE PHOSPHATASE 57 IU/L (42-121); ALT ALANINE AMINOTRANSFERASE 15 IU/L (10-60); AST ASPARTATE AMINOTRANSFERASE 17 IU/L (10-42); BILIRUBIN,TOTAL 0.6 mg/dL (0.2-1.0); BUN - BLOOD UREA NITROGEN 10 mg/dL (6-20); CALCIUM 9.1 mg/dL (8.5-10.3); CARBON DIOXIDE - CO2 28 mmol/L (21-32); CHLORIDE 108 mmol/L (101-111); CHOL/HDL RATIO 2.5 (<4.4); CHOLESTEROL 166 mg/dL; GFR - MDRD 53 (>89); GLUCOSE 131 mg/dL (70-100); HDL CHOLESTEROL 67 mg/dL; LDL CHOLESTEROL,CALCULATED 58 mg/dL; LDL/HDL RATIO 0.9 (<4.4); POTASSIUM 3.9 mmol/L (3.5-5.0); SODIUM 141 mmol/L (135-145); TOTAL PROTEIN 6.2 g/dL (6.7-8.2); TRIGLYCERIDES 207 mg/dL; VLDL CHOLESTEROL 41 mg/dL
== END 2022-09-25 15:08 | disposition home or self-care (01) ==
LOC: LAB 15:07
PROVIDERS: ATTEND Nurse Practitioner Gerontology
DX: E11.9 Type 2 diabetes mellitus without complications (principal); E78.5 Hyperlipidemia, unspecified; C85.10 Unspecified B-cell lymphoma, unspecified site
CPT/HCPCS: 36415; 80053; 80061; 83036; 83721; 85025